=== PATIENT | female | born 1965 | race Caucasian/White ===

== ENCOUNTER → 2018-10-17 14:50 | Outpatient (CLI) | payer OTHER, SELFPAY ==
--- NOTE | 2018-10-17 14:54 | BI_ITS ---
MAMMOGRAPHY - BILATERAL SCREENING REASON FOR EXAM: Female, 53 years old. Routine annual screening examination. PERTINENT HISTORY: Mother with breast cancer. TECHNIQUE: Digital bilateral breast diane (3D mammographic acquisition) in the CC and MLO projections. 2-D mediolateral oblique (MLO) and craniocaudad (CC) views of both breasts were obtained. CAD: Full Field Digital Mammography with Computer Added Detection was performed. COMPARISON: Comparison is made with prior examination dated October 17, 2016 and March 14, 2015. FINDINGS: Breast Composition: There are scattered areas of fibroglandular density. There are no dominant masses or suspicious calcifications. A tissue clip marker is once again seen in the upper midportion of the left breast at approximately the 12:00 position. No other significant abnormalities are identified. There has been no significant change since the prior study. BI/SCREENING MAMM (CAD), BILAT IMPRESSION: Stable bilateral screening mammogram. Yearly follow-up mammogram recommended. (A) ASSESSMENT CATEGORY: BIRADS Category 2: Benign. A letter regarding these results will be sent to the patient by the facility within 30 days. Approximately 10% of breast cancers are not detected by mammography. A normal mammogram should not delay biopsy of a clinically suspicious abnormality. [id number] Electronically Signed: Brant Cherry MD at 13:07 EST Tel [phone], Service support ,
== END ==
PROVIDERS: Family Provider Nurse Practitioner; PCP Nurse Practitioner; Referring Provider Specialist; Visit Provider Specialist
DX: Z12.31 Encounter for screening mammogram for malignant neoplasm of breast (principal); Z80.3 Family history of malignant neoplasm of breast
CPT/HCPCS: 77063; 77067

== ENCOUNTER → 2019-10-20 07:27 | Outpatient (CLI) | payer OTHER, SELFPAY ==
--- NOTE | 2019-10-20 07:29 | BI_ITS ---
MAMMOGRAPHY - BILATERAL SCREENING REASON FOR EXAM: Female, 54 years old. Routine annual screening examination. PERTINENT HISTORY: Mother with breast cancer. Remote left stereotactic breast biopsy. TECHNIQUE: Digital bilateral breast fariha (3D mammographic acquisition) in the CC and MLO projections. 2-D mediolateral oblique (MLO) and craniocaudad (CC) views of both breasts were obtained. CAD: Full Field Digital Mammography with Computer Added Detection was performed. COMPARISON: Comparison is made with prior study dated October 17, 2018 and July 14, 2015. FINDINGS: Breast Composition: There are scattered areas of fibroglandular density. There are no dominant masses or suspicious calcifications. A tissue clip marker is once again seen in the upper midportion of the left breast. No other significant abnormalities are identified. There has been no significant change since the prior study. BI/SCREEN MAMM (CAD) W/FARIHA BILAT IMPRESSION: Stable bilateral screening mammogram. Yearly follow-up mammogram recommended. (A) ASSESSMENT CATEGORY: BIRADS Category 2: Benign. A letter regarding these results will be sent to the patient by the facility within 30 days. Approximately 10% of breast cancers are not detected by mammography. A normal mammogram should not delay biopsy of a clinically suspicious abnormality. [id number] Electronically Signed: Brant Cherry, at 8:45 EST , Service support ,
== END ==
PROVIDERS: Family Provider Nurse Practitioner; PCP Nurse Practitioner; Referring Provider Specialist; Visit Provider Specialist
DX: Z12.31 Encounter for screening mammogram for malignant neoplasm of breast (principal)
CPT/HCPCS: 77063; 77067

== ENCOUNTER → 2020-10-21 07:03 | Outpatient (CLI) | payer OTHER, SELFPAY ==
--- NOTE | 2020-10-21 07:10 | BI_ITS ---
MAMMOGRAPHY - BILATERAL SCREENING REASON FOR EXAM: Female, 55 years old. Routine annual screening examination. PERTINENT HISTORY: Mother with breast cancer. Remote left stereotactic breast biopsy. TECHNIQUE: Digital bilateral breast fariha (3D mammographic acquisition) in the CC and MLO projections. 2-D mediolateral oblique (MLO) and craniocaudad (CC) views of both breasts were obtained. CAD: Full Field Digital Mammography with Computer Added Detection was performed. COMPARISON: Comparison is made with prior study dated 10/20/2019 and 10/17/2018. FINDINGS: Breast Composition: There are scattered areas of fibroglandular density. There are no dominant masses or suspicious calcifications. Patient clip markers once again seen in the upper midportion of the left breast. No other significant abnormalities are identified. There has been no significant change since the prior study. BI/SCREEN MAMM (CAD) W/FARIHA BILAT IMPRESSION: Stable bilateral screening mammogram. Yearly follow-up mammogram recommended. (A) ASSESSMENT CATEGORY: BIRADS Category 2: Benign. A letter regarding these results will be sent to the patient by the facility within 30 days. Approximately 10% of breast cancers are not detected by mammography. A normal mammogram should not delay biopsy of a clinically suspicious abnormality. [id number] Electronically Signed: Brant Cherry, at 8:32 EST , Service support ,
== END ==
PROVIDERS: PCP Nurse Practitioner; Referring Provider Specialist; Visit Provider Specialist
DX: Z12.31 Encounter for screening mammogram for malignant neoplasm of breast (principal); Z80.3 Family history of malignant neoplasm of breast
CPT/HCPCS: 77063; 77067

== ENCOUNTER → 2021-10-11 09:05 | Outpatient (CLI) | payer OTHER, SELFPAY ==
--- NOTE | 2021-10-11 09:10 | BI_ITS ---
MAMMOGRAPHY - BILATERAL SCREENING REASON FOR EXAM: Female, 56 years old. Routine annual screening examination. PERTINENT HISTORY: Mother with breast cancer. Remote left stereotactic breast biopsy. TECHNIQUE: Digital bilateral breast fariha (3D mammographic acquisition) in the CC and MLO projections. 2-D mediolateral oblique (MLO) and craniocaudad (CC) views of both breasts were obtained. CAD: Full Field Digital Mammography with Computer Added Detection was performed. COMPARISON: Comparison is made with prior study 10/21/2020 and 10/20/2019. FINDINGS: Breast Composition: There are scattered areas of fibroglandular density. There are no dominant masses or suspicious calcifications. A tissue clip marker is once again seen in the upper central portion of the left breast. No other significant abnormalities are identified. There has been no significant change since the prior study. BI/SCRN MAMM (CAD)W/FARIHA BILAT IMPRESSION: Stable bilateral screening mammogram. Yearly follow-up mammogram recommended. (A) ASSESSMENT CATEGORY: BIRADS Category 2: Benign. A letter regarding these results will be sent to the patient by the facility within 30 days. Approximately 10% of breast cancers are not detected by mammography. A normal mammogram should not delay biopsy of a clinically suspicious abnormality. [id number] Electronically Signed: Brant Cherry MD at 10:24 EST , Service support ,
== END ==
PROVIDERS: PCP Nurse Practitioner; Referring Provider Specialist; Visit Provider Specialist
DX: Z12.31 Encounter for screening mammogram for malignant neoplasm of breast (principal); Z80.3 Family history of malignant neoplasm of breast
CPT/HCPCS: 77063; 77067

== ENCOUNTER → 2022-11-06 | Outpatient (CLI) | payer OTHER, SELFPAY ==
--- NOTE | 2022-11-06 07:18 | BI_ITS ---
MAMMOGRAPHY - BILATERAL SCREENING REASON FOR EXAM: Female, 57 years old. Routine annual screening examination. PERTINENT HISTORY: Mother with breast cancer. TECHNIQUE: Digital bilateral breast fariha (3D mammographic acquisition) in the CC and MLO projections. 2-D mediolateral oblique (MLO) and craniocaudad (CC) views of both breasts were obtained. CAD: Full Field Digital Mammography with Computer Added Detection was performed. COMPARISON: Comparison is made with prior study 10/11/2021 and 10/21/2020. FINDINGS: Breast Composition: There are scattered areas of fibroglandular density. There are no dominant masses or suspicious calcifications. A tissue clip marker is once again seen in the upper central portion of the left breast. No other significant abnormalities are identified. There has been no significant change since the prior study. BI/SCRN MAMM (CAD)W/FARIHA BILAT IMPRESSION: Stable bilateral screening mammogram. Yearly follow-up mammogram recommended. (A) ASSESSMENT CATEGORY: BIRADS Category 2: Benign. A letter regarding these results will be sent to the patient by the facility within 30 days. Approximately 10% of breast cancers are not detected by mammography. A normal mammogram should not delay biopsy of a clinically suspicious abnormality. [id number] Electronically Signed: Brant Cherry MD at 8:51 EST ,
== END | disposition home or self-care (01) ==
LOC: OPBI 07:16
PROVIDERS: PCP Nurse Practitioner Family; Referring Provider Specialist; Visit Provider Specialist
DX: Z12.31 Encounter for screening mammogram for malignant neoplasm of breast (principal); Z80.3 Family history of malignant neoplasm of breast
CPT/HCPCS: 77063; 77067

== ENCOUNTER → 2023-08-14 | Outpatient (CLI) | payer OTHER, SELFPAY ==
--- NOTE | 2023-08-14 08:09 | BD_ITS ---
STUDY: DUAL ENERGY X-RAY ABSORPTIOMETRY / DXA REASON FOR EXAM: Female, 57 years old. [id number] TECHNIQUE: Bone Mineral Density (BMD) measurements of lumbar spine and bilateral hips were obtained. COMPARISON: Comparison is made with prior study dated October 08, 2017. FINDINGS: Lumbar Spine (L1-L4): g/cm2 (1.056) / T-score (0.1) / Z-score (1.4) Findings are suggestive of normal bone density with a low fracture risk. Left Femur Total: g/cm2 (1.088) / T-score (1.2) / Z-score (2.1) Left Femoral Neck: g/cm2 (0.931) / T-score (0.7) / Z-score (2.0) Right Femur Total: g/cm2 (1.091) / T-score (1.2) / Z-score (2.1) Right Femoral Neck: g/cm2 (0.886) / T-score (0.3) / Z-score (1.6) The T-Scores on the most recent prior examination were: Lumbar Spine (L1-L4): There has been worsening of bone density since the previous examination. Left Femur Total: which represents a worsening of 9.9%. Right Femur Total: which represents a worsening of 7.9%. BD/Dexa Bone Density Study IMPRESSION: The patient is considered normal as outlined below according to World Tarun Organization (WHO) criteria with a low fracture risk. There has been worsening of bone density since the previous examination. Reference Information: The T-score is the number of standard deviations above or below the standard which is normal for young adults at their peak bone mineral density. The World Health Organization (WHO) interprets the T-scores as follows: Above -1 Normal bone density Between -1 and -2.5 Osteopenia Equal to / or below -2.5 Osteoporosis As a practical clinical guideline, osteopenia may be graded as follows: Mild -1 through -1.5 Moderate -1.6 through -2.0 Severe -2.1 through -2.4 The Z-score is the number of standard deviations above or below age-matched controls. A Z-score of less than -1.5 would be considered abnormal. References: 1. NIH Osteoporosis and Related Bone Diseases www osteo.org 2. International Society for Clinical Densitometry www iscd.org 3. National Osteoporosis Foundation www nof.org Electronically Signed: Brant Cherry MD at 13:29 EDT ,
== END | disposition home or self-care (01) ==
LOC: OPBD 07:59
PROVIDERS: PCP Nurse Practitioner Family; Referring Provider Nurse Practitioner Family; Visit Provider Nurse Practitioner Family
DX: Z78.0 Asymptomatic menopausal state (principal)
CPT/HCPCS: 77080

== ENCOUNTER → 2023-11-08 | Outpatient (CLI) | payer OTHER, SELFPAY ==
--- NOTE | 2023-11-08 07:37 | BI_ITS ---
MAMMOGRAPHY - BILATERAL SCREENING REASON FOR EXAM: Female, 58 years old. Routine annual screening examination. PERTINENT HISTORY: Mother with breast cancer. Remote left stereotactic breast biopsy. TECHNIQUE: Digital bilateral breast fariha (3D mammographic acquisition) in the CC and MLO projections. 2-D mediolateral oblique (MLO) and craniocaudad (CC) views of both breasts were obtained. CAD: Full Field Digital Mammography with Computer Added Detection was performed. COMPARISON: Comparison is made with prior study November 06, 2022 and October 11, 2021. FINDINGS: Breast Composition: There are scattered areas of fibroglandular density. There are no dominant masses or suspicious calcifications. A tissue clip marker is once again seen in the upper central portion of the left breast. No other significant abnormalities are identified. There has been no significant change since the prior study. BI/SCRN MAMM (CAD)W/FARIHA BILAT IMPRESSION: Stable bilateral screening mammogram. Yearly follow-up mammogram recommended. (A) ASSESSMENT CATEGORY: BIRADS Category 2: Benign. A letter regarding these results will be sent to the patient by the facility within 30 days. Approximately 10% of breast cancers are not detected by mammography. A normal mammogram should not delay biopsy of a clinically suspicious abnormality. [id number] Electronically Signed: Brant Cherry MD at 9:35 EST ,
== END | disposition home or self-care (01) ==
LOC: OPBI 07:36
PROVIDERS: PCP Nurse Practitioner Family; Referring Provider Specialist; Visit Provider Specialist
DX: Z12.31 Encounter for screening mammogram for malignant neoplasm of breast (principal); Z80.3 Family history of malignant neoplasm of breast
CPT/HCPCS: 77063; 77067

== ENCOUNTER → 2024-11-12 | Outpatient (CLI) | payer OTHER, SELFPAY ==
--- NOTE | 2024-11-12 07:12 | BI_ITS ---
MAMMOGRAPHY - BILATERAL SCREENING REASON FOR EXAM: Female, 59 years old. Routine annual screening examination. PERTINENT HISTORY: Mother with breast cancer. History of prior left stereotactic breast biopsy. TECHNIQUE: Digital bilateral breast fariha (3D mammographic acquisition) in the CC and MLO projections. 2-D mediolateral oblique (MLO) and craniocaudad (CC) views of both breasts were obtained. CAD: Full Field Digital Mammography with Computer Added Detection was performed. COMPARISON: Comparison is made with prior study dated November 08, 2023 and November 06, 2022. FINDINGS: Breast Composition: There are scattered areas of fibroglandular density. There are no dominant masses or suspicious calcifications. A tissue clip marker is seen in the upper central portion of the left breast. No other significant abnormalities are identified. There has been no significant change since the prior study. BI/SCRN MAMM (CAD)W/FARIHA BILAT IMPRESSION: Stable bilateral screening mammogram. Yearly follow-up mammogram recommended. (A) ASSESSMENT CATEGORY: BIRADS Category 2: Benign. A letter regarding these results will be sent to the patient by the facility within 30 days. Approximately 10% of breast cancers are not detected by mammography. A normal mammogram should not delay biopsy of a clinically suspicious abnormality. [id number] Electronically Signed: Brant Cherry MD at 8:28 EST ,
== END | disposition home or self-care (01) ==
LOC: OPBI 07:12
PROVIDERS: PCP Nurse Practitioner Family; Referring Provider Nurse Practitioner Family; Visit Provider Nurse Practitioner Family
DX: Z12.31 Encounter for screening mammogram for malignant neoplasm of breast (principal); Z80.3 Family history of malignant neoplasm of breast
CPT/HCPCS: 77063; 77067

== ENCOUNTER → 2025-06-10 | Outpatient (CLI) | payer OTHER, SELFPAY ==
--- NOTE | 2025-06-10 07:48 | US_ITS ---
PROCEDURE: ABD LIMITED W/ ELASTOGRAPHY, 06/10/2025 REASON FOR EXAM: FATTY LIVER COMPARISON: None TECHNIQUE: Grayscale and color Doppler imaging of the right upper quadrant was performed. Elastography was performed for non-invasive assessment of liver tissue stiffness utilizing a [email or web address] S-shear wave imaging unit. FINDINGS: Exam slightly limited by soft tissue attenuation. Liver: Borderline slightly coarsened echotexture. No overt serosal nodularity to confirm cirrhosis. 17.9 cm in length. Gallbladder: Unremarkable. Reportedly, sonographic Goss's was negative. Biliary tree: Unremarkable. CBD measures 4 mm. Pancreas: Partially obscured by shadowing bowel gas, grossly unremarkable as visualized. Right kidney: Unremarkable. 12.5 cm in length. Other: No visualized free fluid. Hepatic elastography: Number of measurements: 15 measurements across 3 regions, 5 measurements per region. US probe: CA1-7A. EQI median: 13.7 kPa EQI median velocity: 2.12 m/s IQR/Med: 19.5-27.6% (kPa) and 9.5-15.6% (m/s). If the IQR/Med is IQR/median >30% (for kPa) or >15% in m/s, the variance in the measurements is a large and the accuracy of the measurement may be in question. US/ABD Limited w/ Elastography IMPRESSION: 1. Borderline slightly coarsened echotexture which can be seen in chronic liver disease such as fibrosis. No overt serosal nodularity to confirm cirrhosis. Correlate for clinical and laboratory evidenc e of chronic liver disease. 2. Liver stiffness is 13.7 kPa. Per the below 2020 SRU criteria, this rules in compensated advanced chronic liver disease. Note that some above indices suggest a mildly suboptimal elastography data set. 3. Additional description as above. Assessment is per the Update to the SRU Liver Elastography Consensus Statement (2020) Note that the above assessment of liver fibrosis is vendor-neutral and intended for use in fibrosis related to viral etiologies and non-alcoholic fatty-liver disease (NAFLD); in causes other than viral hepat itis and NAFLD, the cutoff values are currently not well established. In some patients with NAFLD, the cutoff values for cACLD may be lower (7-9 kPa). Note also that in the setting of elevated LFTs, nonfasting or vascular congestion, the stage of lifer fibrosis may be overestimated. Previous SRU reference values: <1.37 m/s (5.7kPa): No to mild fibrosis 1.37 m/s - 2.2 m/s: Moderate to severe fibrosis >2.2 m/s (15kPa): Significant fibrosis / cirrhosis Reading Location: [id number]
== END | disposition home or self-care (01) ==
LOC: US 07:43
PROVIDERS: PCP Nurse Practitioner Family; Referring Provider Nurse Practitioner Family; Visit Provider Nurse Practitioner Family
DX: K76.0 Fatty (change of) liver, not elsewhere classified (principal)
CPT/HCPCS: 76705; 76981

== ENCOUNTER → 2025-10-12 | Outpatient (CLI) | payer OTHER, SELFPAY ==
--- OUTSIDE RECORDS SUMMARY | 2025-10-12 07:42 | XMS RPT_ITS | CCD ---
Author Organization [facility] Care Team Providers Care Order Entry Specialist Name Role Phone Jazlyn Delong Unavailable Sherice Dawn Unavailable Salomón Fisher Unavailable Unavailable Farrah Hidalgo Unavailable Unavailable Unavailable Unavailable Jolanta Watkins Unavailable Unavailable Pradeep Hensley Unavailable Salomón Hanson Unavailable Unavailable Jazlyn Delong CNP Unavailable Dr. Pradeep Hensley Unavailable [phone] Sherice Dawn MD Unavailable Maggie Hoyos LPN Unavailable Unavailable Salomón Hanson LPN Unavailable Unavailable Unavailable Unavailable Jazlyn Delong Unavailable Sherice Dawn MD Unavailable Manchak DOORPERSON OR LUGGAGE PORTER, Thuy Unavailable Unavailable Luna Doll DO Unavailable Jazlyn Delong Unavailable Sharmila LUCIANO Luna Unavailable Jonathan PULIDO Michael Unavailable Jonathan PULIDO Michael Unavailable Unavailable Unavailable Jolanta Watkins LPN Unavailable Unavailable Unavailable Primary Care Provider UnavailMichael Resendiz Primary Care Provider MICHAEL CASTILLO Referring Unavailable MICHAEL CASTILLO Primary Care Unavailable Unavailable Primary Care Provider UnavailCOLLEEN Shipley Attending Unavailable LEONA FLOWERS Attending Unavail able Jonathan HYDROGEN PLANT OPERATOR-C, Michael Primary Care Provider Jonathan HYDROGEN PLANT OPERATOR-C, Michael Attending Provider Jonathan HYDROGEN PLANT OPERATOR-C, Michael Referring Provider Michael Castillo Attending Unavailable Jonathan, Michael Referring Unavailable Michael Castillo Primary Care Unavailable Jonathan, Michael Attending Unavailable Jonathan, Michael Referring Unavailable Michael Castillo Primary Care Unavailable Michael Castillo Attending Unavailable Jonathan, Michael Referring Unavailable Jonathan, Michael Primary Care Unavailable Allergies Allergy Classification Reported Allergen(s) Allergy Type Date of Onset Reaction(s) Facility (20 sources) Any medications that start with Terra has sever allergic rhinitis allergy to substance [facility] Internal [facility] Work Phone: (5 sources) Oxytetracycline ; Translations: [OXYTETRACYCLIN E] Drug Allergy 10-20-20 09 Mental Status Change [facility] Work Phone: (1 source) ALLERGIES NOT ON FILE; Translations: [ALLERGIES NOT ON FILE] Propensity to adverse reactions (disorder) [facility] 2 Repository Medications Current Medications Medication Drug Class(es) Dates Sig (Normalized) Sig (Original) acetaminophen 500 mg / HYDROcodone bitartrate 5 mg oral tablet (4 sources) Opioid Agonist Start: 01-20-2013 take 1 tablet by mouth every six hours as needed acetaminophen-HYD ROcodone (VICODIN) 5-500 mg tablet Take 1 tablet by mouth every 6 hours as needed. 15 tablet 0 01/20/2013 Active Comment on above: Take 1 tablet by gabriel every 6 hours as needed. cholecalciferol, vitamin D3, (VITAMIN D3 ORAL) (4 sources) cholecalciferol, vitamin D3, (VITAMIN D3 ORAL) Take by mouth once daily. Active cholecalciferol, vitamin D3, (VITAMIN D3 ORAL) Take by mouth once daily. 0 Active Comment on above: Take by mouth once d aily. Cranberry preparation (4 sources) Non-Standardized Food Allergenic Extract, Non-Standardized Plant Allergenic Extract CRANBERRY ORAL Take by mouth once daily. Active CRANBERRY ORAL T rk by mouth once daily. 0 Active Comment on above: Take by mouth once d aily. erythromycin 0.005 mg/mg ophthalmic ointment (2 sources) Macrolide, Macrolide Antimicrobial Start: 025 apply 3.5 g into the eye(s) four times daily erythromycin (ROMYCIN) 5 mg/gram (0.5 %) ophthalmic ointment Four times a day to affected lid x 5 days 3.5 g 02/18/2025 Active hydroCHLOROthiazide 12.5 mg / losartan potassium 100 mg oral tablet (18 sources) Thiazide Diuretic, Angiotensin 2 Receptor Drake Start: 024 losartan-hydroCHLOR Othiazide (HYZAAR) 100-12.5 mg per tablet once daily. 01/17/2024 Active Start: 03-14-2022 take 1 tablet by gabriel th once daily losartan-hydrochlorothiazide 100-12.5 mg oral tablet 1 (one) Tablet daily for 90 days Quantity: 90 {Tablet} Refills: 3 Ordered: 26-Jul-2023 Michael Castillo CNP Start : 26-Jul-2023 Active Start: 02-02-2022 take 1 tablet by gabriel th once daily Losartan Potassium-HCTZ 100-12.5 MG Oral Tablet 1 (one) Tablet daily for 30 days Quantity: 30 {Tablet} Refills: 3 Ordered: 02-Feb-2022 Jazlyn Delong CNP, CNP, Mary E Start : 02-Feb-2022 Active Start: 01-31-2022 take 1 tablet by gabriel th once daily Losartan Potassium-HCTZ 100-12.5 MG Oral Tablet 1 (one) Tablet daily for 30 days Quantity: 30 {Tablet} Refills: 0 Ordered: 31-Jan-2022 Jazlyn Delong CNP, CNP, Mary E Start : 31-Jan-2022 Active Start: 10-06-2021 take 1 tablet by gabriel th once daily Losartan Potassium-HCTZ 100-12.5 MG Oral Tablet 1 (one) Tablet daily for 30 days Quantity: 30 {Tablet} Refills: 0 Ordered: 06-Oct-2021 Jazlyn Delong CNP, CNP, Mary E Start : 06-Oct-2021 Active Start: 10-04-2020 take 1 tablet by gabriel th once daily Losartan Potassium-HCTZ 100-12.5 MG Oral Tablet 1 (one) Tablet daily for 0 days Quantity: 90 {Tablet} Refills: 3 Ordered: 04-Oct-2020 Jazlyn Delong CNP, CNP, Mary E Start : 04-Oct-2020 Active Start: 01-20-2020 take 1 tablet by gabriel th once daily Losartan Potassium-HCTZ 100-12.5 MG Oral Tablet 1 (one) Tablet daily for 0 days Quantity: 90 {Tablet} Refills: 3 Ordered: 20-Jan-2020 Jazlyn Delong CNP, CNP, Mary E Start : 20-Jan-2020 Active Comment on above: once daily. Lactobacillus acidophilus (4 sources) Lactobacillus ac idophilus (PROBIOTIC ORAL) Take by mouth once daily. Active Lactobacillus ac idophilus (PROBIOTIC ORAL) Take by mouth once daily. 0 Active Comment on above: Take by mouth once d aily. mv-min/iron/folic/calcium/vi t K (WOMEN'S MULTIVITAMIN ORAL) (4 sources) mv-min/iron/foli c/calcium/vit K (WOMEN'S MULTIVITAMIN ORAL) Take by mouth once daily. Active mv-min/iron/foli c/calcium/vitK (WOMEN'S MULTIVITAMIN ORAL) Take by mouth once daily. 0 Active Comment on above: Take by mouth once d aily. phentermine hydrochloride 37.5 mg oral tablet (1 source) Sympathomimetic Amine Anorectic Start: End: take 40-44.9 tablets by mouth once daily before breakfast Phentermine HCl 37.5 mg tablet Indications: Class 3 severe obesity with serious comorbidity and body mass index (BMI) of 40.0 to 44.9 in adult, unspecified obesity type (HCC) Take 1 tablet by mouth daily before breakfast for 90 days. 90 tablet 0 03/11/2024 06/09/2024 Active Comment on above: Take 1 tablet by gabriel th daily before breakfast for 90 days. topiramate 50 mg oral tablet (5 sources) Start: End: take 1 tablet by mouth once daily topiramate (TOPAMAX) 50 mg tablet Take 1 tablet by mouth once daily. 90 tablet 03/11/2024 Active Comment on above: Take 1 tablet by gabriel th daily at bedtime. Take 1 tablet by gabriel th once daily. VITAMIN E ORAL (4 sources) VITAMIN E ORAL Take by mouth once daily. Active VITAMIN E ORAL T rk by mouth once daily. 0 Active Comment on above: Take by mouth once d aily. Completed/Discontinued Medications Medication Drug Class(es) Dates Sig (Normalized) Sig (Original) acetic acid 20 mg/ml / hydrocortisone 10 mg/ml otic solution (20 sources) Corticosteroid Start: 05-08-2017 End: 05-18-2017 Acetasol HC 2-1 % Otic Solution 2 (two) Metric Drop tid for 10 days Quantity: 1 {Bottle} Refills: 0 Ordered: 08-May-2017 Jazlyn Delong Start : 08-May-2017 End : 18-May-2017 Inactive amoxicillin 875 mg / clavulanate 125 mg oral tablet (9 sources) Penicillin-class Antibacterial Start: 04-11-2022 End: 04-21-2022 take 1 tablet by mouth twice daily Amoxicillin-Pot Clavulanate 875-125 MG Oral Tablet 1 (one) Tablet bid for 10 days Quantity: 20 {Tablet} Refills: 0 Ordered: 11-Apr-2022 Sharmila LUCIANO Luna Start : 11-Apr-2022 End : 21-Apr-2022 Inactive Start: 03-16-2022 take 1 tablet by gabriel twice daily Amoxicillin-Pot Clavulanate 875-125 MG Oral Tablet 1 (one) Tablet bid for 10 days Quantity: 20 {Tablet} Refills: 0 Ordered: 16-Mar-2022 Jazlyn Delong Mary Start : 16-Mar-2022 Active ascorbic acid 60 mg / beta carotene 5000 unt / copper sulfate 40 mg / dl-alpha tocopheryl acetate 30 unt / sodium selenite 0.04 mg / zinc oxide 40 mg oral tablet (1 source) Vitamin C Womens Multivita min Oral Tablet daily Active bifidobacterium animalis [id number] unt / lactobacillus acidophilus [id number] unt oral capsule (16 sources) take 1 capsule by mouth once daily Probiotic Advanced Oral Capsule daily Inactive take 1 capsule by mouth once nael ly Probiotic Advanced Oral Capsule daily Inactive budesonide 0.032 mg/actuat metered dose nasal spray (20 sources) Corticosteroid Start: 09-07-2009 End: 01-09-2013 RHINOCORT AQUA, 32MCG/ACT (Nasal Suspension) 1 Suspension 2puffs once daily for 0 days Quantity: 1 {Suspension} Refills: 0 Ordered: 09-Jan-2013 Monique Kim RN Start : 07-Sep-2009 End : 09-Jan-2013 Inactive buPROPion / Naltrexone (16 sources) Opioid Antagonist, Aminoketone Start: 08-15-2018 End: 10-02-2019 take 1 tablet by mouth once in the morning, then take 1 tablet by mouth twice daily, then take 2 tablets by mouth once daily in the morning, then take 1 tablet by mouth once daily in the evening, then take 2 tablets by mouth twice daily CONTRAVE, 8/ 90MG (Oral Tablet) (Free Text) 1 (one) Tablet 1 q am x 1 week, then 1 bid x 1 wk, then 2 tabs q qam, and 1 tab po qpm, x 1 week , the 2 bid for 0 days Quantity: 120 {Tablet} Refills: 2 Ordered: 02-Oct-2019 Jolanta Watkins LPN Start : 15-Aug-2018 End : 02-Oct-2019 Inactive Comments: avoid high fat meal Start: 08-15-2018 take 1 tablet by gabriel th once in the morning, then take 1 tablet by mouth twice daily, then take 2 tablets by mouth once daily in the morning, then take 1 tablet by mouth once daily in the evening, then take 2 tablets by mouth twice daily CONTRAVE, 8/ 90MG (Oral Tablet) (Free Text) 1 (one) Tablet 1 q am x 1 week, then 1 bid x 1 wk, then 2 tabs q qam, and 1 tab po qpm, x 1 week , the 2 bid for 0 days Quantity: 120 {Tablet} Refills: 2 Ordered: 15-Aug-2018 Jazlyn Delong CNP, CNP, Mary E Start : 15-Aug-2018 Active Comments: avoid high fat meal Comment on above: avoid high fat meal cholecalciferol 0.05 mg oral tablet (20 sources) Vitamin D Start: 10-04-2017 End: 10-17-2021 take 1 tablet by mouth once daily Vitamin D3 Super Strength 50 MCG (1999 UT) Oral Tablet 1 (one) Tablet Tablet daily for 0 days Quantity: 30 {Tablet} Refills: 0 Ordered: 17-Oct-2021 Maggie Hoyos LPN Start : 04-Oct-2017 End : 17-Oct-2021 Inactive Vitamin D qd [place] ctive Collagen (15 sources) Collagen Active desoximetasone 2.5 mg/ml topical cream (20 sources) Corticosteroid Start: 08-15-2018 End: 08-29-2018 Topicort 0.25 % External Cream 1 Cream bid for 14 days Quantity: 1 {Tube} Refills: 0 Ordered: 15-Aug-2018 Jazlyn Delong Start : 15-Aug-2018 End : 29-Aug-2018 Inactive Start: 02-23-2010 End: 01-09-2013 TOPICORT LP, 0.05% (External Cream) apply to affected area sparing Cream bid for 0 days Quantity: 30 {Cream} Refills: 1 Ordered: 09-Jan-2013 Monique Kim RN Start : 23-Feb-2010 End : 09-Jan-2013 Discontinued Comments: This order discontinued per [facility]. Comment on above: This order discontin ued per -[facility]. diphenhydrAMINE hydrochloride 25 mg oral capsule (14 sources) Histamine-1 Receptor Antagonist take 2 capsules by mouth once daily at bedtime Benadryl 25 MG Oral Capsule 2 qhs (25 MG) Inactive ergocalciferol 1.25 mg oral capsule (20 sources) Provitamin D2 Compound Start : 08-28 End: 05-08 Ergocalciferol 06574 UNIT Oral Capsule 1 (one) Capsule twice weekly x 3 months for 0 days Quantity: 24 {QS} Refills: 0 Ordered: 08-May-2017 Thuy Belle CMA Start : 28-Aug-2016 End : 08-May-2017 Inactive 12 hr fexofenadine hydrochloride 60 mg / pseudoephedrine hydrochloride 120 mg extended release oral tablet (20 sources) alpha-Adrenergic Agonist, Histamine-1 Receptor Antagonist Start : 09-07 End: 01-09 take 60-120 mg by mouth every twelve hours LANNY-D 12 HOUR, 60-120MG (Oral Tablet Extended Release 12 Hour) 1 Tablet ER 12HR q12hr for 0 days Quantity: 15 {Tablet_ER_12HR} Refills: 0 Ordered: 07-Sep-2009 Monique Kim RN Start : 07-Sep-2009 End : 09-Jan-2013 Discontinued Comments: This order discontinued per [facility]. Comment on above: This order discontin ued per [facility]. hydroCHLOROthiazide 12.5 mg oral tablet (20 sources) Thiazide Diuretic Start : 10-07 End: 10-21 take 1 tablet by mouth once daily hydroCHLOROthiazide 12.5 MG Oral Tablet 1 (one) Tablet daily for 0 days Quantity: 30 {Tablet} Refills: 1 Ordered: 21-Oct-2019 Jazlyn Delong Start : 07-Oct-2019 End : 21-Oct-2019 Inactive Start: 10-02-2019 take 1 tablet by gabriel once daily hydroCHLOROthiazide 12.5 MG Oral Tablet 1 (one) Tablet daily for 0 days Quantity: 30 {Tablet} Refills: 1 Ordered: 02-Oct-2019 Jazlyn Delong CNP, CNP, Mary E Start : 02-Oct-2019 Active K3D2 (15 sources) K3D2 Active LORazepam 0.5 mg oral tablet (4 sources) Benzodiazepine Start: 07-26-20 23 take 1 tablet by mouth every eight hours as needed LORazepam 0.5 mg oral tablet 1 (one) tablet every 8 hours as needed for anxiety for 0 days Quantity: 30 {Tablet} Refills: 0 Ordered: 30-Jul-2023 Jonathan Michael PULIDO Start : 30-Jul-2023 Active Comments: Medication taken as needed. stress reaction F43.0OARRS ranthirty Comment on above: Medication taken as needed. stress reaction F43.0OARRS ranthirty losartan potassium 25 mg oral tablet (19 sources) Angiotensin 2 Receptor Drake Start: 10-07-20 19 End: 10-21-20 19 take 1 tablet by mouth once daily Losartan Potassium 25 MG Oral Tablet 1 (one) Tablet daily as directed for 0 days Quantity: 30 {Tablet} Refills: 0 Ordered: 21-Oct-2019 Jazlyn Delong Start : 07-Oct-2019 End : 21-Oct-2019 Inactive methIMAzole 10 mg oral tablet (20 sources) Thyroid Hormone Synthesis Inhibitor Start: 07-22-20 15 End: 05-08-20 17 take 1 tablet by mouth once daily MethIMAzole 10 MG Oral Tablet 1 (one) Tablet Tablet qd for 0 days Quantity: 30 {Tablet} Refills: 0 Ordered: 08-May-2017 Thuy Belle CMA Start : 22-Jul-2015 End : 08-May-2017 Inactive metroNIDAZOLE 0.0075 mg/mg topical gel (4 sources) Nitroimidazole Antimicrobial Start: 07-26-20 23 metroNIDAZOLE 0.75 % topical gel 1 (one) Application Apply a thin layer to full face twice daily for 0 days Quantity: 45 {Gram} Refills: 6 Ordered: 26-Jul-2023 Jonathan TESSMichael Start : 26-Jul-2023 Active Multivitamin preparation (20 sources) End: 08-20-20 16 MULTIVITAMIN (Oral Liquid) 1 (one) qd End : 20-Aug-2016 Discontinued nitrofurantoin, macrocrystals 25 mg / nitrofurantoin, monohydrate 75 mg oral capsule (12 sources) Nitrofuran Antibacterial Start: 03-14-20 End: 03-21-20 take 1 capsule by mouth twice daily Macrobid 100 MG Oral Capsule 1 (one) Capsule two times daily for 7 days Quantity: 14 {Capsule} Refills: 0 Ordered: 14-Mar-2022 Jazlyn Delong Start : 14-Mar-2022 End : 21-Mar-2022 Inactive Start: 10-16-2021 End: 10-26-2021 take 1 capsule by mouth twice daily Macrobid 100 MG Oral Capsule 1 (one) Capsule two times daily for 10 days Quantity: 20 {Capsule} Refills: 0 Ordered: 16-Oct-2021 Charles Hoyos LPNcy Start : 16-Oct-2021 End : 26-Oct-2021 Inactive predniSONE 10 mg oral tablet (20 sources) Start: 08-06-2018 End: 08-13-2018 take 3 tablets by mouth once daily at mealtime PredniSONE 10 MG Oral Tablet 3 (three) Tablet daily for 7 days Quantity: 21 {Tablet} Refills: 0 Ordered: 06-Aug-2018 Jazlyn Delong Start : 06-Aug-2018 End : 13-Aug-2018 Inactive Comments: with food Start: 02-23-2010 End: 03-07-2010 take 1 tablet by mouth twice daily, then take 1 tablet by mouth once daily, then take 0.5 tablet by mouth once daily PREDNISONE, 20MG (Oral Tablet) tad Tablet uad for 12 days Quantity: 14 {Tablet} Refills: 0 Ordered: 05-Jan-2013 Luna Doll DO Start : 23-Feb-2010 End : 07-Mar-2010 Inactive Comments: 1 tab bid for 4 days then 1 tab daily for 4 days then 1/2 tab daily for 4 Comment on above: with food 1 tab bid for 4 days then 1 tab daily for 4 days then 1/2 tab daily for 4 Probiotic Advanced Oral Capsule (1 source) take 1 capsule by mouth once daily Probiotic Advanced Oral Capsule daily Inactive Probiotic Advanced Oral Capsule (6 sources) take 1 capsule by mouth once daily Probiotic Advanced Oral Capsule daily Inactive Probiotic Oral Tablet Delayed Release (14 sources) Probiotic Oral T ablet Delayed Release Inactive Probiotic Oral T ablet Delayed Release Active Reshape/Relaimed proprietary non molecular blend 832 mcg (15 sources) Reshape/Relaimed proprietary non molecular blend 832 mcg Inactive Reshape/Relaimed proprietary non molecular blend 832 mcg Active sibutramine hydrochloride 10 mg oral capsule (20 sources) Start: 02-03-2009 End: 09-07-2009 take 1 capsule by mouth once daily MERIDIA, 10MG (Oral Capsule) Capsule QD for 0 days Quantity: 30 {Capsule} Refills: 0 Ordered: 03-Feb-2009 Rehana Castaneda Start : 03-Feb-2009 End : 07-Sep-2009 Inactive Vitamin D (10 sources) Vitamin D qd [place] ctive Womens Multivitamin Oral Tablet (20 sources) Womens Multivita min Oral Tablet daily Active NEGATED: Highlighted row has not occurred!drug or medication (11 sources) No Known Histori rodo Medications NEGATED: Highlighted row has not occurred!No Known Historical Medications (5 sources) No Known Histori rodo Medications Problems Active Problems Problem Classification Problem Date Documented Date Episodic/Chronic Administrative/social admission (20 sources) Patient encounter status; Translations: [Nutritional counseling] 10-17-2021 Episodic Allergic reactions (20 sources) Contact dermatitis due to plants, except food; Translations: [Disorders of skin induced by physical agents] 08-15-2018 Episodic Anxiety disorders (8 sources) Acute stress disorder; Translations: [Stress reaction] 07-26-2023 Chronic Benign neoplasm of uterus (20 sources) Intramural leiomyoma of uterus; Translations: [Intramural leiomyoma of uterus] 08-15-2018 Episodic Comment on above: will do surgery senait use symtpomatic. willhave surgery in next month ANASTACIO burks Disorders of lipid metabolism (8 sources) Hyperlipidemia; Translations: [Hyperlipidemia] Onset: 01-22-2024 07-29-2023 Chronic Essential hypertension (20 sources) Hypertensive disorder; Translations: [Hypertension] Onset: 01-22-2024 05-17-2020 Chronic Comment on above: Dash diet instructio ns, continue low sodium on losartan hctz stable. continue cur rent medications. Genitourinary symptoms and ill-defined conditions (20 sources) Abnormal urine; Translations: [Abnormal urine] Resolved: 07-25-2023 10-17-2021 Episodic Headache; including migraine (20 sources) Headache; Translations: [Headache] 08-15-2018 Episodic Malaise and fatigue (20 sources) Fatigue; Translations: [Fatigue] 08-15-2018 Episodic Menstrual disorders (20 sources) Irregular periods; Translations: [Irregular menstrual cycle] 08-15-2018 Chronic Comment on above: see Dr. Dasilva Neoplasms of unspecified nature or uncertain behavior (20 sources) Neoplasm of uncertain behavior of skin; Translations: [Neoplasm of uncertain behavior of skin] Resolved: 03-28-2015 10-17-2015 Episodic Nutritional deficiencies (20 sources) Vitamin D deficiency; Translations: [Vitamin D deficiency] 08-15-2018 Chronic Comment on above: on vitamin D and mul tivit Other circulatory disease (20 sources) Elevated blood pressure; Translations: [Elevated blood pressure reading] Resolved: 05-17-2020 08-15-2018 Episodic Other ear and sense organ disorders (19 sources) Otitis externa; Translations: [Unspecified otitis externa (Renamed from Otitis externa)] Resolved: 04-18-2018 10-02-2019 Chronic Other ear and sense organ disorders (16 sources) Bilateral earache; Translations: [Otalgia, bilateral] Resolved: 07-25-2023 04-11-2022 Episodic Other inflammatory condition of skin (20 sources) Itching ; Translations: [Itching] Resolved: 10-02-2019 08-15-2018 Episodic Other liver diseases (1 source) Fatty (change of) liver, not elsewhere classified; Translations: [Fatty (change of) liver, not elsewhere classified] Onset: 09-20-2025 Chronic Other lower respiratory disease (20 sources) Cough; Translations: [Cough] Resolved: 03-28-2015 10-25-2015 Episodic Other nervous system disorders (20 sources) Abnormal involuntary movement; Translations: [Unspecified abnormal involuntary movements] Resolved: 10-02-2019 08-15-2018 Episodic Comment on above: related to thyriod.. .better with treatment Other nervous system disorders (20 sources) Tremor Episodic Other non-traumatic joint disorders (20 sources) Knee pain; Translations: [Pain in unspecified knee] Resolved: 03-28-2015 03-28-2015 Episodic Comment on above: ? relate to weight. gave exercises Other nutritional; endocrine; and metabolic disorders (20 sources) Obesity; Translations: [Obesity] 08-15-2018 Chronic Comment on above: sleeps well, replaci ng Vit d, low rodo diet, has done cleanse Other nutritional; endocrine; and metabolic disorders (20 sources) Body mass index 40+ - severely obese; Translations: [BMI 40.0-44.9, adult] Resolved: 10-04-2017 10-02-2019 Chronic Other nutritional; endocrine; and metabolic disorders (20 sources) Body mass index 30+ - obesity; Translations: [BMI 35.0-35.9,adult] 10-05-2019 Chronic Other nutritional; endocrine; and metabolic disorders (5 sources) Severe obesity; Translations: [Morbid (severe) obesity due to excess calories] Onset: 01-22-2024 01-17-2024 Chronic Other nutritional; endocrine; and metabolic disorders (1 source) Morbid (severe) obesity due to excess calories; Translations: [Class 3 severe obesity with serious comorbidity and body mass index (BMI) of 40.0 to 44.9 in adult, unspecified obesity type (HCC)] Onset: 01-22-2024 Chronic Other nutritional; endocrine; and metabolic disorders (1 source) Body mass index (BMI) 40.0-44.9, adult; Translations: [Class 3 severe obesity with serious comorbidity and body mass index (BMI) of 40.0 to 44.9 in adult, unspecified obesity type (HCC)] Onset: 01-22-2024 Chronic Other nutritional; endocrine; and metabolic disorders (20 sources) Personal history of other endocrine, nutritional and metabolic disease; Translations: [History of Graves' disease] 08-15-2018 Episodic Other upper respiratory infections (15 sources) Acute sinusitis; Translations: [Sinusitis, acute] 04-11-2022 Episodic Otitis media and related conditions (20 sources) Dysfunction of right eustachian tube; Translations: [Dysfunction of right eustachian tube] Resolved: 04-18-2018 10-02-2019 Episodic Residual codes; unclassified (20 sources) Postmenopausal state; Translations: [Postmenopausal (Renamed from Postmenopausal status)] 08-15-2018 Episodic Residual codes; unclassified (20 sources) H/O: hysterectomy; Translations: [H/O: hysterectomy] 08-15-2018 Episodic Comment on above: still has ovary Residual codes; unclassified (20 sources) Non-smoker; Translations: [Nonsmoker] 10-17-2021 Episodic Residual codes; unclassified (1 source) Asymptomatic menopausal state; Translations: [Asymptomatic menopausal state] Onset: 10-04-2025 Episodic Spondylosis; intervertebral disc disorders; other back problems (20 sources) Low back pain; Translations: [Low back pain] Resolved: 03-28-2015 03-28-2015 Episodic Comment on above: L4/L5 had physical t herapy , has back stiffness and soreness from time to time Thyroid disorders (20 sources) Hyperthyroidism; Translations: [Hyperthyroidism] Resolved: 04-18-2018 10-02-2019 Chronic Unclassified (20 sources) Unclassified (20 sources) Contact dermatitis and other eczema due to plants (except food) (692.6) Unclassified (20 sources) Non-smoker; Translations: [Nonsmoker] 10-02-2019 Unclassified (20 sources) Patient encounter status; Translations: [Nutritional counseling] Resolved: 07-22-2015 08-15-2018 Comment on above: outside off BP good. little nervous in office. pap and pelvic yearly through Dr. dasilva. mammo good yearly. due now for colonscopy Unclassified (20 sources) History of Graves' disease Unclassified (20 sources) BMI 40.0-44.9, adult Unclassified (16 sources) Varicose veins of lower extremities Unclassified (20 sources) Elevated blood pressure reading Unclassified (16 sources) Common wart Unclassified (16 sources) Postmenopausal (Renamed from Postmenopausal status) Unclassified (20 sources) BMI 38.0-38.9,adult Unclassified (7 sources) BMI 35.0-35.9,adult Unclassified (7 sources) Screen for colon cancer Unclassified (5 sources) Encounter for annual general medical examination with abnormal findings in adult Urinary tract infections (20 sources) Urinary tract infectious disease; Translations: [UTI (urinary tract infection)] 10-17-2021 Episodic Comment on above: on macrobid >100,000 strep will add a cillin Varicose veins of lower extremity (20 sources) Varicose veins of lower extremity; Translations: [Varicose veins of lower extremities] 08-15-2018 Episodic Comment on above: Dr. Denny had vein s tripping x2 bilateral legs Viral infection (20 sources) Viral infection, unspecified; Translations: [Verruca vulgaris] Resolved: 10-02-2019 08-15-2018 Episodic Comment on above: removed trilium ashleigh k Past or Other Problems Problem Classification Problem Date Documented Date Episodic/Chronic Diabetes mellitus without complication (2 sources) Prediabetes; Translations: [Prediabetes] Onset: 03-11-2024 01-17-2024 Episodic Other ear and sense organ disorders (11 sources) Otitis externa; Translations: [Unspecified otitis externa (Renamed from Otitis externa)] Resolved: 04-18-2018 10-02-2019 Episodic Other non-traumatic joint disorders (12 sources) Pain in unspecified knee; Translations: [Knee pain] Resolved: 03-28-2015 03-28-2015 Episodic Comment on above: ? relate to weight. gave exercises Other screening for suspected conditions (not mental disorders or infectious disease) (20 sources) Breast neoplasm screening status; Translations: [Patient encounter status] Onset: 12-15-2024 Resolved: 07-22-2015 07-22-2015 Episodic Otitis media and related conditions (11 sources) Dysfunction of right eustachian tube; Translations: [Dysfunction of right eustachian tube] Resolved: 04-18-2018 10-02-2019 Unclassified (20 sources) Abortions/Miscarriag es; Translations: [Abortions/Miscarria ges] 10-02-2019 Comment on above: 1 miscarriage Unclassified (20 sources) WW Resolved: 05-10-2009 03-28-2015 Comment on above: Dr. dasilva Unclassified (20 sources) Irregular Menstraul Cycle (626.4) Unclassified (20 sources) Varicose Veins of Lower Extremities (454.1) Unclassified (20 sources) Deliveries (Parity); Translations: [Deliveries (Parity)] 10-02-2019 Comment on above: Term, 2 Unclassified (20 sources) Lesion-Unknown behavior (238.2) Unclassified (16 sources) Symptom, Cough (786.2) Unclassified (20 sources) Pregnancies (); Translations: [Pregnancies ()] 10-02-2019 Comment on above: 3 Unclassified (11 sources) Preprocedural examination done; Translations: [Pre-operative examination] 08-15-2018 Comment on above: will have ANASTACIO no BSO . low risk will be getting labs including thyriod to assure good prior. she willbe going to preop testing and get ekg. if ekg and labs normal then is cleared. tetanus 2009 Unclassified (20 sources) Unspecified Diagnosis 10-02-2019 Unclassified (20 sources) PRE-OPERATIVE EXAMINATION, UNSPECIFIED (V72.84) Unclassified (20 sources) WWV V73.21 08-15-2018 Comment on above: colonscopy -15 poly p repeat 5 years. pap done recent and palnning anastacio Unclassified (16 sources) PHYSICAL EXAM, ROUTINE (V70.0) Unclassified (16 sources) Unspecified otitis externa (Renamed from Otitis externa) Unclassified (16 sources) Dysfunction of right eustachian tube Unclassified (7 sources) Wart of face Unclassified (2 sources) Urinary urgency Unclassified (1 source) Non-smoker Unclassified (1 source) ETD (Eustachian tube dysfunction), bilateral Unclassified (1 source) Sinusitis, acute Urinary tract infections (5 sources) Urinary tract infections Results Test Name Value Interpretation Reference Range Facility ABD Limited w/ Elastography n 06-10-2025 ABD Limited w/ Elastography [facility] Imaging Services [address] [place] [address] ABD Limited w/ Elastography MR#: [id number] Acct: [id number] Name: JODY MERINO Rep #: [id number] : 1965 F 59 From: Jr Appiah MD PCP: Michael Castillo, HYDROGEN PLANT OPERATOR-C Status: REG CLI Study: ABD Limited w/ Elastography Date of Exam: 06/01 Exam# [id number] Ordering Dr: Michael Castillo HYDROGEN PLANT OPERATORChesterC PROCEDURE: ABD LIMITED W/ ELASTOGRAPHY, 06/10/2025 REASON FOR EXAM: FATTY LIVER COMPARISON: None TECHNIQUE: Grayscale and color Doppler imaging of the right upper quadrant was performed. Elastography was performed for non-invasive assessment of liver tissue stiffness utilizing a [employer] S-shear wave imaging unit. FINDINGS: Exam slightly limited by soft tissue attenuation. Liver: Borderline slightly coarsened echotexture. No overt serosal nodularity to confirm cirrhosis. 17.9 cm in length. Gallbladder: Unremarkable. Reportedly, sonographic Goss's was negative. Biliary tree: Unremarkable. CBD measures 4 mm. Pancreas: Partially obscured by shadowing bowel gas, grossly unremarkable as visualized. Right kidney: Unremarkable. 12.5 cm in length. Other: No visualized free fluid. Hepatic elastography: Number of measurements: 15 measurements across 3 regions, 5 measurements per region. US probe: CA1-7A. EQI median: 13.7 kPa EQI median velocity: 2.12 m/s IQR/Med: 19.5-27.6% (kPa) and 9.5-15.6% (m/s). If the IQR/Med is IQR/median >30% (for kPa) or >15% in m/s, the variance in the measurements is a large and the accuracy of the measurement may be in question. US/ABD Limited w/ Elastography IMPRESSION: 1. Borderline slightly coarsened echotexture which can be seen in chronic liver disease such as fibrosis. No overt serosal nodularity to confirm cirrhosis. Correlate for clinical and laboratory evidence of chronic liver disease. 2. Liver stiffness is 13.7 kPa. Per the below 2020 SRU criteria, this rules in compensated advanced chronic liver disease. Note that some above indices suggest a mildly suboptimal elastography data set. 3. Additional description as above. Assessment is per the Update to the SRU Liver Elastography Consensus Statement (2020) Note that the above assessment of liver fibrosis is vendor-neutral and intended for use in fibrosis related to viral etiologies and non-alcoholic fatty-liver disease (NAFLD); in causes other than viral hepatitis and NAFLD, the cutoff values are currently not well established. In some patients with NAFLD, the cutoff values for cACLD may be lower (7-9 kPa). Note also that in the setting of elevated LFTs, nonfasting or vascular congestion, the stage of lifer fibrosis may be overestimated. Previous SRU reference values: <1.37 m/s (5.7kPa): No to mild fibrosis 1.37 m/s - 2.2 m/s: Moderate to severe fibrosis >2.2 m/s (15kPa): Significant fibrosis / cirrhosis Reading Location: [id number] CC: IVAN Castillo Cherry Sorter: Signed Normal [facility] LESION EXCISION, FULL THICKN ESS 0.5CM OR LESS, EYELID/FACEon 02-22-2025 [facility] Pathology biopsy report Ta (Tiss)Ordered By: Elda Bingham on 02-22-2025 Case Report Surgical Pathology Report Case: [id number] Authorizing Provider: Colleen Parrish APRN.SAMPLE CLERK Collected: 02/18/2025 10:30 AM Ordering Location: Ophthalmology Received: 02/18/2025 10:40 PM Pathologist: Elda Bingham MD Specimen: Eyelid, Left, lower medial [facility] Work Phone: Clinical History t3ffoWWuYDBwv4waJWEc bGFu IrBuSeYxVqZyXrx1UQNqmmJ0 Oxq7FALgAFozvV6rSUGzKBgb W9arkmQskQNcQPTwLWg5wJ4v rSsseX2lBmVqYiVjXYVoEVTv s78reTQkHY2= [facility] Work Phone: Disclaimer o0heqDSoCIZgu8kiXEFe bGFu ZzEwMzNcZnRuYmpcdWMxIHtc emEkDIzefYqsXVEbCYVvl7uh c4evqTEsFLAws2pda0UyxNWx jKMbUImbfVBdwiBiqv18lUS9 mS16TW4sNMYxLiU7GGRjyjR5 Afn5UBBvZBZzxHAiZ168o0bs k7dnvnGzcRY5JROqZHWgZ2Rc UH1jQANzzXZjD30evOOiNAZ4 FVVsTWFxvTXnOYQtBRL8QDIf pMZiD3sbMBGqGR8zajmrENef BLwsZOCinCC9RKMehTEgM1Ow KXTuIElvRFMspia8RjXgWq0o qAGdmBcmQPsiD5vknA1gZeV1 QZcbY4srfP3jCZi4UVwxOXNf eER4lwX1GNKnlITpI0AndV7l JAKpEQ2ipat1p1wlQSN9QPcl GDPpQjS1gcT6DFWgpOThZHfw hKFnyldvMVEeTASsA4QcCRbi Tz5sSSDsquvrVHB3ILyzgDUy ZQMmc6FfXOdFPBbbILpkL0sk tF6eurmguQKpRJVvAYQbOCQF EIXtd9NoCD1bNYVycFFzBTJ3 EPLon0FtD8Bvx0MpxY5bvS2l pBjciJ6ktYAwtJWirIodgN4y rS6cMdx4v1Zoj3VrbmZzFGWc MORcjBUpgO7fOG7nPpTuqw2b lWH9HSs7DsTlZZt7XMBoa25e eABscAGtsJW9RHUxRVOqCDZd dGVybWluZWQgYnkgdGhlIHBl nsGivi9uatxroGXhm5OzeC2m oBH4aIHldN0iA9mgieQxYC6y ZCDhbE5wVjsyOMFxTqLbrNZJ RbADc84bbRHbXDJalDjdqL8l fFEgazDfPDXun7HdmP1stMOE HGIoS9qkLSVMPJZvfmFpGN60 EZvWIVxgZEAkhOQ1epCYp1Gs rVOjvHtkTVyin61jU3GoUKRb pYASe3FwlLHysWfpXlorjtsd CEOKGYZ6s15uDM6rxTw1WQda QQ3tqnG7XFnli7QxqGNlYPCQ mvBzZH7xUvy5JHQqAXHzxLMl mKWMWT20JURpTP1ppzAgnfBQ GULliSjxAg8jqEzkWI2eyHz7 UXqbNS3kCJFpqQ5zAJdxu7Dn oFPdWXYncaOfGK5blj8fanZm l84zxRM5JJ77MSngoWyyA5zO ZWShNWO2hKUkjUVyqGBqVK3g FAIurvQro0BkGR3iBPLzPQRv JTJoi2YyEB1ycUQgz5HspQC8 WOLwAZZcULBrEKWyRLFqb4Ec NXCwsn36XUXwAzdzyZcrFVOD MG1dJrYmFZvJCRzaTPPsE4Cg FRHsKTF3ccFsnvGFFIoDEEEz WSS5BKezLptoGMQ9kkCdLJYb o3TnJMdjJ0fgW00kkZtglRb7 sJF8MLV0vV1tMxQBtHUeRPL0 SMR1spBtcaWjnPIoPNMkc6Fi N0dzqunxFHivePVrmU9cDVMp TGQmOSXgSGXux1KkIAXav9Qx VzNtphHuIISvEFTpERQkaT33 RGS4sKavtLwhokXnLZ5bZSQr geQeSOBcXKWqrA2eNK3vcSCc gtKqVH5cKL2qX9N9bARiQLGf moLrf7jnVSU1WOstZDGyxNOk tUKvIUZskGbsXIUkof23 [facility] Work Phone: FINAL DIAGNOSIS f8nljLGjYFPcrFHfNTIm NVxh ajWtBCBurEEsU2WpindqIOvp OS1fIM4jxUrnhWNgyJZoHUJs ExGnu7zwd408kDXmj3euVWFZ igmxnNb1yIgpN54hy7B8Fkpc X05luZWgYOZ0PFQaBWKdwJPf GNFcFAC7IXDzwRVgY0mpPPLx GU8luxchSWdsIVlvYWSaeRC4 IXQrfGGwI8OoBCBjMMhxFISp gyu7MfMnUx9vuKJfvXxvYBxq HFVqSJYaEBkxHBNxRsSlJP1y YIIbgC4hQGM3JPukLXkwjWPr cGWhd6faqwTiHCLxSEflLAXb FPUtWKZvx8WhySeiyJZfLJ1s HJCbL7ArcnEhvTnjcf5knJX5 g43tXpxyRFQjOROGsQgmHOAn WBjkfP0xxXAxoS5bSHW2o2Gy NWEexnkbNGXeB2YgHdDVNFWg MjQvMjAyNVxwYXJ9 [facility] Work Phone: Gross Description o5vklDInJPAhkKOBAUVu MDJc YL9chMztkFb9nMghASBatmS1 dWIvKZofh3yeLNT7e8cxcjRV NgkvILVfAM7wZGgwBTVdYR6u ZmUwXGRlZmYxXHBhcGVydzEy WcOlZDAiyCKgvTY2RUWvYK0b rpzzTYmlQQshBRKjkuU9GNZp qAOmD7LdUQHmOJ1wigkfBFI4 JCRJQhxxNg8smYDbeDcmPkYf ByWmZUGnKPPeZUOzh3hivdHI vfkswPr6oZ8FYEAqT7ClMU0E t1slOWQuaISoJCK5RQxeq6oh JFvnYMR1DUZwQLPuMSLiNO5C SzFlEIc6SLd8QrJgMmM2RYm6 VGWYYZMtBZQ8For7LZxoZEk1 OTkgXFxuaCBcXHQgMSBcXGZs RNgnxrL5w6lqHQFpoMRqWDO9 CQsfy4ngMXqjGJK5AEVkOsMq PUHmBO3UDdSbFBt4LPs1PjTi IwT5VLp2QIAGIhZaHlYfKnp2 JsFqNTylMKc0YSy6YBaCUoTk YFW1LHF1VXPdJBL3IYZ8BmDh XHQgMiBcXHNzIDMgXFxmbCBc IC1dfAsgQMCbQR9NMUPqCGem HQXwIjHpMV9lRBiseIweEXTW YKF6VNp2ntVrAESpUyBtbDFm AJ8VMSLtpsNpOZcpbSisvJ5v bREiB0snHhIvNilqyMlpYgWj aNKzHxOxEXvxzAOhfGHeVO2Y PBDoEkQvJtQhYVu8BGUhxH7c Mb5oySZorR5aiHGrWEOsRqUu mRBgKqOceBDaSdPoJ88wd6dd luAyx1Xep1sukf6rQWwqZQFz XRMytTSvVKlsPFSuh0LaeVBn EoQUm4KomGp6GIZ6Xn3qrFCv JWPhqeWmxsBtP7Jxy6K7cVIz XQnqZBIcQYlqdYDdCB5VU90D LV1rmjVpOAQfBYLsNDL0XWe2 LZIzZY2eyJTzCW2ZCAAvulSC PyeyHCJtMPDayLGKe9ScRJGD Odosg3YgTOO9RN4zroD1cW3n ZCEoshEhlc0uUKDqvKZTbUI6 ELqxpuRdS4amfnqkRNM5TLCm MRX6D1kpGXSWuxZjDNMQdRU5 FCqttjPcQO2JCWY6NAu4CTnt RZTeS81jb2MEu3Fjg2neiVma j5ZnuBXnJQ01CZJgsHIgIZR8 HW5sbFgiXPWlHGdosVBzQEAK ClxwbGFpbiANCn0= [facility] Work Phone: Performing Lab s4mxkIYuSXVhzQWvNHGa Mlxh eeQbIABrjUPsM9CyluncDTvr WH9yFM5meDsqeMJqxGYyIQVb RnHkb6pkn938cVJuc7eeZRVG xpuznNf0yDqgN70vl1D5Qfmf D53vvRYiXDO3KGGdXYBdgAPt BMLcTDA9KSGtsUEiG4jnBZZe HH6kyuwwXNzhSChaTYWrxMW5 EWMmpVFuV6RdWJDtUWlqNPTr tzt0WdSqKj8tuGFtyJzoOPdr F2bwlS4fMiV1ZVdlV4cvpX6o IPl9TVhmWSIaeCX5dvW2MVFn wEZrC3UbiR9gZHNqRY0eori1 g8ywMVW9BMnhQFFzUoQ9hyE5 NDBccGFyZFxwbGFpblxmczIw VGImIBiwo7H4iEFpsP74UCHq sqT2CHQrz16nqXUhUl7zbCFc ZPE4KfFEeKR5CAcmipGlP4zw wyqpZZ0gwL9jB7IdbPVfHMck o3EpkOQgJQgwFu0qACAfcsvz YUg7HINvOAVmjMhgDDF7QC59 ZSwgRGVzayBMMjEsIENsZXZl oEMrQFGCROB9KBB1LDAkNUVD JDZrBDC6LRR2NYTmRKRimISw BLwuLGOjYAGgg9QlpA6xdTUL lSAnE2RgakjcF2YgjUEwBEjr exNiN1hlWIKELCnjMVB3 [facility] Work Phone: [facility] Work Phone: Pathology biopsy report Ta (Tiss)on 02-18-2025 AP DISCLAIMER Normal [facility] Comment on above: Order Comment: Speci men Type: TISSUE SPECIMEN Ordering Facility: [facility] Address: [address] [place] [address] Result Comment: Peyton Cornejo (LDT) Disclaimer: Performance characteristics of immunohistochemical, immunofluorescent, and chromogenic in-situ hybridization tests have been determined by the performing laboratory within [facility]'s [facility] Pathology and Laboratory Medicine Department ([facility], [facility], [facility], [facility], [facility], [facility], or [facility]) in a manner consistent with CLIA requirements. One or more of these tests may not have been cleared or approved by the FDA. [facility] is regulated under CLIA as qualified to perform high-complexity testing. These tests are used for clinical purposes. These should not be regarded as investigational or for research. Positive and negative controls stain appropriately. Performed By: #### 6 6121-5 #### [facility] CLIA [id number] [address] [place] [address] [place] CASE REPORT Normal [facility] Comment on above: Order Comment: Speci men Type: TISSUE SPECIMEN Ordering Facility: [facility] Address: [address] [place] [address] Result Comment: Surg [facility] Pathology Report Case: [id number] Authorizing Provider: Colleen Parrish APRN.SAMPLE CLERK Collected: 02/18/2025 10:30 AM Ordering Location: Ophthalmology Received: 02/18/2025 10:40 PM Pathologist: Elda Bingham MD Specimen: Eyelid, Left, lower medial Performed By: #### 6 6121-5 #### [facility] CLIA [id number] [address] [place] [address] [place] CLINICAL HISTORY lesion Normal [facility] Comment on above: Order Comment: Speci men Type: TISSUE SPECIMEN Ordering Facility: [facility] Address: [address] [place] [address] Performed By: #### 6 6121-5 #### [facility] CLIA [id number] [address] [place] [address] FINAL DIAGNOSIS Normal [facility] Comment on above: Order Comment: Speci men Type: TISSUE SPECIMEN Ordering Facility: [facility] Address: [address] [place] [address] Result Comment: A. S kin, eyelid, left lower medial, shave biopsy: - Apocrine hydrocystoma. - Epidermal inclusion cyst. WB/RTM 02/22/2025 at 1515 EDT Performed By: #### 6 6121-5 #### [facility] CLIA [id number] [address] [place] [address] [place] FINAL PERFORMING LAB Normal [facility] Comment on above: Order Comment: Speci men Type: TISSUE SPECIMEN Ordering Facility: [facility] Address: [address] [place] [address] Result Comment: Diag nostic interpretation performed at: [facility], [address] [place] [address] CLIA# [id number] Buttermilk Drier Operator: Donnie Boyd MD Performed By: #### 6 6121-5 #### [facility] CLIA [id number] [address] [place] [address] GROSS DESCRIPTION A. Eyelid, Left Normal Cl [facility] Comment on above: Order Comment: Speci men Type: TISSUE SPECIMEN Ordering Facility: [facility] Address: [address] [place] [address] Result Comment: Rece ived in formalin is a 0.3 x 0.2 x 0.2 cm shave of skin. The specimen is bisected. Totally submitted in one cassette. GMR February 19, 2025 9:03 AM Gross examination performed at [facility], [address] [place] [address] Performed By: #### 6 6121-5 #### [facility] CLIA [id number] [address] [place] [address] CARDIAC SCORING WO IV CON TRASTon 02-13-2025 CT CARDIAC SCORING WO IV CONTRAST Interpreted By: Edgar Laureano, STUDY: CT CARDIAC SCORING WO IV CONTRAST; 02/13/2025 8:41 am INDICATION: Signs/Symptoms:HTN HLD OBESITY SMOKING EXPOSURE. COMPARISON: None. ACCESSION NUMBER(S): [id number] ORDERING CLINICIAN: MICHAEL CASTILLO TECHNIQUE: Using prospective ECG gating, limited CT scan of the chest for evaluation of coronary arteries was performed without intravenous contrast. Coronary calcium scoring was performed according to the method of Agatston. FINDINGS: The score and distribution of calcium in the coronary arteries is as follows: LM: 0. LAD: 51.6. LCx: 0. RCA: 0.3. Total: 51.9. Mildly elevated right hemidiaphragm. Partially imaged mild bibasilar atelectasis. The visualized mid/lower ascending thoracic aorta measures 3.8 cm in diameter. Mild calcification about the aortic root. The heart is borderline enlarged. No significant pericardial effusion is present. No gross evidence of mediastinal or hilar lymphadenopathy is identified. Small to moderate hiatal hernia partially imaged. Suspected fatty liver. IMPRESSION: 1. Coronary artery calcium score of 51.9*. 2. Mildly elevated right hemidiaphragm. 3. Mild prominence ascending thoracic aorta up to 3.8 cm. 4. Small to moderate hiatal hernia partially imaged. *Coronary artery calcium scoring may be helpful in predicting the risk for future coronary heart disease events. According to the [employer] Clinical Expert Consensus Task Force, such testing provides important prognostic information in patients with more than one coronary heart disease risk factor. The coronary artery calcium score correlates with the annual risk of a non-fatal myocardial infarction or coronary heart disease . Coronary artery score Annual Risk 0-99 0.4% 100-399 1.3% >400 2.4% These three breakpoints correspond to lower, intermediate and high risk states for future coronary events. Such information should be used, along with appropriate clinical judgment, to make decisions regarding the intensity of risk factor management strategies to treat blood lipids and to modify other non-lipid coronary risk factors. Reference: Wilbraham P et al. Circulation. 2007; 115:402-426 MACRO: None Signed by: Edgar Laureano 02/14/2025 9:01 AM Dictation workstation: [id number] [facility] SCRN MAMM (CAD)W/FARIHA BILATo n 11-12-2024 SCRN MAMM (CAD)W/FARIHA BILAT [facility] Imaging Services [address] [place] [id number] SCRN MAMM (CAD)W/FARIHA BILAT MR#: [id number] Acct: [id number] Name: JODY MERINO Rep #: [id number] : 1965 F 59 From: Brant skaggs MD PCP: IVAN Wilson Status: [facility] Study: SCRN MAMM (CAD)W/FARIHA BILAT Date of Exam: 11/01 01/25 Exam# [id number] Ordering Dr: Michael CastilloC [id number] MAMMOGRAPHY - BILATERAL SCREENING REASON FOR EXAM: Female, 59 years old. Routine annual screening examination. PERTINENT HISTORY: Mother with breast cancer. History of prior left stereotactic breast biopsy. TECHNIQUE: Digital bilateral breast fariha (3D mammographic acquisition) in the CC and MLO projections. 2-D mediolateral oblique (MLO) and craniocaudad (CC) views of both breasts were obtained. CAD: Full Field Digital Mammography with Computer Added Detection was performed. COMPARISON: Comparison is made with prior study dated November 08, 2023 and November 06, 2022. FINDINGS: Breast Composition: There are scattered areas of fibroglandular density. There are no dominant masses or suspicious calcifications. A tissue clip marker is seen in the upper central portion of the left breast. No other significant abnormalities are identified. There has been no significant change since the prior study. BI/SCRN MAMM (CAD)W/FARIHA BILAT IMPRESSION: Stable bilateral screening mammogram. Yearly follow-up mammogram recommended. (A) ASSESSMENT CATEGORY: BIRADS Category 2: Benign. A letter regarding these results will be sent to the patient by the facility within 30 days. Approximately 10% of breast cancers are not detected by mammography. A normal mammogram should not delay biopsy of a clinically suspicious abnormality. [id number] Electronically Signed: Brant Cherry MD at 8:28 EST , CC: IVAN Castillo Cherry Sorter: Signed [facility] ZENYon 03-11-2024 [facility] Office Visit (OBGYWM ) -------- JODY MERINO ([id number]) 1965 F Date Time Provider Department 03/11/24 11:40 AM LEONA FLOWERS OBGYWM During your visit today, we recorded the following information about you: Pulse Blood pressure Weight 79/minute 124/82 110.2 kg Leona Flowers MD 03/11/2024 1:13 PM Signed Some documentation from previous visit of 01/17/2024 was copied and pasted, documentation has been reviewed and edited as necessary for today's visit. Patient Summary: Jody is a 58 year old Female who presents for follow-up evaluation of obesity/weight management to treat and prevent related co-morbidities. In our previous visits we have discussed lifestyle intervention including a nutrition recommendations and physical activity optimization. Her last office visit was 6 weeks ago. Assessment/plan from last visit: Reviewed BP not optimal- do not recommend starting stimulant or Bupropion at this time. More of emotional eating and Hungry Brain- will start Topiramate. Pt understands this is off label use of medication. Will follow up with PCP and start check BPs at home to take with her to PCP office in the next two weeks Consult to BMI discussed and accepted Consult to Nutrition - order placed Consider sleep study- Not ordered today LABS ordered Interval History PT specifies the following items as new or significant updates since the last appointment: - doing majority of cooking - grilling and baking instead of frying - stopped ETOH - doing it with her - prepping more -really happy with progress, being honest has cruise in May and will not be taking medication as she wants to have drinks and not have restrictions. - hitting goals- >90g protein per day, staying under 100 g carbs GOAL- exercise increase and increase protein with breakfast Proud, made commitment , no chocolate Weight loss since last vist: 13lb Last 2 Encounter Wt Readings: Date: Wt: 03/11/2024 243 lb (110.2 kg) 01/17/2024 256 lb 12.8 oz (116.5 kg) Starting weight 01/17/24 : 256 lb 10% 231lbs, 5% 244lbs Anti-obesity medications: Topiramate. Benefit:Not sure she feels any impact Adverse effects: has intermittent tingling in feet/heels Weight promoting medications: none Previous Diet (initial appointment): Breakfast- deviled eggs cheese, protein bar (pure protein), weekend would be omelettes emmanuel, sausage. Oikos triple zero Lunch- during the week- instant oatmeal or soup, or salad with chicken, chipolte Dinner- fish, salads, veggies, meat, chicken Snacks- chocolate- kit magdalena, recess cup, buckeyes (3-4 per day) , PB pretzels (1-1.5cup per sitting) , Popcorn Nutrition NOW: Breakfast- Eggs x 2-3, cheese stick sometimes with green tea Lunch- yogurt triple zero, cottage cheese, Dinner- Grilled veggies, meat Snacks- oatmeal w/ flaxseed (low rodo and lower carb), cheese stick, Dietary changes: Eating 3 meals a day, including breakfast Increasing water intake Increasing servings of vegetables Controlling portions Limiting processed foods Increasing protein Reducing carbohydrates Eating less take out/fast food Current Barriers: none- doing well Exercise: not getting Stress: increased - 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 Sleep: stable Estimated Creatinine Clearance: 103.7 mL/min (based on SCr of 0.73 mg/dL). 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 cholecalciferol, vitamin D3, (VITAMIN D3 ORAL) Take by mouth once daily. VITAMIN E ORAL Take by mouth once daily. Lactobacillus acidophilus (PROBIOTIC ORAL) Take by mouth once daily. mv-min/iron/folic/calciu m/vitK (WOMEN'S MULTIVITAMIN ORAL) Take by mouth once daily. CRANBERRY ORAL Take by mouth once daily. topiramate (TOPAMAX) 50 mg tablet Take 1 tablet by mouth daily at bedtime. 30 tablet 1 acetaminophen-HYDROcodon e (VICODIN) 5-500 mg tablet Take 1 tablet by mouth every 6 hours as needed. (Patient not taking: Reported on 01/17/2024) 15 tablet 0 No current facility-administered medications for this visit. ROS Some tingling in feet- but improving otherwise doing well. ROS/Fam Hx pertaining to AOMs: GEN: Fatigue:no CV: h/o palpitations/cardiac arrhythmia, Chest pain: no HTN: yes PULM: Asthma:no GI: GERD:no ; Gallstones:no ; Fatty liver disease:no Pancreatitis: no MSK: Joint Pain:yes : Nephrolithiasis: no Symptoms of PCOS: no NEURO: Migraines/PADILLA: no; H/o seizures: no Glaucoma:no; Cataracts no Symptoms of or History of pseudotumor cerebri:no (more content not included)... Normal [facility] CALCIFEDIOL (25535)Ordered B y: Non Linear Editor on 07-26-2023 25-hydroxyvitamin D [Mass/Vol] 58.9 ng/mL Normal 30.0-100.0 [facility]; [facility] Work Phone: Comment on above: Vitamin D deficiency has been defined by the [place] of[place] and an Endocrine Society practice guideline as alevel of serum 25-OH vitamin D less than 20 ng/mL (1,2).The Endocrine Society went on to further define vitamin Dinsufficiency as a level between 21 and 29 ng/mL (2).1. IOM ([place] of Medicine). 2010. Dietary reference intakes for calcium and D. [place]: The National Academies Press.2. Karen HARRIS, Garry BOWMAN, Kristy PADILLA, et al. Evaluation, treatment, and prevention of vitamin D deficiency: an Endocrine Society clinical practice guideline. JCEM. 2010; 96(7):1911-30. PATIENT WAS FASTINGP ERFORMED BY: [facility] Qijiur8197 [address] [facility] [place] [id number] CBC, PLATELETS & AUT DIFF (0 [id number])Ordered By: Non Linear Editor on 07-26-2023 Basophils (Bld) [#/Vol] 0.1 10*3/uL Normal 0.0-0.2 [facility]; [facility] Work Phone: Comment on above: PATIENT WAS FASTINGP ERFORMED BY: [facility] Mznhhn7922 [address] RoadYad[facility] Hospitalin [place] [id number] Basophils/100 WBC (Bld) 1 % Normal [facility]; [facility] Work Phone: Comment on above: PATIENT WAS FASTINGP ERFORMED BY: [facility] Reabqq[address] [facility] [id number] Eosinophils (Bld) [#/Vol] 0.1 10*3/uL Normal 0.0-0.4 [facility]; [facility] Work Phone: Comment on above: PATIENT WAS FASTINGP ERFORMED BY: [facility] Hrpyzt9993 [address] [facility] [place] [id number] Eosinophils/100 WBC (Bld) 2 % Normal [facility]; [facility] Work Phone: Comment on above: PATIENT WAS FASTINGP ERFORMED BY: [facility] Tscubn9280 [facility] [id number] Erythrocyte distribution width (RBC) [Ratio] 12.6 % Normal 11.7-15.4 [facility]; [facility] Work Phone: Comment on above: PATIENT WAS FASTINGP ERFORMED BY: [facility] Cfazpy[address] [facility] [id number] Hematocrit (Bld) [Volume fraction] 41.5 % Normal 34.0-46.6 [facility]; [facility] Work Phone: Comment on above: PATIENT WAS FASTINGP ERFORMED BY: [facility] Neehup[address] [facility] [id number] Hemoglobin (Bld) [Mass/Vol] 13.9 g/dL Normal 11.1-15.9 [facility]; [facility] Work Phone: Comment on above: PATIENT WAS FASTINGP ERFORMED BY: SANTOS Labannemarie TalaveraDvgbzo1654 [address] [facility] [place] [id number] Immature granulocytes (Bld) [#/Vol] 0.0 10*3/uL Normal 0.0-0.1 [facility]; [facility] Work Phone: Comment on above: PATIENT WAS FASTINGP ERFORMED BY: [facility] Tosvyb7249 [address] [facility]in [place] [id number] Immature granulocytes/100 WBC (Bld) 0 % Normal [facility]; [facility] Work Phone: Comment on above: PATIENT WAS FASTINGP ERFORMED BY: [facility] Vtlzqz[address] [facility] [id number] Lymphocytes (Bld) [#/Vol] 1.7 10*3/uL Normal 0.7-3.1 [facility]; [facility] Work Phone: Comment on above: PATIENT WAS FASTINGP ERFORMED BY: [facility] [facility] [id number] Lymphocytes/100 WBC (Bld) 33 % Normal [facility]; [facility] Work Phone: Comment on above: PATIENT WAS FASTINGP ERFORMED BY: [facility]6370 [facility] [id number] MCH (RBC) [Entitic mass] 29.5 pg Normal 26.6-33.0 [facility]; [facility] Work Phone: Comment on above: PATIENT WAS FASTINGP ERFORMED BY: [facility] Jgrmct2247 [address] [facility]in [place] [id number] MCHC (RBC) [Mass/Vol] 33.5 g/dL Normal 31.5-35.7 [facility]; [facility] Work Phone: Comment on above: PATIENT WAS FASTINGP ERFORMED BY: [facility] Mtplvm[address] [facility] [id number] MCV (RBC) [Entitic vol] 88 fL Normal 79-97 [facility]; [facility] Work Phone: Comment on above: PATIENT WAS FASTINGP ERFORMED BY: SANTOS [facility] Oudsew2006 [address] RoadDublin [place] [id number] Monocytes (Bld) [#/Vol] 0.4 10*3/uL Normal 0.1-0.9 [facility]; [facility] Work Phone: Comment on above: PATIENT WAS FASTINGP ERFORMED BY: CB [facility] Cbndze6424 [address] RoadDublin [place] [id number] Monocytes/100 WBC (Bld) 7 % Normal [facility]; [facility] Work Phone: Comment on above: PATIENT WAS FASTINGP ERFORMED BY: SANTOS [facility] Kdqtao7139 [address] RoadDublin [place] [id number] Neutrophils (Bld) [#/Vol] 2.8 10*3/uL Normal 1.4-7.0 [facility]; [facility] Work Phone: Comment on above: PATIENT WAS FASTINGP ERFORMED BY: SANTOS [facility] Glxrlv8711 [address] RoadDublin [place] [id number] Neutrophils/100 WBC (Bld) 57 % Normal [facility]; [facility] Work Phone: Comment on above: PATIENT WAS FASTINGP ERFORMED BY: SANTOS [facility] Reqpan7568 [address] RoadDublin [place] [id number] Platelets (Bld) [#/Vol] 360 10*3/uL Normal 150-450 [facility]; [facility] Work Phone: Comment on above: PATIENT WAS FASTINGP ERFORMED BY: CB [facility] Mnytif7905 [address] RoadDublin [place] [id number] RBC (Bld) [#/Vol] 4.71 10*6/uL Normal 3.77-5.28 [facility]; [facility] Work Phone: Comment on above: PATIENT WAS FASTINGP ERFORMED BY: CB [facility] Tqcpgp5428 [address] RoadDublin [place] [id number] WBC (Bld) [#/Vol] 5.1 10*3/uL Normal 3.4-10.8 [facility]; [facility] Work Phone: Comment on above: PATIENT WAS FASTINGP ERFORMED BY: SANTOS Desireeolman Jilczy9916 [facility] [id number] LIPID PANEL ([id number])Ordered B y: Non Linear Editor on 07-26-2023 Cholesterol [Mass/Vol] 204 mg/dL Abnormal 100-199 [facility]; [facility] Work Phone: Comment on above: PATIENT WAS FASTINGP ERFORMED BY: SANTOS Labannemarie Wcenex1142 [address] [facility]in [place] [id number] Cholesterol in HDL [Mass/Vol] 73 mg/dL Normal [facility]; [facility] Work Phone: Comment on above: PATIENT WAS FASTINGP ERFORMED BY: SANTOS Labannemarie Rfmkez9330 [facility] [id number] Triglyceride [Mass/Vol] 91 mg/dL Normal 0-149 [facility]; [facility] Work Phone: Comment on above: PATIENT WAS FASTINGP ERFORMED BY: SANTOS Labannemarie Crzjum8070 [facility] [id number] LIPID PANEL (03789) 16 mg/dL Normal 5-40 [facility]; [facility] Work Phone: Comment on above: PATIENT WAS FASTINGP ERFORMED BY: SANTOS [facility] Zknvqv4827 [facility] [id number] LIPID PANEL (38317) 115 mg/dL Abnormal 0-99 [facility]; [facility] Work Phone: Comment on above: PATIENT WAS FASTINGP ERFORMED BY: SANTOS [facility] Ncanli1932 [address] [facility]bl[facility] [place] [id number] LIPID PANEL (70074) 1.6 {ratio} Normal 0.0-3.2 [facility]; [facility] Work Phone: Comment on above: LDL/HDL Ratio Men Wo men 1/2 Avg.Risk 1.0 1.5 Avg.Risk 3.6 3.2 2X Avg.Risk 6.2 5.0 3X Avg.Risk 8.0 6.1 PATIENT WAS FASTINGP ERFORMED BY: SANTOS Desireeolman Afluqo8531 [facility] [id number] METABOLIC PANEL, COMPREHENSI VE (25096)Ordered By: Non Linear Editor on 07-26-2023 Albumin [Mass/Vol] 4.6 g/dL Normal 3.8-4.9 [facility] Internal [facility]; [facility] Work Phone: Comment on above: PATIENT WAS FASTINGP ERFORMED BY: SANTOS Labannemarie Jftbif4936 [facility] [id number] Albumin/Globulin [Mass ratio] 1.8 {ratio} Normal 1.2-2.2 [facility]; [facility] Work Phone: Comment on above: PATIENT WAS FASTINGP ERFORMED BY: SANTOS Desireeolman Vuinqa6498 [facility] [id number] ALP [Catalytic activity/Vol] 88 U/L Normal 44-121 [facility]; [facility] Work Phone: Comment on above: PATIENT WAS FASTINGP ERFORMED BY: SANTOS Desireeolman Usjafj3905 [facility] [id number] ALT [Catalytic activity/Vol] 24 U/L Normal 0-32 [facility]; [facility] Work Phone: Comment on above: PATIENT WAS FASTINGP ERFORMED BY: SANTOS Desireeolman Biegmq9468 [facility] [id number] AST [Catalytic activity/Vol] 25 U/L Normal 0-40 [facility]; [facility] Work Phone: Comment on above: PATIENT WAS FASTINGP ERFORMED BY: SANTOS Desireeolman Rnvawk1758 [facility] [id number] Bilirubin [Mass/Vol] 0.4 mg/dL Normal 0.0-1.2 [facility]; [facility] Work Phone: Comment on above: PATIENT WAS FASTINGP ERFORMED BY: SANTOS Desiree Jzjjhn0520 [address] RoadDublin [place] [id number] Calcium [Mass/Vol] 9.8 mg/dL Normal 8.7-10.2 [facility] Internal [facility]; [facility] Work Phone: Comment on above: PATIENT WAS FASTINGP ERFORMED BY: SANTOS [facility] Hiibbt9926 [address] RoadDublin [place] [id number] Chloride [Moles/Vol] 100 mmol/L Normal 96-106 [facility]; [facility] Work Phone: Comment on above: PATIENT WAS FASTINGP ERFORMED BY: [facility] Yvcgih0249 [address] RoadDublin [place] [id number] CO2 [Moles/Vol] 26 mmol/L Normal 20-29 [facility] Internal [facility]; [facility] Work Phone: Comment on above: PATIENT WAS FASTINGP ERFORMED BY: SANTOS [facility] Mnupfv0918 [address] RoadDublin [place] [id number] Creatinine [Mass/Vol] 0.76 mg/dL Normal 0.57-1.00 [facility]; [facility] Work Phone: Comment on above: PATIENT WAS FASTINGP ERFORMED BY: SANTOS [facility] Lbtlgl0840 [address] RoadDublin [place] [id number] GFR/1.73 sq M.predicted among non-blacks MDRD (S/P/Bld) [Vol rate/Area] 91 mL/min/{1.73_m2} Normal Comprehensiv e [facility]; [facility] Work Phone: Comment on above: PATIENT WAS FASTINGP ERFORMED BY: [facility] Lrugns6259 [address] RoadDublin [place] [id number] Globulin (S) [Mass/Vol] 2.5 g/dL Normal 1.5-4.5 [facility]; [facility] Work Phone: Comment on above: PATIENT WAS FASTINGP ERFORMED BY: SANTOS [facility] Bkjhot4550 [address] RoadDublin [place] [id number] Glucose [Mass/Vol] 87 mg/dL Normal 70-99 [facility]; [facility] Work Phone: Comment on above: PATIENT WAS FASTINGP ERFORMED BY: CB [facility] Zawypl1406 [address] RoadDublin [place] [id number] Potassium [Moles/Vol] 4.2 mmol/L Normal 3.5-5.2 [facility]; [facility] Work Phone: Comment on above: PATIENT WAS FASTINGP ERFORMED BY: CB [facility] Tyeocf4615 [address] RoadDublin [place] [id number] Protein [Mass/Vol] 7.1 g/dL Normal 6.0-8.5 [facility]; [facility] Work Phone: Comment on above: PATIENT WAS FASTINGP ERFORMED BY: CB [facility] Ogakae9981 [address] RoadDublin [place] [id number] Sodium [Moles/Vol] 141 mmol/L Normal 134-144 [facility] Internal [facility]; [facility] Work Phone: Comment on above: PATIENT WAS FASTINGP ERFORMED BY: CB [facility] Mfipul9955 [address] RoadDublin [place] [id number] Urea nitrogen [Mass/Vol] 20 mg/dL Normal 6-24 [facility]; [facility] Work Phone: Comment on above: PATIENT WAS FASTINGP ERFORMED BY: CB [facility] Zppflm2710 [address] RoadDublin [place] [id number] Urea nitrogen/Creatinin e [Mass ratio] 26 mg/mg Abnormal 9-23 [facility]; [facility] Work Phone: Comment on above: PATIENT WAS FASTINGP ERFORMED BY: CB [facility] Srfxlv2385 [address] RoadDublin [place] [id number] TSH (THYROID STIMULATING HOR VALE) ([id number])Ordered By: Non Linear Editor on 07-26-2023 TSH Qn 2.870 {uIU/mL} Normal 0.450-4.500 [facility] Internal [facility]; [facility] Work Phone: Comment on above: PATIENT WAS FASTINGP ERFORMED BY: CB [facility] Qjnaec0428 [address] RoadDublin [place] [id number] URINALYSIS ([id number])Ordered By : Non Linear Editor on 07-26-2023 Appearance (U) Clear Normal Comprehens tatum Internal Medicine; [facility] Work Phone: Comment on above: PATIENT WAS FASTINGP ERFORMED BY: SANTOS Labcoolman TalaveraOmhxaa9007 [address] RoadDublin [place] [id number] Bilirubin Ql (U) Negative Normal Comprehe nsive Internal Medicine; [facility] Work Phone: Comment on above: PATIENT WAS FASTINGP ERFORMED BY: SANTOS Labcoolman TalaveraVcfcne1369 [address] RoadDublin [place] [id number] Color (U) Yellow Normal [facility]; [facility] Work Phone: Comment on above: PATIENT WAS FASTINGP ERFORMED BY: SANTOS Labannemarie TalaveraCulxdj6640 [address] RoadDublin [place] [id number] Glucose Ql (U) Negative Normal Comprehens tatum [facility]; [facility] Work Phone: Comment on above: PATIENT WAS FASTINGP ERFORMED BY: SANTOS Labcoolman TalaveraBjwpdl1990 [address] RoadDublin [place] [id number] Hemoglobin Ql (U) Negative Normal Compreh ensive Internal Medicine; [facility] Work Phone: Comment on above: PATIENT WAS FASTINGP ERFORMED BY: SANTOS Labannemarie TalaveraKdcieu7624 [address] RoadDublin [place] [id number] Ketones Ql (U) Negative Normal Comprehens tatum [facility]; [facility] Work Phone: Comment on above: PATIENT WAS FASTINGP ERFORMED BY: SANTOS Labcoolman TalaveraTxibxy8541 [address] RoadDublin [place] [id number] Leukocyte esterase Test strip Ql (U) 2+ Abnormal [facility]; [facility] Work Phone: Comment on above: PATIENT WAS FASTINGP ERFORMED BY: SANTOS [facility] Gxdskt8960 [address] RoadDublin [place] [id number] Microscopic observation LM Nom (Urine sed) See below: Normal [facility]; [facility] Work Phone: Comment on above: Microscopic was marek cated and was performed. PATIENT WAS FASTINGP ERFORMED BY: [facility] Afwazy6650 [address] RoadDublin [place] [id number] Nitrite Ql (U) Negative Normal Comprehens tatum [facility]; [facility] Work Phone: Comment on above: PATIENT WAS FASTINGP ERFORMED BY: [facility] Erbing1966 [address] [facility]bl[facility] [place] [id number] pH (U) 6.5 [pH] Normal 5.0-7.5 [facility]; [facility] Work Phone: Comment on above: PATIENT WAS FASTINGP ERFORMED BY: [facility] Cmgttz3791 [address] [facility]bl[facility] [place] [id number] Protein Ql (U) Negative Normal Comprehens tatum [facility]; [facility] Work Phone: Comment on above: PATIENT WAS FASTINGP ERFORMED BY: [facility]6370 [facility] [id number] Specific gravity (U) [Rel density] 1.018 1 Normal 1.005-1.030 [facility]; [facility] Work Phone: Comment on above: PATIENT WAS FASTINGP ERFORMED BY: [facility] Ldupyi7391 [address] [facility]in [place] [id number] Urobilinogen (U) [Mass/Vol] 0.2 mg/dL Normal 0.2-1.0 [facility]; [facility] Work Phone: Comment on above: PATIENT WAS FASTINGP ERFORMED BY: [facility] Aqltrz4071 [address] [facility]in [place] [id number] URINE KAYLI CULTURE-IDENTIF[place] ([id number])Ordered By: Non Linear Editor on 03-14-2022 Bacteria identified Cx Nom (U) Final report Abnormal [facility]; [facility] Work Phone: Comment on above: PATIENT NOT FASTINGP ERFORMED BY: [facility] Ejatcw6485 [address] [facility]bl[facility] [place] [id number] Information: SRC:UC Bacteria identified Cx Nom (U) BETAGB Abnormal [facility]; [facility] Work Phone: Comment on above: Beta hemolytic Strep tococcus, group BGreater than 100,000 colony forming units per mLPenicillin and ampicillin are drugs of choice for treatment ofbeta-hemolytic streptococcal infections. Susceptibility testing ofpenicillins and other beta-lactam agents approved by the FDA fortreatment of beta-hemolytic streptococcal infections need not beperformed routinely because nonsusceptible isolates are extremelyrare in any beta-hemolytic streptococcus and have not been reportedfor Streptococcus pyogenes (group A). (CLSI) PATIENT NOT FASTINGP ERFORMED BY: [facility] Urcemv0482 [facility] [id number] Information: SRC:BRAVO Urinalysis, Office ([id number])Or dered By: Thuy Belle on 03-14-2022 Bilirubin Ql (U) Negative Normal Comprehe nsive Internal Medicine; [facility] Work Phone: Glucose Test strip (U) [Mass/Vol] Negative Normal [facility]; [facility] Work Phone: Hemoglobin Ql (U) Negative Normal Compreh ensive [facility]; [facility] Work Phone: Ketones Ql (U) Negative Normal Comprehens tatum [facility]; [facility] Work Phone: Leukocyte esterase Test strip Ql (U) Moderate Normal [facility]; [facility] Work Phone: Nitrite Ql (U) Negative Normal Comprehens tatum [facility]; [facility] Work Phone: pH (U) 6 [pH] Abnormal [facility]; [facility] Work Phone: Protein Ql (U) Negative Normal Comprehens tatum [facility]; [facility] Work Phone: Specific gravity (U) [Rel density] 1.025 1 Normal [facility]; [facility] Work Phone: Urobilinogen (24H U) [Mass/Time] Normal Normal [facility]; [facility] Work Phone: CBC & PLATELETS (AUTO) ([phone])Ordered By: Non Linear Editor on 10-12-2021 Erythrocyte distribution width (RBC) [Ratio] 12.9 % Normal 11.7-15.4 [facility]; [facility] Work Phone: Comment on above: PATIENT WAS FASTINGP ERFORMED BY: SANTOS HectorAnnemarie TalaveraGbkztq5043 [facility] [id number] Hematocrit (Bld) [Volume fraction] 43.0 % Normal 34.0-46.6 [facility]; [facility] Work Phone: Comment on above: PATIENT WAS FASTINGP ERFORMED BY: SANTOS [facility] HospitalSunny Ifltyw4847 [facility] [id number] Hemoglobin (Bld) [Mass/Vol] 14.4 g/dL Normal 11.1-15.9 [facility]; [facility] Work Phone: Comment on above: PATIENT WAS FASTINGP ERFORMED BY: SANTOS Talaveralin6370 [facility] [id number] MCH (RBC) [Entitic mass] 29.9 pg Normal 26.6-33.0 [facility]; [facility] Work Phone: Comment on above: PATIENT WAS FASTINGP ERFORMED BY: SANTOS Talaveralin6370 [facility] [id number] MCHC (RBC) [Mass/Vol] 33.5 g/dL Normal 31.5-35.7 [facility]; [facility] Work Phone: Comment on above: PATIENT WAS FASTINGP ERFORMED BY: SANTOS Salas Hgvwow3722 [facility] [id number] MCV (RBC) [Entitic vol] 89 fL Normal 79-97 [facility]; [facility] Work Phone: Comment on above: PATIENT WAS FASTINGP ERFORMED BY: SANTOS LabAnnemarie TalaveraYvkzsf7648 [facility] [id number] Platelets (Bld) [#/Vol] 296 10*3/uL Normal 150-450 [facility]; [facility] Work Phone: Comment on above: PATIENT WAS FASTINGP ERFORMED BY: CB [facility] Gbhdqz6532 [address] RoadDublin [place] [id number] RBC (Bld) [#/Vol] 4.82 10*6/uL Normal 3.77-5.28 [facility]; [facility] Work Phone: Comment on above: PATIENT WAS FASTINGP ERFORMED BY: SANTOS [facility] Gqsnun6077 [address] RoadDublin [place] [id number] WBC (Bld) [#/Vol] 3.9 10*3/uL Normal 3.4-10.8 [facility]; [facility] Work Phone: Comment on above: PATIENT WAS FASTINGP ERFORMED BY: SANTOS [facility] Jyxqeb5934 [address] RoadDublin [place] [id number] LIPID PANEL ([id number])Ordered B y: Non Linear Editor on 10-12-2021 Cholesterol [Mass/Vol] 191 mg/dL Normal 100-199 [facility]; [facility] Work Phone: Comment on above: PATIENT WAS FASTINGP ERFORMED BY: SANTOS [facility] Hyvabi8021 [address] RoadDublin [place] [id number] Cholesterol in HDL [Mass/Vol] 80 mg/dL Normal [facility]; [facility] Work Phone: Comment on above: PATIENT WAS FASTINGP ERFORMED BY: SANTOS [facility] Iooosq5596 [address] RoadDublin [place] [id number] Triglyceride [Mass/Vol] 62 mg/dL Normal 0-149 [facility]; [facility] Work Phone: Comment on above: PATIENT WAS FASTINGP ERFORMED BY: SANTOS [facility] Mldymr7358 [address] RoadDublin [place] [id number] LIPID PANEL ([id number]) 12 mg/dL Normal 5-40 [facility]; [facility] Work Phone: Comment on above: PATIENT WAS FASTINGP ERFORMED BY: SANTOS [facility] Wxvxis8250 [address] RoadDublin [place] [id number] LIPID PANEL (70848) 99 mg/dL Normal 0-99 [facility]; [facility] Work Phone: Comment on above: PATIENT WAS FASTINGP ERFORMED BY: CB [facility] Yfbmth6893 [address] RoadDublin [place] [id number] LIPID PANEL (75890) 1.2 {ratio} Normal 0.0-3.2 [facility]; [facility] Work Phone: Comment on above: LDL/HDL Ratio Men Wo men 1/2 Avg.Risk 1.0 1.5 Avg.Risk 3.6 3.2 2X Avg.Risk 6.2 5.0 3X Avg.Risk 8.0 6.1 PATIENT WAS FASTINGP ERFORMED BY: CB [facility] Qkynzg9177 [address]Dublin [place] [id number] METABOLIC PANEL, COMPREHENSI VE (11365)Ordered By: Non Linear Editor on 10-12-2021 Albumin [Mass/Vol] 4.4 g/dL Normal 3.8-4.9 [facility] Internal Medicine; [facility] Work Phone: Comment on above: PATIENT WAS FASTINGP ERFORMED BY: CB [facility] Ctczbd1988 [address] RoadDublin [place] [id number] Albumin/Globulin [Mass ratio] 1.5 {ratio} Normal 1.2-2.2 Comprehensive Internal Medicine; [facility] Work Phone: Comment on above: PATIENT WAS FASTINGP ERFORMED BY: CB [facility] Fditbs0997 [address] RoadDublin [place] [id number] ALP [Catalytic activity/Vol] 91 U/L Normal 44-121 [facility]; [facility] Work Phone: Comment on above: Please note refere nce interval change PATIENT WAS FASTINGP ERFORMED BY: CB [facility] Wstgxu7515 [address]aya RoadDublin [place] [id number] ALT [Catalytic activity/Vol] 29 U/L Normal 0-32 [facility]; [facility] Work Phone: Comment on above: PATIENT WAS FASTINGP ERFORMED BY: CB [facility] Pmgjhj6952 [address] RoadDublin [place] [id number] AST [Catalytic activity/Vol] 28 U/L Normal 0-40 [facility]; [facility] Work Phone: Comment on above: PATIENT WAS FASTINGP ERFORMED BY: SANTOS Magana6[address] RoadDublin [place] [id number] Bilirubin [Mass/Vol] 0.3 mg/dL Normal 0.0-1.2 [facility]; [facility] Work Phone: Comment on above: PATIENT WAS FASTINGP ERFORMED BY: SANTOS Magana6[address] Roadblin [place] [id number] Calcium [Mass/Vol] 9.5 mg/dL Normal 8.7-10.2 [facility] Internal Medicine; [facility] Work Phone: Comment on above: PATIENT WAS FASTINGP ERFORMED BY: SANTOS Magana6[address]bl[address] [place] [id number] Chloride [Moles/Vol] 98 mmol/L Normal 96-106 [facility]; [facility] Work Phone: Comment on above: PATIENT WAS FASTINGP ERFORMED BY: SANTOS Magana6[address]Dublin [place] [id number] CO2 [Moles/Vol] 25 mmol/L Normal 20-29 [facility] Internal [facility]; [facility] Work Phone: Comment on above: PATIENT WAS FASTINGP ERFORMED BY: SANTOS Magana[address] [facility] [place] [id number] Creatinine [Mass/Vol] 0.85 mg/dL Normal 0.57-1.00 [facility]; [facility] Work Phone: Comment on above: PATIENT WAS FASTINGP ERFORMED BY: SANTOS Talaveralin[address] [facility] [place] [id number] GFR/1.73 sq M.predicted among blacks CKD-EPI (S/P/Bld) [Vol rate/Area] 88 mL/min/1.73 Normal [facility]; [facility] Work Phone: Comment on above: In accordance with recommendations from the NKF-ASN Task force, [facility] is in the process of updating its eGFR calculation to the 2020 CKD-EPI creatinine equation that estimates kidney function without a race variable. PATIENT WAS FASTINGP ERFORMED BY: [facility] Uvdwoq4215 [address] [facility] [place] [id number] GFR/1.73 sq M.predicted among non-blacks CKD-EPI (S/P/Bld) [Vol rate/Area] 76 mL/min/1.73 Normal [facility]; [facility] Work Phone: Comment on above: PATIENT WAS FASTINGP ERFORMED BY: [facility] Gujabc44[address] [facility] [place] [id number] Globulin (S) [Mass/Vol] 2.9 g/dL Normal 1.5-4.5 [facility]; [facility] Work Phone: Comment on above: PATIENT WAS FASTINGP ERFORMED BY: [facility] Cnptvx2838 [facility] [id number] Glucose [Mass/Vol] 88 mg/dL Normal 65-99 [facility] Internal Medicine; [facility] Work Phone: Comment on above: PATIENT WAS FASTINGP ERFORMED BY: [facility] [facility] [id number] Potassium [Moles/Vol] 4.3 mmol/L Normal 3.5-5.2 [facility]; [facility] Work Phone: Comment on above: PATIENT WAS FASTINGP ERFORMED BY: [facility] Toogyw[address] [facility] [id number] Protein [Mass/Vol] 7.3 g/dL Normal 6.0-8.5 [facility] Internal Medicine; [facility] Work Phone: Comment on above: PATIENT WAS FASTINGP ERFORMED BY: LabCo Rdvkgg7181 [address] [facility] [place] [id number] Sodium [Moles/Vol] 139 mmol/L Normal 134-144 [facility] Internal Medicine; [facility] Work Phone: Comment on above: PATIENT WAS FASTINGP ERFORMED BY: [facility] Nhaajj[address] [facility] [id number] Urea nitrogen [Mass/Vol] 17 mg/dL Normal 6-24 [facility]; [facility] Work Phone: Comment on above: PATIENT WAS FASTINGP ERFORMED BY: SANTOS Vinnie Magana[address]bl[address] [place] [id number] Urea nitrogen/Creatinin e [Mass ratio] 20 mg/mg Normal 9-23 [facility]; [facility] Work Phone: Comment on above: PATIENT WAS FASTINGP ERFORMED BY: SANTOS [facility] Cfjhwe2406 [address] [facility] [place] [id number] TSH (THYROID STIMULATING HOR VALE) ([id number])Ordered By: Non Linear Editor on 10-12-2021 TSH Qn 3.640 {uIU/mL} Normal 0.450-4.500 Comprehen sive Internal Medicine; [facility] Work Phone: Comment on above: PATIENT WAS FASTINGP ERFORMED BY: SANTOS [facility] Mpnzmd7176 [address] [facility] [place] [place] [id number] URINALYSIS ([id number])Ordered By : Non Linear Editor on 10-12-2021 Appearance (U) Clear Normal Comprehens tatum Internal Medicine; [facility] Work Phone: Comment on above: PATIENT WAS FASTINGP ERFORMED BY: SANTOS Desireeolman TalaveraIafqoq6873 [address]aya RoadYadkin Valley Community Hospitalin [place] [id number] Bilirubin Ql (U) Negative Normal Comprehe nsive Internal Medicine; [facility] Work Phone: Comment on above: PATIENT WAS FASTINGP ERFORMED BY: SANTOS LabSt. [facility] Va Medical CenterKbgxvi4932 [address] [facility]in [place] [id number] Color (U) Yellow Normal [facility]; [facility] Work Phone: Comment on above: PATIENT WAS FASTINGP ERFORMED BY: SANTOS [facility] Bhgevj5933 [address] RoadDublin [place] [id number] Glucose Ql (U) Negative Normal Comprehens tatum Internal Medicine; [facility] Work Phone: Comment on above: PATIENT WAS FASTINGP ERFORMED BY: SANTOS [facility] Kxanuq2826 [facility] [id number] Hemoglobin Ql (U) Trace Abnormal Compreh ensive Internal Medicine; [facility] Work Phone: Comment on above: PATIENT WAS FASTINGP ERFORMED BY: SANTOS HectorAnnemarie TalaveraQnjbqy[address] [facility] [id number] Ketones Ql (U) Negative Normal Comprehens tatum Internal Medicine; [facility] Work Phone: Comment on above: PATIENT WAS FASTINGP ERFORMED BY: SANTOS HectorSunny Bfdjdj8963 [facility] [id number] Leukocyte esterase Test strip Ql (U) 3+ Abnormal [facility]; [facility] Work Phone: Comment on above: PATIENT WAS FASTINGP ERFORMED BY: SANTOS Talaveralin6370 [facility] [id number] Microscopic observation LM Nom (Urine sed) See below: Normal [facility]; [facility] Work Phone: Comment on above: Microscopic was marek cated and was performed. PATIENT WAS FASTINGP ERFORMED BY: SANTOS Talaveralin6370 [facility] [id number] Nitrite Ql (U) Positive Abnormal Comprehens tatum Internal Medicine; [facility] Work Phone: Comment on above: PATIENT WAS FASTINGP ERFORMED BY: SANTOS Talaveralin6370 [facility] [id number] pH (U) 6.5 [pH] Normal 5.0-7.5 [facility]; [facility] Work Phone: Comment on above: PATIENT WAS FASTINGP ERFORMED BY: SANTOS LabAnnemarie TalaveraClyqwj7688 [facility] [id number] Protein Ql (U) Trace Normal Comprehens tatum Internal Medicine; [facility] Work Phone: Comment on above: PATIENT WAS FASTINGP ERFORMED BY: SANTOS Talaveralin6370 [facility] [id number] Specific gravity (U) [Rel density] 1.018 1 Normal 1.005-1.030 [facility]; [facility] Work Phone: Comment on above: PATIENT WAS FASTINGP ERFORMED BY: SANTOS LabSunny Ljjvij1360 [facility]in [place] [id number] Urobilinogen (U) [Mass/Vol] 0.2 mg/dL Normal 0.2-1.0 [facility]; [facility] Work Phone: Comment on above: PATIENT WAS FASTINGP ERFORMED BY: SANTOS LabSunny Lclwns5509 [facility] [id number] CBC with auto diff ([id number])Or dered By: Non Linear Editor on 10-02-2019 Basophils (Bld) [#/Vol] 0.0 {x10E3/uL} Normal 0.0-0.2 [facility] Work Phone: Comment on above: PATIENT NOT FASTINGP ERFORMED BY: SANTOS Desiree Pcwrow8291 [facility] [id number] Basophils (Bld) [#/Vol] 0.0 10*3/uL Normal 0.0-0.2 [facility]; [facility] Work Phone: Comment on above: PATIENT NOT FASTINGP ERFORMED BY: SANTOS Vinnie Talaveralin6370 [facility] [id number] Basophils/100 WBC (Bld) 1 % Normal [facility] Work Phone: Comment on above: PATIENT NOT FASTINGP ERFORMED BY: SANTOS Desiree Txxsqm0552 [facility] [id number] Eosinophils (Bld) [#/Vol] 0.1 {x10E3/uL} Normal 0.0-0.4 [facility] Work Phone: Comment on above: PATIENT NOT FASTINGP ERFORMED BY: SANTOS [facility] Afpbyx[address] [facility] [place] [id number] Eosinophils (Bld) [#/Vol] 0.1 10*3/uL Normal 0.0-0.4 [facility]; [facility] Work Phone: Comment on above: PATIENT NOT FASTINGP ERFORMED BY: Lab[facility] [facility] [id number] Eosinophils/100 WBC (Bld) 2 % Normal [facility] Work Phone: Comment on above: PATIENT NOT FASTINGP ERFORMED BY: SANTOS Talaveralin6370 [facility] [id number] Erythrocyte distribution width (RBC) [Ratio] 13.7 % Normal 12.3-15.4 [facility] Work Phone: Comment on above: PATIENT NOT FASTINGP ERFORMED BY: LabCoElizabeth [place]ille 8[address] [facility] [id number] Hematocrit (Bld) [Volume fraction] 41.3 % Normal 34.0-46.6 [facility] Work Phone: Comment on above: PATIENT NOT FASTINGP ERFORMED BY: HectorC[facility] Vwhmak9390 [facility] [id number] Hemoglobin (Bld) [Mass/Vol] 13.8 g/dL Normal 11.1-15.9 [facility] Work Phone: Comment on above: PATIENT NOT FASTINGP ERFORMED BY: Lab[facility] [facility] [id number] Immature granulocytes (Bld) [#/Vol] 0.0 {x10E3/uL} Normal 0.0-0.1 [facility] Work Phone: Comment on above: PATIENT NOT FASTINGP ERFORMED BY: LabM[facility] [facility] [id number] Immature granulocytes (Bld) [#/Vol] 0.0 10*3/uL Normal 0.0-0.1 [facility]; [facility] Work Phone: Comment on above: PATIENT NOT FASTINGP ERFORMED BY: LabM[facility] [facility] [id number] Immature granulocytes/100 WBC (Bld) 0 % Normal [facility] Work Phone: Comment on above: PATIENT NOT FASTINGP ERFORMED BY: LabCoElizabeth Ville 8[address] [facility] [id number] Lymphocytes (Bld) [#/Vol] 1.7 {x10E3/uL} Normal 0.7-3.1 [facility] Work Phone: Comment on above: PATIENT NOT FASTINGP ERFORMED BY: SANTOS [facility] Ctsrug[address] [facility] [id number] Lymphocytes (Bld) [#/Vol] 1.7 10*3/uL Normal 0.7-3.1 [facility]; [facility] Work Phone: Comment on above: PATIENT NOT FASTINGP ERFORMED BY: SANTOS [facility] Alyxqk[address] [facility] [id number] Lymphocytes/100 WBC (Bld) 28 % Normal [facility] Work Phone: Comment on above: PATIENT NOT FASTINGP ERFORMED BY: SANTOS LabAnnemarie TalaveraNygyct5816 [facility] [id number] MCH (RBC) [Entitic mass] 29.6 pg Normal 26.6-33.0 [facility] Work Phone: Comment on above: PATIENT NOT FASTINGP ERFORMED BY: SANTOS [facility] Ognycy[address] [facility] [id number] MCHC (RBC) [Mass/Vol] 33.4 g/dL Normal 31.5-35.7 [facility] Work Phone: Comment on above: PATIENT NOT FASTINGP ERFORMED BY: SANTOS [facility] Vmrazo[address] [facility] [id number] MCV (RBC) [Entitic vol] 88 fL Normal 79-97 [facility] Work Phone: Comment on above: PATIENT NOT FASTINGP ERFORMED BY: SANTOS [facility] Tdrjzh1802 [address] [facility] [place] [id number] Monocytes (Bld) [#/Vol] 0.3 {x10E3/uL} Normal 0.1-0.9 [facility] Work Phone: Comment on above: PATIENT NOT FASTINGP ERFORMED BY: SANTOS [facility] Ugttjw8307 [address] RoadDublin [place] [id number] Monocytes (Bld) [#/Vol] 0.3 10*3/uL Normal 0.1-0.9 [facility]; [facility] Work Phone: Comment on above: PATIENT NOT FASTINGP ERFORMED BY: SANTOS Vinnie Perftk7658 [address] RoadDublin [place] [id number] Monocytes/100 WBC (Bld) 6 % Normal [facility] Work Phone: Comment on above: PATIENT NOT FASTINGP ERFORMED BY: SANTOS [facility] Quotay8216 [address] RoadDublin [place] [id number] Neutrophils (Bld) [#/Vol] 3.8 {x10E3/uL} Normal 1.4-7.0 [facility] Work Phone: Comment on above: PATIENT NOT FASTINGP ERFORMED BY: SANTOS Magana6[address]Dublin [place] [id number] Neutrophils (Bld) [#/Vol] 3.8 10*3/uL Normal 1.4-7.0 [facility]; [facility] Work Phone: Comment on above: PATIENT NOT FASTINGP ERFORMED BY: SANTOS HectorAnnemarie TalaveraJzqzvb5938 [address] RoadDublin [place] [id number] Neutrophils/100 WBC (Bld) 63 % Normal [facility] Work Phone: Comment on above: PATIENT NOT FASTINGP ERFORMED BY: SANTOS Talaveralin6[address]Dublin [place] [id number] Platelets (Bld) [#/Vol] 381 {x10E3/uL} Normal 150-450 [facility] Work Phone: Comment on above: PATIENT NOT FASTINGP ERFORMED BY: SANTOS [facility] Tqufsu9793 [address] RoadDublin [place] [id number] Platelets (Bld) [#/Vol] 381 10*3/uL Normal 150-450 [facility]; [facility] Work Phone: Comment on above: PATIENT NOT FASTINGP ERFORMED BY: SANTOS [facility] Hngljy3812 [address] RoadDublin [place] [id number] RBC (Bld) [#/Vol] 4.67 {x10E6/uL} Normal 3.77-5.28 [facility] Internal [facility] Work Phone: Comment on above: PATIENT NOT FASTINGP ERFORMED BY: CB [facility] Zhtwgl0844 [address] RoadDublin [place] [id number] RBC (Bld) [#/Vol] 4.67 10*6/uL Normal 3.77-5.28 [facility]; [facility] Work Phone: Comment on above: PATIENT NOT FASTINGP ERFORMED BY: CB [facility] Gwrgha0891 [address] RoadDublin [place] [id number] WBC (Bld) [#/Vol] 5.9 {x10E3/uL} Normal 3.4-10.8 [facility] Internal Medicine Work Phone: Comment on above: PATIENT NOT FASTINGP ERFORMED BY: CB [facility] Nlzzkd9031 [address] RoadDublin [place] [id number] WBC (Bld) [#/Vol] 5.9 10*3/uL Normal 3.4-10.8 [facility] Internal Medicine; [facility] Work Phone: Comment on above: PATIENT NOT FASTINGP ERFORMED BY: CB [facility] Zjcztb8531 [address] RoadDublin [place] [id number] LIPID PANEL ([id number])Ordered B y: Non Linear Editor on 10-02-2019 Cholesterol [Mass/Vol] 176 mg/dL Normal 100-199 [facility] Work Phone: Comment on above: PATIENT NOT FASTINGP ERFORMED BY: CB [facility] Puviox5567 [address] RoadDublin [place] [id number] Cholesterol in HDL [Mass/Vol] 67 mg/dL Normal [facility] Work Phone: Comment on above: PATIENT NOT FASTINGP ERFORMED BY: CB [facility] Bqhnkx8842 [address] RoadDublin [place] [id number] Cholesterol in LDL [Mass/Vol] 95 mg/dL Normal 0-99 [facility] Work Phone: Comment on above: PATIENT NOT FASTINGP ERFORMED BY: SANTOS LabCoolman Osywow2076 [address] [facility] [place] [id number] Cholesterol in LDL/Cholesterol in HDL [Mass ratio] 1.4 {ratio} Normal 0.0-3.2 [facility] Work Phone: Comment on above: LDL/HDL Ratio Men Wo men 1/2 Avg.Risk 1.0 1.5 Avg.Risk 3.6 3.2 2X Avg.Risk 6.2 5.0 3X Avg.Risk 8.0 6.1 PATIENT NOT FASTINGP ERFORMED BY: SANTOS LabCoolman TalaveraEhuylu9476 [address] [facility]in [place] [id number] Cholesterol in VLDL [Mass/Vol] 14 mg/dL Normal 5-40 [facility] Work Phone: Comment on above: PATIENT NOT FASTINGP ERFORMED BY: SANTOS LabAnnemarie TalaveraPiwyjf4305 [address] [facility] [place] [id number] Triglyceride [Mass/Vol] 68 mg/dL Normal 0-149 [facility] Work Phone: Comment on above: PATIENT NOT FASTINGP ERFORMED BY: SANTOS LabAnnemarie TalaveraOoblyu0141 [address] [facility] [place] [id number] METABOLIC PANEL, COMPREHENSI VE ([id number])Ordered By: Non Linear Editor on 10-02-2019 Albumin [Mass/Vol] 4.8 g/dL Normal 3.5-5.5 [facility] Internal Medicine Work Phone: Comment on above: PATIENT NOT FASTINGP ERFORMED BY: SANTOS [facility] Ostwmh1566 [address] [facility]in [place] [id number] Albumin/Globulin [Mass ratio] 2.1 {ratio} Normal 1.2-2.2 [facility] Work Phone: Comment on above: PATIENT NOT FASTINGP ERFORMED BY: SANTOS [facility] Pgwqxl8870 [address] [facility] [place] [id number] ALP [Catalytic activity/Vol] 89 [iU]/L Normal 39-117 [facility] Work Phone: Comment on above: PATIENT NOT FASTINGP ERFORMED BY: SANTOS [facility] Zjxzsz3874 [address] RoadDublin [place] [id number] ALP [Catalytic activity/Vol] 89 U/L Normal 39-117 [facility]; [facility] Work Phone: Comment on above: PATIENT NOT FASTINGP ERFORMED BY: SANTOS [facility] Mvufgy6143 [address] RoadDublin [place] [id number] ALT [Catalytic activity/Vol] 27 [iU]/L Normal 0-32 [facility] Work Phone: Comment on above: PATIENT NOT FASTINGP ERFORMED BY: CB [facility] Wgpflo6256 [address] RoadDublin [place] [id number] ALT [Catalytic activity/Vol] 27 U/L Normal 0-32 [facility]; [facility] Work Phone: Comment on above: PATIENT NOT FASTINGP ERFORMED BY: SANTOS [facility] Vapjac1348 [address] RoadDublin [place] [id number] AST [Catalytic activity/Vol] 27 [iU]/L Normal 0-40 [facility] Work Phone: Comment on above: PATIENT NOT FASTINGP ERFORMED BY: SANTOS [facility] Lorilx9262 [address] RoadDublin [place] [id number] AST [Catalytic activity/Vol] 27 U/L Normal 0-40 [facility]; [facility] Work Phone: Comment on above: PATIENT NOT FASTINGP ERFORMED BY: SANTOS [facility] Dntyju9308 [address] RoadDublin [place] [id number] Bilirubin [Mass/Vol] 0.3 mg/dL Normal 0.0-1.2 [facility] Work Phone: Comment on above: PATIENT NOT FASTINGP ERFORMED BY: SANTOS [facility] Lqspqv5450 [address] RoadDublin [place] [id number] Calcium [Mass/Vol] 9.7 mg/dL Normal 8.7-10.2 [facility] Internal Medicine Work Phone: Comment on above: PATIENT NOT FASTINGP ERFORMED BY: CB [facility] Xzxnkp5734 [address] RoadDublin [place] [id number] Chloride [Moles/Vol] 101 mmol/L Normal 96-106 [facility] Work Phone: Comment on above: PATIENT NOT FASTINGP ERFORMED BY: CB [facility] Rjdqhl9747 [address]blin [place] [id number] CO2 [Moles/Vol] 21 mmol/L Normal 20-29 [facility] Internal Medicine Work Phone: Comment on above: PATIENT NOT FASTINGP ERFORMED BY: CB [facility] Tdautu[address] [facility] [id number] Creatinine [Mass/Vol] 0.64 mg/dL Normal 0.57-1.00 [facility] Work Phone: Comment on above: PATIENT NOT FASTINGP ERFORMED BY: CB [facility] Adcgct[address] [facility] [id number] GFR/1.73 sq M predicted among blacks CKD-EPI (S/P/Bld) [Vol rate/Area] 116 mL/min/1.73 Normal [facility] Work Phone: Comment on above: PATIENT NOT FASTINGP ERFORMED BY: CB [facility] Wdkibv4475 [address] RoadHigh[facility] [id number] GFR/1.73 sq M predicted among non-blacks CKD-EPI (S/P/Bld) [Vol rate/Area] 101 mL/min/1.73 Normal [facility] Work Phone: Comment on above: PATIENT NOT FASTINGP ERFORMED BY: CB [facility] Jsogbb[address] [facility] [id number] Globulin (S) [Mass/Vol] 2.3 g/dL Normal 1.5-4.5 [facility] Work Phone: Comment on above: PATIENT NOT FASTINGP ERFORMED BY: CB [facility] Ghkcgd[address] [facility] [id number] Glucose [Mass/Vol] 82 mg/dL Normal 65-99 [facility] Internal Medicine Work Phone: Comment on above: PATIENT NOT FASTINGP ERFORMED BY: CB [facility] Mhzjms9679 [address] [facility] [place] [id number] Potassium [Moles/Vol] 4.2 mmol/L Normal 3.5-5.2 [facility] Work Phone: Comment on above: PATIENT NOT FASTINGP ERFORMED BY: SANTOS Talaveralin6370 [address] [facility] [place] [id number] Protein [Mass/Vol] 7.1 g/dL Normal 6.0-8.5 [facility] Internal Medicine Work Phone: Comment on above: PATIENT NOT FASTINGP ERFORMED BY: [facility] Gcczip3931 [address] [facility]in [place] [id number] Sodium [Moles/Vol] 142 mmol/L Normal 134-144 [facility] Internal Medicine Work Phone: Comment on above: PATIENT NOT FASTINGP ERFORMED BY: [facility] Zqwkyj0333 [facility] [id number] Urea nitrogen [Mass/Vol] 19 mg/dL Normal 6-24 [facility] Work Phone: Comment on above: PATIENT NOT FASTINGP ERFORMED BY: [facility] Lfvzlf14[address] [facility] [id number] Urea nitrogen/Creatinin e [Mass ratio] 30 mg/mg Abnormal 9-23 [facility] Internal Medicine Work Phone: Comment on above: PATIENT NOT FASTINGP ERFORMED BY: [facility] Ehyrtv[address] [facility] [id number] T3, FREE (TRIDOTHYRONINE) ([id number])Ordered By: Non Linear Editor on 10-02-2019 Free T3 [Mass/Vol] 3.1 pg/mL Normal 2.0-4.4 [facility] Internal Medicine Work Phone: Comment on above: PATIENT NOT FASTINGP ERFORMED BY: SANTOS LabCo Wovtcg9788 [address] [facility] [place] [id number] T4, FREE (THYROXINE) ([id number]) Ordered By: Non Linear Editor on 10-02-2019 Free T4 [Mass/Vol] 1.36 ng/dL Normal 0.82-1.77 Compre hensive Internal Medicine Work Phone: Comment on above: PATIENT NOT FASTINGP ERFORMED BY: CB [facility] Qgbnlf[address] [facility] [id number] TSH ([id number])Ordered By: Triston Lindquist on 10-02-2019 TSH Qn 3.000 {uIU/mL} Normal 0.450-4.500 Comprehen sive Internal Medicine Work Phone: Comment on above: PATIENT NOT FASTINGP ERFORMED BY: CB [facility] Hndici[address] [facility] [id number] Urinalysis, Office ([id number])Or dered By: Jolanta Watkins on 10-02-2019 Bilirubin Ql (U) Negative Normal Comprehe nsive Internal Medicine Work Phone: Bilirubin Ql (U) Negative Normal Comprehe nsive Internal Medicine; [facility] Work Phone: Glucose Test strip (U) [Mass/Vol] Negative Normal [facility] Work Phone: Glucose Test strip (U) [Mass/Vol] Negative Normal [facility]; [facility] Work Phone: Hemoglobin Ql (U) Negative Normal Compre[facility] Work Phone: Hemoglobin Ql (U) Negative Normal [facility]; [facility] Work Phone: Ketones Ql (U) Negative Normal Comprehens tatum [facility] Work Phone: Ketones Ql (U) Negative Normal [facility]prehens [facility]; [facility] Work Phone: Leukocyte esterase Test strip Ql (U) Negative Normal [facility] Work Phone: Leukocyte esterase Test strip Ql (U) Negative Normal [facility]; [facility] Work Phone: Nitrite Ql (U) Negative Normal [facility]prehens [facility] Work Phone: Nitrite Ql (U) Negative Normal [facility]prehens [facility]; [facility] Work Phone: pH (U) 7 [pH] Normal [facility] Work Phone: Protein Ql (U) Negative Normal [facility]prehens [facility] Work Phone: Protein Ql (U) Negative Normal [facility]prehens [facility]; [facility] Work Phone: Specific gravity (U) [Rel density] 1.010 1 Normal [facility] Work Phone: Urobilinogen (24H U) [Mass/Time] Normal Normal [facility] Work Phone: CALCIFEDIOL (48441)Ordered B y: Non Linear Editor on 03-27-2018 25-Hydroxyvitamin D2+25-Hydroxyvitam in D3 [Mass/Vol] 28.1 ng/mL Abnormal 30.0-100.0 [facility] Work Phone: Comment on above: Vitamin D deficiency has been defined by the [place] of[place]icine and an Endocrine Society practice guideline as alevel of serum 25-OH vitamin D less than 20 ng/mL (1,2).The Endocrine Society went on to further define vitamin Dinsufficiency as a level between 21 and 29 ng/mL (2).1. IOM ([place] of Medicine). 2010. Dietary reference intakes for calcium and D. [place]: The National Academies Press.2. Karen MF, Garry BOWMAN, Kristy PADILLA, et al. Evaluation, treatment, and prevention of vitamin D deficiency: an Endocrine Society clinical practice guideline. JCEM. 2010; 96(7):1911-30. April 2018; PATIENT WA S FASTINGPERFORMED BY: [employer] [employer] [place] [id number] Lipid Panel (29770)Ordered B y: Non Linear Editor on 03-27-2018 Cholesterol [Mass/Vol] 200 mg/dL Abnormal 100-199 [facility] Work Phone: Comment on above: April 2018; PATIENT WA S FASTINGPERFORMED BY: [employer] [employer] [place] [id number] Cholesterol in HDL [Mass/Vol] 75 mg/dL Normal [facility] Work Phone: Comment on above: April 2018; PATIENT WA S FASTINGPERFORMED BY: [facility]Tangible [facility] [id number] Cholesterol in LDL [Mass/Vol] 109 mg/dL Abnormal 0-99 [facility] Work Phone: Comment on above: April 2018; PATIENT MATEO S FASTINGPERFORMED BY: [facility] Yxorca9735 [address] [facility] [place] [id number] Cholesterol in LDL/Cholesterol in HDL [Mass ratio] 1.5 {ratio} Normal 0.0-3.2 [facility] Work Phone: Comment on above: LDL/HDL Ratio Men Wo men 1/2 Avg.Risk 1.0 1.5 Avg.Risk 3.6 3.2 2X Avg.Risk 6.2 5.0 3X Avg.Risk 8.0 6.01 Apr 2018; PATIENT MATEO S FASTINGPERFORMED BY: [facility] Rptxpd[address] [facility] [id number] Cholesterol in VLDL [Mass/Vol] 16 mg/dL Normal 5-40 [facility] Work Phone: Comment on above: April 2018; PATIENT MATEO S FASTINGPERFORMED BY: [facility] Kbyhaq8777 [address] [facility] [place] [id number] Triglyceride [Mass/Vol] 78 mg/dL Normal 0-149 [facility] Work Phone: Comment on above: April 2018; PATIENT MATEO S FASTINGPERFORMED BY: [facility] Kmgbiy6757 [facility] [id number] T3, FREE (TRIDOTHYRONINE) (9 8427)Ordered By: Non Linear Editor on 03-27-2018 Free T3 [Mass/Vol] 3.5 pg/mL Normal 2.0-4.4 [facility] Internal Medicine Work Phone: Comment on above: April 2018; PATIENT MATEO S FASTINGPERFORMED BY: [facility] Cpzlgg0000 [address] [facility] [place] [id number] T4, FREE (THYROXINE) (02370) Ordered By: Non Linear Editor on 03-27-2018 Free T4 [Mass/Vol] 1.41 ng/dL Normal 0.82-1.77 [facility] Internal Medicine Work Phone: Comment on above: April 2018; PATIENT WA S FASTINGPERFORMED BY: CB [facility] Tljdom2840 [address] RoadDublin [place] [id number] TSH (92332)Ordered By: Triston parekh Parking Attendant on 03-27-2018 TSH Qn 2.240 {uIU/mL} Normal 0.450-4.500 [facility] Work Phone: Comment on above: April 2018; PATIENT WA S FASTINGPERFORMED BY: CB [facility] Ifuwvm9611 [address] RoadDublin [place] [id number] CALCIFEDIOL (10281)Ordered B y: Non Linear Editor on 09-26-2017 25-Hydroxyvitamin D2+25-Hydroxyvitam in D3 [Mass/Vol] 28.5 ng/mL Abnormal 30.0-100.0 [facility] Work Phone: Comment on above: Vitamin D deficiency has been defined by the [place] of9+cine and an Endocrine Society practice guideline as alevel of serum 25-OH vitamin D less than 20 ng/mL (1,2).The Endocrine Society went on to further define vitamin Dinsufficiency as a level between 21 and 29 ng/mL (2).1. IOM ([place] of [place]). 2010. Dietary reference intakes for calcium and D. Li [place]: The National Academies Press.2. Karen MF, Garry BOWMAN, Kristy PADILLA, et al. Evaluation, treatment, and prevention of vitamin D deficiency: an Endocrine Society clinical practice guideline. JCEM. 2010; 96(7):1911-30. PATIENT NOT FASTINGP ERFORMED BY: CB [facility] Uoutty3755 [address] [facility] [place] [id number]; OV next week CALCIFEDIOL (89303)Ordered B y: Non Linear Editor on 08-23-2016 25-Hydroxyvitamin D2+25-Hydroxyvitam in D3 [Mass/Vol] 20.7 ng/mL Abnormal 30.0-100.0 [facility] Work Phone: Comment on above: Vitamin D deficiency has been defined by the [place] of[place]icine and an Endocrine Society practice guideline as alevel of serum 25-OH vitamin D less than 20 ng/mL (1,2).The Endocrine Society went on to further define vitamin Dinsufficiency as a level between 21 and 29 ng/mL (2).1. IOM ([place] of [place]). 2010. Dietary reference intakes for calcium and D. Li [place]: The National AcademSano Press.2. Karen MF, Garry BOWMAN, Kristy PADILLA, et al. Evaluation, treatment, and prevention of vitamin D deficiency: an Endocrine Society clinical practice guideline. JCEM. 2010; 96(7):1911-30. PATIENT WAS FASTINGP ERFORMED BY: OberScharrer Vnpokk[address] [employer] [place] [id number] Lipid Panel (30875)Ordered B y: Non Linear Editor on 08-23-2016 Cholesterol [Mass/Vol] 191 mg/dL Normal 100-199 [facility] Work Phone: Comment on above: PATIENT WAS FASTINGP ERFORMED BY: OberScharrer Xmfdrf5637 [address] [employer] [id number] Cholesterol in HDL [Mass/Vol] 77 mg/dL Normal [facility] Work Phone: Comment on above: According to ATP-III Guidelines, HDL-C >59 mg/dL is considered anegative risk factor for CHD. PATIENT WAS FASTINGP ERFORMED BY: Secure [employer] LabMeuugame Ovaofl7382 [facility]in [place] [id number] Cholesterol in LDL [Mass/Vol] 103 mg/dL Abnormal 0-99 [facility] Work Phone: Comment on above: PATIENT WAS FASTINGP ERFORMED BY: [employer] LabMeuugame Ddtcxl6394 [address] [facility] [id number] Cholesterol in LDL/Cholesterol in HDL [Mass ratio] 1.3 {ratio_units} Normal 0.0-3.2 [facility] Work Phone: Comment on above: LDL/HDL Ratio Men Wo men 1/2 Avg.Risk 1.0 1.5 Avg.Risk 3.6 3.2 2X Avg.Risk 6.2 5.0 3X Avg.Risk 8.0 6.1 PATIENT WAS FASTINGP ERFORMED BY: [employer] LabMeuugame Jbeejv5304 [facility] [id number] Cholesterol in VLDL [Mass/Vol] 11 mg/dL Normal 5-40 [facility] Work Phone: Comment on above: PATIENT WAS FASTINGP ERFORMED BY: [facility] Fisibv9497 [facility] [id number] Triglyceride [Mass/Vol] 54 mg/dL Normal 0-149 [facility] Work Phone: Comment on above: PATIENT WAS FASTINGP ERFORMED BY: [facility] Pmxkxj1307 [facility] [id number] METABOLIC PANEL, COMPREHENSI VE (95000)Ordered By: Non Linear Editor on 08-23-2016 Albumin [Mass/Vol] 4.4 g/dL Normal 3.5-5.5 [facility] Internal Medicine Work Phone: Comment on above: Please also send res ults to Dr. Bryanna Baker; PATIENT WAS FASTINGPERFORMED BY: [facility] Wlgdlg0978 [facility] [id number] Information: [id number], [id number] Albumin/Globulin [Mass ratio] 1.7 {ratio} Normal 1.1-2.5 [facility] Work Phone: Comment on above: Please also send res ults to Dr. Bryanna Baker; PATIENT WAS FASTINGPERFORMED BY: [facility] Lugdgg3283 [facility] [id number] Information: [id number], 409181 ALP [Catalytic activity/Vol] 77 [iU]/L Normal 39-117 [facility] Work Phone: Comment on above: Please also send res ults to Dr. Bryanna Baker; PATIENT WAS FASTINGPERFORMED BY: [facility] Tvruol7556 [facility] [id number] Information: [id number], 802771 ALP [Catalytic activity/Vol] 77 U/L Normal 39-117 [facility]; [facility] Work Phone: Comment on above: Please also send res ults to Dr. Bryanna Baker; PATIENT WAS FASTINGPERFORMED BY: CB [facility] Kjilyj0831 [address] RoadDublin [place] [id number] Information: S01528, 250551 ALT [Catalytic activity/Vol] 21 [iU]/L Normal 0-32 [facility] Work Phone: Comment on above: Please also send res ults to Dr. Bryanna Baker; PATIENT WAS FASTINGPERFORMED BY: CB [facility] Likbcg2865 [address] RoadDublin [place] [id number] Information: F25429, 487648 ALT [Catalytic activity/Vol] 21 U/L Normal 0-32 [facility]; [facility] Work Phone: Comment on above: Please also send res ults to Dr. Bryanna Baker; PATIENT WAS FASTINGPERFORMED BY: CB [facility] Kitfxt1147 [address] RoadDublin [place] [id number] Information: S41219, 348529 AST [Catalytic activity/Vol] 22 [iU]/L Normal 0-40 [facility] Work Phone: Comment on above: Please also send res ults to Dr. Bryanna Baker; PATIENT WAS FASTINGPERFORMED BY: CB [facility] Claefw8291 [address] RoadDublin [place] [id number] Information: B04032, 687245 AST [Catalytic activity/Vol] 22 U/L Normal 0-40 [facility]; [facility] Work Phone: Comment on above: Please also send res ults to Dr. Bryanna Baker; PATIENT WAS FASTINGPERFORMED BY: CB [facility] Bebrrg6366 [address] RoadDublin [place] [id number] Information: T61699, 580658 Bilirubin [Mass/Vol] 0.4 mg/dL Normal 0.0-1.2 [facility] Work Phone: Comment on above: Please also send res ults to Dr. Bryanna Baker; PATIENT WAS FASTINGPERFORMED BY: CB [facility] Mrhcfr8235 [address] RoadDublin [place] [id number] Information: R06544, 928051 Calcium [Mass/Vol] 9.3 mg/dL Normal 8.7-10.2 [facility] Internal Medicine Work Phone: Comment on above: Please also send res ults to Dr. Bryanna Baker; PATIENT WAS FASTINGPERFORMED BY: CB [facility] Xytfkt0351 [address] RoadDublin [place] [id number] Information: E29793, 654651 Chloride [Moles/Vol] 101 mmol/L Normal 97-108 [facility] Internal Medicine Work Phone: Comment on above: Please also send res ults to Dr. Bryanna Baker; PATIENT WAS FASTINGPERFORMED BY: CB [facility] Dujywo9872 [address] RoadDublin [place] [id number] Information: T89126, 388433 CO2 [Moles/Vol] 24 mmol/L Normal 18-29 [facility] Internal Medicine Work Phone: Comment on above: Please also send res ults to Dr. Bryanna Baker; PATIENT WAS FASTINGPERFORMED BY: CB [facility] Ubuwxp4779 [address] Roadblin [place] [id number] Information: V69157, 197008 Creatinine [Mass/Vol] 0.63 mg/dL Normal 0.57-1.00 [facility] Internal Medicine Work Phone: Comment on above: Please also send res ults to Dr. Bryanna Baker; PATIENT WAS FASTINGPERFORMED BY: CB [facility] Dlgaiv4219 [address] RoadDublin [place] [id number] Information: K42406, 108827 GFR/1.73 sq M predicted among blacks CKD-EPI (S/P/Bld) [Vol rate/Area] 120 mL/min/1.73 Normal [facility] Work Phone: Comment on above: Please also send res ults to Dr. Bryanna Baker; PATIENT WAS FASTINGPERFORMED BY: CB [facility] Vphdtm1782 [address] RoadDublin [place] [id number] Information: A83601, 699952 GFR/1.73 sq M predicted among non-blacks CKD-EPI (S/P/Bld) [Vol rate/Area] 104 mL/min/1.73 Normal [facility] Work Phone: Comment on above: Please also send res ults to Dr. Bryanna Baker; PATIENT WAS FASTINGPERFORMED BY: CB [facility] Hblebu2992 [address] Roadblin [place] [id number] Information: E51977, 565641 Globulin (S) [Mass/Vol] 2.6 g/dL Normal 1.5-4.5 [facility] Work Phone: Comment on above: Please also send res ults to Dr. Bryanna Baker; PATIENT WAS FASTINGPERFORMED BY: CB [facility] Bowaxs5349 [address] RoadDublin [place] [id number] Information: K02011, 366043 Glucose [Mass/Vol] 86 mg/dL Normal 65-99 [facility] Internal Medicine Work Phone: Comment on above: Please also send res ults to Dr. Bryanna Baker; PATIENT WAS FASTINGPERFORMED BY: CB [facility] Wckegt8257 [address] RoadDuin [place] [id number] Information: Z84174, 663393 Potassium [Moles/Vol] 4.5 mmol/L Normal 3.5-5.2 [facility] Internal Medicine Work Phone: Comment on above: Please also send res ults to Dr. Bryanna Baker; PATIENT WAS FASTINGPERFORMED BY: CB [facility] Ddenzl9393 [address] [facility] [place] [id number] Information: D92703, 004147 Protein [Mass/Vol] 7.0 g/dL Normal 6.0-8.5 [facility] Internal Medicine Work Phone: Comment on above: Please also send res ults to Dr. Bryanna Baker; PATIENT WAS FASTINGPERFORMED BY: CB [facility] Nybfok2797 [address] RoadDuin [place] [id number] Information: G06334, 728949 Sodium [Moles/Vol] 142 mmol/L Normal 134-144 [facility] Internal Medicine Work Phone: Comment on above: Please also send res ults to Dr. Bryanna Baker; PATIENT WAS FASTINGPERFORMED BY: CB [facility] Ofezkw8834 [address] RoadDublin [place] [id number] Information: Z37852, 321454 Urea nitrogen [Mass/Vol] 15 mg/dL Normal 6-24 [facility] Internal Medicine Work Phone: Comment on above: Please also send res ults to Dr. Bryanna Baker; PATIENT WAS FASTINGPERFORMED BY: CB [facility] Eoidvz8610 [address] RoadDublin [place] [id number] Information: D02395, 902957 Urea nitrogen/Creatinin e [Mass ratio] 24 mg/mg Abnormal 9- [facility] Internal Medicine Work Phone: Comment on above: Please also send res ults to Dr. Bryanna Baker; PATIENT WAS FASTINGPERFORMED BY: CB [facility] Rfweit5046 [address] RoadDublin [place] [id number] Information: K46635, 938079 TSH (THYROID STIMULATING HOR VALE) (90349)Ordered By: Non Linear Editor on 08-23-2016 TSH Qn 0.975 {uIU/mL} Normal 0.450-4.500 [facility] Internal Medicine Work Phone: Comment on above: please send to Dr. Kalyani Land; PATIENT WAS FASTINGPERFORMED BY: CB [facility] Gfrkiv7821 [address] RoadYadkin Valley Community Hospitalin [place] [id number] TSH (28618)Ordered By: Syste m Parking Attendant on 05-09-2016 TSH Qn 0.758 {uIU/mL} Normal 0.450-4.500 [facility] Internal Medicine Work Phone: Comment on above: PATIENT NOT FASTINGP ERFORMED BY: CB [facility] Xsoawz7715 [address] RoadDublin [place] [id number] Information: 724447,B09492 Metabolic Panel, Comprehensi ve (86520)Ordered By: Non Linear Editor on 03-19-2016 Albumin [Mass/Vol] 4.6 g/dL Normal 3.5-5.5 [facility] Internal Medicine Work Phone: Comment on above: fax copy to Dr. Diana oneill [phone]; PATIENT NOT FASTINGPERFORMED BY: CB [facility] Seaosh9038 [address] RoadDublin [place] [id number] Information: 166040,D59824 Albumin/Globulin [Mass ratio] 1.8 {ratio} Normal 1.1-2.5 [facility] Work Phone: Comment on above: fax copy to Dr. Diana oneill [phone]; PATIENT NOT FASTINGPERFORMED BY: CB [facility] Rbfwvu0987 [address] RoadDublin [place] [id number] Information: 432153,H29240 ALP [Catalytic activity/Vol] 82 [iU]/L Normal 39-117 [facility] Work Phone: Comment on above: fax copy to Dr. Diana oneill [phone]; PATIENT NOT FASTINGPERFORMED BY: CB [facility] Jyxgsb1253 [address] RoadDublin [place] [id number] Information: 339741,V32300 ALP [Catalytic activity/Vol] 82 U/L Normal 39-117 [facility]; [facility] Work Phone: Comment on above: fax copy to Dr. Diana oneill [phone]; PATIENT NOT FASTINGPERFORMED BY: CB [facility] Owqako5801 [address] RoadDublin [place] [id number] Information: 741533,I78334 ALT [Catalytic activity/Vol] 16 [iU]/L Normal 0-32 [facility] Work Phone: Comment on above: fax copy to Dr. Diana oneill [phone]; PATIENT NOT FASTINGPERFORMED BY: CB [facility] Pxwvbf9024 [address] RoadDublin [place] [id number] Information: 175933,W95671 ALT [Catalytic activity/Vol] 16 U/L Normal 0-32 [facility]; [facility] Work Phone: Comment on above: fax copy to Dr. Diana oneill [phone]; PATIENT NOT FASTINGPERFORMED BY: CB [facility] Emqclk8708 [address] RoadDublin [place] [id number] Information: 902469,W72594 AST [Catalytic activity/Vol] 16 [iU]/L Normal 0-40 [facility] Work Phone: Comment on above: fax copy to Dr. Diana oneill [phone]; PATIENT NOT FASTINGPERFORMED BY: CB [facility] Hsztit8903 [address] RoadDublin [place] [id number] Information: 907180,[id number] AST [Catalytic activity/Vol] 16 U/L Normal 0-40 [facility]; [facility] Work Phone: Comment on above: fax copy to Dr. Diana oneill [phone]; PATIENT NOT FASTINGPERFORMED BY: CB [facility] Ddlpkc4997 [address] RoadDuin [place] [id number] Information: 940424,O44564 Bilirubin [Mass/Vol] 0.3 mg/dL Normal 0.0-1.2 [facility] Internal Medicine Work Phone: Comment on above: fax copy to Dr. Diana oneill [phone]; PATIENT NOT FASTINGPERFORMED BY: CB [facility] Ysxrxw1565 [address] RoadYadkin Valley Community Hospitalin [place] [id number] Information: 678663,B31077 Calcium [Mass/Vol] 9.1 mg/dL Normal 8.7-10.2 [facility] Internal Medicine Work Phone: Comment on above: fax copy to Dr. Diana oneill [phone]; PATIENT NOT FASTINGPERFORMED BY: CB [facility] Agthke7229 [address] RoadDublin [place] [id number] Information: 034838,K89929 Chloride [Moles/Vol] 100 mmol/L Normal 97-108 [facility] Work Phone: Comment on above: fax copy to Dr. Diana oneill [phone]; PATIENT NOT FASTINGPERFORMED BY: CB [facility] Xgfhux8644 [address] [facility]in [place] [id number] Information: 466081,M69215 CO2 [Moles/Vol] 22 mmol/L Normal 18-29 [facility] Internal Medicine Work Phone: Comment on above: fax copy to Dr. Diana oneill [phone]; PATIENT NOT FASTINGPERFORMED BY: CB [facility] Ycgzkw0755 [address] [facility]in [place] [id number] Information: 807376,D78254 Creatinine [Mass/Vol] 0.66 mg/dL Normal 0.57-1.00 [facility] Internal Medicine Work Phone: Comment on above: fax copy to Dr. Diana oneill [phone]; PATIENT NOT FASTINGPERFORMED BY: CB [facility] Okdmuf8157 [facility]ayaS[facility] [id number] Information: 888651,E54902 GFR/1.73 sq M predicted among blacks CKD-EPI (S/P/Bld) [Vol rate/Area] 118 mL/min/1.73 Normal [facility] Work Phone: Comment on above: fax copy to Dr. Diana oneill [phone]; PATIENT NOT FASTINGPERFORMED BY: CB [facility] Knichw2223 [facility]ayaS[facility] Hospital [id number] Information: 378158,G97908 GFR/1.73 sq M predicted among non-blacks CKD-EPI (S/P/Bld) [Vol rate/Area] 103 mL/min/1.73 Normal [facility] Work Phone: Comment on above: fax copy to Dr. Diana oneill [phone]; PATIENT NOT FASTINGPERFORMED BY: CB [facility] Ikmpcw[address] [facility] [id number] Information: 270594,C33587 Globulin (S) [Mass/Vol] 2.5 g/dL Normal 1.5-4.5 [facility] Work Phone: Comment on above: fax copy to Dr. Diana oneill [phone]; PATIENT NOT FASTINGPERFORMED BY: CB [facility] Cjaeko4826 [address] PlumbeeYadkin Valley Community Hospitalin [place] [id number] Information: 901789,[id number] Glucose [Mass/Vol] 81 mg/dL Normal 65-99 [facility] Internal Medicine Work Phone: Comment on above: fax copy to Dr. Diana oneill [phone]; PATIENT NOT FASTINGPERFORMED BY: CB [facility] Vfmtme6710 [facility] [id number] Information: 410389,G62810 Potassium [Moles/Vol] 4.1 mmol/L Normal 3.5-5.2 [facility] Work Phone: Comment on above: fax copy to Dr. Diana oneill [phone]; PATIENT NOT FASTINGPERFORMED BY: CB [facility] Jbuwvc4259 [facility] [id number] Information: 627218,A10161 Protein [Mass/Vol] 7.1 g/dL Normal 6.0-8.5 [facility] Internal Medicine Work Phone: Comment on above: fax copy to Dr. Diana oneill [phone]; PATIENT NOT FASTINGPERFORMED BY: CB [facility] Vjsrem9939 [facility] [id number] Information: 235454,[id number] Sodium [Moles/Vol] 142 mmol/L Normal 134-144 [facility] Internal Medicine Work Phone: Comment on above: fax copy to Dr. Diana oneill [phone]; PATIENT NOT FASTINGPERFORMED BY: CB [facility] Uikybp7223 [facility] [id number] Information: [id number] Urea nitrogen [Mass/Vol] 14 mg/dL Normal 6-24 [facility] Work Phone: Comment on above: fax copy to Dr. Diana oneill [phone]; PATIENT NOT FASTINGPERFORMED BY: CB [facility] Jbagbj5249 [address] RoadDublin [place] [id number] Information: 937518,F86665 Urea nitrogen/Creatinin e [Mass ratio] 21 mg/mg Normal 9-23 [facility] Work Phone: Comment on above: fax copy to Dr. Diana oneill [phone]; PATIENT NOT FASTINGPERFORMED BY: CB [facility] Tqnbfw6275 [address] RoadDuin [place] [id number] Information: [id number] TSH (00633)Ordered By: Travone m Parking Attendant on 03-19-2016 TSH Qn 2.230 {uIU/mL} Normal 0.450-4.500 [facility] Internal Medicine Work Phone: Comment on above: fax copy to Dr. Diana oneill [phone]; PATIENT NOT FASTINGPERFORMED BY: CB [facility] Zttkqy7816 [address]aya RoadYadkin Valley Community Hospitalin [place] [id number] TSH (61631)Ordered By: Syste m Parking Attendant on 01-30-2016 TSH Qn 2.020 {uIU/mL} Normal 0.450-4.500 [facility] Internal Medicine Work Phone: Comment on above: copy to Dr. Anita burton [phone]; PATIENT NOT FASTINGPERFORMED BY: CB [facility] Stqoyw4126 [address] [facility]in [place] [id number] Information: [id number] CBC WITH MANUAL DIFF (23863) Ordered By: Non Linear Editor on 10-04-2015 Basophils (Bld) [#/Vol] 0.0 {x10E3/uL} Normal 0.0-0.2 [facility] Work Phone: Comment on above: PATIENT NOT FASTINGP ERFORMED BY: CB [facility] Xhucpp1659 [address] RoadYadkin Valley Community Hospitalin [place] [id number] Information: [id number], [id number] Basophils (Bld) [#/Vol] 0.0 10*3/uL Normal 0.0-0.2 [facility]; [facility] Work Phone: Comment on above: PATIENT NOT FASTINGP ERFORMED BY: SANTOS [facility] Kmyljr[address] [facility] [id number] Information: [id number], [id number] Basophils/100 WBC (Bld) 1 % Normal [facility] Work Phone: Comment on above: PATIENT NOT FASTINGP ERFORMED BY: LabCoSt. Luke's Warren HospitalTthrhj6816 [facility] [id number] Information: L47411, 234432 Eosinophils (Bld) [#/Vol] 0.2 {x10E3/uL} Normal 0.0-0.4 [facility] Work Phone: Comment on above: PATIENT NOT FASTINGP ERFORMED BY: [facility] Aaefhf6092 [facility] [id number] Information: K58596, 242334 Eosinophils (Bld) [#/Vol] 0.2 10*3/uL Normal 0.0-0.4 [facility]; [facility] Work Phone: Comment on above: PATIENT NOT FASTINGP ERFORMED BY: [facility] Gvaqup5086 [facility] [id number] Information: E80947, 263928 Eosinophils/100 WBC (Bld) 2 % Normal [facility] Work Phone: Comment on above: PATIENT NOT FASTINGP ERFORMED BY: [facility] Qzyefu0361 [facility] [id number] Information: O65214, 599965 Erythrocyte distribution width (RBC) [Ratio] 13.7 % Normal 12.3-15.4 [facility] Work Phone: Comment on above: PATIENT NOT FASTINGP ERFORMED BY: [facility] Nqwkkh0997 [facility] [id number] Information: [id number], 418367 Hematocrit (Bld) [Volume fraction] 38.3 % Normal 34.0-46.6 [facility] Work Phone: Comment on above: PATIENT NOT FASTINGP ERFORMED BY: SANTOS Magana6370 [facility] [id number] Information: N02784, 857015 Hemoglobin (Bld) [Mass/Vol] 12.6 g/dL Normal 11.1-15.9 [facility] Work Phone: Comment on above: PATIENT NOT FASTINGP ERFORMED BY: [place] 0594670 [facility] [id number] Information: K39383, 525784 Immature granulocytes (Bld) [#/Vol] 0.0 {x10E3/uL} Normal 0.0-0.1 [facility] Work Phone: Comment on above: PATIENT NOT FASTINGP ERFORMED BY: SANTOS [facility] Nxixii1795 [facility] [id number] Information: E28905, 349202 Immature granulocytes (Bld) [#/Vol] 0.0 10*3/uL Normal 0.0-0.1 [facility]; [facility] Work Phone: Comment on above: PATIENT NOT FASTINGP ERFORMED BY: SANTOS [facility] Qbnqeo8924 [facility] [id number] Information: [id number] 155516 Immature granulocytes/100 WBC (Bld) 0 % Normal [facility] Work Phone: Comment on above: PATIENT NOT FASTINGP ERFORMED BY: [facility]6370 [facility] [id number] Information: K08884, 366768 Lymphocytes (Bld) [#/Vol] 2.2 {x10E3/uL} Normal 0.7-3.1 [facility] Work Phone: Comment on above: PATIENT NOT FASTINGP ERFORMED BY: [place] 0594670 [facility] [id number] Information: O44248, 616980 Lymphocytes (Bld) [#/Vol] 2.2 10*3/uL Normal 0.7-3.1 [facility]; [facility] Work Phone: Comment on above: PATIENT NOT FASTINGP ERFORMED BY: SANTOS [facility] Furpiz0716 [facility] [id number] Information: [id number] [id number] Lymphocytes/100 WBC (Bld) 33 % Normal [facility] Work Phone: Comment on above: PATIENT NOT FASTINGP ERFORMED BY: LabCoSt. Luke's Warren HospitalAwnxvh8732 [facility] [id number] Information: [id number], 402145 MCH (RBC) [Entitic mass] 28.3 pg Normal 26.6-33.0 [facility] Work Phone: Comment on above: PATIENT NOT FASTINGP ERFORMED BY: LabCoSt. Luke's Warren HospitalMendye3862 [facility] [id number] Information: [id number], 560964 MCHC (RBC) [Mass/Vol] 32.9 g/dL Normal 31.5-35.7 [facility] Work Phone: Comment on above: PATIENT NOT FASTINGP ERFORMED BY: [facility] Ytkknx7321 [facility] [id number] Information: [id number], 712324 MCV (RBC) [Entitic vol] 86 fL Normal 79-97 [facility] Work Phone: Comment on above: PATIENT NOT FASTINGP ERFORMED BY: [facility] Wjkzqr1719 [facility] [id number] Information: F37206, 037867 Monocytes (Bld) [#/Vol] 0.4 {x10E3/uL} Normal 0.1-0.9 [facility] Work Phone: Comment on above: PATIENT NOT FASTINGP ERFORMED BY: [facility] Hklsdz6523 [facility] [id number] Information: O52266, 524156 Monocytes (Bld) [#/Vol] 0.4 10*3/uL Normal 0.1-0.9 [facility]; [facility] Work Phone: Comment on above: PATIENT NOT FASTINGP ERFORMED BY: SANTOS LabCoolman MaganaUxkktj0649 Anaya RoadYadkin Valley Community Hospitalin [place] [id number] Information: Z73920, 861086 Monocytes/100 WBC (Bld) 6 % Normal [facility] Work Phone: Comment on above: PATIENT NOT FASTINGP ERFORMED BY: CB [facility] Jtjorn8991 [address] RoadHighlands[facility]Cashiers [facility] [id number] Information: F08955, 949851 Neutrophils (Bld) [#/Vol] 3.9 {x10E3/uL} Normal 1.4-7.0 [facility] Work Phone: Comment on above: PATIENT NOT FASTINGP ERFORMED BY: CB [facility] Muvtpf[address] [facility] [id number] Information: J70422, 785826 Neutrophils (Bld) [#/Vol] 3.9 10*3/uL Normal 1.4-7.0 [facility]; [facility] Work Phone: Comment on above: PATIENT NOT FASTINGP ERFORMED BY: SANTOS [facility] Vgdwqq[address] [facility] [id number] Information: I22341, 184032 Neutrophils/100 WBC (Bld) 58 % Normal [facility] Work Phone: Comment on above: PATIENT NOT FASTINGP ERFORMED BY: CB [facility] Ykabcw0133 [address] [facility]in [place] [id number] Information: [id number], 187160 Platelets (Bld) [#/Vol] 402 {x10E3/uL} Abnormal 150-379 [facility] Work Phone: Comment on above: PATIENT NOT FASTINGP ERFORMED BY: CB [facility] Qxrvsz[address] [facility] [id number] Information: K15981, 747157 Platelets (Bld) [#/Vol] 402 10*3/uL Abnormal 150-379 [facility] Internal Medicine; [facility] Work Phone: Comment on above: PATIENT NOT FASTINGP ERFORMED BY: SANTOS Magana6370 [facility] [id number] Information: K73721, 859204 RBC (Bld) [#/Vol] 4.45 {x10E6/uL} Normal 3.77-5.28 [facility] Work Phone: Comment on above: PATIENT NOT FASTINGP ERFORMED BY: SANTOS [facility] Ioicwp3494 [facility] [id number] Information: A85578, 864231 RBC (Bld) [#/Vol] 4.45 10*6/uL Normal 3.77-5.28 [facility]; [facility] Work Phone: Comment on above: PATIENT NOT FASTINGP ERFORMED BY: SANTOS [facility] Wfaalh6663 [facility] [id number] Information: L00120, 399725 WBC (Bld) [#/Vol] 6.8 {x10E3/uL} Normal 3.4-10.8 [facility] Internal Medicine Work Phone: Comment on above: PATIENT NOT FASTINGP ERFORMED BY: SANTOS [facility] Uerhjm1623 [facility] [id number] Information: Y72621, 701825 WBC (Bld) [#/Vol] 6.8 10*3/uL Normal 3.4-10.8 [facility] Internal Medicine; [facility] Work Phone: Comment on above: PATIENT NOT FASTINGP ERFORMED BY: SANTOS [facility] Ilojru0273 [facility] [id number] Information: C23947, 115713 T3, FREE (TRIDOTHYRONINE) (2 4100)Ordered By: Non Linear Editor on 10-04-2015 Free T3 [Mass/Vol] 3.0 pg/mL Normal 2.0-4.4 [facility] Internal Medicine Work Phone: Comment on above: PATIENT NOT FASTINGP ERFORMED BY: SANTOS [facility] Pdmhap1866 [address]aya RoadDublin [place] [id number] T4, FREE (THYROXINE) (90865) Ordered By: Non Linear Editor on 10-04-2015 Free T4 [Mass/Vol] 1.18 ng/dL Normal 0.82-1.77 [facility] Internal Medicine Work Phone: Comment on above: PATIENT NOT FASTINGP ERFORMED BY: SANTOS [facility] Ucknde8339 [address]aya RoadDublin [place] [id number] TSH (87400)Ordered By: Triston m Parking Attendant on 10-04-2015 TSH Qn 2.360 {uIU/mL} Normal 0.450-4.500 [facility] Internal Medicine Work Phone: Comment on above: PATIENT NOT FASTINGP ERFORMED BY: SANTOS [facility] Uvulsk7482 [address] RoadDublin [place] [id number] T3, FREE (TRIDOTHYRONINE) (0 9043)Ordered By: Non Linear Editor on 08-11-2015 Free T3 [Mass/Vol] 3.0 pg/mL Normal 2.0-4.4 [facility] Medicine Work Phone: Comment on above: copy to Dr. Anita burton [phone]; PATIENT NOT FASTINGPERFORMED BY: [facility] Cvzpvv1996 Anaya RoadDuin [place] [id number] TSH (74128)Ordered By: Triston m Parking Attendant on 08-11-2015 TSH Qn 4.570 {uIU/mL} Abnormal 0.450-4.500 [facility] Internal Medicine Work Phone: Comment on above: copy to Dr. Anita burton fax [phone]; PATIENT NOT FASTINGPERFORMED BY: SANTOS [facility] Wkuack3278 [address]aya RoadDublin [place] [id number] Information: [id number] CALCIFIDIOL (49106) VIT D 25 Ordered By: Non Linear Editor on 04-01-2015 25-Hydroxyvitamin D2+25-Hydroxyvitam in D3 [Mass/Vol] 22.7 ng/mL Abnormal 30.0-100.0 [facility] Work Phone: Comment on above: Vitamin D deficiency has been defined by the [place] of[place]icine and an Endocrine Society practice guideline as alevel of serum 25-OH vitamin D less than 20 ng/mL (1,2).The Endocrine Society went on to further define vitamin Dinsufficiency as a level between 21 and 29 ng/mL (2).1. IOM ([place] of Medicine). 2010. Dietary reference intakes for calcium and D. [place]: The National Academies Press.2. Karen MF, Garry BOWMAN, Kristy PADILLA, et al. Evaluation, treatment, and prevention of vitamin D deficiency: an Endocrine Society clinical practice guideline. JCEM. 2010; 96(7):1911-30. PATIENT WAS FASTINGP ERFORMED BY: [employer] [place] [id number] CBC with auto diff (08939)Or dered By: Non Linear Editor on 04-01-2015 Basophils (Bld) [#/Vol] 0.0 {x10E3/uL} Normal 0.0-0.2 [facility] Work Phone: Comment on above: PATIENT WAS FASTINGP ERFORMED BY: [employer] [place] [id number] Information: [id number] Basophils (Bld) [#/Vol] 0.0 10*3/uL Normal 0.0-0.2 [facility]; [facility] Work Phone: Comment on above: PATIENT WAS FASTINGP ERFORMED BY: [employer] [place] [id number] Information: 206011,[id number] Basophils/100 WBC (Bld) 0 % Normal [facility] Work Phone: Comment on above: PATIENT WAS FASTINGP ERFORMED BY: [employer] [place] [id number] Information: 808200,Z73004 Eosinophils (Bld) [#/Vol] 0.2 {x10E3/uL} Normal 0.0-0.4 [facility] Work Phone: Comment on above: PATIENT WAS FASTINGP ERFORMED BY: [place] 0594670 [facility] [id number] Information: 819794,C13840 Eosinophils (Bld) [#/Vol] 0.2 10*3/uL Normal 0.0-0.4 [facility]; [facility] Work Phone: Comment on above: PATIENT WAS FASTINGP ERFORMED BY: [address] [id number] Information: 834734,X47903 Eosinophils/100 WBC (Bld) 4 % Normal [facility] Work Phone: Comment on above: PATIENT WAS FASTINGP ERFORMED BY: [address] [id number] Information: 704164,F43823 Erythrocyte distribution width (RBC) [Ratio] 14.1 % Normal 12.3-15.4 [facility] Work Phone: Comment on above: PATIENT WAS FASTINGP ERFORMED BY: [address] [id number] Information: [id number],L50330 Hematocrit (Bld) [Volume fraction] 41.2 % Normal 34.0-46.6 [facility] Work Phone: Comment on above: PATIENT WAS FASTINGP ERFORMED BY: [address] [id number] Information: 522854,E23205 Hemoglobin (Bld) [Mass/Vol] 13.8 g/dL Normal 11.1-15.9 [facility] Work Phone: Comment on above: PATIENT WAS FASTINGP ERFORMED BY: [address] [id number] Information: 726660,U22455 Immature granulocytes (Bld) [#/Vol] 0.0 {x10E3/uL} Normal 0.0-0.1 [facility] Work Phone: Comment on above: PATIENT WAS FASTINGP ERFORMED BY: [facility] Nmmfpm[address] [id number] Information: 452814,[id number] Immature granulocytes (Bld) [#/Vol] 0.0 10*3/uL Normal 0.0-0.1 [facility]; [facility] Work Phone: Comment on above: PATIENT WAS FASTINGP ERFORMED BY: [address] [id number] Information: 766555,J81297 Immature granulocytes/100 WBC (Bld) 0 % Normal [facility] Work Phone: Comment on above: PATIENT WAS FASTINGP ERFORMED BY: [address] [id number] Information: 920610,C01042 Lymphocytes (Bld) [#/Vol] 1.7 {x10E3/uL} Normal 0.7-3.1 [facility] Work Phone: Comment on above: PATIENT WAS FASTINGP ERFORMED BY: [address] [id number] Information: 878928,Z31918 Lymphocytes (Bld) [#/Vol] 1.7 10*3/uL Normal 0.7-3.1 [facility]; [facility] Work Phone: Comment on above: PATIENT WAS FASTINGP ERFORMED BY: [address] [id number] Information: 905759,C47969 Lymphocytes/100 WBC (Bld) 39 % Normal [facility] Work Phone: Comment on above: PATIENT WAS FASTINGP ERFORMED BY: [address] [id number] Information: 940644,Y89360 MCH (RBC) [Entitic mass] 28.2 pg Normal 26.6-33.0 [facility] Work Phone: Comment on above: PATIENT WAS FASTINGP ERFORMED BY: SANTOS Talaveralin6370 [facility] [id number] Information: 828863,U24983 MCHC (RBC) [Mass/Vol] 33.5 g/dL Normal 31.5-35.7 [facility] Work Phone: Comment on above: PATIENT WAS FASTINGP ERFORMED BY: SANTOS [facility] Fzhhmb4123 [facility] [id number] Information: 016077,I39400 MCV (RBC) [Entitic vol] 84 fL Normal 79-97 [facility] Work Phone: Comment on above: PATIENT WAS FASTINGP ERFORMED BY: SANTOS Salas Hqznug7219 [facility] [id number] Information: [id number] Monocytes (Bld) [#/Vol] 0.4 {x10E3/uL} Normal 0.1-0.9 [facility] Work Phone: Comment on above: PATIENT WAS FASTINGP ERFORMED BY: SANTOS Talaveralin6370 [facility] [id number] Information: [id number] Monocytes (Bld) [#/Vol] 0.4 10*3/uL Normal 0.1-0.9 [facility]; [facility] Work Phone: Comment on above: PATIENT WAS FASTINGP ERFORMED BY: SANTOS [facility] Dqdmyf7991 [facility] [id number] Information: [id number] Monocytes/100 WBC (Bld) 9 % Normal [facility] Work Phone: Comment on above: PATIENT WAS FASTINGP ERFORMED BY: SANTOS [facility] Fnbwzr1514 [facility] [id number] Information: 979583,[id number] Neutrophils (Bld) [#/Vol] 2.1 {x10E3/uL} Normal 1.4-7.0 [facility] Work Phone: Comment on above: PATIENT WAS FASTINGP ERFORMED BY: SANTOS Magana6370 [facility] [id number] Information: 101567,J70795 Neutrophils (Bld) [#/Vol] 2.1 10*3/uL Normal 1.4-7.0 [facility]; [facility] Internal Medicine Work Phone: Comment on above: PATIENT WAS FASTINGP ERFORMED BY: SANTOS Talaveralin6370 [facility] [id number] Information: 952816,W97092 Neutrophils/100 WBC (Bld) 48 % Normal [facility] Work Phone: Comment on above: PATIENT WAS FASTINGP ERFORMED BY: SANTOS Talaveralin6370 [facility] [id number] Information: 422684,Q11440 Platelets (Bld) [#/Vol] 346 {x10E3/uL} Normal 150-379 [facility] Work Phone: Comment on above: PATIENT WAS FASTINGP ERFORMED BY: SANTOS Talaveralin6370 [facility] [id number] Information: 299120,Y87018 Platelets (Bld) [#/Vol] 346 10*3/uL Normal 150-379 [facility]; [facility] Work Phone: Comment on above: PATIENT WAS FASTINGP ERFORMED BY: SANTOS LabAnnemarie TalaveraHugfza1508 [facility] [id number] Information: 355755,X57866 RBC (Bld) [#/Vol] 4.89 {x10E6/uL} Normal 3.77-5.28 [facility] Work Phone: Comment on above: PATIENT WAS FASTINGP ERFORMED BY: SANTOS Magana6370 [facility] [id number] Information: 767850,V40051 RBC (Bld) [#/Vol] 4.89 10*6/uL Normal 3.77-5.28 [facility]; [facility] Work Phone: Comment on above: PATIENT WAS FASTINGP ERFORMED BY: SANTOS Magana6370 [facility] [id number] Information: 708540,K78605 WBC (Bld) [#/Vol] 4.4 {x10E3/uL} Normal 3.4-10.8 [facility] Internal Medicine Work Phone: Comment on above: PATIENT WAS FASTINGP ERFORMED BY: SANTOS Magana6370 [facility] [id number] Information: 564032,Q27659 WBC (Bld) [#/Vol] 4.4 10*3/uL Normal 3.4-10.8 [facility] Internal Medicine; [facility] Work Phone: Comment on above: PATIENT WAS FASTINGP ERFORMED BY: SANTOS Magana6370 [facility] [id number] Information: [id number],W41301 LIPID PANEL (44956)Ordered B y: Non Linear Editor on 04-01-2015 Cholesterol [Mass/Vol] 160 mg/dL Normal 100-199 [facility] Work Phone: Comment on above: PATIENT WAS FASTINGP ERFORMED BY: SANTOS Salas Pvgwtb6104 [facility] [id number] Cholesterol in HDL [Mass/Vol] 72 mg/dL Normal [facility] Work Phone: Comment on above: According to ATP-III Guidelines, HDL-C >59 mg/dL is considered anegative risk factor for CHD. PATIENT WAS FASTINGP ERFORMED BY: SANTOS Salas Vgsbqc0188 [facility] [id number] Cholesterol in LDL [Mass/Vol] 74 mg/dL Normal 0-99 [facility] Work Phone: Comment on above: PATIENT WAS FASTINGP ERFORMED BY: SANTOS [facility] Wmszaw2142 [address] [facility] [place] [id number] Cholesterol in LDL/Cholesterol in HDL [Mass ratio] 1.0 {ratio_units} Normal 0.0-3.2 [facility] Work Phone: Comment on above: LDL/HDL Ratio Men Wo men 1/2 Avg.Risk 1.0 1.5 Avg.Risk 3.6 3.2 2X Avg.Risk 6.2 5.0 3X Avg.Risk 8.0 6.1 PATIENT WAS FASTINGP ERFORMED BY: SANTOS [facility] Zxppws5237 [address] [facility] [place] [id number] Cholesterol in VLDL [Mass/Vol] 14 mg/dL Normal 5-40 [facility] Work Phone: Comment on above: PATIENT WAS FASTINGP ERFORMED BY: SANTOS [facility] Nexzup5100 [facility] [id number] Triglyceride [Mass/Vol] 69 mg/dL Normal 0-149 [facility] Work Phone: Comment on above: PATIENT WAS FASTINGP ERFORMED BY: SANTOS LabCoolman Kmxtsc3442 [facility] [place] [id number] METABOLIC PANEL, COMPREHENSI VE (06531)Ordered By: Non Linear Editor on 04-01-2015 Albumin [Mass/Vol] 4.3 g/dL Normal 3.5-5.5 [facility] Internal Medicine Work Phone: Comment on above: PATIENT WAS FASTINGP ERFORMED BY: [facility] Pmxubb4178 [facility] [place] [id number] Albumin/Globulin [Mass ratio] 1.8 {ratio} Normal 1.1-2.5 [facility] Work Phone: Comment on above: PATIENT WAS FASTINGP ERFORMED BY: SANTOS [facility] Yainuc6706 [facility] [place] [id number] ALP [Catalytic activity/Vol] 110 [iU]/L Normal 39-117 [facility] Work Phone: Comment on above: PATIENT WAS FASTINGP ERFORMED BY: SANTOS [facility] Rtzrqa4087 [address] RoadDublin [place] [id number] ALP [Catalytic activity/Vol] 110 U/L Normal 39-117 [facility]; [facility] Work Phone: Comment on above: PATIENT WAS FASTINGP ERFORMED BY: ASNTOS [facility] Andcaz1024 [address] RoadDublin [place] [id number] ALT [Catalytic activity/Vol] 39 [iU]/L Abnormal 0-32 [facility] Work Phone: Comment on above: PATIENT WAS FASTINGP ERFORMED BY: SANTOS [facility] Gjawzm5746 [address] RoadDublin [place] [id number] ALT [Catalytic activity/Vol] 39 U/L Abnormal 0-32 [facility]; [facility] Work Phone: Comment on above: PATIENT WAS FASTINGP ERFORMED BY: SANTOS [facility] Birzin3689 [address] RoadDublin [place] [id number] AST [Catalytic activity/Vol] 27 [iU]/L Normal 0-40 [facility] Work Phone: Comment on above: PATIENT WAS FASTINGP ERFORMED BY: SANTOS [facility] Vxuknu3279 [address] RoadDublin [place] [id number] AST [Catalytic activity/Vol] 27 U/L Normal 0-40 [facility]; [facility] Work Phone: Comment on above: PATIENT WAS FASTINGP ERFORMED BY: [facility] Kafptm0708 [address] RoadDublin [place] [id number] Bilirubin [Mass/Vol] 0.3 mg/dL Normal 0.0-1.2 [facility] Work Phone: Comment on above: PATIENT WAS FASTINGP ERFORMED BY: SANTOS [facility] Nojbbh4765 [address] RoadDublin [place] [id number] Calcium [Mass/Vol] 9.5 mg/dL Normal 8.7-10.2 [facility] Internal Medicine Work Phone: Comment on above: PATIENT WAS FASTINGP ERFORMED BY: [facility] Bmztxl1784 [address] RoadDublin [place] [id number] Chloride [Moles/Vol] 101 mmol/L Normal 97-108 [facility] Work Phone: Comment on above: PATIENT WAS FASTINGP ERFORMED BY: SANTOS [facility] Eztimm2544 [address] [facility]in [place] [id number] CO2 [Moles/Vol] 23 mmol/L Normal 18-29 [facility] Internal Medicine Work Phone: Comment on above: PATIENT WAS FASTINGP ERFORMED BY: CB [facility] Qttoco[address] [facility] [id number] Creatinine [Mass/Vol] 0.57 mg/dL Normal 0.57-1.00 [facility] Internal Medicine Work Phone: Comment on above: PATIENT WAS FASTINGP ERFORMED BY: [facility] Sudbgc[address] [facility] [id number] GFR/1.73 sq M predicted among blacks CKD-EPI (S/P/Bld) [Vol rate/Area] 125 mL/min/1.73 Normal [facility] Work Phone: Comment on above: PATIENT WAS FASTINGP ERFORMED BY: [facility] Guagfy[address] [facility] [id number] GFR/1.73 sq M predicted among non-blacks CKD-EPI (S/P/Bld) [Vol rate/Area] 108 mL/min/1.73 Normal [facility] Work Phone: Comment on above: PATIENT WAS FASTINGP ERFORMED BY: [facility] Fbegbo[address] [facility] [id number] Globulin (S) [Mass/Vol] 2.4 g/dL Normal 1.5-4.5 [facility] Work Phone: Comment on above: PATIENT WAS FASTINGP ERFORMED BY: [facility] Fpdkze[address] [facility] [id number] Glucose [Mass/Vol] 85 mg/dL Normal 65-99 [facility] Internal Medicine Work Phone: Comment on above: PATIENT WAS FASTINGP ERFORMED BY: [facility] Odjenp5270 [address] RoadDublin [place] [id number] Potassium [Moles/Vol] 4.5 mmol/L Normal 3.5-5.2 [facility] Work Phone: Comment on above: PATIENT WAS FASTINGP ERFORMED BY: SANTOS [facility] Uylawn8054 [address] RoadDublin [place] [id number] Protein [Mass/Vol] 6.7 g/dL Normal 6.0-8.5 [facility] Internal Medicine Work Phone: Comment on above: PATIENT WAS FASTINGP ERFORMED BY: SANTOS [facility] Oeequr9[address]aya RoadDublin [place] [id number] Sodium [Moles/Vol] 142 mmol/L Normal 134-144 [facility] Internal Medicine Work Phone: Comment on above: PATIENT WAS FASTINGP ERFORMED BY: SANTOS [facility] Ybqaza35[address] RoadDublin [place] [id number] Urea nitrogen [Mass/Vol] 16 mg/dL Normal 6-24 [facility] Work Phone: Comment on above: PATIENT WAS FASTINGP ERFORMED BY: SANTOS LabCo Bowjxc1752 [address] RoadDublin [place] [id number] Urea nitrogen/Creatinin e [Mass ratio] 28 mg/mg Abnormal 9-23 [facility] Work Phone: Comment on above: PATIENT WAS FASTINGP ERFORMED BY: SANTOS [facility] Tduvgv8[address]aya RoadDublin [place] [id number] TSH ([id number])Ordered By: Triston parekh Parking Attendant on 04-01-2015 TSH Qn m[IU]/L Abnormal 0.450-4.500 [facility] Work Phone: Comment on above: PATIENT WAS FASTINGP ERFORMED BY: SANTOS LabCo Fcakxf2902 [address]Dublin [place] [id number] TSH Qn m[IU]/L Abnormal 0.450-4.500 [facility]; [facility] Work Phone: Comment on above: PATIENT WAS FASTINGP ERFORMED BY: SANTOS LabCo Kmtlio2398 [address] RoadDublin [place] [id number] URINALYSIS, W/ MICRO ([id number]) Ordered By: Non Linear Editor on 04-01-2015 Appearance (U) Clear Normal Comprehens tatum Internal Medicine Work Phone: Comment on above: PATIENT WAS FASTINGP ERFORMED BY: SANTOS Magana[address]Dublin [place] [id number] Bilirubin Ql (U) Negative Normal Comprehe nsive Internal Medicine Work Phone: Comment on above: PATIENT WAS FASTINGP ERFORMED BY: SANTOS Magana[address]Dublin [place] [id number] Bilirubin Ql (U) Negative Normal Comprehe nsive Internal Medicine; [facility] Work Phone: Comment on above: PATIENT WAS FASTINGP ERFORMED BY: SANTOS Magana[address]Dublin [place] [id number] Color (U) Yellow Normal [facility] Work Phone: Comment on above: PATIENT WAS FASTINGP ERFORMED BY: SANTOS Magana[address]Dublin [place] [id number] Glucose Ql (U) Negative Normal Comprehens tatum Internal Medicine Work Phone: Comment on above: PATIENT WAS FASTINGP ERFORMED BY: SANTOS Magana[address]Dublin [place] [id number] Glucose Ql (U) Negative Normal Comprehens tatum Internal Medicine; [facility] Work Phone: Comment on above: PATIENT WAS FASTINGP ERFORMED BY: SANTOS Talaveralin6[address]Dublin [place] [id number] Hemoglobin Ql (U) Negative Normal Compreh ensive Internal Medicine Work Phone: Comment on above: PATIENT WAS FASTINGP ERFORMED BY: SANTOS LabAnnemarie TalaveraGljkad0609 [address] RoadDublin [place] [id number] Hemoglobin Ql (U) Negative Normal Compreh ensive Internal Medicine; [facility] Work Phone: Comment on above: PATIENT WAS FASTINGP ERFORMED BY: SANTOS LabAnnemarie TalaveraErciwg8621 [address] RoadDublin [place] [id number] Ketones Ql (U) Negative Normal Comprehens tatum Internal Medicine Work Phone: Comment on above: PATIENT WAS FASTINGP ERFORMED BY: SANTOS T[address]alin[address] [facility] [id number] Ketones Ql (U) Negative Normal Comprehens tatum Internal Medicine; [facility] Work Phone: Comment on above: PATIENT WAS FASTINGP ERFORMED BY: SANTOS Magana[address] [facility] [id number] Leukocyte esterase Test strip Ql (U) 2+ Abnormal [facility] Work Phone: Comment on above: PATIENT WAS FASTINGP ERFORMED BY: SANTOS Magana6370 [facility] [id number] Microscopic observation LM Nom (Urine sed) See below: Normal [facility] Work Phone: Comment on above: Microscopic was marek cated and was performed. PATIENT WAS FASTINGP ERFORMED BY: SANTOS Talaveralin[address] [facility] [id number] Nitrite Ql (U) Positive Abnormal Comprehens tatum Internal Medicine Work Phone: Comment on above: PATIENT WAS FASTINGP ERFORMED BY: SANTOS Talaveralin6370 [facility] [id number] Nitrite Ql (U) Positive Abnormal Comprehens tatum Internal Medicine; [facility] Work Phone: Comment on above: PATIENT WAS FASTINGP ERFORMED BY: SANTOS Talaveralin6370 [facility] [id number] pH (U) 6.0 [pH] Normal 5.0-7.5 [facility] Work Phone: Comment on above: PATIENT WAS FASTINGP ERFORMED BY: SANTOS Talaveralin[address] [facility] [id number] Protein Ql (U) Negative Normal Comprehens tatum Internal Medicine Work Phone: Comment on above: PATIENT WAS FASTINGP ERFORMED BY: SANTOS Talaveralin6370 [facility] [id number] Protein Ql (U) Negative Normal Comprehens tatum Internal Medicine; [facility] Work Phone: Comment on above: PATIENT WAS FASTINGP ERFORMED BY: [facility]6370 [facility] [id number] Specific gravity (U) [Rel density] 1.016 1 Normal 1.005-1.030 [facility] Work Phone: Comment on above: PATIENT WAS FASTINGP ERFORMED BY: [facility]6370 [facility] [id number] Urobilinogen (U) [Mass/Vol] 0.2 mg/dL Normal 0.0-1.9 [facility]; [facility] Work Phone: Comment on above: PATIENT WAS FASTINGP ERFORMED BY: [facility]6370 [facility] [id number] Urobilinogen Test strip (U) [Mass/Vol] 0.2 mg/dL Normal 0.0-1.9 [facility] Work Phone: Comment on above: PATIENT WAS FASTINGP ERFORMED BY: [facility]6370 [facility] [id number] CBC WITH MANUAL DIFF ([id number]) Ordered By: Non Linear Editor on 01-09-2013 Basophils (Bld) [#/Vol] 0.0 {x10E3/uL} Normal 0.0-0.2 [facility] Work Phone: Comment on above: PATIENT NOT FASTINGP ERFORMED BY: [facility]6370 [facility] [id number] Information: [id number] Basophils (Bld) [#/Vol] 0.0 10*3/uL Normal 0.0-0.2 [facility]; [facility] Work Phone: Comment on above: PATIENT NOT FASTINGP ERFORMED BY: [facility]6370 [facility] [id number] Information: [id number] Basophils/100 WBC (Bld) 1 % Normal 0-3 [facility] Work Phone: Comment on above: PATIENT NOT FASTINGP ERFORMED BY: SANTOS Salas Gadpci3083 [facility] [id number] Information: [id number] Eosinophils (Bld) [#/Vol] 0.1 {x10E3/uL} Normal 0.0-0.4 [facility] Work Phone: Comment on above: PATIENT NOT FASTINGP ERFORMED BY: LabCoElizabeth Ville 8277870 [facility] [id number] Information: [id number] Eosinophils (Bld) [#/Vol] 0.1 10*3/uL Normal 0.0-0.4 [facility]; [facility] Work Phone: Comment on above: PATIENT NOT FASTINGP ERFORMED BY: LabStephanie Ville 4755370 [facility] [id number] Information: 157705,H63450 Eosinophils/100 WBC (Bld) 1 % Normal 0-7 [facility] Work Phone: Comment on above: PATIENT NOT FASTINGP ERFORMED BY: SANTOS LabCoElizabeth V[place] 8277870 [facility] [id number] Information: [id number],H75004 Erythrocyte distribution width (RBC) [Ratio] 14.1 % Normal 12.3-15.4 [facility] Work Phone: Comment on above: PATIENT NOT FASTINGP ERFORMED BY: LabCoElizabeth [place] 8277870 [facility] [id number] Information: [id number],[id number] Hematocrit (Bld) [Volume fraction] 38.6 % Normal 34.0-46.6 [facility] Work Phone: Comment on above: PATIENT NOT FASTINGP ERFORMED BY: LabStephanie [place] 4755370 [facility] [id number] Information: [id number],[id number] Hemoglobin (Bld) [Mass/Vol] 12.9 g/dL Normal 11.1-15.9 [facility] Work Phone: Comment on above: PATIENT NOT FASTINGP ERFORMED BY: SANTOS Magana6370 [facility] [id number] Information: [id number] Immature granulocytes (Bld) [#/Vol] 0.0 {x10E3/uL} Normal 0.0-0.1 [facility] Work Phone: Comment on above: PATIENT NOT FASTINGP ERFORMED BY: SANTOS [place] 4604370 [facility] [id number] Information: [id number],[id number] Immature granulocytes (Bld) [#/Vol] 0.0 10*3/uL Normal 0.0-0.1 [facility]; [facility] Work Phone: Comment on above: PATIENT NOT FASTINGP ERFORMED BY: SANTOS Salas Segljr8178 [facility] [id number] Information: [id number],[id number] Immature granulocytes/100 WBC (Bld) 0 % Normal 0-2 [facility] Work Phone: Comment on above: PATIENT NOT FASTINGP ERFORMED BY: SANTOS Talaveralin6370 [facility] [id number] Information: 258650,[id number] Lymphocytes (Bld) [#/Vol] 2.1 {x10E3/uL} Normal 0.7-4.5 [facility] Work Phone: Comment on above: PATIENT NOT FASTINGP ERFORMED BY: [place] 0594670 [facility] [id number] Information: [id number],[id number] Lymphocytes (Bld) [#/Vol] 2.1 10*3/uL Normal 0.7-4.5 [facility]; [facility] Work Phone: Comment on above: PATIENT NOT FASTINGP ERFORMED BY: SANTOS [place] 4604370 [facility] [id number] Information: [id number],[id number] Lymphocytes/100 WBC (Bld) 30 % Normal 14-46 [facility] Work Phone: Comment on above: PATIENT NOT FASTINGP ERFORMED BY: SANTOS Talaveralin6370 [facility] [id number] Information: [id number],[id number] MCH (RBC) [Entitic mass] 28.4 pg Normal 26.6-33.0 [facility] Work Phone: Comment on above: PATIENT NOT FASTINGP ERFORMED BY: [address] [id number] Information: 608689,[id number] MCHC (RBC) [Mass/Vol] 33.4 g/dL Normal 31.5-35.7 [facility] Work Phone: Comment on above: PATIENT NOT FASTINGP ERFORMED BY: [address] [id number] Information: [id number],[id number] MCV (RBC) [Entitic vol] 85 fL Normal 79-97 [facility] Work Phone: Comment on above: PATIENT NOT FASTINGP ERFORMED BY: SANTOS SalasElizabeth [place] 8277870 [facility] [id number] Information: [id number],[id number] Monocytes (Bld) [#/Vol] 0.5 {x10E3/uL} Normal 0.1-1.0 [facility] Work Phone: Comment on above: PATIENT NOT FASTINGP ERFORMED BY: [address] [id number] Information: [id number] Monocytes (Bld) [#/Vol] 0.5 10*3/uL Normal 0.1-1.0 [facility]; [facility] Work Phone: Comment on above: PATIENT NOT FASTINGP ERFORMED BY: [address] [id number] Information: [id number],[id number] Monocytes/100 WBC (Bld) 7 % Normal 4-13 [facility] Work Phone: Comment on above: PATIENT NOT FASTINGP ERFORMED BY: SANTOS LabCoolman MaganaDnzmjy22[address]aya RoadDublin [place] [id number] Information: [id number],[id number] Neutrophils (Bld) [#/Vol] 4.4 {x10E3/uL} Normal 1.8-7.8 [facility] Work Phone: Comment on above: PATIENT NOT FASTINGP ERFORMED BY: CB [facility] Qjktwe9351 [address] RoadHighlands[facility] [id number] Information: 122281,[id number] Neutrophils (Bld) [#/Vol] 4.4 10*3/uL Normal 1.8-7.8 [facility]; [facility] Work Phone: Comment on above: PATIENT NOT FASTINGP ERFORMED BY: CB [facility] Xdprdd[address] [facility] [id number] Information: 116546,[id number] Neutrophils/100 WBC (Bld) 61 % Normal 40-74 [facility] Work Phone: Comment on above: PATIENT NOT FASTINGP ERFORMED BY: CB [facility] Ukzoql[address] [facility] [id number] Information: [id number],[id number] Platelets (Bld) [#/Vol] 406 {x10E3/uL} Normal 140-415 [facility] Work Phone: Comment on above: PATIENT NOT FASTINGP ERFORMED BY: CB [facility] Iocjha[address] [facility] [id number] Information: [id number] Platelets (Bld) [#/Vol] 406 10*3/uL Normal 140-415 [facility]; [facility] Work Phone: Comment on above: PATIENT NOT FASTINGP ERFORMED BY: CB [facility] Itphzj[address] [facility] [id number] Information: [id number] RBC (Bld) [#/Vol] 4.55 {x10E6/uL} Normal 3.77-5.28 [facility] Work Phone: Comment on above: PATIENT NOT FASTINGP ERFORMED BY: SANTOS Vinnie Magana6370 [facility] [id number] Information: [id number],[id number] RBC (Bld) [#/Vol] 4.55 10*6/uL Normal 3.77-5.28 [facility]; [facility] Work Phone: Comment on above: PATIENT NOT FASTINGP ERFORMED BY: SANTOS Desiree Jxagpj4135 [facility] [id number] Information: [id number] WBC (Bld) [#/Vol] 7.1 {x10E3/uL} Normal 4.0-10.5 [facility] Internal Medicine Work Phone: Comment on above: PATIENT NOT FASTINGP ERFORMED BY: SANTOS HectorCo Dukeov4034 [facility] [id number] Information: [id number],[id number] WBC (Bld) [#/Vol] 7.1 10*3/uL Normal 4.0-10.5 [facility] Internal Medicine; [facility] Internal Medicine Work Phone: Comment on above: PATIENT NOT FASTINGP ERFORMED BY: SANTOS LabCo Ceybin3018 [facility] [id number] Information: [id number],[id number] METABOLIC PANEL, COMPREHENSI VE (66568)Ordered By: Non Linear Editor on 01-09-2013 Albumin [Mass/Vol] 4.4 g/dL Normal 3.5-5.5 [facility] Internal Medicine Work Phone: Comment on above: PATIENT NOT FASTINGP ERFORMED BY: SANTOS LabCo Wuhxey3755 [facility] [id number] Albumin/Globulin [Mass ratio] 1.8 {ratio} Normal 1.1-2.5 [facility] Internal Medicine Work Phone: Comment on above: PATIENT NOT FASTINGP ERFORMED BY: SANTOS [facility] Lqaptw9824 [address] RoadDublin [place] [id number] ALP [Catalytic activity/Vol] 70 [iU]/L Normal 25-150 [facility] Work Phone: Comment on above: PATIENT NOT FASTINGP ERFORMED BY: CB [facility] Alzihc7835 [address] RoadDublin [place] [id number] ALP [Catalytic activity/Vol] 70 U/L Normal 25-150 [facility]; [facility] Work Phone: Comment on above: PATIENT NOT FASTINGP ERFORMED BY: SANTOS [facility] Gnsrop2726 [address] RoadDublin [place] [id number] ALT [Catalytic activity/Vol] 19 [iU]/L Normal 0-32 [facility] Work Phone: Comment on above: PATIENT NOT FASTINGP ERFORMED BY: SANTOS [facility] Tnosfh5839 [address] RoadDublin [place] [id number] ALT [Catalytic activity/Vol] 19 U/L Normal 0-32 [facility]; [facility] Work Phone: Comment on above: PATIENT NOT FASTINGP ERFORMED BY: SANTOS Desireerp Xutfuh4942 [address] RoadDublin [place] [id number] AST [Catalytic activity/Vol] 23 [iU]/L Normal 0-40 [facility] Work Phone: Comment on above: PATIENT NOT FASTINGP ERFORMED BY: SANTOS [facility] Nmkuzl2258 [address]aya RoadDublin [place] [id number] AST [Catalytic activity/Vol] 23 U/L Normal 0-40 [facility]; [facility] Work Phone: Comment on above: PATIENT NOT FASTINGP ERFORMED BY: SANTOS [facility] Acyhph0377 [address] RoadDublin [place] [id number] Bilirubin [Mass/Vol] 0.4 mg/dL Normal 0.0-1.2 [facility] Work Phone: Comment on above: PATIENT NOT FASTINGP ERFORMED BY: SANTOS [facility] Mmrcwb4223 [address] RoadDublin [place] [id number] Calcium [Mass/Vol] 9.4 mg/dL Normal 8.7-10.2 [facility] Internal Medicine Work Phone: Comment on above: PATIENT NOT FASTINGP ERFORMED BY: CB [facility] Ttlmji4211 [address] RoadDublin [place] [id number] Chloride [Moles/Vol] 100 mmol/L Normal 97-108 [facility] Work Phone: Comment on above: PATIENT NOT FASTINGP ERFORMED BY: CB [facility] Yfdzkp3888 [address] RoadDublin [place] [id number] CO2 [Moles/Vol] 24 mmol/L Normal 20-32 [facility] Internal Medicine Work Phone: Comment on above: PATIENT NOT FASTINGP ERFORMED BY: CB [facility] Mpxmxs0621 [address] RoadDublin [place] [id number] Creatinine [Mass/Vol] 0.64 mg/dL Normal 0.57-1.00 [facility] Work Phone: Comment on above: PATIENT NOT FASTINGP ERFORMED BY: CB [facility] Bekupx9321 [address] RoadDublin [place] [id number] GFR/1.73 sq M predicted among blacks CKD-EPI (S/P/Bld) [Vol rate/Area] 122 mL/min/1.73 Normal [facility] Work Phone: Comment on above: PATIENT NOT FASTINGP ERFORMED BY: CB [facility] Anxpaj6378 [address] RoadDublin [place] [id number] GFR/1.73 sq M predicted among non-blacks CKD-EPI (S/P/Bld) [Vol rate/Area] 106 mL/min/1.73 Normal [facility] Work Phone: Comment on above: PATIENT NOT FASTINGP ERFORMED BY: CB [facility] Nyjupn6952 [address] RoadDublin [place] [id number] Globulin (S) [Mass/Vol] 2.5 g/dL Normal 1.5-4.5 [facility] Work Phone: Comment on above: PATIENT NOT FASTINGP ERFORMED BY: SANTOS LabCoolman Wgstih4835 [address] RoadDublin [place] [id number] Glucose [Mass/Vol] 82 mg/dL Normal 65-99 [facility] Internal Medicine Work Phone: Comment on above: PATIENT NOT FASTINGP ERFORMED BY: SANTOS LabAnnemarie TalaveraValdlh4884 [address] RoadDublin [place] [id number] Potassium [Moles/Vol] 3.8 mmol/L Normal 3.5-5.2 [facility] Internal Medicine Work Phone: Comment on above: PATIENT NOT FASTINGP ERFORMED BY: SANTOS LabCoolman TalaveraSstmtr5693 [address] RoadDublin [place] [id number] Protein [Mass/Vol] 6.9 g/dL Normal 6.0-8.5 [facility] Internal Medicine Work Phone: Comment on above: PATIENT NOT FASTINGP ERFORMED BY: SANOTS LabAnnemarie TalaveraWyirmk8091 [address] RoadDublin [place] [id number] Sodium [Moles/Vol] 138 mmol/L Normal 134-144 [facility] Internal Medicine Work Phone: Comment on above: PATIENT NOT FASTINGP ERFORMED BY: SANTOS LabAnnemarie TalaveraBinram8[address]Dublin [place] [id number] Urea nitrogen [Mass/Vol] 11 mg/dL Normal 6-24 [facility] Internal Medicine Work Phone: Comment on above: PATIENT NOT FASTINGP ERFORMED BY: SANTOS [facility] Vimaux3347 [address] RoadDublin [place] [id number] Urea nitrogen/Creatinin e [Mass ratio] 17 mg/mg Normal 9-23 [facility] Work Phone: Comment on above: PATIENT NOT FASTINGP ERFORMED BY: SANTOS [facility] Muqafs4555 [address] RoadDublin [place] [id number] PT (Prothrobim Time) ([id number]) Ordered By: Non Linear Editor on 01-09-2013 INR Coag (PPP) [Relative time] 1.0 {INR} Normal 0.8-1.2 [facility] Work Phone: Comment on above: Reference interval i s for non-anticoagulated patients. . Suggested INR therapeutic range for Vitamin K antagonist therapy: Standard Dose (moderate intensity therapeutic range): 2.0 - 3.0 Higher intensity therapeutic range 2.5 - 3.5 PATIENT NOT FASTINGP ERFORMED BY: LabCo Jizwpf5122 [address]Dublin [place] [id number] PT Coag (PPP) [Time] 10.6 {sec} Normal 9.1-12.0 [facility] Work Phone: Comment on above: PATIENT NOT FASTINGP ERFORMED BY: LabCo Uwtzij9226 [address] RoadDublin [place] [id number] PT Coag (PPP) [Time] 10.6 s Normal 9.1-12.0 [facility]; [facility] Work Phone: Comment on above: PATIENT NOT FASTINGP ERFORMED BY: [facility] Eixvzm1074 [address] RoadDublin [place] [id number] PTT (Activated Partial Throm boplastin Time) ([id number])Ordered By: Non Linear Editor on 01-09-2013 aPTT Coag (PPP) [Time] 29 {sec} Normal 24-33 [facility] Work Phone: Comment on above: This test has not be en validated for monitoring unfractionated heparintherapy. aPTT-based therapeutic ranges for unfractionated heparintherapy have not been established. For general guidelines onHeparin monitoring, refer to the [employer]High Directory of Services. PATIENT NOT FASTINGP ERFORMED BY: [facility]icC[facility] Igoxlf9619 [address]aya RoadDublin [place] [id number] aPTT Coag (PPP) [Time] 29 s Normal 24-33 [facility]; [facility] Work Phone: Comment on above: This test has not be en validated for monitoring unfractionated heparintherapy. aPTT-based therapeutic ranges for unfractionated heparintherapy have not been established. For general guidelines onHeparin monitoring, refer to the [facility] Directory of Services. PATIENT NOT FASTINGP ERFORMED BY: LabCo Tzuaag4871 [address] RoadDublin [place] [id number] CBC (Auto) ([id number])Ordered By : Sherice Dawn on 01-04-2009 Erythrocyte distribution width (RBC) [Ratio] 13.4 % Normal 11.7-15.0 [facility] Work Phone: Comment on above: PATIENT NOT FASTINGP ERFORMED BY: CB [facility] Iezbld[address] [facility] [id number] Hematocrit (Bld) [Volume fraction] 39.5 % Normal 34.0-44.0 [facility] Work Phone: Comment on above: PATIENT NOT FASTINGP ERFORMED BY: CB [facility] Rlymwj[address] [facility] [id number] Hemoglobin (Bld) [Mass/Vol] 13.7 g/dL Normal 11.5-15.0 [facility] Work Phone: Comment on above: PATIENT NOT FASTINGP ERFORMED BY: CB [facility] Rfdvgm[address] [facility] [id number] MCH (RBC) [Entitic mass] 31.0 pg Normal 27.0-34.0 [facility] Work Phone: Comment on above: PATIENT NOT FASTINGP ERFORMED BY: CB [facility] Maqagi[address] [facility] [id number] MCHC (RBC) [Mass/Vol] 34.7 g/dL Normal 32.0-36.0 [facility] Work Phone: Comment on above: PATIENT NOT FASTINGP ERFORMED BY: CB [facility] Linwkv[address] [facility] [id number] MCV (RBC) [Entitic vol] 89 fL Normal 80-98 [facility] Work Phone: Comment on above: PATIENT NOT FASTINGP ERFORMED BY: CB [facility] Uemlag[address] [facility] [id number] Platelets (Bld) [#/Vol] 374 {x10E3/uL} Normal 140-415 [facility] Work Phone: Comment on above: PATIENT NOT FASTINGP ERFORMED BY: CB [facility] Ozjftl[address] [facility] [id number] Platelets (Bld) [#/Vol] 374 10*3/uL Normal 140-415 [facility]; [facility] Work Phone: Comment on above: PATIENT NOT FASTINGP ERFORMED BY: CB [facility] Osnmxj2720 [address] RoadDublin [place] [id number] RBC (Bld) [#/Vol] 4.43 {x10E6/uL} Normal 3.80-5.10 [facility] Work Phone: Comment on above: PATIENT NOT FASTINGP ERFORMED BY: CB [facility] Dnvkrv6355 Anaya RoadYad[facility] Hospitalin [place] [id number] RBC (Bld) [#/Vol] 4.43 10*6/uL Normal 3.80-5.10 [facility]; [facility] Work Phone: Comment on above: PATIENT NOT FASTINGP ERFORMED BY: CB [facility] Tnpyuy6450 Anaya RoadYadkin Valley Community Hospitalin [place] [id number] WBC (Bld) [#/Vol] 5.1 {x10E3/uL} Normal 4.0-10.5 [facility] Internal Medicine Work Phone: Comment on above: PATIENT NOT FASTINGP ERFORMED BY: CB [facility] Mdynou5684 Anaya RoadYadkin Valley Community Hospitalin [place] [id number] WBC (Bld) [#/Vol] 5.1 10*3/uL Normal 4.0-10.5 [facility] Internal Medicine; [facility] Work Phone: Comment on above: PATIENT NOT FASTINGP ERFORMED BY: CB [facility] Gssntv0428 [address] [facility]in [place] [id number] Lipid Panel (12202)Ordered B y: Sherice Dawn on 01-04-2009 Cholesterol [Mass/Vol] 191 mg/dL Normal 100-199 [facility] Work Phone: Comment on above: PATIENT NOT FASTINGP ERFORMED BY: CB [facility] [id number] Anaya RoadYadkin Valley Community Hospitalin [place] [id number] Cholesterol in HDL [Mass/Vol] 70 mg/dL Normal [facility] Work Phone: Comment on above: According to ATP-III Guidelines, HDL-C >59 mg/dL is considered anegative risk factor for CHD. PATIENT NOT FASTINGP ERFORMED BY: CB [facility] [id number] Anaya RoadDublin [place] [id number] Cholesterol in LDL [Mass/Vol] 100 mg/dL Abnormal 0-99 [facility] Work Phone: Comment on above: PATIENT NOT FASTINGP ERFORMED BY: CB [facility] [id number] Anaya RoadDublin [place] [id number] Cholesterol in LDL/Cholesterol in HDL [Mass ratio] SPRCS Normal [facility] Work Phone: Comment on above: If initial LDL-cathy sterol result is >100 mg/dL, assess forrisk factors. PATIENT NOT FASTINGP ERFORMED BY: CB [facility] [id number] Anaya RoadYadkin Valley Community Hospitalin [place] [id number] Cholesterol in LDL/Cholesterol in HDL [Mass ratio] 1.4 {ratio_units} Normal 0.0-3.2 [facility] Work Phone: Comment on above: PATIENT NOT FASTINGP ERFORMED BY: CB [facility] [id number] [address] [facility] [place] [id number] Cholesterol in VLDL [Mass/Vol] 21 mg/dL Normal 5-40 [facility] Work Phone: Comment on above: PATIENT NOT FASTINGP ERFORMED BY: CB [facility] [id number] [facility] [id number] Triglyceride [Mass/Vol] 103 mg/dL Normal 0-149 [facility] Work Phone: Comment on above: PATIENT NOT FASTINGP ERFORMED BY: CB [facility] [id number] [address] [facility] [place] [id number] Metabolic Panel, Comprehensi ve ([id number])Ordered By: Sherice Dawn on 01-04-2009 Albumin [Mass/Vol] 4.3 g/dL Normal 3.5-5.5 Compre hensive [facility] Medicine Work Phone: Comment on above: PATIENT NOT FASTINGC linical Information: ADD DRAW FEE [id number] ADD J [id number] PERFORMED BY: SANTOS [facility] Noghyq8701 [facility] [id number] Albumin/Globulin [Mass ratio] 1.5 {ratio} Normal 1.1-2.5 [facility] Work Phone: Comment on above: PATIENT NOT FASTINGC linical Information: ADD DRAW FEE [id number] ADD J [id number] PERFORMED BY: [facility] Sfphoq[address] [id number] ALP [Catalytic activity/Vol] 64 [iU]/L Normal 25-150 [facility] Work Phone: Comment on above: PATIENT NOT FASTINGC linical Information: ADD DRAW FEE [id number] ADD J [id number] PERFORMED BY: SANTOS [address] [id number] ALP [Catalytic activity/Vol] 64 U/L Normal 25-150 [facility]; [facility] Work Phone: Comment on above: PATIENT NOT FASTINGC linical Information: ADD DRAW FEE [id number] ADD J [id number] PERFORMED BY: SANTOS [facility] [id number] [id number] ALT [Catalytic activity/Vol] 18 [iU]/L Normal 0-40 [facility] Work Phone: Comment on above: PATIENT NOT FASTINGC linical Information: ADD DRAW FEE [id number] ADD J 19694 PERFORMED BY: SANTOS [facility] Hedoyx[address] [id number] ALT [Catalytic activity/Vol] 18 U/L Normal 0-40 [facility]; [facility] Work Phone: Comment on above: PATIENT NOT FASTINGC linical Information: ADD DRAW FEE [id number] ADD J [id number] PERFORMED BY: [address] [id number] AST [Catalytic activity/Vol] 18 [iU]/L Normal 0-40 [facility] Work Phone: Comment on above: PATIENT NOT FASTINGC linical Information: ADD DRAW FEE [id number] ADD J 40454 PERFORMED BY: SANTOS [facility]St[facility] HospitalPckwjh6150 Anaya RoadYadkin Valley Community Hospitalin [place] [id number] AST [Catalytic activity/Vol] 18 U/L Normal 0-40 [facility]; [facility] Internal Medicine Work Phone: Comment on above: PATIENT NOT FASTINGC linical Information: ADD DRAW FEE [id number] ADD J [id number] PERFORMED BY: [facility] [id number] [facility] [id number] Bilirubin [Mass/Vol] 0.4 mg/dL Normal 0.1-1.2 [facility] Work Phone: Comment on above: PATIENT NOT FASTINGC linical Information: ADD DRAW FEE [id number] ADD J [id number] PERFORMED BY: LabStephanie [place] [id number] [facility] [id number] Calcium [Mass/Vol] 9.7 mg/dL Normal 8.5-10.6 [facility] Internal Medicine Work Phone: Comment on above: PATIENT NOT FASTINGC linical Information: ADD DRAW FEE [id number] ADD J 07245 PERFORMED BY: [facility] [facility] [id number] Chloride [Moles/Vol] 100 mmol/L Normal 97-108 [facility] Internal Medicine Work Phone: Comment on above: PATIENT NOT FASTINGC linical Information: ADD DRAW FEE [id number] ADD J 81648 PERFORMED BY: LabSte[place] [id number] [facility] [id number] CO2 [Moles/Vol] 25 mmol/L Normal 20-32 [facility] Internal Medicine Work Phone: Comment on above: PATIENT NOT FASTINGC linical Information: ADD DRAW FEE [id number] ADD J 88214 PERFORMED BY: [facility] Fixfsx[address] [facility] [id number] Creatinine [Mass/Vol] 0.70 mg/dL Normal 0.57-1.00 [facility] Internal Medicine Work Phone: Comment on above: PATIENT NOT FASTINGC linical Information: ADD DRAW FEE [id number] ADD J 21533 PERFORMED BY: Lab[place] [id number] [facility] [id number] GFR/1.73 sq M predicted among blacks MDRD (S/P/Bld) [Vol rate/Area] mL/min/{1.73_m2} Normal [facility] Work Phone: Comment on above: Note: Persistent red uction for 3 months or more in an eGFR<60 mL/min/1.73 m2 defines CKD. Patients with eGFR values>/=60 mL/min/1.73 m2 may also have CKD if evidence of persistentproteinuria is present. Additional information may be found [email or web address]. PATIENT NOT FASTINGC linical Information: ADD DRAW FEE [id number] ADD J 17676 PERFORMED BY: [employer] Hlyfbz5302 [facility] [id number] GFR/1.73 sq M.predicted MDRD (S/P/Bld) [Vol rate/Area] mL/min/{1.73_m2} Normal [facility] Work Phone: Comment on above: PATIENT NOT FASTINGC linical Information: ADD DRAW FEE [id number] ADD J 20828 PERFORMED BY: [employer] Cilajz3013 [facility] [id number] Globulin (S) [Mass/Vol] 2.8 g/dL Normal 1.5-4.5 [facility] Work Phone: Comment on above: PATIENT NOT FASTINGC linical Information: ADD DRAW FEE [id number] ADD J 67317 PERFORMED BY: [employer] Fktgrz8818 [facility] [id number] Glucose [Mass/Vol] 86 mg/dL Normal 65-99 [facility] Internal Medicine Work Phone: Comment on above: PATIENT NOT FASTINGC linical Information: ADD DRAW FEE [id number] ADD J 28090 PERFORMED BY: [employer] Zsldtv3138 [facility] [id number] Potassium [Moles/Vol] 4.2 mmol/L Normal 3.5-5.2 [facility] Work Phone: Comment on above: PATIENT NOT FASTINGC linical Information: ADD DRAW FEE [id number] ADD J 19218 PERFORMED BY: [facility]6370 [facility] [id number] Protein [Mass/Vol] 7.1 g/dL Normal 6.0-8.5 [facility] Internal Medicine Work Phone: Comment on above: PATIENT NOT FASTINGC linical Information: ADD DRAW FEE [id number] ADD J 96674 PERFORMED BY: [place] [id number] [facility] [id number] Sodium [Moles/Vol] 139 mmol/L Normal 135-145 [facility] Internal Medicine Work Phone: Comment on above: PATIENT NOT FASTINGC linical Information: ADD DRAW FEE [id number] ADD J [id number] PERFORMED BY: [place] [id number] [facility] [id number] Urea nitrogen [Mass/Vol] 12 mg/dL Normal 5- [facility] Internal Medicine Work Phone: Comment on above: PATIENT NOT FASTINGC linical Information: ADD DRAW FEE [id number] ADD J 62517 PERFORMED BY: [facility]6370 [facility] [id number] Urea nitrogen/Creatinin e [Mass ratio] 17 mg/mg Normal 8-27 [facility] Internal Medicine Work Phone: Comment on above: PATIENT NOT FASTINGC linical Information: ADD DRAW FEE [id number] ADD J 70196 PERFORMED BY: [place] [id number] [facility] [id number] PROLACTIN ([id number])Ordered By: Sherice Dawn on 01-04-2009 PROLACTIN ([id number]) 12.5 ng/mL Normal 2.8-29.2 [facility] Internal Medicine Work Phone: Comment on above: Age Male Female 0- 1 mon. 3.7 - 81.2 0.3 - 95.0 1-12 mons. 0.3 - 28.9 0.2 - 29.9 1- 3 yrs. 2.3 - 13.2 1.0 - 17.0 4- 6 yrs. 0.8 - 16.9 1.6 - 13.1 7- 9 yrs. 1.9 - 11.6 0.3 - 12.9 10-12 yrs. 0.9 - 12.9 1.9 - 9.6 13-15 yrs. 1.6 - 16.6 3.0 - 14.4 Adult 2.1 - 17.7 2.8 - 29.2 Female: Non- 2.8 - 29.2 9.7 - 208.5 Postmenopausal 1.8 - 20.3 PATIENT NOT FASTINGP ERFORMED BY: SANTOS [facility] Ahniwx6378 [facility] [id number] T3, FREE (TRIDOTHYRONINE) ([id number] [id number])Ordered By: Sherice Dawn on 01-04-2009 Free T3 [Mass/Vol] 3.3 pg/mL Normal 2.3-4.2 [facility] Internal Medicine Work Phone: Comment on above: PATIENT NOT FASTINGP ERFORMED BY: SANTOS [facility]CoSt[facility] HospitalJlxmma4874 [facility] [id number] T4, FREE (THYROXINE) ([id number]) Ordered By: Sherice Dawn on 01-04-2009 Free T4 [Mass/Vol] 1.20 ng/dL Normal 0.61-1.76 [facility] Internal Medicine Work Phone: Comment on above: PATIENT NOT FASTINGP ERFORMED BY: SANTOS [facility] Abcdjt7450 [facility] [id number] TSH ([id number])Ordered By: Sherice Dawn on 01-04-2009 TSH Qn 2.354 {uIU/mL} Normal 0.450-4.500 [facility] Internal Medicine Work Phone: Comment on above: PATIENT NOT FASTINGP ERFORMED BY: [facility] Pmbyhm3018 [facility] [id number] Vital Signs Date Time Vital Sign Value Performing Clinician Facility 03-11-2024 11:35-0400 Body weight 110.22 kg Leona Nesbitt MD Work Phone: [facility] 03-11-2024 11:35-0400 Diastolic blood pressure 82 mm[Hg] Leona Nesbitt MD Work Phone: [facility] 03-11-2024 11:35-0400 Heart rate 79 /min Leona Nesbitt MD Work Phone: [facility] 03-11-2024 11:35-0400 SaO2% (BldA) [Mass fraction] 93 % Leona Nesbitt MD Work Phone: [facility] 03-11-2024 11:35-0400 Systolic blood pressure 124 mm[Hg] Leona Nesbitt MD Work Phone: [facility] 01-17-2024 16:33-0500 Diastolic blood pressure 102 mm[Hg] Leona Nesbitt MD Work Phone: [facility] 01-17-2024 16:33-0500 Systolic blood pressure 142 mm[Hg] Leona Nesbitt MD Work Phone: [facility] 01-17-2024 15:10-0500 Body height 162.2 cm Leona Nesbitt MD Work Phone: [facility] 01-17-2024 15:10-0500 Body weight 116.48 kg Leona Nesbitt MD Work Phone: [facility] 08-14-2023 08:06-0400 Body height 163.83 cm [facility] 07-26-2023 07:52-0400 Body height 165.1 cm Jolanta Watkins LPN [facility]; [facility] Work Phone: 07-26-2023 07:52-0400 Body mass index (BMI) [Ratio] 42.35 kg/m2 Jolanta Watkins LPN [facility]; [facility] Work Phone: 07-26-2023 07:52-0400 Body surface area Derived from formula 2.19 m2 Jolanta Watkins LPN [facility]; [facility] Work Phone: 07-26-2023 07:52-0400 Body temperature 98.1 [degF] Jolanta Watkins LPN [facility]; [facility] Work Phone: Comment on above: Method: Temporal 07-26-2023 07:52-0400 Body weight 115.44 kg Jolanta Watkins FREE LANCE ARTIST [facility]; [facility] Work Phone: 07-26-2023 07:52-0400 Diastolic blood pressure 76 mm[Hg] Jolanta Watkins FREE LANCE ARTIST [facility]; [facility] Work Phone: Comment on above: Patient Position: Sitting; Cuff Location : Left Arm; Cuff Size: Standard 07-26-2023 07:52-0400 Heart rate 80 /min Jolanta aFirchildrb [employer] LANCE ARTIST [facility]; [facility] Work Phone: Comment on above: Pattern: Regular 07-26-2023 07:52-0400 Respiratory rate 17 /min Jolanta Watkins [employer] LANCE ARTIST [facility]; [facility] Work Phone: Comment on above: Pattern: Unlabored 07-26-2023 07:52-0400 SaO2% (BldA) [Mass fraction] 96 % Jolanta Watkins LPN [facility]; [facility] Work Phone: Comment on above: Room air 07-26-2023 07:52-0400 Systolic blood pressure 118 mm[Hg] Jolanta Watkins LPN [facility]; [facility] Work Phone: Comment on above: Patient Position: Sitting; Cuff Location : Left Arm; Cuff Size: Standard 04-11-2022 08:04-0400 Body height 165.1 cm Maggie Hoyos AMY [facility]; [facility] Work Phone: 04-11-2022 08:04-0400 Body mass index (BMI) [Ratio] 37.78 kg/m2 Maggie Hoyos [employer] ARTIST [facility]; [facility] Work Phone: 04-11-2022 08:04-0400 Body surface area Derived from formula 2.09 m2 Maggie Hoyos LPN [facility]; [facility] Work Phone: 04-11-2022 08:04-0400 Body temperature 97.1 [degF] Maggie Hoyos FREE LANCE ARTIST [facility]; [facility] Work Phone: 04-11-2022 08:04-0400 Body weight 102.97 kg Maggie Hoyos LPN [facility]; [facility] Work Phone: 04-11-2022 08:04-0400 Diastolic blood pressure 90 mm[Hg] Maggie Hoyos FREE LANCE ARTIST [facility]; [facility] Work Phone: Comment on above: Patient Position: Sitting; Cuff Location : Left Arm; Cuff Size: Standard 04-11-2022 08:04-0400 Heart rate 84 /min Maggie Hoyos AMY [facility]; [facility] Work Phone: Comment on above: Pattern: Regular 04-11-2022 08:04-0400 Respiratory rate 16 /min Maggie Hoyos AMY [facility]; [facility] Work Phone: Comment on above: Pattern: Unlabored 04-11-2022 08:04-0400 SaO2% (BldA) [Mass fraction] 97 % Maggie Hoyos [employer] LANCE ARTIST [facility]; [facility] Work Phone: Comment on above: Room air 04-11-2022 08:04-0400 Systolic blood pressure 122 mm[Hg] Maggie Hoyos [employer] LANCE ARTIST [facility]; [facility] Work Phone: Comment on above: Patient Position: Sitting; Cuff Location : Left Arm; Cuff Size: Standard 03-14-2022 13:32-0400 Body height 165.1 cm Thuy Belle [facility]; [facility] Work Phone: 03-14-2022 13:32-0400 Body mass index (BMI) [Ratio] 37.78 kg/m2 Thuy Belle [facility]; [facility] Work Phone: 03-14-2022 13:32-0400 Body surface area Derived from formula 2.09 m2 Thuy Belle [facility]; [facility] Work Phone: 03-14-2022 13:32-0400 Body temperature 96.8 [degF] Thuyrajat Belle [facility]; [facility] Work Phone: Comment on above: Method: Thermal Scan 03-14-2022 13:32-0400 Body weight 102.97 kg Thuy Belle [facility]; [facility] Work Phone: 03-14-2022 13:32-0400 Diastolic blood pressure 72 mm[Hg] Thuy Belle [facility]; [facility] Work Phone: Comment on above: Patient Position: Sitting; Cuff Location : Left Arm; Cuff Size: Standard 03-14-2022 13:32-0400 Respiratory rate 16 /min Thuy Belle [facility]; [facility] Work Phone: Comment on above: Pattern: Unlabored 03-14-2022 13:32-0400 Systolic blood pressure 120 mm[Hg] [facility]uy [facility]; [facility] Work Phone: Comment on above: Patient Position: Sitting; Cuff Location : Left Arm; Cuff Size: Standard 10-17-2021 12:54-0500 Body height 165.1 cm Maggie Hoyos LPN [facility]; [facility] Work Phone: 10-17-2021 12:54-0500 Body mass index (BMI) [Ratio] 37.78 kg/m2 Maggie Hoyos [employer] LANCE ARTIST [facility]; [facility] Work Phone: 10-17-2021 12:54-0500 Body surface area Derived from formula 2.09 m2 Maggie Hoyos [employer] LANCE ARTIST [facility]; [facility] Work Phone: 10-17-2021 12:54-0500 Body temperature 97.5 [degF] Maggie Hoyos FREE LANCE ARTIST [facility]; [facility] Work Phone: Comment on above: Method: Temporal 10-17-2021 12:54-0500 Body weight 102.97 kg Maggie Hoyos LPN [facility]; [facility] Work Phone: 10-17-2021 12:54-0500 Diastolic blood pressure 80 mm[Hg] Maggie Hoyos LPN [facility]; [facility] Work Phone: Comment on above: Patient Position: Sitting; Cuff Location : Left Arm; Cuff Size: Standard 10-17-2021 12:54-0500 Heart rate 95 /min Maggie Hoyos LPN [facility]; [facility] Work Phone: Comment on above: Pattern: Regular 10-17-2021 12:54-0500 Respiratory rate 16 /min Maggie Hoyos LPN [facility]; [facility] Work Phone: Comment on above: Pattern: Unlabored 10-17-2021 12:54-0500 SaO2% (BldA) [Mass fraction] 95 % Maggie Hoyos LPN [facility]; [facility] Work Phone: Comment on above: Room air 10-17-2021 12:54-0500 Systolic blood pressure 112 mm[Hg] Maggie Hoyos LPN [facility]; [facility] Work Phone: Comment on above: Patient Position: Sitting; Cuff Location : Left Arm; Cuff Size: Standard 05-17-2020 08:27-0400 BMI (Body Mass Index) 38.11 kg/m2 Salomón Hanson LPN [facility] Internal Medicine Work Phone: 05-17-2020 08:27-0400 Body Temperature 97.7 [degF] Salomón Hanson LPN [facility] Work Phone: Comment on above: Method: Temporal 05-17-2020 08:27-0400 Body weight 103.88 kg Salomón Hanson LPN [facility] Work Phone: 05-17-2020 08:27-0400 BP Diastolic 80 mm[Hg] Salomón Hanson LPN [facility] Work Phone: Comment on above: Patient Position: Sitting; Cuff Location : Left Arm; Cuff Size: Standard 05-17-2020 08:27-0400 BP Systolic 140 mm[Hg] Salomón Hanson LPN [facility] Work Phone: Comment on above: Patient Position: Sitting; Cuff Location : Left Arm; Cuff Size: Standard 05-17-2020 08:27-0400 BSA (Body Surface Area) 2.1 m2 Salomón Hanson LPN [facility] Internal Medicine Work Phone: 05-17-2020 08:27-0400 Height 165.1 cm Salomón Hanson LPN [facility] Work Phone: 05-17-2020 08:27-0400 Pulse (Heart Rate) 100 /min Salomón Hanson LPN [facility] Work Phone: Comment on above: Pattern: Regular 05-17-2020 08:27-0400 Pulse Oximetry 93 % Jazlyn Delong [facility] Internal Medicine Work Phone: Comment on above: Room air 05-17-2020 08:27-0400 Respiratory Rate 17 /min Salomón Hanson LPN [facility] Internal Medicine Work Phone: Comment on above: Pattern: Unlabored 05-17-2020 08:27-0400 SaO2% (BldA) [Mass fraction] 93 % Salomón Hanson LPN [facility]; [facility] Work Phone: Comment on above: Room air 01-20-2020 09:52-0500 BMI (Body Mass Index) 35.94 kg/m2 Salomón Hanson LPN Comprehen s[facility] Medicine Work Phone: 01-20-2020 09:52-0500 Body Temperature 98.2 [degF] Salomón Hanson LPN [facility] Internal [facility] Work Phone: Comment on above: Method: Temporal 01-20-2020 09:52-0500 Body weight 97.98 kg Salomón Hanson LPN [facility] Internal [facility] Work Phone: 01-20-2020 09:52-0500 BP Diastolic 76 mm[Hg] Salomón Hanson LPN [facility] Internal Medicine Work Phone: Comment on above: Patient Position: Sitting; Cuff Location : Left Arm; Cuff Size: Standard 01-20-2020 09:52-0500 BP Systolic 124 mm[Hg] Salomón Hanson LPN [facility] Internal Medicine Work Phone: Comment on above: Patient Position: Sitting; Cuff Location : Left Arm; Cuff Size: Standard 01-20-2020 09:52-0500 BSA (Body Surface Area) 2.04 m2 Salomón Hanson LPN [facility] Work Phone: 01-20-2020 09:52-0500 Height 165.1 cm Salomón Hanson LPN [facility] Medicine Work Phone: 01-20-2020 09:52-0500 Pulse (Heart Rate) 79 /min Salomón Hanson LPN [facility] Work Phone: Comment on above: Pattern: Regular 01-20-2020 09:52-0500 Pulse Oximetry 99 % Jazlyn Delong [facility] Work Phone: Comment on above: Room air 01-20-2020 09:52-0500 Respiratory Rate 16 /min Salomón Hanson LPN [facility] Internal Medicine Work Phone: Comment on above: Pattern: Unlabored 01-20-2020 09:52-0500 SaO2% (BldA) [Mass fraction] 99 % Salomón Hanson LPN [facility]; [facility] Work Phone: Comment on above: Room air 10-21-2019 08:29-0500 BMI (Body Mass Index) 38.11 kg/m2 Salomón Hanson LPN [facility] Work Phone: 10-21-2019 08:29-0500 Body Temperature 98.4 [degF] Salomón Hanson LPN [facility] Internal Medicine Work Phone: Comment on above: Method: Temporal 10-21-2019 08:29-0500 Body weight 103.88 kg Salomón Hanson LPN [facility] Internal Medicine Work Phone: 10-21-2019 08:29-0500 BP Diastolic 82 mm[Hg] Salomón Hanson LPN [facility] Internal Medicine Work Phone: Comment on above: Patient Position: Sitting; Cuff Location : Left Arm; Cuff Size: Standard 10-21-2019 08:29-0500 BP Systolic 134 mm[Hg] Salomón Hanson LPN [facility] Work Phone: Comment on above: Patient Position: Sitting; Cuff Location : Left Arm; Cuff Size: Standard 10-21-2019 08:29-0500 BSA (Body Surface Area) 2.1 m2 Salomón Hanson LPN [facility] Work Phone: 10-21-2019 08:29-0500 Height 165.1 cm Salomón Hanson LPN [facility] Work Phone: 10-21-2019 08:29-0500 Pulse (Heart Rate) 85 /min Salomón Hanson LPN [facility] Work Phone: Comment on above: Pattern: Regular 10-21-2019 08:29-0500 Pulse Oximetry 95 % Jazlyn Delong [facility] Internal Medicine Work Phone: Comment on above: Room air 10-21-2019 08:29-0500 Respiratory Rate 16 /min Salomón Hanson LPN [facility] Internal Medicine Work Phone: Comment on above: Pattern: Unlabored 10-21-2019 08:29-0500 SaO2% (BldA) [Mass fraction] 95 % Salomón Hanson LPN [facility]; [facility] Work Phone: Comment on above: Room air 10-07-2019 07:47-0500 BMI (Body Mass Index) 38.94 kg/m2 Salomón Hanson LPN [facility] Work Phone: 10-07-2019 07:47-0500 Body Temperature 97.6 [degF] Salomón Hanson LPN [facility] Internal Medicine Work Phone: Comment on above: Method: Temporal 10-07-2019 07:47-0500 Body weight 106.14 kg Salomón Hanson LPN [facility] Internal Medicine Work Phone: 10-07-2019 07:47-0500 BP Diastolic 84 mm[Hg] Salomón Hanson LPN [facility] Internal Medicine Work Phone: Comment on above: Patient Position: Sitting; Cuff Location : Left Arm; Cuff Size: Standard 10-07-2019 07:47-0500 BP Systolic 132 mm[Hg] Salomón Hanson LPN [facility] Work Phone: Comment on above: Patient Position: Sitting; Cuff Location : Left Arm; Cuff Size: Standard 10-07-2019 07:47-0500 BSA (Body Surface Area) 2.11 m2 Salomón Hanson LPN [facility] Work Phone: 10-07-2019 07:47-0500 Height 165.1 cm Salomón Hanson LPN [facility] Work Phone: 10-07-2019 07:47-0500 Pulse (Heart Rate) 84 /min Salomón Hanson LPN Comprehens[facility] Work Phone: Comment on above: Pattern: Regular 10-07-2019 07:47-0500 Pulse Oximetry 95 % Jazlyn Markizzy [facility] Internal Medicine Work Phone: Comment on above: Room air 10-07-2019 07:47-0500 Respiratory Rate 16 /min Salomón Hanson LPN [facility] Internal Medicine Work Phone: Comment on above: Pattern: Unlabored 10-07-2019 07:47-0500 SaO2% (BldA) [Mass fraction] 95 % Salomón Hanson LPN [facility]; [facility] Work Phone: Comment on above: Room air 10-02-2019 07:25-0400 BMI (Body Mass Index) 42.64 kg/m2 Jazlyn Delong [facility] Work Phone: 10-02-2019 07:25-0400 BMI (Body Mass Index) 38.94 kg/m2 oJlanta Watkins LPN Comprehen sive Internal Medicine Work Phone: 10-02-2019 07:25-0400 Body Temperature 98.2 [degF] Jolanta Watkins LPN [facility] Work Phone: 10-02-2019 07:25-0400 Body weight 116.23 kg Jazlyn Delong [facility] Internal Medicine Work Phone: 10-02-2019 07:25-0400 Body weight 106.14 kg Jolanta Watkins [employer] ARTIST [facility] Work Phone: 10-02-2019 07:25-0400 BP Diastolic 86 mm[Hg] Jolanta Watkins [employer] LANCE ARTIST [facility] Work Phone: Comment on above: Patient Position: Sitting; Cuff Location : Left Arm; Cuff Size: Standard 10-02-2019 07:25-0400 BP Systolic 150 mm[Hg] Jolanta Watkins [employer] LANCE ARTIST [facility] Work Phone: Comment on above: Patient Position: Sitting; Cuff Location : Left Arm; Cuff Size: Standard 10-02-2019 07:25-0400 BSA (Body Surface Area) 2.2 m2 Jazlyn Delong [facility] Internal Medicine Work Phone: 10-02-2019 07:25-0400 BSA (Body Surface Area) 2.11 m2 Jolanta Watkins [employer]ANCE ARTIST [facility] Work Phone: 10-02-2019 07:25-0400 Height 165.1 cm Jolanta Watkins [employer] LANCE ARTIST [facility] Work Phone: 10-02-2019 07:25-0400 Pulse (Heart Rate) 82 /min Jolanta Watkins LPN [facility]prehens[facility] e [facility] Medicine Work Phone: Comment on above: Pattern: Regular 10-02-2019 07:25-0400 Pulse Oximetry 95 % Jazlyn Delong [facility] Internal Medicine Work Phone: Comment on above: Room air 10-02-2019 07:25-0400 Respiratory Rate 16 /min Jolanta Watkins [employer] [facility] Work Phone: Comment on above: Pattern: Unlabored 10-02-2019 07:25-0400 SaO2% (BldA) [Mass fraction] 95 % Jolanta Fairchildsuzy [employer] LANCE ARTIST [facility]; [facility] Work Phone: Comment on above: Room air 08-15-2018 07:35-0400 BMI (Body Mass Index) 42.64 kg/m2 Farrah Hidalgo [facility] Work Phone: 08-15-2018 07:35-0400 Body Temperature 96.4 [degF] Farrah Hidalgo [facility] Internal Medicine Work Phone: Comment on above: Method: Temporal 08-15-2018 07:35-0400 Body weight 116.23 kg Farrah Hidalgo [facility] Work Phone: 08-15-2018 07:35-0400 BP Diastolic 80 mm[Hg] Farrah Hidalgo [facility] Internal Medicine Work Phone: Comment on above: Patient Position: Sitting; Cuff Location : Left Arm; Cuff Size: Standard 08-15-2018 07:35-0400 BP Systolic 138 mm[Hg] Farrah Hidalgo [facility] Internal Medicine Work Phone: Comment on above: Patient Position: Sitting; Cuff Location : Left Arm; Cuff Size: Standard 08-15-2018 07:35-0400 BSA (Body Surface Area) 2.2 m2 Farrah Hidalgo [facility] Internal Medicine Work Phone: 08-15-2018 07:35-0400 Height 165.1 cm Farrah Hidalgo [facility] Internal Medicine Work Phone: 08-15-2018 07:35-0400 Pulse (Heart Rate) 84 /min Farrah Hidalgo [facility] Internal Medicine Work Phone: Comment on above: Pattern: Regular 08-15-2018 07:35-0400 Pulse Oximetry 95 % Jazlyn Delong [facility] Internal Medicine Work Phone: Comment on above: Room air 08-15-2018 07:35-0400 Respiratory Rate 16 /min Farrah Hidalgo [facility] Internal Medicine Work Phone: Comment on above: Pattern: Unlabored 08-15-2018 07:35-0400 SaO2% (BldA) [Mass fraction] 95 % Farrah Hidalgo [facility] Internal Medicine; [facility] Medicine Work Phone: Comment on above: Room air 08-06-2018 13:02-0400 BMI (Body Mass Index) 42.62 kg/m2 Farrah Hidalgo [facility] Internal Medicine Work Phone: 08-06-2018 13:02-0400 Body Temperature 96.6 [degF] Farrah Hidalgo [facility] Internal Medicine Work Phone: Comment on above: Method: Temporal 08-06-2018 13:02-0400 Body weight 116.18 kg Farrah Hidalgo [facility] Internal Medicine Work Phone: 08-06-2018 13:02-0400 BP Diastolic 78 mm[Hg] Farrah Hidalgo [facility] Internal Medicine Work Phone: Comment on above: Patient Position: Sitting; Cuff Location : Left Arm; Cuff Size: Standard 08-06-2018 13:02-0400 BP Systolic 118 mm[Hg] Farrah Hidalgo [facility] Internal Medicine Work Phone: Comment on above: Patient Position: Sitting; Cuff Location : Left Arm; Cuff Size: Standard 08-06-2018 13:02-0400 BSA (Body Surface Area) 2.2 m2 Farrah Hidalgo [facility] Internal Medicine Work Phone: 08-06-2018 13:02-0400 Height 165.1 cm Farrah Hidalgo [facility] Internal Medicine Work Phone: 08-06-2018 13:02-0400 Pulse (Heart Rate) 83 /min Farrah Hidalgo [facility] Internal Medicine Work Phone: Comment on above: Pattern: Regular 08-06-2018 13:02-0400 Pulse Oximetry 96 % Jazlyn Chanmicheal [facility] Internal Medicine Work Phone: Comment on above: Room air 08-06-2018 13:02-0400 Respiratory Rate 14 /min Farrah Hidalgo [facility] Internal Medicine Work Phone: Comment on above: Pattern: Unlabored 08-06-2018 13:02-0400 SaO2% (BldA) [Mass fraction] 96 % Farrah Hidalgo [facility]; [facility] Work Phone: Comment on above: Room air 04-18-2018 07:32-0400 BMI (Body Mass Index) 41.48 kg/m2 Monique Kim RN [facility] Work Phone: 04-18-2018 07:32-0400 Body weight 113.06 kg Monique Kim RN [facility] Work Phone: 04-18-2018 07:32-0400 BP Diastolic 82 mm[Hg] Monique Kim RN [facility] Work Phone: Comment on above: Patient Position: Sitting; Cuff Location : Left Arm; Cuff Size: Large 04-18-2018 07:32-0400 BP Systolic 136 mm[Hg] Monique Kim RN [facility] Work Phone: Comment on above: Patient Position: Sitting; Cuff Location : Left Arm; Cuff Size: Large 04-18-2018 07:32-0400 BSA (Body Surface Area) 2.17 m2 Monique Kim RN [facility] Work Phone: 04-18-2018 07:32-0400 Height 165.1 cm Monique Kim RN [facility] Work Phone: 04-18-2018 07:32-0400 Pulse (Heart Rate) 79 /min Monique Kim RN [facility] Work Phone: Comment on above: Pattern: Regular 04-18-2018 07:32-0400 Pulse Oximetry 93 % Jazlyn Delong [facility] Work Phone: Comment on above: Room air 04-18-2018 07:32-0400 Respiratory Rate 16 /min Monique Kim RN [facility] Work Phone: Comment on above: Pattern: Unlabored 04-18-2018 07:32-0400 SaO2% (BldA) [Mass fraction] 93 % Monique Kim RN [facility]; [facility] Work Phone: Comment on above: Room air 10-04-2017 07:50-0400 BMI (Body Mass Index) 40.67 kg/m2 Jolanta Slarb FREE LANCE ARTIST [facility] Internal Medicine Work Phone: 10-04-2017 07:50-0400 Body Temperature 97.5 [degF] Jolanta Slarb FREE LANCE ARTIST [facility] Internal Medicine Work Phone: 10-04-2017 07:50-0400 Body weight 110.85 kg Jolanta Slarb [employer] ARTIST [facility] Internal Medicine Work Phone: 10-04-2017 07:50-0400 BP Diastolic 82 mm[Hg] Jolanta Slarb [employer]ANCE ARTIST [facility] Internal Medicine Work Phone: Comment on above: Patient Position: Sitting; Cuff Location : Left Arm; Cuff Size: Standard 10-04-2017 07:50-0400 BP Systolic 138 mm[Hg] Jolanta Slarb [employer] LANCE ARTIST [facility] Internal Medicine Work Phone: Comment on above: Patient Position: Sitting; Cuff Location : Left Arm; Cuff Size: Standard 10-04-2017 07:50-0400 BSA (Body Surface Area) 2.15 m2 Jolanta Slarb [employer]ANCE ARTIST [facility] Work Phone: 10-04-2017 07:50-0400 Height 165.1 cm Jolanta Watkins LPN [facility] Work Phone: 10-04-2017 07:50-0400 Pulse (Heart Rate) 78 /min Jolanta Watkins LPN [facility] Work Phone: Comment on above: Pattern: Regular 10-04-2017 07:50-0400 Pulse Oximetry 97 % Jazlyn Delong [facility] Internal Medicine Work Phone: Comment on above: Room air 10-04-2017 07:50-0400 Respiratory Rate 18 /min Jolanta Watkins LPN [facility] Internal Medicine Work Phone: Comment on above: Pattern: Unlabored 10-04-2017 07:50-0400 SaO2% (BldA) [Mass fraction] 97 % Jolanta Watkins [employer] ARTIST [facility]; [facility] Work Phone: Comment on above: Room air 05-08-2017 13:04-0400 Body Temperature 97.6 [degF] Thuy Belle [facility] Internal Medicine Work Phone: Comment on above: Method: Temporal 05-08-2017 13:04-0400 BP Diastolic 68 mm[Hg] [facility] Comment on above: Patient Position: Sitting; Cuff Location : Left Arm; Cuff Size: Standard 05-08-2017 13:04-0400 BP Systolic 118 mm[Hg] Thuy Belle [facility] Internal Medicine Work Phone: Comment on above: Patient Position: Sitting; Cuff Location : Left Arm; Cuff Size: Standard 05-08-2017 13:04-0400 Height 165.1 cm [facility] Work Phone: 05-08-2017 13:04-0400 Pulse (Heart Rate) 86 /min Thuy Belle [facility] Internal Medicine Work Phone: Comment on above: Pattern: Regular 05-08-2017 13:04-0400 Pulse Oximetry 98 % Jazlyn Delong [facility] Work Phone: Comment on above: Room air 05-08-2017 13:04-0400 Respiratory Rate 16 /min Thuy Belle [facility] Work Phone: Comment on above: Pattern: Unlabored 05-08-2017 13:04-0400 SaO2% (BldA) [Mass fraction] 98 % Thuy Belle [facility]; [facility] Work Phone: Comment on above: Room air 08-20-2016 15:54-0400 BMI (Body Mass Index) 41.27 kg/m2 Jolanta Slarb [employer] ARTIST Compre[facility] Internal Medicine Work Phone: 08-20-2016 15:54-0400 Body Temperature 97.8 [degF] Jolanta Slarb [employer] LANCE ARTIST [facility] Work Phone: 08-20-2016 15:54-0400 Body weight 112.49 kg Jolanta Slarb [employer] LANCE ARTIST [facility] Work Phone: 08-20-2016 15:54-0400 BP Diastolic 84 mm[Hg] Jolanta Slarb [employer] LANCE ARTIST [facility] Work Phone: Comment on above: Patient Position: Sitting; Cuff Location : Left Arm; Cuff Size: Standard 08-20-2016 15:54-0400 BP Systolic 126 mm[Hg] Jolanta Slarb [employer] LANCE ARTIST [facility] Work Phone: Comment on above: Patient Position: Sitting; Cuff Location : Left Arm; Cuff Size: Standard 08-20-2016 15:54-0400 BSA (Body Surface Area) 2.17 m2 Jolanta Slarb [employer] LANCE ARTIST [facility] Work Phone: 08-20-2016 15:54-0400 Height 165.1 cm Jolanta Slarb FREE LANCE ARTIST [facility] Work Phone: 08-20-2016 15:54-0400 Pulse (Heart Rate) 79 /min Jolanta Slarb [employer] L[employer] ARTIST Comprehens[facility] e [facility] Medicine Work Phone: Comment on above: Pattern: Regular 08-20-2016 15:54-0400 Pulse Oximetry 95 % Jazlyn Delong [facility] Internal Medicine Work Phone: Comment on above: Room air 08-20-2016 15:54-0400 Respiratory Rate 17 /min Jolanta Watkins LPN [facility] Work Phone: Comment on above: Pattern: Unlabored 08-20-2016 15:54-0400 SaO2% (BldA) [Mass fraction] 95 % Jolanta Watkins [employer]ANCE ARTIST [facility]; [facility] Work Phone: Comment on above: Room air 07-22-2015 07:58-0400 BMI (Body Mass Index) 39.6 kg/m2 TONI Wheat [facility] Internal Medicine Work Phone: 07-22-2015 07:58-0400 Body Temperature 97.8 [degF] TONI Wheat [facility] Internal Medicine Work Phone: Comment on above: Method: Temporal 07-22-2015 07:58-0400 Body weight 107.96 kg TONI Wheat [facility] Internal Medicine Work Phone: 07-22-2015 07:58-0400 BP Diastolic 84 mm[Hg] TONI Wheat [facility] Internal Medicine Work Phone: Comment on above: Patient Position: Sitting; Cuff Location : Left Arm; Cuff Size: Large 07-22-2015 07:58-0400 BP Systolic 134 mm[Hg] TONI Wheat [facility] Internal Medicine Work Phone: Comment on above: Patient Position: Sitting; Cuff Location : Left Arm; Cuff Size: Large 07-22-2015 07:58-0400 BSA (Body Surface Area) 2.13 m2 TONI Wheat [facility] Internal Medicine Work Phone: 07-22-2015 07:58-0400 Height 165.1 cm TONI Wheat [facility] Internal Medicine Work Phone: 07-22-2015 07:58-0400 Pulse (Heart Rate) 80 /min TONI Wheat [facility] Internal Medicine Work Phone: Comment on above: Pattern: Regular 07-22-2015 07:58-0400 Pulse Oximetry 97 % Jazlyn Delong [facility] Internal Medicine Work Phone: Comment on above: Room air 07-22-2015 07:58-0400 Respiratory Rate 18 /min TONI Wheat AMY [facility] Internal Medicine Work Phone: Comment on above: Pattern: Unlabored 07-22-2015 07:58-0400 SaO2% (BldA) [Mass fraction] 97 % TONI Wheat AMY [facility]; [facility] Work Phone: Comment on above: Room air 04-22-2015 09:01-0400 BMI (Body Mass Index) 38.27 kg/m2 Thuy Belle [facility] Internal Medicine Work Phone: 04-22-2015 09:01-0400 Body Temperature 98.2 [degF] Thuy Belle [facility] Internal Medicine Work Phone: Comment on above: Method: Oral 04-22-2015 09:01-0400 Body weight 104.33 kg Thuy Belle [facility] Internal Medicine Work Phone: 04-22-2015 09:01-0400 BP Diastolic 82 mm[Hg] Thuy Belle [facility] Internal Medicine Work Phone: Comment on above: Patient Position: Sitting; Cuff Location : Left Arm; Cuff Size: Standard 04-22-2015 09:01-0400 BP Systolic 142 mm[Hg] Thuy Belle [facility] Internal Medicine Work Phone: Comment on above: Patient Position: Sitting; Cuff Location : Left Arm; Cuff Size: Standard 04-22-2015 09:01-0400 BSA (Body Surface Area) 2.1 m2 Thuy Belle [facility] Internal Medicine Work Phone: 04-22-2015 09:01-0400 Height 165.1 cm Thuy Belle [facility] Internal Medicine Work Phone: 04-22-2015 09:01-0400 Pulse (Heart Rate) 89 /min Thuy Belle [facility] Internal Medicine Work Phone: Comment on above: Pattern: Regular 04-22-2015 09:01-0400 Pulse Oximetry 98 % Jazlyn Delong [facility] Internal Medicine Work Phone: Comment on above: Room air 04-22-2015 09:01-0400 Respiratory Rate 16 /min Thuy Belle [facility] Work Phone: Comment on above: Pattern: Unlabored 04-22-2015 09:01-0400 SaO2% (BldA) [Mass fraction] 98 % Thuy Belle [facility]; [facility] Work Phone: Comment on above: Room air 03-28-2015 15:14-0400 BMI (Body Mass Index) 38.27 kg/m2 TONI Wheat [facility] Internal Medicine Work Phone: 03-28-2015 15:14-0400 Body Temperature 97.6 [degF] TONI Wheat [facility] Internal Medicine Work Phone: Comment on above: Method: Temporal 03-28-2015 15:14-0400 Body weight 104.33 kg TONI Wheat [facility] Internal Medicine Work Phone: 03-28-2015 15:14-0400 BP Diastolic 84 mm[Hg] TONI Wheat [facility] Internal Medicine Work Phone: Comment on above: Patient Position: Sitting; Cuff Location : Left Arm; Cuff Size: Large 03-28-2015 15:14-0400 BP Systolic 144 mm[Hg] TONI Wheat [facility] Internal Medicine Work Phone: Comment on above: Patient Position: Sitting; Cuff Location : Left Arm; Cuff Size: Large 03-28-2015 15:14-0400 BSA (Body Surface Area) 2.1 m2 TONI Wheat [facility] Internal Medicine Work Phone: 03-28-2015 15:14-0400 Height 165.1 cm TONI Wheat [facility] Internal Medicine Work Phone: 03-28-2015 15:14-0400 Pulse (Heart Rate) 94 /min TONI Wheat [facility] Internal Medicine Work Phone: Comment on above: Pattern: Regular 03-28-2015 15:14-0400 Pulse Oximetry 96 % Jazlyn Delong [facility] Work Phone: Comment on above: Room air 03-28-2015 15:14-0400 Respiratory Rate 18 /min TONI Wheat LPN [facility] Work Phone: Comment on above: Pattern: Unlabored 03-28-2015 15:14-0400 SaO2% (BldA) [Mass fraction] 96 % TONI Wheat LPN [facility]; [facility] Work Phone: Comment on above: Room air 01-09-2013 14:12-0500 BMI (Body Mass Index) 41.85 kg/m2 Monique Kim RN [facility] Work Phone: 01-09-2013 14:12-0500 Body Temperature 98.2 [degF] Monique Kim RN [facility] Work Phone: Comment on above: Method: Oral 01-09-2013 14:12-0500 Body weight 114.08 kg Monique Kim RN [facility] Work Phone: 01-09-2013 14:12-0500 BP Diastolic 98 mm[Hg] Monique Kim RN [facility] Work Phone: Comment on above: Patient Position: Sitting; Cuff Location : Left Arm; Cuff Size: Large 01-09-2013 14:12-0500 BP Systolic 152 mm[Hg] Monique Kim RN [facility] Work Phone: Comment on above: Patient Position: Sitting; Cuff Location : Left Arm; Cuff Size: Large 01-09-2013 14:12-0500 BSA (Body Surface Area) 2.18 m2 Monique Kim RN [facility] Work Phone: 01-09-2013 14:12-0500 Height 165.1 cm Moniuqe Kim RN [facility] Work Phone: 01-09-2013 14:12-0500 Pulse (Heart Rate) 80 /min Monique Kim RN [facility] Work Phone: Comment on above: Pattern: Regular 01-09-2013 14:12-0500 Respiratory Rate 20 /min Monique Kim RN [facility] Work Phone: Comment on above: Pattern: Unlabored 02-23-2010 13:22-0400 Body weight 104.33 kg Monique Kim RN [facility] Work Phone: 02-23-2010 13:22-0400 BP Diastolic 90 mm[Hg] Monique Kim RN [facility] Work Phone: Comment on above: Patient Position: Sitting; Cuff Location : Right Arm; Cuff Size: Large 02-23-2010 13:22-0400 BP Systolic 142 mm[Hg] Monique Kim RN [facility] Work Phone: Comment on above: Patient Position: Sitting; Cuff Location : Right Arm; Cuff Size: Large 02-23-2010 13:22-0400 Pulse (Heart Rate) 80 /min Monique Kim RN [facility] Work Phone: Comment on above: Pattern: Regular 02-23-2010 13:22-0400 Respiratory Rate 20 /min Monique Kim RN [facility] Work Phone: Comment on above: Pattern: Unlabored 09-07-2009 08:15-0400 Body Temperature 98.8 [degF] Jazlyn Chanmicheal PULIDO Work Phone: [facility] Work Phone: Comment on above: Method: Oral 09-07-2009 08:15-0400 Body weight 0 kg Jazlyn Chanmicheal PULIDO Work Phone: [facility] Work Phone: 09-07-2009 08:15-0400 BP Diastolic 70 mm[Hg] Jazlyn Chana SAMPLE CLERK Work Phone: [facility] Work Phone: Comment on above: Patient Position: Sitting; Cuff Location : Right Arm; Cuff Size: Standard 09-07-2009 08:15-0400 BP Systolic 122 mm[Hg] Jazlyn Chana SAMPLE CLERK Work Phone: [facility] Work Phone: Comment on above: Patient Position: Sitting; Cuff Location : Right Arm; Cuff Size: Standard 09-07-2009 08:15-0400 Head Circumference 0 cm Jazlyn Delong [facility] Work Phone: 09-07-2009 08:15-0400 Head Occipital-frontal circumference 0 cm Jazlyn Delong CNP Work Phone: [facility]; [facility] Work Phone: 09-07-2009 08:15-0400 Height 0 cm Jazlyn Delong SAMPLE CLERK Work Phone: [facility] Work Phone: 09-07-2009 08:15-0400 Pulse (Heart Rate) 64 /min Jazlyn Delong SAMPLE CLERK Work Phone: [facility] Work Phone: Comment on above: Pattern: Regular 09-07-2009 08:15-0400 Respiratory Rate 18 /min Jazlyn Delong CNP Work Phone: [facility] Work Phone: Comment on above: Pattern: Unlabored 02-03-2009 06:56-0500 Body weight 104.33 kg TONI Wheat LPN [facility] Work Phone: 02-03-2009 06:56-0500 BP Diastolic 84 mm[Hg] TONI Wheat [employer]IST [facility] Work Phone: Comment on above: Patient Position: Sitting; Cuff Location : Left Arm; Cuff Size: Large 02-03-2009 06:56-0500 BP Systolic 124 mm[Hg] TONI Wheat [employer] ARTIST [facility] Work Phone: Comment on above: Patient Position: Sitting; Cuff Location : Left Arm; Cuff Size: Large 02-03-2009 06:56-0500 Head Circumference 0 cm Jazlyn Delong [facility] Work Phone: 02-03-2009 06:56-0500 Head Occipital-frontal circumference 0 cm TONI Wheat [employer] LANCE ARTIST [facility]; [facility] Work Phone: 02-03-2009 06:56-0500 Height 0 cm TONI Wheat LPN [facility] Work Phone: 02-03-2009 06:56-0500 Pulse (Heart Rate) 70 /min TONI Wheat AMY [facility] Work Phone: Comment on above: Pattern: Regular 02-03-2009 06:56-0500 Respiratory Rate 16 /min TONI Wheat AMY [facility] Work Phone: Comment on above: Pattern: Unlabored 01-04-2009 08:57-0500 BMI (Body Mass Index) 37.77 kg/m2 Sherice Dawn MD Work Phone: [facility] Work Phone: 01-04-2009 08:57-0500 Body weight 102.97 kg Sherice Dawn MD Work Phone: [facility] Work Phone: 01-04-2009 08:57-0500 BP Diastolic 84 mm[Hg] Sherice Dawn MD Work Phone: [facility] Work Phone: Comment on above: Patient Position: Sitting; Cuff Location : Left Arm; Cuff Size: Large 01-04-2009 08:57-0500 BP Systolic 126 mm[Hg] Sherice Dawn MD Work Phone: [facility] Work Phone: Comment on above: Patient Position: Sitting; Cuff Location : Left Arm; Cuff Size: Large 01-04-2009 08:57-0500 BSA (Body Surface Area) 2.09 m2 Sherice Dawn MD Work Phone: [facility] Work Phone: 01-04-2009 08:57-0500 Head Circumference 0 cm Jazlyn Delong [facility] Work Phone: 01-04-2009 08:57-0500 Head Occipital-frontal circumference 0 cm Sherice Dawn MD Work Phone: [facility]; [facility] Work Phone: 01-04-2009 08:57-0500 Height 165.1 cm Sherice Dawn MD Work Phone: [facility] Work Phone: 01-04-2009 08:57-0500 Pulse (Heart Rate) 72 /min Sherice Dawn MD Work Phone: [facility] Work Phone: Comment on above: Pattern: Regular 01-04-2009 08:57-0500 Respiratory Rate 16 /min Sherice Dawn MD Work Phone: [facility] Work Phone: Comment on above: Pattern: Unlabored Encounters Encounter Date Encounter Type Care Provider Facility Start: 10-12-2025 ambulatory Michael Nahunta Facility :[facility] Start: 06-10-2025 End: 06-10-2025 ambulatory Michael Castillo HYDROGEN PLANT OPERATOR-C Work Phone: -Ultrasound [facility] Start: 06-10-2025 End: 06-10-2025 Patient encounter procedure Michael Castillo HYDROGEN PLANT OPERATOR-C -Ultrasound [facility] Work Phone: Start: 06-10-2025 End: 06-10-[facility]25 [facility] Start: 02-22-2025 End: 02-22-2025 Follow-up encounter Colleen Parrish APRN.SAMPLE CLERK Work Phone: Ophthalmology Start: 02-18-2025 End: 02-18-2025 ambulatory COLLEEN PARRISH Facility:[facility] Start: 02-18-2025 End: 02-18-2025 Patient encounter procedure Colleen Parrish RESOURCE SPECIALIST.SAMPLE CLERK Work Phone: Ophthalmology Comment on above: Neoplasm of uncertai n behavior of skin of eyelid (Primary Dx) Start: 02-13-2025 End: 02-13-2025 Subsequent hospital visit by physician Kailash [address] Comment on above: Essential (primary) hypertension Start: 02-13-2025 End: 02-13-2025 ambulatory [facility] Start: 11-12-2024 End: 11-12-2024 ambulatory Michael Nahunta Facility:[facility] Start: 03-11-2024 End: 03-11-2024 ambulatory LEONA NESBITT Facility:[facility] Start: 03-11-2024 End: 03-11-2024 Patient encounter procedure Leona Nesbitt MD Work Phone: OB/Gynecology Comment on above: Essential hypertensi on (Primary Dx); Hypercholesteremia; Class 3 severe obesity with serious comorbidity and body mass index (BMI) of 40.0 to 44.9 in adult, unspecified obesity type (HCC) Start: 01-17-2024 End: 01-17-2024 Patient encounter procedure Leona Nesbitt MD Work Phone: OB/Gynecology Comment on above: Essential hypertensi on (Primary Dx); Prediabetes; Class 3 severe obesity with serious comorbidity and body mass index (BMI) of 40.0 to 44.9 in adult, unspecified obesity type (HCC); Screening cholesterol level; Screening for deficiency anemia; Screening for diabetes mellitus; Screening for metabolic disorder; Screening for thyroid disorder; Encounter for vitamin deficiency screening Start: 11-08-2023 End: 11-08-2023 ambulatory [facility] Work Phone: Start: 11-08-2023 End: 11-08-2023 Patient encounter procedure [facility]-Outpatient Breast Imaging Work Phone: Start: 08-14-2023 End: 08-14-2023 Patient encounter procedure [facility]-Outpatient Bone Densitometry Work Phone: Start: 07-29-2023 End: 07-29-2023 Lab Order Michael Castillo CNP Work Phone: [facility] Start: 07-26-2023 End: 07-26-2023 Office outpatient visit 15 minutes Michael Castillo CNP Work Phone: [facility] Start: 11-06-2022 End: 11-06-2022 ambulatory [facility] Work Phone: Start: 11-06-2022 End: 11-06-2022 Patient encounter procedure [facility] Breast Imaging Start: 04-11-2022 End: 04-11-2022 Office outpatient visit 15 minutes Jazlyn Delong Work Phone: [facility] Start: 03-16-2022 End: 03-16-2022 Annotation/Addendum Jazlyn Delong Work Phone: [facility] Start: 03-14-2022 End: 03-14-2022 Office outpatient visit 10 minutes Jazlyn Delong Work Phone: [facility] Start: 10-17-2021 End: 10-17-2021 Patient encounter procedure Jazlyn Delong Work Phone: [facility] Start: 10-17-2021 End: 10-17-2021 Periodic preventive med est patient 40-64yrs Jazlyn Delong SAMPLE CLERK Work Phone: [facility] Start: 10-16-2021 End: 10-16-2021 Annotation/Addendum Jazlyn Delong SAMPLE CLERK Work Phone: [facility] Start: 10-06-2021 End: 10-06-2021 Lab Order Jazlyn Delong SAMPLE CLERK Work Phone: [facility] Start: 05-17-2020 End: 05-17-2020 Office outpatient visit 25 minutes Jazlyn Guajardo [facility] Start: 01-20-2020 End: 01-20-2020 Office outpatient visit 15 minutes Jazlyn Guajardo [facility] Start: 10-21-2019 End: 10-21-2019 Office outpatient visit 15 minutes Jazlyn Guajardo [facility] Start: 10-07-2019 End: 10-07-2019 Office outpatient visit 15 minutes Jazlyn Guajardo [facility] Start: 10-02-2019 End: 10-02-2019 Office outpatient visit 25 minutes Jazlyn Guajardo [facility] Start: 10-02-2019 Review Jazlyn Morales tatum [facility] Start: 08-15-2018 End: 08-15-2018 Office outpatient visit 25 minutes Jazlyn Guajardo [facility] Start: 08-06-2018 End: 08-06-2018 Office outpatient visit 15 minutes Jazlyn Guajardo [facility] Start: 04-18-2018 End: 04-18-2018 Office outpatient visit 15 minutes Jazlyn Guajardo [facility] Start: 10-04-2017 End: 10-04-2017 Office outpatient visit 25 minutes Jazlyn Guajardo [facility] Start: 09-25-2017 End: 09-27-2017 Lab Order Jazlyn Guajardo [facility] Start: 05-08-2017 End: 05-08-2017 Office outpatient visit 15 minutes Jazlyn Delong [facility] Internal Medicine Start: 2016 End: 2016 Annotation/Addendum Jazlyn Delong [facility] Start: 08-20-2016 End: 08-20-2016 Office outpatient visit 15 minutes Jazlyn Delong [facility] Start: 05-09-2016 End: 05-09-2016 Lab Order Jazlyn Delong [facility] Start: 03-19-2016 End: 03-19-2016 Lab Order Jazlyn Delong [facility] Start: 01-30-2016 End: 01-30-2016 Lab Order Jazlyn Delong [facility] Start: 10-04-2015 End: 10-04-2015 Lab Order Jazlyn Delong [facility] Start: 08-11-2015 End: 08-11-2015 Lab Order Jazlyn Delong [facility] Start: 07-22-2015 End: 07-22-2015 Office outpatient visit 25 minutes Jazlyn Delong [facility] Medicine Start: 07-22-2015 End: 07-22-2015 Preprocedural examination done Jazlyn Delong Work Phone: [facility] Start: 07-14-2015 End: 07-14-2015 Phone Encounter Jazlyn Delong [facility] Start: 05-02-2015 End: 05-02-2015 Phone Encounter Jazlyn Delong [facility] Start: 04-28-2015 End: 04-28-2015 Phone Encounter Jazlyn Delong [facility] Start: 04-22-2015 End: 04-22-2015 Office outpatient visit 10 minutes Jazlyn Delong [facility] Start: 04-11-2015 End: 04-11-2015 Phone Encounter Jazlyn Delong [facility] Start: 04-04-2015 End: 04-04-2015 Phone Encounter Jazlyn Delong [facility] Start: 03-28-2015 End: 03-28-2015 Office outpatient visit 25 minutes Jazlyn Delong [facility] Start: 03-28-2015 End: 03-28-2015 Physical examination Jazlyn Delong Work Phone: [facility] Start: 01-09-2013 End: 01-09-2013 Patient encounter procedure Jazlyn Chanmicheal [facility] Start: 01-09-2013 End: 01-09-2013 Preprocedural examination done Jazlyn Delong Work Phone: [facility] Start: 02-23-2010 End: 02-23-2010 Patient encounter procedure Jazlyn Delong [facility] Start: 09-08-2009 End: 09-08-2009 Office outpatient visit 25 minutes Jazlyn Delong [facility] Start: 09-07-2009 End: 09-07-2009 Office outpatient visit 25 minutes Jazlyn Delong [facility] Start: 02-03-2009 End: 02-03-2009 Office outpatient visit 15 minutes Jazlyn Delong [facility] Start: 01-04-2009 End: 01-04-2009 Historical Summary Jazlyn Delong [facility] Start: 01-04-2009 End: 01-04-2009 Patient encounter procedure Jazlyn Delong [facility] Patient encounter procedure Jazlyn Delong SAMPLE CLERK Work Phone: [facility]; [facility] Work Phone: Patient encounter procedure Maggie Soha [facility]; [facility] Work Phone: Patient encounter procedure Jolanta Roland [facility]; [facility] Work Phone: End: 07-22-2015 Physical examination Jodi Ayala [facility]; [facility] Work Phone: Comment on above: outside off BP good. little nervous in office. pap and pelvic yearly through Dr. dasilva. mammo good yearly. due now for colonscopy Preprocedural examination done Maggie Hoyos [facility]; [facility] Work Phone: Comment on above: will have ANASTACIO no BSO . low risk will be getting labs including thyriod to assure good prior. she willbe going to preop testing and get ekg. if ekg and labs normal then is cleared. tetanus 2008 Preprocedural examination done Maggie Hoyos [facility]; [facility] Work Phone: Comment on above: will have ANASTACIO no BSO . low risk will be getting labs including thyriod to assure good prior. she willbe going to preop testing and get ekg. if ekg and labs normal then is cleared. tetanus 2008 Preprocedural examination done Jolanta Watkins FREE LANCE ARTIST [facility]; [facility] Work Phone: Comment on above: will have ANASTACIO no BSO . low risk will be getting labs including thyriod to assure good prior. she willbe going to preop testing and get ekg. if ekg and labs normal then is cleared. tetanus 2008 Procedures Date Procedure Procedure Detail Performing Clinician Start: 06-10-2025 Ultrasound elastography of liver Michael [facility] Work Phone: Start: 02-18-2025 Exc b9 lesion mrgn xcp sk tg f/e/e/n/l/m 0.5cm/< Colleen Parrish APRN.SAMPLE CLERK Work Phone: Start: 02-18-2025 SURGICAL PATHOLOGY Colleen Parrish APRN.[facility] Work Phone: Start: 01-20-2024 Lipid 1996 panel - Serum or Plasma Leona Nesbitt MD Work Phone: Start: 11-08-2023 Screening mammography Start: 08-14-2023 Dual energy X-ray absorptiometry Start: 11-06-2022 Screening mammography Start: 11-06-2022 End: 11-06-2022 SCRN MAMM (CAD)W/FARIHA BILAT Procedure Note: See Note; NOTES: [facility] Imaging Services [address] [place] [id number] SCRN MAMM (CAD)W/FARIHA BILAT MR#: [id number] Acct: [id number] Name: JODY MERINO Rep #: [id number] : 1965 F 57 From: Brant skaggs MD PCP: IVAN Wilson Status: REG CLI Study: SCRN MAMM (CAD)W/FARIHA BILAT Date of Exam: 05/23 Exam# [id number] Ordering Dr: Emmanuel Weeks DO MAMMOGRAPHY - BILATERAL SCREENING REASON FOR EXAM: Female, 57 years old. Routine annual screening examination. PERTINENT HISTORY: Mother with breast cancer. TECHNIQUE: Digital bilateral breast fariha (3D mammographic acquisition) in the CC and MLO projections. 2-D mediolateral oblique (MLO) and craniocaudad (CC) views of both breasts were obtained. CAD: Full Field Digital Mammography with Computer Added Detection was performed. COMPARISON: Comparison is made with prior study 10/11/2021 and 10/21/2020. FINDINGS: Breast Composition: There are scattered areas of fibroglandular density. There are no dominant masses or suspicious calcifications. A tissue clip marker is once again seen in the upper central portion of the left breast. No other significant abnormalities are identified. There has been no significant change since the prior study. BI/SCRN MAMM (CAD)W/FARIHA BILAT IMPRESSION: Stable bilateral screening mammogram. Yearly follow-up mammogram recommended. (A) ASSESSMENT CATEGORY: BIRADS Category 2: Benign. A letter regarding these results will be sent to the patient by the facility within 30 days. Approximately 10% of breast cancers are not detected by mammography. A normal mammogram should not delay biopsy of a clinically suspicious abnormality. [id number] Electronically Signed: Brant Cherry MD at 8:51 EST Reading Location ID and State: [facility] / [place] , Service support , CC: IVAN Castillo; Dr. Emmanuel Weeks DO Cherry Sorter: Signed Jazlyn Delong Work Phone: Start: 10-11-2021 End: 10-11-2021 SCRN MAMM (CAD)W/FARIHA BILAT Comments: See Note; NOTES: [facility] Imaging Services [address] [place] [address] SCRN MAMM (CAD)W/FARIHA BILAT MR#: [id number] Acct: [id number] Name: JODY MERINO Rep #: [id number] : 1965 F 56 From: Brant skaggs MD PCP: Jazlyn Delong HYDROGEN PLANT OPERATOR-C Status: [facility] Study: SCRN MAMM (CAD)W/FARIHA BILAT Date of Exam: 10/02 Exam# [id number] Ordering Dr: Emmanuel Weeks DO MAMMOGRAPHY - BILATERAL SCREENING REASON FOR EXAM: Female, 56 years old. Routine annual screening examination. PERTINENT HISTORY: Mother with breast cancer. Remote left stereotactic breast biopsy. TECHNIQUE: Digital bilateral breast fariha (3D mammographic acquisition) in the CC and MLO projections. 2-D mediolateral oblique (MLO) and craniocaudad (CC) views of both breasts were obtained. CAD: Full Field Digital Mammography with Computer Added Detection was performed. COMPARISON: Comparison is made with prior study 10/21/2020 and 10/20/2019. FINDINGS: Breast Composition: There are scattered areas of fibroglandular density. There are no dominant masses or suspicious calcifications. A tissue clip marker is once again seen in the upper central portion of the left breast. No other significant abnormalities are identified. There has been no significant change since the prior study. BI/SCRN MAMM (CAD)W/FARIHA BILAT IMPRESSION: Stable bilateral screening mammogram. Yearly follow-up mammogram recommended. (A) ASSESSMENT CATEGORY: BIRADS Category 2: Benign. A letter regarding these results will be sent to the patient by the facility within 30 days. Approximately 10% of breast cancers are not detected by mammography. A normal mammogram should not delay biopsy of a clinically suspicious abnormality. [id number] Electronically Signed: Brant Cherry MD at 10:24 EST , Service support , CC: IVAN Delong; Dr. Emmanuel Weeks DO Cherry Sorter: Signed Jazlyn Delong SAMPLE CLERK Work Phone: Start: 10-21-2020 End: 10-21-2020 SCREEN MAMM (CAD) W/FARIHA BILAT Comments: See Note; NOTES: [facility] Imaging Services [address] [place] [address] SCREEN MAMM (CAD) W/FARIHA BILAT MR#: [id number] Acct: [id number] Name: JODY MERINO Rep #: [id number] : 1965 F 55 From: Brant skaggs MD PCP: IVAN Walters Status: REG CLI Study: SCREEN MAMM (CAD) W/FARIHA BILAT Date of Exam: 12/21/19 Exam# [id number] Ordering Dr: Emmanuel Weeks DO MAMMOGRAPHY - BILATERAL SCREENING REASON FOR EXAM: Female, 55 years old. Routine annual screening examination. PERTINENT HISTORY: Mother with breast cancer. Remote left stereotactic breast biopsy. TECHNIQUE: Digital bilateral breast fariha (3D mammographic acquisition) in the CC and MLO projections. 2-D mediolateral oblique (MLO) and craniocaudad (CC) views of both breasts were obtained. CAD: Full Field Digital Mammography with Computer Added Detection was performed. COMPARISON: Comparison is made with prior study dated 10/20/2019 and 10/17/2018. FINDINGS: Breast Composition: There are scattered areas of fibroglandular density. There are no dominant masses or suspicious calcifications. Patient clip markers once again seen in the upper midportion of the left breast. No other significant abnormalities are identified. There has been no significant change since the prior study. BI/SCREEN MAMM (CAD) W/FARIHA BILAT IMPRESSION: Stable bilateral screening mammogram. Yearly follow-up mammogram recommended. (A) ASSESSMENT CATEGORY: BIRADS Category 2: Benign. A letter regarding these results will be sent to the patient by the facility within 30 days. Approximately 10% of breast cancers are not detected by mammography. A normal mammogram should not delay biopsy of a clinically suspicious abnormality. [id number] Electronically Signed: Brant Cherry, at 8:32 EST , Service support , CC: IVAN Delong; Dr. Emmanuel Weeks DO Cherry Sorter: Signed Jazlyn Delong CNP Work Phone: Start: 10-20-2019 End: 10-20-2019 SCREEN MAMM (CAD) W/FARIHA BILAT Comments: See Note; NOTES: [facility] Imaging Services [address] [place] [id number] SCREEN MAMM (CAD) W/FARIHA BILAT MR#: [id number] Acct: [id number] Name: JODY MERINO Rep #: [id number] : 1965 F 54 From: Brant Cherry MD PCP: IVAN Walters Status: [facility] Study: SCREEN MAMM (CAD) W/FARIHA BILAT Date of Exam: 10/20/19 Exam# [id number] Ordering Dr: Emmanuel Weeks DO MAMMOGRAPHY - BILATERAL SCREENING REASON FOR EXAM: Female, 54 years old. Routine annual screening examination. PERTINENT HISTORY: Mother with breast cancer. Remote left stereotactic breast biopsy. TECHNIQUE: Digital bilateral breast fariha (3D mammographic acquisition) in the CC and MLO projections. 2-D mediolateral oblique (MLO) and craniocaudad (CC) views of both breasts were obtained. CAD: Full Field Digital Mammography with Computer Added Detection was performed. COMPARISON: Comparison is made with prior study dated October 17, 2018 and July 14, 2015. FINDINGS: Breast Composition: There are scattered areas of fibroglandular density. There are no dominant masses or suspicious calcifications. A tissue clip marker is once again seen in the upper midportion of the left breast. No other significant abnormalities are identified. There has been no significant change since the prior study. BI/SCREEN MAMM (CAD) W/FARIHA BILAT IMPRESSION: Stable bilateral screening mammogram. Yearly follow-up mammogram recommended. (A) ASSESSMENT CATEGORY: BIRADS Category 2: Benign. A letter regarding these results will be sent to the patient by the facility within 30 days. Approximately 10% of breast cancers are not detected by mammography. A normal mammogram should not delay biopsy of a clinically suspicious abnormality. [id number] Electronically Signed: Brant Cherry, at 8:45 EST , Service support , CC: IVAN Delong; Emmanuel Weeks DO Cherry Sorter: Signed Jazlyn Sindi Start: 10-17-2018 End: 10-21-2018 SCREENING MAMM (CAD), BILAT Comments: See Note; NOTES: [facility] Imaging Services [address] [place] [address] SCREENING MAMM (CAD), BILAT MR#: [id number] Acct: [id number] Name: MERINOJODY Rep #: [id number] : 1965 F 53 From: Brant Cherry MD PCP: Jazlyn Delong NP Status: REG CLI Study: SCREENING MAMM (CAD), BILAT Date of Exam: 10/17/18 Exam# [id number] Ordering Dr: Sherock,Emmanuel DO MAMMOGRAPHY - BILATERAL SCREENING REASON FOR EXAM: Female, 53 years old. Routine annual screening examination. PERTINENT HISTORY: Mother with breast cancer. TECHNIQUE: Digital bilateral breast fariha (3D mammographic acquisition) in the CC and MLO projections. 2-D mediolateral oblique (MLO) and craniocaudad (CC) views of both breasts were obtained. CAD: Full Field Digital Mammography with Computer Added Detection was performed. COMPARISON: Comparison is made with prior examination dated October 17, 2016 and March 14, 2015. FINDINGS: Breast Composition: There are scattered areas of fibroglandular density. There are no dominant masses or suspicious calcifications. A tissue clip marker is once again seen in the upper midportion of the left breast at approximately the 12:00 position. No other significant abnormalities are identified. There has been no significant change since the prior study. BI/SCREENING MAMM (CAD), BILAT IMPRESSION: Stable bilateral screening mammogram. Yearly follow-up mammogram recommended. (A) ASSESSMENT CATEGORY: BIRADS Category 2: Benign. A letter regarding these results will be sent to the patient by the facility within 30 days. Approximately 10% of breast cancers are not detected by mammography. A normal mammogram should not delay biopsy of a clinically suspicious abnormality. [id number] Electronically Signed: Brant Cherry MD at 13:07 EST Tel [phone], Service support , CC: Jazlyn Delong NP; Emmanuel Weeks DO Cherry Sorter: Signed Jazlyn Delong Start: 10-08-2017 End: 10-08-2017 Dexa Bone Density Study (HP) Comments: See Note; NOTES: [facility] Imaging Services [address] [place] [id number] Dexa Bone Density Study (HP) MR#: [id number] Acct: [id number] Name: JODY MERINO Rep #: [id number] : 1965 F 52 From: Brant Cherry MD PCP: Jazlyn Delong Status: REG CLI Study: Dexa Bone Density Study () Date of Exam: 10/08/17 Exam# [id number] Ordering Dr: Jazlyn Delong STUDY: DUAL ENERGY X-RAY ABSORPTIOMETRY / DXA REASON FOR EXAM: Female, 52 years old. The patient is postmenopausal. Loss of height. TECHNIQUE: Bone Mineral Density (BMD) measurements of lumbar spine and bilateral hips were obtained. COMPARISON: Comparison is made with prior study dated July 14, 2015. FINDINGS: Lumbar Spine (L1-L4): g/cm2 (1.230) / T-score (0.5) / Z-score (1.2) Findings are suggestive of normal bone density with a low fracture risk. Left Femur Total: g/cm2 (1.281) / T-score (2.2) / Z-score (2.7) Left Femoral Neck: g/cm2 (1.190) / T-score (1.1) / Z-score (2.0) Right Femur Total: g/cm2 (1.258) / T-score (2.0) / Z-score (2.6) Right Femoral Neck: g/cm2 (1.161) / T-score (0.9) / Z-score (1.8) The T-Scores on the most recent prior examination were: Lumbar Spine (L1-L4): There has been no change of bone density since the previous examination. Left Femur Total: which represents an improvement of 9.6%. Right Femur Total: which represents an improvement of 4.1%. HPBD/Dexa Bone Density Study () IMPRESSION: The patient is considered normal as outlined below according to World Tarun Organization (WHO) criteria with a low fracture risk. There has been improvement of bone density since the previous examination. Reference Information: The T-score is the number of standard deviations above or below the standard which is normal for young adults at their peak bone mineral density. The World Health Organization (WHO) interprets the T-scores as follows: Above -1 Normal bone density Between -1 and -2.5 Osteopenia Equal to / or below -2.5 Osteoporosis As a practical clinical guideline, osteopenia may be graded as follows: Mild -1 through -1.5 Moderate -1.6 through -2.0 Severe -2.1 through -2.4 The Z-score is the number of standard deviations above or below age-matched controls. A Z-score of less than -1.5 would be considered abnormal. References: 1. NIH Osteoporosis and Related Bone Diseases http://www.osteo.org 2. International Society for Clinical Densitometry http://www.iscd.org 3. National Osteoporosis Foundation http://www.nof.org Electronically Signed: Brant Cherry MD at 15:51 EST Tel [phone], Service support , CC: Jazlyn Delong Cherry Sorter: Signed Jazlyn Delong Work Phone: Start: 07-14-2015 End: 07-15-2015 Bilat Scrn Digital AND CAD Comments: See Note; NOTES: [facility] Imaging Services [address] [place] [id number] Breast Imaging Report MR#: [id number] Acct: [id number] Name: JODY MERINO Rep #: [id number] : 1965 F 49 From: Brant Cherry MD PCP: Sherice Dawn MD Status: [facility] Study: Bilat Scrn Digital AND CAD Date of Exam: 07/14/15 Exam# [id number] Ordering Dr: Emmanuel Weeks DO MAMMOGRAPHY - BILATERAL SCREENING REASON FOR EXAM: Female, 49 years old. Routine annual screening examination. PERTINENT HISTORY: Mother with breast cancer. Prior left stereotactic breast biopsy. TECHNIQUE: Digital examination. Mediolateral oblique (MLO) and craniocaudad (CC) views of both breasts were obtained. CAD: CAD was performed on this study. COMPARISON: Comparison is made with prior study dated June 30, 2014 and January 27, 2013. FINDINGS: Breast Composition: There are scattered areas of fibroglandular density. There are no dominant masses or suspicious calcifications. A stereotactic tissue marker clip is seen in the upper midportion of the left breast. No other significant abnormalities are identified. There has been no significant change since the prior study. IMPRESSION: Stable bilateral screening mammogram. Yearly follow-up recommended. (A) ASSESSMENT CATEGORY: BIRADS Category 1: Negative. A letter regarding these results will be sent to the patient by the facility within 30 days. Approximately 10% of breast cancers are not detected by mammography. A normal mammogram should not delay biopsy of a clinically suspicious abnormality. Electronically Signed: Brant Cherry MD at 7:51 EDT Tel [phone], Service support [phone], CC: Sherice Dawn MD; Emmanuel Weeks DO Cherry Sorter: Signed Jazlyn Delong Start: 07-14-2015 End: 07-15-2015 Dexa Bone Density Study (HP) Comments: See Note; NOTES: [facility] Imaging Services [address] [place] [id number] Bone Density Report MR#: [id number] Acct: [id number] Name: JODY MERINO Rep #: [id number] : 1965 F 49 From: Brant Cherry MD PCP: Sherice Dawn MD Status: REG CLI Study: Dexa Bone Density Study (HP) Date of Exam: 07/14/15 Exam# [id number] Ordering Dr: Sherice Dawn MD STUDY: DUAL ENERGY X-RAY ABSORPTIOMETRY / DXA REASON FOR EXAM: Female, 49 years old. The patient is postmenopausal. Loss of height. TECHNIQUE: Bone Mineral Density (BMD) measurements of lumbar spine and bilateral hips were obtained. COMPARISON: None. FINDINGS: Lumbar Spine (L1-L4): g/cm2 (1.329) / T-score (1.2) / Z-score (1.7) Findings are suggestive of normal bone density with a low fracture risk. Left Femur Total: g/cm2 (1.169) / T-score (1.3) / Z-score (1.8) Left Femoral Neck: g/cm2 (1.135) / T-score (0.7) / Z-score (1.5) Right Femur Total: g/cm2 (1.209) / T-score (1.6) / Z-score (2.1) Right Femoral Neck: g/cm2 (1.109) / T-score (0.5) / Z-score (1.3) IMPRESSION: The patient is considered normal as outlined below according to World Tarun Organization (WHO) criteria with a low fracture risk. Reference Information: The T-score is the number of standard deviations above or below the standard which is normal for young adults at their peak bone mineral density. The World Health Organization (WHO) interprets the T-scores as follows: Above -1 Normal bone density Between -1 and -2.5 Osteopenia Equal to / or below -2.5 Osteoporosis As a practical clinical guideline, osteopenia may be graded as follows: Mild -1 through -1.5 Moderate -1.6 through -2.0 Severe -2.1 through -2.4 The Z-score is the number of standard deviations above or below age-matched controls. A Z-score of less than -1.5 would be considered abnormal. References: 1. NIH Osteoporosis and Related Bone Diseases http://www.osteo.org 2. International Society for Clinical Densitometry http://www.iscd.org 3. National Osteoporosis Foundation http://www.nof.org Electronically Signed: Brant Cherry MD at 14:54 EDT Tel [phone], Service support [phone], CC: Sherice Dawn MD Cherry Sorter: Signed Sherice Dawn Work Phone: Start: 07-13-2015 End: 07-13-2015 Pelvic (Non ) Comments: See Note; NOTES: [facility] Imaging Services [address] [place] [id number] Ultrasound Report MR#: [id number] Acct: [id number] Name: MERINOSENGFRANCINE Parekh Rep #: [id number] : 1965 F 49 From: Hai Rodríguez DO PCP: Sherice Dawn MD Status: REG CLI Study: Pelvic (Non ) Date of Exam: 07/13/15 Exam# [id number] Ordering Dr: Emmanuel Weeks DO STUDY: ULTRASOUND OF THE FEMALE PELVIS - COMPLETE REASON FOR EXAM: Female, 49 years old. LMP: June 22, 2015. Leiomyoma. TECHNIQUE: Transabdominal TECHNICAL QUALITY: Adequate. COMPARISON: 2011. FINDINGS: The uterus is anteverted and is in a midline position. The uterus measures 11.2 x 7.8 x 6.1 cm. Normal uterine cervix. The endometrium measures 4.0 mm in thickness, and is hyperechoic. There is no demonstrated endometrial mass. There is a 6.6 x 6.7 x 4.8 cm posterior uterine fibroid. I.U.D. - The patient does not have an I.U.D. The right ovary is visualized. The right ovary measures 2.3 x 2.4 x 2.2 cm. There is no right ovarian cyst or ovarian mass. There is no visualized right adnexal mass or complex lesion. There is normal arterial and normal venous vascularity. The left ovary is nonvisualized There is no visualized left adnexal mass or complex lesion. There is normal arterial and normal venous vascularity. There is no fluid in the cul-de-sac. The pre void volume of the bladder was 91 ml. . IMPRESSION: 1. Large posterior uterine fibroid. This appears to have increased in size since the prior study. 2. No other evidence of uterine abnormality. 3. Normal right ovary. The left ovary is not seen. Electronically Signed: Hai Rodríguez DO at 20:09 EDT Tel [phone], Service support [phone], CC: Sherice Dawn MD; Emmanuel Weeks DO Cherry Sorter: Signed Jazlyn Delong Start: 04-18-2015 End: 04-19-2015 Thyroid Uptake Single or Mult Comments: See Note; NOTES: [facility] Imaging Services [address] [place] [id number] Nuclear Medicine Report MR#: [id number] Acct: [id number] Name: JODY MERINO Rep #: [id number] : 1965 F 49 From: Joey Shearer DO PCP: Sherice Dawn MD Status: REG CLI Study: Thyroid Uptake Single or Mult Date of Exam: 04/18/15 Exam# [id number] Ordering Dr: Sherice Dawn MD CLINICAL: 49-year-old female with reported history of clinical hyperthyroidism. I-123 THYROID UPTAKE and SCAN COMPARISON: None available FINDINGS: The patient was administered a 288 uCi I-123 capsule by mouth. The 4-hour I-123 radioactive iodine thyroidal uptake was calculated to be 22.9 % (normal 5 to 25 %). The 24-hour I-123 radioactive iodine thyroidal uptake was calculated to be 67.2 % (normal 5 to 40 %). The I-123 thyroid scan demonstrates homogeneous radiopharmaceutical concentration throughout both lobes of a vaguely U -shaped thyroid gland. There are no definitive colloidal parenchymal hypofunctioning-cold nodules noted in either lobe of the thyroid gland. IMPRESSION: 1. UPPER LIMITS OF NORMAL 4- and ABNORMAL, ELEVATED 24-hour I-123 radioactive iodine thyroidal uptakes. 2. The I-123 thyroid scan in conjunction with the calculated iodine uptake values is consistent with the presence of diffuse toxic goiter. 3. If not previously obtained correlation with in-vitro thyroid function studies is recommended. Electronically Signed: Joey Shearer DO at 21:38 EDT Tel [phone], Service support [phone], CC: Sherice Dawn MD Cherry Sorter: Signed Sherice Dawn Work Phone: Start: 06-30-2014 End: 06-30-2014 Bilat Scrn Digital & CAD Comments: See Note; NOTES: [facility] Imaging Services [address] [place] [id number] Breast Imaging Report MR#: [id number] Acct: [id number] Name: JODY MERINO Rep #: [id number] : 1965 F 48 From: Brant Cherry MD PCP: Sherice Dawn MD Status: REG CLI Exam# [id number] Ordering Dr: Emmanuel Weeks DO MAMMOGRAPHY - BILATERAL SCREENING REASON FOR EXAM: Female, 48 years old. Routine annual screening examination. PERTINENT HISTORY: Mother with breast cancer. Prior left stereotactic biopsy. TECHNIQUE: Digital examination. Mediolateral oblique (MLO) and craniocaudad (CC) views of both breasts were obtained. CAD: CAD was performed on this study. COMPARISON: Comparison is made with prior study dated January 27, 2013 and October 16, 2011. FINDINGS: The breast composition is composed of scattered areas of fibroglandular densities ranging from 25% to 50% of the total breast volume. There are no dominant masses or suspicious calcifications. A stereotactic tissue clip marker is seen in the upper deep midportion of the left breast. No other significant abnormalities are identified. There has been no significant change since the prior study. IMPRESSION: Stable bilateral screening mammogram. Yearly follow-up recommended. (A) ASSESSMENT CATEGORY: BIRADS Category 2: Benign finding(s). A letter regarding these results will be sent to the patient by the facility within 30 days. Approximately 10% of breast cancers are not detected by mammography. A normal mammogram should not delay biopsy of a clinically suspicious abnormality. Electronically Signed: Brant Cherry MD at 7:59 EDT Tel [phone], Service support [phone], CC: Sherice Dawn MD; Emmanuel Weeks DO Cherry Sorter: Signed Jazlyn Isabelakizzy Dilation and curetta ge of uterus [place] [facility] Comment on above: 1984 had miscarriage Dilation and curetta ge of uterus [place] [facility] Comment on above: 1984 had miscarriage Dilation and curetta ge of uterus [place] [facility] Comment on above: 1984 had miscarriage Dilation and curetta ge of uterus Maggie Hoyos LPN Comment on above: 1984 had miscarriage Dilation and curetta ge of uterus Maggie Soha REYES Comment on above: 1984 had miscarriage Dilation and curetta ge of uterus Jolanta Watkins LPN Comment on above: 1984 had miscarriage H/O: hysterectomy H/O: hysterectomy Maggie Soha LPN Comment on above: still has ovary H/O: hysterectomy H/O: hysterectomy Jazlyn Sindi SAMPLE CLERK Work Phone: H/O: hysterectomy H/O: hysterectomy Maggie Soha LPN Comment on above: still has ovary H/O: hysterectomy H/O: hysterectomy Zane a Slarb AMY Comment on above: still has ovary H/O: surgery Maggie Soha L PN Comment on above: 1970 H/O: surgery Maggie Soha L PN Comment on above: 1970 H/O: surgery Jolanta Watkins LP N Comment on above: 1970 Hysterectomy [place] [facility] Comment on above: Ovaries are left. Kevin Hernandez[facility]. Hysterectomy [place] Comment on above: Ovaries are left. Kevin Kelly [facility] [place]. Hysterectomy [place] Comment on above: Ovaries are left. Kevin Kelly of [facility] [place]. Hysterectomy Maggie Soha L PN Comment on above: Ovaries are left. Kevin Kelly of [facility] [place]. Hysterectomy Maggie Soha L PN Comment on above: Ovaries are left. Kevin Kelly of [facility] [place]. Hysterectomy Jolanta Slasuzy LP N Comment on above: Ovaries are left. Kevin Kelly of [facility]. Laparoscopy fulgurat ion oviducts [place] [facility] Comment on above: 1988 Laparoscopy fulgurat ion oviducts [place] [facility] Comment on above: 1988 Laparoscopy fulgurat ion oviducts [place] [facility] Comment on above: 1988 Laparoscopy fulgurat ion oviducts Maggie Soha [employer] Comment on above: 1988 Laparoscopy fulgurat ion oviducts Maggie Soha [employer] Comment on above: 1988 Laparoscopy fulgurat ion oviducts Jolanta Roland [employer] Comment on above: 1988 Screening colonoscopy [place] [facility] Comment on above: 04-15-15 Dr. Hensley repeat in 5 years Screening colonoscopy [place] [facility] Comment on above: 04-15-15 Dr. Hensley repeat in 5 years Screening colonoscopy [place] [facility] Comment on above: 04-15-15 Dr. Hensley repeat in 5 years Screening colonoscopy Maggie Soha [employer] Comment on above: 04-15-15 Dr. Hensley repeat in 5 years Screening colonoscopy Maggie Soha [employer] Comment on above: 04-15-15 Dr. Hensley repeat in 5 years Screening colonoscopy Jolanta Slarb [employer]IST Comment on above: 04-15-15 Dr. Hensley repeat in 5 years Screening for malign ant neoplasm of breast Screening for malignant neoplasm of breast Jazlyn Ciyusufa Screening for malign ant neoplasm of breast Screening for malignant neoplasm of breast Jazlyn Dustina SAMPLE CLERK Work Phone: Tonsillectomy [place] [facility] Comment on above: 1970 Tonsillectomy [place] [facility] Comment on above: 1970 Tonsillectomy [place] [facility] Comment on above: 1970 Plan of Treatment Date Care Activity Detail Author Start: 2039 RSV High Risk: (Elderly (60+) or Population) (1 - 1-dose 75+ series) RSV High Risk: (Elderly (60+) or Population) (1 - 1-dose 75+ series) [facility] Start: 01-20-2029 Lipid panel Lipid Screening [facility] Start: 01-20-2027 Diabetes mellitus screening Diabetes Screening [facility] Start: 01-20-2027 Diabetes Screening Diabetes Screening [facility] Start: 2024 RSV Vaccine (1 - Risk 60-74 years 1-dose series) RSV Vaccine (1 - Risk 60-74 years 1-dose series) [facility] Start: 08-02-2024 COVID-19 Vaccine (2023- season) COVID-19 Vaccine (2023- season) [facility] Start: 08-02-2024 Influenza vaccination [facility] Start: 01-17-2024 End: 04-17-2024 25-hydroxyvitamin D3 [Mass/volume] in Serum or Plasma VITAMIN D 25 HYDROXY Lab Routine Encounter for vitamin deficiency screening Expected: 01/17/2024, Expires: 04/17/2024 [facility] Work Phone: Comment on above: Expected: 01/17/2024, Expires: 4 Start: 01-17-2024 End: 04-17-2024 CBC panel - Blood by Automated count CBC Lab Routine Screening for deficiency anemia Expected: 01/17/2024, Expires: 04/17/2024 [facility] Work Phone: Comment on above: Expected: 01/17/2024, Expires: 4 Start: 01-17-2024 End: 04-17-2024 Comprehensive metabolic 2000 panel - Serum or Plasma COMP METABOLIC PANEL Lab Routine Screening for diabetes mellitus Screening for metabolic disorder Expected: 01/17/2024, Expires: 04/17/2024 [facility] Work Phone: Comment on above: Expected: 01/17/2024, Expires: 4 Start: 01-17-2024 End: 04-17-2024 Hemoglobin A1c in Blood HGB A1C Lab Routine Screening for diabetes mellitus Expected: 01/17/2024, Expires: 04/17/2024 [facility] Work Phone: Comment on above: Expected: 01/17/2024, Expires: 4 Start: 01-17-2024 End: 04-17-2024 Insulin [Units/volume] in Serum or Plasma INSULIN ASSAY BLOOD Lab Routine Screening for diabetes mellitus Expected: 01/17/2024, Expires: 04/17/2024 [facility] Work Phone: Comment on above: Expected: 01/17/2024, Expires: 4 Start: 01-17-2024 End: 04-17-2024 Lipid 1996 panel - Serum or Plasma LIPID PANEL BASIC Lab Routine Screening cholesterol level Expected: 01/17/2024, Expires: 04/17/2024 [facility] Work Phone: Comment on above: Expected: 01/17/2024, Expires: Start: 01-17-2024 End: 04-17-2024 Thyrotropin [Units/volume] in Serum or Plasma TSH BLD Lab Routine Screening for thyroid disorder Expected: 01/17/2024, Expires: 04/17/2024 [facility] Work Phone: Comment on above: Expected: 01/17/2024, Expires: Start: 12-02-2023 Behavioral Health Screening Behavioral Health Screening [facility] Start: 12-02-2023 Depression Assessment Depression Assessment [facility] Start: 08-02-2023 Covid-19 Vaccine () Covid-19 Vaccine () [facility] Start: 08-02-2023 Influenza vaccination Influenza Vaccine (#1) [facility] Start: 07-29-2023 Lipid panel LIPID PANEL (67555) : Do in 6 months [facility] Work Phone: Start: 07-26-2023 25 hydroxy includes fractions if performed CALCIFEDIOL (28989) [facility]; [facility] Work Phone: Start: 07-26-2023 Patient Education Obesity *: cardiovascular health [facility]; [facility] Work Phone: Start: 07-26-2023 Procedure Education Eprescribed prescriptions (G8553) [facility]; [facility] Work Phone: Start: 07-26-2023 Provider Instructions for Treatment Follow up in 6 months [facility]; [facility] Work Phone: Start: 07-26-2023 Assay of triiodothyronine t3 free FREE TRIIDOTHYRONINE (T3) (57056) [facility]; [facility] Work Phone: Start: 07-26-2023 Assay of free thyroxine THYROXINE FREE (33433) [facility]; [facility] Work Phone: Start: 07-26-2023 Urinalysis qual/semiquant except immunoassays URINALYSIS (38982) [facility]; [facility] Work Phone: Start: 07-26-2023 Lipid panel LIPID PANEL (99100) [facility]; [facility] Work Phone: Start: 07-26-2023 Comprehensive metabolic panel METABOLIC PANEL, COMPREHENSIVE (14541) [facility]; [facility] Work Phone: Start: 07-26-2023 Blood count complete auto&auto difrntl wbc CBC, PLATELETS & AUT DIFF (76123) [facility]; [facility] Work Phone: Start: 07-26-2023 Assay of thyroid stimulating hormone tsh TSH (THYROID STIMULATING HORMONE) (68200) [facility]; [facility] Work Phone: Start: 04-11-2022 Procedure Education Eprescribed prescriptions (G8553) [facility]; [facility] Work Phone: Start: 04-11-2022 Provider Instructions for Treatment [facility]; [facility] Work Phone: Start: 03-14-2022 Procedure Education Eprescribed prescriptions (G8553) [facility]; [facility] Work Phone: Start: 03-14-2022 Provider Instructions for Treatment Follow up if no improvement or if symptoms worsen [facility]; [facility] Work Phone: Start: 10-17-2021 Procedure Education Eprescribed prescriptions (G8553) [facility]; [facility] Work Phone: Start: 10-17-2021 Provider Instructions for Treatment Follow up in 1 year or as needed [facility]; [facility] Work Phone: Start: 05-17-2020 Procedure Education Eprescribed prescriptions (G8553) [facility] Work Phone: Start: 05-17-2020 Provider Instructions for Treatment [facility] Work Phone: Start: 01-20-2020 Procedure Education Eprescribed prescriptions (G8553) [facility] Work Phone: Start: 01-20-2020 Provider Instructions for Treatment Diet, Exercise, and Wt loss [facility] Work Phone: Start: 10-21-2019 Procedure Education Eprescribed prescriptions (G8553) [facility] Work Phone: Start: 10-21-2019 Provider Instructions for Treatment [facility] Work Phone: Start: 10-07-2019 Procedure Education Eprescribed prescriptions (G8553) [facility] Work Phone: Start: 10-07-2019 Provider Instructions for Treatment Follow up if no improvement or if symptoms worsen [facility] Work Phone: Start: 10-02-2019 Procedure Education Eprescribed prescriptions (G8553) [facility] Work Phone: Start: 10-02-2019 Provider Instructions for Treatment [facility] Work Phone: Start: 10-02-2019 Lipid panel LIPID PANEL (42162) [facility] Work Phone: Start: 10-02-2019 Free T4 [Mass/Vol] T4, FREE (THYROXINE) (21797) [facility] Work Phone: Start: 10-02-2019 Free T3 [Mass/Vol] T3, FREE (TRIDOTHYRONINE) (39557) [facility] Work Phone: Start: 10-02-2019 TSH Qn TSH (62990) [facility] Work Phone: Start: 10-02-2019 Comprehensive metabolic panel METABOLIC PANEL, COMPREHENSIVE (92068) [facility] Work Phone: Start: 10-02-2019 Blood count manual cell count each CBC with auto diff (95039) [facility] Work Phone: Start: 08-15-2018 Procedure Education Eprescribed prescriptions (G8553) [facility] Work Phone: Start: 08-15-2018 Provider Instructions for Treatment [facility] Work Phone: Start: 08-06-2018 Procedure Education Eprescribed prescriptions (G8553) [facility] Work Phone: Start: 08-06-2018 Provider Instructions for Treatment Follow up if no improvement or if symptoms worsen [facility] Work Phone: Start: 04-18-2018 [facility] Work Phone: Start: 04-18-2018 Provider Instructions for Treatment [facility] Work Phone: Start: 10-04-2017 Procedure Education Eprescribed prescriptions (G8553) [facility] Work Phone: Start: 10-04-2017 Provider Instructions for Treatment [facility] Work Phone: Start: 09-27-2017 Blood count complete auto&auto difrntl wbc CBC, PLATELETS & AUT DIFF (08589) [facility] Work Phone: Start: 09-27-2017 Comprehensive metabolic panel METABOLIC PANEL, COMPREHENSIVE (85516) [facility] Work Phone: Start: 09-27-2017 Assay of thyroid stimulating hormone tsh TSH (THYROID STIMULATING HORMONE) (60566) [facility]; [facility] Work Phone: Start: 09-27-2017 TSH Qn TSH (THYROID STIMULATING HORMONE) (92690) [facility] Work Phone: Start: 05-08-2017 Procedure Education Eprescribed prescriptions (G8553) [facility] Work Phone: Start: 05-08-2017 Provider Instructions for Treatment Follow up if no improvement or if symptoms worsen [facility] Work Phone: Start: 08-20-2016 Provider Instructions for Treatment Follow up in 1 year or as needed [facility] Work Phone: Start: 05-02-2015 Assay of thyroid stimulating hormone tsh TSH (17383) [facility]; [facility] Work Phone: Start: 05-02-2015 TSH Qn TSH (11847) [facility] Work Phone: Start: 05-02-2015 Assay of free thyroxine T4, FREE (THYROXINE) (75472) [facility]; [facility] Work Phone: Start: 05-02-2015 Free T4 [Mass/Vol] T4, FREE (THYROXINE) (51211) [facility] Work Phone: Start: 05-02-2015 Assay of triiodothyronine t3 free T3, FREE (TRIDOTHYRONINE) (08347) [facility]; [facility] Work Phone: Start: 05-02-2015 Free T3 [Mass/Vol] T3, FREE (TRIDOTHYRONINE) (56681) [facility] Work Phone: Start: 04-22-2015 Patient Education Hyperthyroidism: Brief Version *: hormones [facility] Work Phone: Start: 04-22-2015 Procedure Education Eprescribed prescriptions (G8553) [facility] Work Phone: Start: 04-22-2015 Assay of triiodothyronine t3 free T3, FREE (TRIDOTHYRONINE) (07694) [facility]; [facility] Work Phone: Comment on above: do these in 1 week then in 3 weeks then in 6 weeks Start: 04-22-2015 Free T3 [Mass/Vol] T3, FREE (TRIDOTHYRONINE) (98253) [facility] Work Phone: Comment on above: do these in 1 week then in 3 weeks then in 6 weeks Start: 04-22-2015 Blood count complete automated CBC (Auto) (35438) [facility] Work Phone: Comment on above: do in 1 week only Start: 04-22-2015 Thyroid stimulating immune globulins tsi TSI (THYROID STIMULATING IMMUNGLOBI) (01798) [facility] Work Phone: Comment on above: do in 1 week only Start: 04-22-2015 Assay of thyroid stimulating hormone tsh TSH (41404) [facility]; [facility] Work Phone: Start: 04-22-2015 TSH Qn TSH (57159) [facility] Work Phone: Start: 04-22-2015 Assay of free thyroxine T4, FREE (THYROXINE) (27923) [facility]; [facility] Work Phone: Start: 04-22-2015 Free T4 [Mass/Vol] T4, FREE (THYROXINE) (41923) [facility] Work Phone: Start: 04-04-2015 Assay of free thyroxine T4, FREE (THYROXINE) (55651) [facility]; [facility] Work Phone: Start: 04-04-2015 Free T4 [Mass/Vol] T4, FREE (THYROXINE) (51619) [facility] Work Phone: Start: 04-04-2015 Assay of triiodothyronine t3 free T3, FREE (TRIDOTHYRONINE) (39821) [facility]; [facility] Work Phone: Start: 04-04-2015 Free T3 [Mass/Vol] T3, FREE (TRIDOTHYRONINE) (62611) [facility] Work Phone: Start: 2014 Pneumococcal vaccination Pneumococcal Vaccine (1 of 1 - PCV) [facility] Start: 2014 Pneumococcal Vaccine: 50+ (1 of 1 - PCV) Pneumococcal Vaccine: 50+ (1 of 1 - PCV) [facility] Start: 2014 Shingrix Vaccine (1 of 2) Shingrix Vaccine (1 of 2) [facility] Start: 2014 Zoster Vaccines (1 of 2) Zoster Vaccines (1 of 2) [facility] Start: 09-07-2009 Provider Instructions for Treatment [facility] Work Phone: Start: 2009 Diabetes Screening Diabetes Screening [facility] Start: 2009 Lipid panel Lipid Screening [facility] Start: 2009 Screening for malignant neoplasm of colon [facility] Start: 01-05-2009 DTaP/Tdap/Td Vaccines (1 - Tdap) DTaP/Tdap/Td Vaccines (1 - Tdap) [facility] Start: 01-05-2009 Urine microalbumin profile DTaP,Tdap,Td Vaccine (1 - Tdap) [facility] Start: 2004 Screening for malignant neoplasm of breast [facility] Start: 1994 Screening for malignant neoplasm of cervix HPV Testing [facility] Start: 1985 Screening for malignant neoplasm of cervix [facility] Start: 1983 Urine microalbumin profile DTaP,Tdap,Td Vaccine (1 - Tdap) [facility] Start: 1982 Annual PCP Team Chronic Disease Visit Annual PCP Team Chronic Disease Visit [facility] Start: 1982 Anxiety Screening Anxiety Screening [facility] Start: 1982 BP Controlled (<130/80) BP Controlled (<130/80) [facility] in Start: 1982 Depression Screening Depression Screening [facility] Start: 1982 Hepatitis C screening Hepatitis C Screening [facility] Start: 1982 HIV screening HIV Screening [facility] Start: 1965 MMR Vaccines (1 of 1 - Standard series) MMR Vaccines (1 of 1 - Standard series) [facility] Start: 02-25-1965 Covid-19 Vaccine (#1) Covid-19 Vaccine (#1) [facility] Start: 1964 HIV screening HIV Screening [facility] Start: 1964 Lipid panel Lipid Panel [facility] Start: 1964 Screening for malignant neoplasm of colon [facility] Start: 1964 Yearly Adult Physical Yearly Adult Physical [facility] End: 02-13-2025 CT for calcium scoring WO contrast and CTA W contrast IV Heart and coronary arteries [facility] Service Area Work Phone: Comment on above: Once for 1 Occurrences starting 02/14/20 25 until 02/13/2025 [facility] Work Phone: [facility] Work Phone: [facility] Work Phone: [facility] Work Phone: [facility] Work Phone: [facility] Work Phone: [facility] Work Phone: [facility] Work Phone: [facility] Work Phone: [facility] Work Phone: [facility] Work Phone: [facility]; [facility] Work Phone: [facility] Immun[facility] Immunization Date Immunization Notes Care Provider Reanna carias 01-04-2009 tetanus and diphther ia toxoids, adsorbed, preservative free, for adult use (2 Lf of tetanus toxoid and 2 Lf of diphtheria toxoid) Jazlyn Delong [facility] Work Phone: Payers Date Payer Category Payer Self-pay [id number] 2023 Private Health Insurance [id number] 2015 Managed Care (Private) [employer] [facility] [id number] 2015 Private Health Insurance [id number] 1965 Unknown [id number] Unknown [employer] Unknown [id number] Unknown [id number] Unknown [id number] Social History Date Type Detail Facility Start: 01-17-2024 End: 02-18-2025 Alcohol Use Alcohol Use [facility] Work Phone: Comment on above: Occasional alcohol u se. 2-5 a week 1 can diet coke qd Full-time, isadorain emily Inactive , Lives with spouse Tobacco use: Tobacco use: [facility] Work Phone: Tobacco use: Tobacco use: [facility]; [facility] Work Phone: Start: 1965 Sex Assigned At Female [facility] Start: 01-17-2024 [facility] Work Phone: History of tobacco use Current smoker [facility] Work Phone: Start: 01-17-2024 Tobacco use and exposure Smokeless tobacco non-user [facility] Work Phone: Start: 01-17-2024 End: 03-11-2024 Alcohol intake Current drinker of alcohol (finding) [facility] Start: 01-17-2024 End: 02-18-2025 Tobacco use panel [facility] Start: 12-17-2023 Gender identity Identifies as female gender (finding) [facility] Start: 12-17-2023 Sexual orientation Heterosexual (fin ding) [facility] smoking consumption unknown [facility] Work Phone: Start: 02-03-2025 End: 02-13-2025 Exposure to SARS-CoV-2 (event) Not sure [facility] National Score (1-100), lower number is lower risk 50 [facility] Clinical Notes 01-17-2024 to 06-10-2025 Patient InstructionsFrancois GRECIA Macias.SAMPLE CLERK - 02/18/2025 9:52 AM EDTPatient Leona Devi MD - 03/11/2024 11:40 AM EDTLeona Flowers MD - 01/17/2024 2:59 PM EST Note Date & Type Note Facility 06-10-2025 Radiology Diagnostic study note [facility] Imaging Services [address] [place] [address] ABD Limited w/ Elastography MR#: [id number] Acct: [id number] Name: JODY MERINO Rep #: [id number] : 1965 F 59 From: Lisbeth Appiah MD PCP: Michael Castillo NP-C Status: REG C LI Study:ABD Limited w/ Elastography Date of Exa m: 06/10/25 Exam# [id number] Ordering Dr: José Miguel Castillo PROCEDURE: ABD LIMITED W/ ELASTOGRAPHY, 06/10/2025 REASON FOR EXAM: FATTY LIVER COMPARISON: None TECHNIQUE: Grayscale and color Doppler imaging of the right upper quadrant was performed. Elastography was performed for non-invasive assessment of liver tissue stiffness utilizing a [employer] S-shear wave imaging unit. FINDINGS: Exam slightly limited by soft tissue attenuation. Liver: Borderline slightly coarsened echotexture. No overt serosal nodularity to confirm cirrhosis. 17.9 cm in length. Gallbladder: Unremarkable. Reportedly, sonographic Goss's was negative. Biliary tree: Unremarkable. CBD measures 4 mm. Pancreas: Partially obscured by shadowing bowel gas, grossly unremarkable as visualized. Right kidney: Unremarkable. 12.5 cm in length. Other: No visualized free fluid. Hepatic elastography: Number of measurements: 15 measurements across 3 regions, 5 measurements per region. US probe: CA1-7A. EQI median: 13.7 kPa EQI median velocity: 2.12 m/s IQR/Med: 19.5-27.6% (kPa) and 9.5-15.6% (m/s). If the IQR/Med is IQR/median >30%(for kPa) or >15% in m/s, the variance in the measurements is a large and the accuracy of the measurement may be in question. US/ABD Limited w/ Elastography IMPRESSION: 1. Borderline slightly coarsened echotexture which can be seen in chronic liver disease such as fibrosis. No overt serosal nodularity to confirm cirrhosis. Correlate for clinical and laboratory evidenceof chronic liver disease. 2. Liver stiffness is 13.7 kPa. Per the below 2020 SRU criteria, this rules in compensated advanced chronic liver disease. Note that some above indices suggest a mildly suboptimal elastography data set. 3. Additional description as above. Assessment is per the Update to the SRU Liver Elastography Consensus Statement (2020) Note that the above assessment of liver fibrosis is vendor-neutral and intended for use in fibrosis related to viral etiologies and non-alcoholic fatty-liver disease (NAFLD); in causes other than viral hepatitis and NAFLD, the cutoff values are currently not well established. In some patients with NAFLD, the cutoff values for cACLD may be lower (7-9 kPa). Note also that in the setting of elevated LFTs, nonfasting or vascular congestion, the stage of lifer fibrosis may be overestimated. Previous SRU reference values: <1.37 m/s (5.7kPa): No to mild fibrosis 1.37 m/s - 2.2 m/s: Moderate to severe fibrosis >2.2 m/s (15kPa): Significant fibrosis / cirrhosis Reading Location: [id number] CC: IVAN Castillo ~ Cherry Sorter: Signed [facility] 02-22-2025 Instructions Colleen Parrish APRN.SAMPLE CLERK - 02/22/2025 1:06 PM EDT [facility] biopsy left lower lid medial lesion Risks, benefits, alternatives discussed and patient wishes to proceed. Consent obtained Antibiotic ophthalmic ointment to affected area four times a day x 5 days. If skin cancer will need mohs surgery and reconstruction If benign will release results to mychart Ice and tylenol as needed documented in this encounter [facility] 02-22-2025 Note Date of Procedure 02/22/2025 Rescue Protocol Safety Checklist Sign In: A moment to CARE completed, Special equipment verified, Appropriate PPE verified, Patient name, date of , allergies and intended procedure verified. Provider Confirms: Intended patient and procedure match the source document, Consent documented and matches the intended procedure, Correct side/site marked visible. Relevant labs, photos, and/or imaging studies have been reviewed. Medications required for procedure verified. Fire risk assessed and interventions discussed. No implants. Lesion(s) Size and Location Left lower lid medial white cystic lesion, adjacent to the puncta, no ulcerations, some telangectasia, 2mm. Anesthesia 1 mL of 1% Lidocaine with 1:100,000 Epinephrine. Prep 10% Povidone-iodine swabs. Specimens Sent to Pathology. Sign Out Sign out discussion completed, All instruments, equipment, and/or possible retained foreign bodies accounted for, Post-procedure follow up management communicated. Specimen containers correctly labeled. Notes A full thickness incision was created through dermis using a Valeri scissor in an elliptical shape around the lesion(s) with a margin of normal tissue. The wound was repaired and hemostasis was achieved using light cautery. [facility] 02-18-2025 Note HNO ID: [id number] Author: COLLEEN PARRISH APRN.TESS Service: ? Author Type: Nurse Practitioner Type: Progress Notes Filed: 02/22/2025 13:06 Note Text: NEW patient A/P Lesion left lower lid x 4-5 weeks ago S/p Right upper eyelid full-thickness excision repair greater than 1/, right conjunctivoplasty with extensive rearrangemen 01/20/2013 for basal cell carcinoma - JDP Accidentally scratched left lower lid lesion off while [facility] Cronin tried to pinch off lesion from left lower lid Referred by Dr. Cronin @[place] Exam Left upper lid medial papillomatous lesion, no telangectasia, no ulcerations, within the lash line, no lash loss 1mm Left upper lid central papillomatous lesion, no telangectasia, no ulcerations, within the lash line, no lash loss 0.5mm Left lower lid central white cystic lesion, just below the lash line <1mm, no lash loss, no ulcerations, no telangectasia Left lower lid medial white cystic lesion, adjacent to the puncta, no ulcerations, some telangectasia, 2mm recc biopsy left lower lid medial lesion Risks, benefits, alternatives discussed and patient wishes to proceed. Consent obtained Antibiotic ophthalmic ointment to affected area four times a day x 5 days. If skin cancer will need mohs surgery and reconstruction If benign will release results to mychart Ice and tylenol as needed I have confirmed and edited as necessary the relevant HPI, ophthalmic history, ROS, and the neuro exam findings as obtained by others. I have seen and examined Jody Merino. I have discussed the case and the management of this patient's care with the Resident/Fellow, if applicable. I also have reviewed and agree with the assessment and plan as stated above and agree with all of its relevant components. [facility] 02-18-2025 History of Present illness Narrative NEW patient A/P Lesion left lower lid x 4-5 weeks ago S/p Right upper eyelid full-thickness excision repair greater than 12/05, right conjunctivoplasty with extensive rearrangemen 01/20/2013 for basal cell carcinoma - JDP Accidentally scratched left lower lid lesion off while [facility] Cronin tried to pinch off lesion from left lower lid Referred by Dr. Cronin @[place] Exam Left upper lid medial papillomatous lesion, no telangectasia, no ulcerations, within the lash line, no lash loss 1mm Left upper lid central papillomatous lesion, no telangectasia, no ulcerations, within the lash line, no lash loss 0.5mm Left lower lid central white cystic lesion, just below the lash line <1mm, no lash loss, no ulcerations, no telangectasia Left lower lid medial white cystic lesion, adjacent to the puncta, no ulcerations, some telangectasia, 2mm recc biopsy left lower lid medial lesion Risks, benefits, alternatives discussed and patient wishes to proceed. Consent obtained Antibiotic ophthalmic ointment to affected area four times a day x 5 days. If skin cancer will need mohs surgery and reconstruction If benign will release results to mychart Ice and tylenol as needed I have confirmed and edited as necessary the relevant HPI, ophthalmic history, ROS, and the neuro exam findings as obtained by others. I have seen and examined Jody Merino. I have discussed the case and the management of this patient's care with the Resident/Fellow, if applicable. I also have reviewed and agree with the assessment and plan as stated above and agree with all of its relevant components. documented in this encounter [facility] 03-11-2024 Instructions Leona Flowers MD - 03/11/2024 1:13 PM EDT Images from the original note were not included. PHENTERMINE -- Please take tablet or capsule as directed. May need to decrease dose or stop if uncontrolled BP or sustained elevated pulse. -- Please monitor your blood pressure (either purchase BP cuff, or go to pharmacy to check your BP at a local pharmacy). Please avoid any stimulants (in the form of caffeinated beverages like coffee, tea, sports drinks) and caution with decongestants. We will require an updated blood pressure and heart rate at follow up visits (this includes virtual visits). -- Please monitor for , if at any point you become please stop the medication. THIS IS A SUMMARY OF OUR DISCUSSION ABOUT THIS MEDICATION. PLEASE READ IT IS IMPORTANT FOR YOUR WEIGHT LOSS PLAN Per updated [place] state rules, initially, a one month supply of phentermine is prescribed. You will need to be seen every month for the first 3 months for follow-up and to assess effectiveness with a total 5% weight loss in that 3 month period. If the phentermine is effective for you, treatment with phentermine can continue with a one month supply of phentermine prescribed at a time with 2 refills. You, the patient, are responsible for making an appointment to see a provider within 12 weeks in order to get a refill of this medication. It is imperative that you get this (and future) phentermine prescriptions within 7 days as pharmacists will NOT refill prescriptions outside this 7 day window per State law. Phentermine can only be prescribed for a 3 month interval at a time. You are aware of the following statements per the [facility] pharmacy board rules. 1. Timely refills are required 2. Every 12 weeks office visits are required. 3. ALL prescriptions need to be filled within 7 days of the written prescription 4. Refills need to be done EVEN IF there is medication still available ? Phentermine (fen ter meen) What are the common names? Adipex-P, Ionamin Why is this medication prescribed? Phentermine was approved by the FDA in 1958 for short term weight loss. It works by decreasing appetite. Phentermine is absorbed by the body and travels to the appetite center of the brain. It works by helping you feel less hungry, less driven to eat, more satisfied with less food. I ve heard about fen-phen. Will phentermine affect my heart? The two drug combination fenfluramine/phentermine, usually called fen-phen, became popular in the early as a diet pill. However, it was withdrawn by the FDA in late 1996 after studies which showed that fenfluramine can cause fatal pulmonary hypertension and heart valve problems. Phentermine is not a combination medication and does not contain the compound fenfluramine. What special precautions should I follow? Before having phentermine prescribed, tell your doctor and pharmacist: If you have allergies to any component of phentermine If you are , plan to become , are breast-feeding, or if you become while taking phentermine What are the absolute contraindications? Stroke or Transient Ischemic Attacks Cardiac arrhythmias or Atrial fibrillation Coronary artery disease Seizure Disorder Uncontrolled blood pressure Angina Congestive Heart Failure Valvular Heart Disease or primary pulmonary hypertension Drug interactions. Use of monamine oxidase inhibitors (MAOI s) What are the side effects of phentermine? Immediately discontinue the medicine and seek medical help if you have severe symptoms such as chest pain, shortness of breath, feeling faint, ability to think clearly, eye pain or other visual symptoms: Palpitations (strong or rapid heartbeat) Difficulty sleeping or falling asleep Elevated blood pressure Dry mouth Anxiety or agitation Getting a stimulant/or hyper effect or jitteriness-(Usually goes away after a few days or weeks) Glaucoma In case of emergency/overdose In case of overdose, call your local poison control center at or call local emergency services at [phone]. What other information should I know? Keep all appointments with your doctor and the laboratory. Do not let anyone else take your medication. Phentermine is a controlled substance. It is FDA approved for up to 3 months. Prescriptions may be refilled only a limited number of times. Keep a written list of all of your prescription and nonprescription (vxzz-cib-rwsmpeh) medicines, in addition to vitamins, minerals, or other dietary supplements. If you are taking the extended-release (long-acting) tablets, do not split, chew, or crush them tablet. There are some tablets that can be crushed and mixed with food Alcohol can make the side effects of phentermine worse How should I monitor while on this medication? Please check your blood pressure (BP) and resting pulse weekly (twice a week in the first 2 weeks). If the BP is over 140/90 (either one), or if the resting pulse is over 96 per minute (count for 10 seconds and multiply by 6), then stop the medication and call your doctor. Continue to improve your dietary and physical activity habits as the combination works best while on this medication. Start out by taking the medication in the morning at least 30 minutes prior to meals. If the effect seems to wear off by dinner time, try taking it later in the morning, but taking too late may result in trouble falling asleep. Be sure to eat regular meals. Less hunger does not make it appropriate to skip meals. Monitor your caffeine intake and use of decongestants as they may worsen the effects of phentermine Make sure to have an eye exam, including the pressure in your eyes (intra-ocular pressure), once a year. What should I do if I forget a dose? Skip the missed dose and continue your regular dosing schedule the next day. Do not take a double dose to make up for a missed one. Sources [facility] Consumer Medication Info: http://www.ncbi.nlm.nih.gov/pubmed health/QFR3086379/ AMA patient handouts: http://www.amaassn.org/ama1/pub/up load/mm/433/phrxsurgery.pdf Drugs.com: http://www.drugs.com/pro/phentermi ne.html Educational Podcasts: The Dr. Yang Show- Real Conversations about Health and Weight * August 19, 2023 what you need to know about Carbohydrates and Weight *July 29, 2023 Protein why we need it and how to eat more Protein *July 08, 2023 Menopause and Weight Gain- All the Details with Dr. Jayla Campbell *June 17, 2023 The Science Behind Ultra Processed Food and Weight Gain *April 01, 2023 Effects of sleep and Stress of Weight and Health with Dr. Radha Pichardo-Withers, DO * March 25, 2023 Recognizing and Resolving Emotional Eating with Dr. Hi Obesity: A Disease *March 25, 2023 Episode 80 Clinical conversations: The Role of Physical Activity in Weight Management * July 05, 2023 Episode 84 Clinical Conversations: NAFLD, The [place] Disease of Metabolic Syndrome *July 042019 Episode 20 Article Reviews: The Role Ultra Processed Diets Play in Weight Gain *June 15, 2020 Episode 21 Clinical Conversations: Breaking Weight Plateaus HOW DOES CHRONIC STRESS AFFECT EATING PATTERNS? Chronic stress can affect the body s use of calories and nutrients in various ways. It raises the body s metabolic needs and increases the use and excretion of many nutrients. If one does not eat a nutritious diet, a deficiency may occur.Stress also creates a chain reaction of behaviors that can negatively affect eating habits, leading to other health problems down the road. Stress places a greater demand on the body for oxygen, energy, and nutrients. Yet people who experience chronic stress may crave comforting foods such as highly processed snacks or sweets, which can be high in unhealthy fats, sugar, and calories but low in micronutrients. People feeling stress may lack the time or motivation to prepare nutritious, balanced meals, or may skip or forget to eat meals. Stress can disrupt sleep by causing senior analyst sleep or more frequent awakenings, which leads to fatigue during the day. In order to cope with daytime fatigue, people may use stimulants to increase energy such as with caffeine or high-calorie snack foods. The reverse may also be true that poor-quality sleep is itself a stressor. Studies have found that sleep restriction causes a significant increase in cortisol levels. During acute stress, adrenaline suppresses the appetite.But with chronic stress, elevated levels of cortisol may cause cravings, particularly for foods high in sugar, fat, and calories, which may then lead to weight gain. Cortisol favors the accumulation of fat in the belly area, also called central adiposity, which is associated with insulin resistance and an increased risk of type 2 diabetes, cardiovascular disease, and certain breast cancers.4,6-8 It also lowers levels of the hormone leptin (that promotes satiety) while increasing the hormone ghrelin (that increases appetite). https://cdn1.[facility] [employer].edu/wp-co ntent/uploads/sites//Reba typbYviwjmUqxut67-13.1.pdf Get started cutting down on sugar with these tips: Toss the table sugar (white and brown), syrup, honey and molasses. Cut back on the amount of sugar added to things you eat or drink regularly like cereal, pancakes, coffee or tea. Try cutting the usual amount of sugar you add by half and wean down from there. Swap out the soda. Water is best, but if you want something sweet to drink or are trying to lose weight, diet drinks can be a better choice than sugary drinks. Eat fresh, frozen, dried or canned fruits. Choose fruit canned in water or natural juice. Avoid fruit canned in syrup, especially heavy syrup. Drain and rinse in a colander to remove excess syrup or juice. Compare food labels and choose products with the lowest amounts of added sugars. Dairy and fruit products will contain some natural sugars. Added sugars can be identified in the ingredients list. Add fruit. Instead of adding sugar to cereal or oatmeal, try fresh fruit (bananas, cherries or strawberries) or dried fruit (raisins, cranberries or apricots). Cut the serving back. When baking cookies, brownies or cakes, cut the sugar called for in your recipe by one-third to one-half. Often you won t notice the difference. Try extracts. Instead of adding sugar in recipes, use extracts like almond, vanilla, orange or lemon. Replace it completely. Enhance foods with spices instead of sugar. Try latonya, allspice, cinnamon or nutmeg. Substitute. Switch out sugar with unsweetened applesauce in recipes (use equal amounts). Limit Non-nutritive Sweeteners. If you are trying to lose weight, a temporary fix to satisfying your sweet tooth may be with non-nutritive sweeteners. But watch out! Make sure that swapping sugary options for non-nutritive sweeteners now doesn t lead to eating more later. https://www.heart.org/en/healthy-l iving/healthy-eating/eat-smart/sug ar/swxq-sbm-xvooipl-gvkj-zq-dyybz How alcohol affects your weight loss 1. Alcohol is often empty calories Alcoholic drinks are often referred to as empty calories. This means that they provide your body with calories but contain very little nutrients. There are almost 155 calories in one 12-ounce can of beer, and 125 calories in a 5-ounce glass of red wine. By comparison, a recommended afternoon snack should have between 150 and 200 calories. A night out with several drinks can lead to consuming a few hundred extra calories. Drinks that have mixers, such as fruit juice or soda, contain even more calories. 2. Alcohol is used as a primary source of fuel There are also other elements that can cause weight gain outside of calorie content. When alcohol is consumed, it s burned first as a fuel source before your body uses anything else. This includes glucose from carbohydrates or lipids from fats. When your body is using alcohol as a primary source of energy, the excess glucose and lipids end up, unfortunately for us, as adipose tissue, or fat. 3. Alcohol can affect your organs The primary role of your liver is to act as the filter for any foreign substances that enter your body, such as drugs and alcohol. The liver also plays a role in the metabolism of fats, carbohydrates, and proteins. Excess alcohol consumption can lead to what is known as alcoholic fatty liver. This condition can damage your liver, affecting the way your body metabolizes and stores carbohydrates and fats. Changes in the way your body stores energy from food can make it very difficult to lose weight. 4. Alcohol can contribute to excess belly fat The beer gut isn t just a myth. Foods high in simple sugars, such as those found in candy, soda, and even beer, are also high in calories. Extra calories end up stored as fat in the body. Consuming foods and drinks high in sugar can quickly lead to weight gain. We can t choose where all that extra weight ends up. But the body tends to accumulate fat in the abdominal area. 5. Alcohol affects judgment calls especially with food Even the most -hard diet fan will have a hard time fighting the urge to dig in when intoxicated. Alcohol lowers inhibitions and can lead to poor decision-making in the heat of the moment -- especially when it comes to food choices. However, the effects of alcohol surpass even social drinking etiquette. A recent animal studyTrusted Source found that mice given ethanol over a period of three days demonstrated a significant increase in food intake. This study suggests that alcohol can actually trigger hunger signals in the brain, leading to an increased urge to eat more food. 6. Alcohol and sex hormones It s long been known that alcohol intake can affect levels of hormones in the body, especially testosteroneTrusted Source. Testosterone is a sex hormone that plays a role in many metabolic processes, including muscle formation and fat burning capabilities. One study found that low testosterone levels may predict the prevalence of metabolic syndrome in men. Metabolic syndrome is characterized by: high cholesterol high blood pressure high blood sugar levels high body mass index Plus, lower testosterone levels may affect quality of sleep, especially in older men. 7. Alcohol can negatively affect your sleep A nightcap before bed may sound like a ticket to a good night s rest but you may want to reconsider. ResearchTrusted Source suggests that alcohol can lead to increased periods of wakefulness during sleep cycles. Sleep deprivation, whether from lack of sleep or impaired sleep, can lead to an imbalance in the hormones related to hunger, satiety, and energy storage. 8. Alcohol affects digestion and nutrient uptake Your social anxiety isn t the only thing that alcohol inhibits. Intake of alcoholic beverages can also inhibit proper digestive function. Alcohol can cause stress on the stomach and the intestines. This leads to decreasedTrusted Source digestive secretions and movement of food through the tract. Digestive secretions are an essential element of healthy digestion. They break down food into the basic macro- and micronutrients that are absorbed and used by the body. Alcohol intake of all levels can lead to impaired digestion and absorption of these nutrients. This can greatly affect the metabolism of organs that play a role in weight management. Best alcoholic drinks for weight loss This may all sound as if alcohol is ruining your chances of that beach body. But fear not -- watching your weight doesn t necessarily mean having to cut alcohol entirely out of your diet. Rather than reaching for drinks high in sugar or calories, enjoy some of these 100-calorie options instead: 1. Vodka Calories: 100 calories in 1.5 ounces of distilled 80-proof vodka Alternative cocktail: Choose low-calories mixers such as club soda and avoid overly sugary juices. 2. Whiskey Calories: 100 calories in 1.5 ounces of 86-proof whiskey Alternative cocktail: Ditch the cola and take your whiskey on the rocks for a low-calorie alternative. 3. Gin Calories: 115 calories in 1.5 ounces of 90-proof gin Alternative cocktail: Aim for something simple, such as a martini -- and don t skip the olives, they contain beneficial antioxidants such as vitamin E. 4. Tequila Calories: 100 calories in 1.5 ounces of tequila Alternative cocktail: The best part about tequila is that the customary tequila shot is just salt, tequila, and port heiden. 5. Raudel Calories: 100 calories in 1.5 ounces of raudel Alternative cocktail: This drink is best served as an after-dinner digestif and a good raudel should be enjoyed slowly to savor the subtle fruity sweetness. The bottom line While cutting alcohol completely out of your diet isn t necessarily the only way to lose weight, there are many improvements that can be made in your health journey by simply cutting back on the booze. You can enjoy a healthier body, improved sleep, better digestion, and fewer of those excess empty calories. And if you do plan to drink, enjoy a vodka or whiskey on the rocks -- and skip the soda! [email or web address] documented in this encounter [facility] 03-11-2024 History of Present illness Narrative Some documentation from previous visit of 01/17/2024 was copied and pasted, documentation has been reviewed and edited as necessary for today's visit. Patient Summary: Jody is a 58 year old Female who presents for follow-up evaluation of obesity/weight management to treat and prevent related co-morbidities. In our previous visits we have discussed lifestyle intervention including a nutrition recommendations and physical activity optimization. Her last office visit was 6 weeks ago. Assessment/plan from last visit: Reviewed BP not optimal- do not recommend starting stimulant or Bupropion at this time. More of emotional eating and Hungry Brain- will start Topiramate. Pt understands this is off label use of medication. Will follow up with PCP and start check BPs at home to take with her to PCP office in the next two weeks Consult to BMI discussed and accepted Consult to Nutrition - order placed Consider sleep study- Not ordered today LABS ordered Interval History PT specifies the following items as new or significant updates since the last appointment: - doing majority of cooking - grilling and baking instead of frying - stopped ETOH - doing it with her - prepping more -really happy with progress, being honest has cruise in May and will not be taking medication as she wants to have drinks and not have restrictions. - hitting goals- >90g protein per day, staying under 100 g carbs GOAL- exercise increase and increase protein with breakfast Proud, made commitment , no chocolate Weight loss since last vist: 13lb Last 2 Encounter Wt Readings: Date: Wt: 03/11/2024 243 lb (110.2 kg) 01/17/2024 256 lb 12.8 oz (116.5 kg) Starting weight 01/17/24 : 256 lb 10% 231lbs, 5% 244lbs Anti-obesity medications: Topiramate. Benefit:Not sure she feels any impact Adverse effects: has intermittent tingling in feet/heels Weight promoting medications: none Previous Diet (initial appointment): Breakfast- deviled eggs cheese, protein bar (pure protein), weekend would be omelettes emmanuel, sausage. Oikos triple zero Lunch- during the week- instant oatmeal or soup, or salad with chicken, chipolte Dinner- fish, salads, veggies, meat, chicken Snacks- chocolate- kit magdalena, recess cup, buckeyes (3-4 per day) , PB pretzels (1-1.5cup per sitting) , Popcorn Nutrition NOW: Breakfast- Eggs x 2-3, cheese stick sometimes with green tea Lunch- yogurt triple zero, cottage cheese, Dinner- Grilled veggies, meat Snacks- oatmeal w/ flaxseed (low rodo and lower carb), cheese stick, Dietary changes: Eating 3 meals a day, including breakfast Increasing water intake Increasing servings of vegetables Controlling portions Limiting processed foods Increasing protein Reducing carbohydrates Eating less take out/fast food Current Barriers: none- doing well Exercise: not getting Stress: increased - 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 Sleep: stable Estimated Creatinine Clearance: 103.7 mL/min (based on SCr of 0.73 mg/dL). 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 cholecalciferol, vitamin D3, (VITAMIN D3 ORAL) Take by mouth once daily. VITAMIN E ORAL Take by mouth once daily. Lactobacillus acidophilus (PROBIOTIC ORAL) Take by mouth once daily. mv-min/iron/folic/calcium/vitK (WOMEN'S MULTIVITAMIN ORAL) Take by mouth once daily. CRANBERRY ORAL Take by mouth once daily. topiramate (TOPAMAX) 50 mg tablet Take 1 tablet by mouth daily at bedtime. 30 tablet 1 acetaminophen-HYDROcodone (VICODIN) 5-500 mg tablet Take 1 tablet by mouth every 6 hours as needed. (Patient not taking: Reported on 01/17/2024) 15 tablet 0 No current facility-administered medications for this visit. ROS Some tingling in feet- but improving otherwise doing well. 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 Glucose (mg/dL) Date Value 01/20/2024 92 Potassium (mmol/L) Date Value 01/20/2024 3.7 Sodium (mmol/L) Date Value 01/20/2024 139 Chloride (mmol/L) Date Value 01/20/2024 99 CO2 (mmol/L) Date Value 01/20/2024 28 Creatinine (mg/dL) Date Value 01/20/2024 0.73 BUN (mg/dL) Date Value 01/20/2024 26 Anion Gap (mmol/L) Date Value 01/20/2024 12 Calcium, Total (mg/dL) Date Value 01/20/2024 9.7 Protein, Total (g/dL) Date Value 01/20/2024 7.4 Albumin (g/dL) Date Value 01/20/2024 4.5 Bilirubin, Total (mg/dL) Date Value 01/20/2024 0.5 Alkaline Phosphatase (U/L) Date Value 01/20/2024 83 AST (U/L) Date Value 01/20/2024 22 ALT (U/L) Date Value 01/20/2024 24 WBC (k/uL) Date Value 01/20/2024 5.00 RBC (m/uL) Date Value 01/20/2024 4.82 Hemoglobin (g/dL) Date Value 01/20/2024 14.4 Hematocrit (%) Date Value 01/20/2024 41.6 MCV (fL) Date Value 01/20/2024 86.3 MCH (pg) Date Value 01/20/2024 29.9 MCHC (g/dL) Date Value 01/20/2024 34.6 RDW-CV (%) Date Value 01/20/2024 12.0 Platelet Count (k/uL) Date Value 01/20/2024 346 MPV (fL) Date Value 01/20/2024 9.8 Cholesterol, Total (mg/dL) Date Value 01/20/2024 215 HDL Cholesterol (mg/dL) Date Value 01/20/2024 75 LDL Cholesterol (mg/dL) Date Value 01/20/2024 127 Triglyceride (mg/dL) Date Value 01/20/2024 67 Estimated Creatinine Clearance: 103.7 mL/min (based on SCr of 0.73 mg/dL). Hemoglobin A1C (%) Date Value 01/20/2024 5.5 FIB-4 Calculation: 0.77 at 01/20/2024 7:34 AM Calculated from: SGOT/AST: 22 U/L at 01/20/2024 7:34 AM SGPT/ALT: 24 U/L at 01/20/2024 7:34 AM Platelets: 346 k/uL at 01/20/2024 7:34 AM Age: 58 years Assessment/Plan: Jody Merino is a 58 year old yo with Class III obesity who presented today for follow up for supervised weight loss to treat and prevent related co-morbidities. (I10) Essential hypertension (primary encounter diagnosis) (E78.00) Hypercholesteremia (E66.01, Z68.41) Class 3 severe obesity with serious comorbidity and body mass index (BMI) of 40.0 to 44.9 in adult, unspecified obesity type (HCC) -continue whole foods, low CHO, high protein - did not meet with nutrition due to cost - Reviewed her nutrition journal- excellent job- adjusted breakfast- added more protein. - continue HYZAAR for BP- well controlled. Met with PCP who reports good BP control, is also monitoring at home has been stable. - reviewed how to prepare for Cruise - Add Phentermine, continue Topiramate -Labs reviewed with patient Prescription instructions reviewed with patient as applicable. Potential red flag symptoms discussed with the patient. Reviewed appropriate action plan to take if red flag symptoms occur. Patient agreeable to treatment plan. Follow up in 6-8 weeks I spent a total of 45 minutes on the date of the service which included preparing to see the patient, [id number] patient care, completing clinical documentation, obtaining and/or reviewing separately obtained history, performing a medically appropriate examination, counseling and educating the patient/family/caregiver, and ordering medications, tests, or procedures. Leona Horn MD, FACOG, DABOM documented in this encounter [facility] 03-11-2024 Note HNO ID: [id number] Author: LEONA FLOWERS MD Service: ? Author Type: Physician Type: Progress Notes Filed: 03/11/2024 13:13 Note Text: Some documentation from previous visit of 01/17/2024 was copied and pasted, documentation has been reviewed and edited as necessary for today's visit. Patient Summary: Jody is a 58 year old Female who presents for follow-up evaluation of obesity/weight management to treat and prevent related co-morbidities. In our previous visits we have discussed lifestyle intervention including a nutrition recommendations and physical activity optimization. Her last office visit was 6 weeks ago. Assessment/plan from last visit: Reviewed BP not optimal- do not recommend starting stimulant or Bupropion at this time. More of emotional eating and Hungry Brain- will start Topiramate. Pt understands this is off label use of medication. Will follow up with PCP and start check BPs at home to take with her to PCP office in the next two weeks Consult to BMI discussed and accepted Consult to Nutrition - order placed Consider sleep study- Not ordered today LABS ordered Interval History PT specifies the following items as new or significant updates since the last appointment: - doing majority of cooking - grilling and baking instead of frying - stopped ETOH - doing it with her - prepping more -really happy with progress, being honest has cruise in May and will not be taking medication as she wants to have drinks and not have restrictions. - hitting goals- >90g protein per day, staying under 100 g carbs GOAL- exercise increase and increase protein with breakfast Proud, made commitment , no chocolate Weight loss since last vist: 13lb Last 2 Encounter Wt Readings: Date: Wt: 03/11/2024 243 lb (110.2 kg) 01/17/2024 256 lb 12.8 oz (116.5 kg) Starting weight 01/17/24 : 256 lb 10% 231lbs, 5% 244lbs Anti-obesity medications: Topiramate. Benefit:Not sure she feels any impact Adverse effects: has intermittent tingling in feet/heels Weight promoting medications: none Previous Diet (initial appointment): Breakfast- deviled eggs cheese, protein bar (pure protein), weekend would be omelettes emmanuel, sausage. Oikos triple zero Lunch- during the week- instant oatmeal or soup, or salad with chicken, chipolte Dinner- fish, salads, veggies, meat, chicken Snacks- chocolate- kit magdalena, recess cup, buckeyes (3-4 per day) , PB pretzels (1-1.5cup per sitting) , Popcorn Nutrition NOW: Breakfast- Eggs x 2-3, cheese stick sometimes with green tea Lunch- yogurt triple zero, cottage cheese, Dinner- Grilled veggies, meat Snacks- oatmeal w/ flaxseed (low rodo and lower carb), cheese stick, Dietary changes: Eating 3 meals a day, including breakfast Increasing water intake Increasing servings of vegetables Controlling portions Limiting processed foods Increasing protein Reducing carbohydrates Eating less take out/fast food Current Barriers: none- doing well Exercise: not getting Stress: increased - 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 Sleep: stable Estimated Creatinine Clearance: 103.7 mL/min (based on SCr of 0.73 mg/dL). 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 cholecalciferol, vitamin D3, (VITAMIN D3 ORAL) Take by mouth once daily. VITAMIN E ORAL Take by mouth once daily. Lactobacillus acidophilus (PROBIOTIC ORAL) Take by mouth once daily. mv-min/iron/folic/calcium/vitK (WOMEN'S MULTIVITAMIN ORAL) Take by mouth once daily. CRANBERRY ORAL Take by mouth once daily. topiramate (TOPAMAX) 50 mg tablet Take 1 tablet by mouth daily at bedtime. 30 tablet 1 acetaminophen-HYDROcodone (VICODIN) 5-500 mg tablet Take 1 tablet by mouth every 6 hours as needed. (Patient not taking: Reported on 01/17/2024) 15 tablet 0 No current facility-administered medications for this visit. ROS Some tingling in feet- but improving otherwise doing well. 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 Physical Exam Waist Circumference: 47- (more content not included)... [facility] 01-17-2024 History of Present illness Narrative Patient Summary: Jody Merino is a 58 year old female with obesity who presents for an initial evaluation of overweight/obesity to treat and prevent co-morbidities and is interested in open to all options. Motivation for seeking treatment for the disease of overweight/obesity : Fought weight whole life since having children- emotional eater- loves food. Wants to be healthier. Goal weight: 190s first goal Lowest recall weight: 129lbs Highest recall weight: 256lbs Patient identified barriers to weight loss: enjoys summer time on boat and beer. Weight History: She reports no family history of obesity- MOTHER ONLY and her siblings- and early adulthood weight gain. She states her weight gain is related to the following factors, including weight retention , reduced physical activity, consumption of unhealthy foods, and Large portions, Beer. - Last Wt 01/20/13 : 224 lb 15.7 oz (102 kg) 5% weight loss = 214 lbs, 10% weight loss = 202 lbs WEIGHT GRAPH: NA Wakes ups 6am Breakfast- deviled eggs cheese, protein bar (pure protein), weekend would be omelettes emmanuel, sausage. Oikos triple zero Lunch- during the week- instant oatmeal or soap, or salad with chicken, chipolte Dinner- fish, salads, veggies, meat, chicken Snacks- chocolate- kit magdalena, recess cup, buckeyes (3-4 per day) , PB pretzels (1-1.5cup per sitting) , Popcorn Diet/Nutrition overview: Fluids: water- with true lemon- 100oz per day +, Milk on occasion, no soda or juice. 5 drinks per week during winter- summer beer 6-12 per day Quality of diet: 24hr recall suggests healthy diet. Characterization of diet:excessive cravings. Scale Balancer of impaired eating habits:mindlessness , boredom, emotion, and stress Eating Disorder no Preferred foods: like everything Cravings: sweets ?Sleep: Duration: 8 -9 hours. KOBI NO ; CPAP NO ??Stress: Stress:no, Cause:Work occasional Obesity Related Comorbidities: Prior Weight Loss Surgery:No PAST MEDICAL HISTORY Diagnosis Date Allergic rhinitis, seasonal Hypoglycemia Migraines Personal history of prior ablation treatment Tubal ligation PAST SURGICAL HISTORY Procedure Laterality Date LIGATE FALLOPIAN TUBE Tubal ligation PAST SURGICAL HISTORY OF right leg, vein PAST SURGICAL HISTORY OF left leg vein PAST SURGICAL HISTORY OF ablation FAMILY HISTORY Problem Relation Age of Onset Alcohol/Drug Brother Allergies Son Allergies Son Asthma Son Breast Cancer Mother Cancer Mother kidney Cancer Maternal Grandmother brain Cancer Paternal Grandfather lung Cancer Maternal Aunt pancreatic Cancer Paternal Aunt throat Cerebral Embolism Maternal Grandfather Diabetes Father Emphysema Maternal Aunt Heart Father Prostate Cancer Paternal Grandfather Thyroid Mother Social History Tobacco Use Smoking status: Former Substance Use Topics Alcohol use: Yes Drug use: No Medications: none Weight Promoting Medications: Other None. control in the past Diet/weight loss History: Past weight loss attempts? commercial diets, self-directed, and exercise program. Atkins diet, Exercise/increased activity, Grapefruit diet, Keto, Low Carbohydrate diet, [employer], Physician's weight loss, SlVCE, [employer] Diet, Weight watchers, and [employer] Exercise: Regular exercise: no Strength/resistance exercise:no Barriers to regular exercise? no Work-related activity:Sedentary. 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 Current Contraception: partial hysterectomy/post menopausal Obesity ROS/ FHx GEN: Fatigue:no CV: h/o palpitations/cardiac arrhythmia, Chest pain: no HTN: yes PULM: Asthma:no GI: GERD:no ; Gallstones:no ; Fatty liver disease:no Pancreatitis: no MSK: Joint Pain:yes : Nephrolithiasis: no Symptoms of PCOS: no NEURO: Migraines/PADILLA: no; H/o seizures: no Glaucoma:no; Cataracts no Symptoms of or History of pseudotumor cerebri:no Family or personal History of MEN2 or Medullary thyroid cancer: no PE BP 138/102 Ht 5' 3.86 (1.622 m) Wt 256 lb 12.8 oz (116.5 kg) BMI 44.28 kg/m Waist Circumference: 47 Neck Circumference: 15 GENERAL: Female in NAD. Mixed central and gluteofemoral adiposity. SKIN: acanthosis nigricans no, Skin tags: yes Hirsutism: no HEENT: PERRL, No supraclavicular adiposity. No dorsal adiposity. RESPIRATORY: CBTA CARDIAC: RRR ABDOMEN: Large pannus; EXTREMITIES: peripheral edema: yes Results: reviewed with the patient Results Only on 12/18/2023 Component Date Value Ref Range Status Contract Coordinator 12/18/2023 Final Value:Provider DILSHAD NESBITT your patient JODY MERINO started their Arielle on 12-18-2023 and completed it on 12-18-2023 Arielle program: [employer] [employer] [facility] WHAT TO EXPECT AT YOUR APPOINTMENT Impression: Jody Merino is a 58 year old Female with Class III obesity (There is no height or weight on file to calculate BMI.) who has adult onset obesity with gradual weight gain despite several weight loss attempts. The causes of her obesity are multifactorial, biological, psychological and social and environmental. Specific factors include increased consumption of high calorie/process foods, suboptimal physical activity, and post weight retention. She has few weight-related medical comorbidities which increase her cardiovascular mortality risk. There are additional metabolic obesity complications including pre-diabetes and hypertension. Other medical conditions as above. Regarding her lifestyle, as above, she has several behavioral contributors; her physical activity is non-existent. Overall, it is clear that her quality of life is mildly compromised by her weight. It is likely a combination of weight loss therapies will be needed. She appears motivated today. Plan: -- Based on the severity and resistance of the obesity/overweight with co-morbidities, I believe a open to all options intervention is the best and most appropriate senior living therapeutic option. -- We discussed several strategies to track food intake and increase mindfulness around eating while will decrease calorie intake. She was counseled on the following: Eating primarily whole foods. Limit carbs, especially processed carbs. Do not drink your calories 30 grams of protein for breakfast decreases your hunger during the day by up to 40 % Premier Protein or generic 30 gm protein 1 gm sugar Walk for 15 minutes immediately a meal. -- Encouraged the patient to improve her physical activity. Although cardiovascular exercise is most beneficial for weight loss initially, we discussed healthy muscle from a combination of resistance training and cardiovascular exercise is the best equipment operator intermodal yard plan. An overall goal of 150-200 minutes per week of exercise has been effective in weight loss and maintenance. -- Reviewed that monitoring weight daily and food intake can have a positive impact on overall weight loss and maintenance of weight loss. Activity tracking can be used to stay on target for exercise however should not be used to reward oneself She understands that there can be limitations of pharmacotherapy due to contraindications, side effects and cost. Patient was told to contact her insurance company to see what AOMs and supervised behavioral medical appointments are currently covered. Patient understands she will have more success when following a healthy lifestyle. We reviewed continued use of online tracking of daily weights, food journal and if desired physical activity. We reviewed that during management she is to report any concerning side effects of any pharmacotherapy she is placed on. She understands that she will need routine follow up in the office. Prior to any virtual visits in the future she will need to check her Blood pressure, weight, and pulse. Reviewed BP not optimal- do not recommend starting stimulant or Bupropion at this time. More of emotional eating and Hungry Brain- will start Topiramate. Pt understands this is off label use of medication. Will follow up with PCP and start check BPs at home to take with her to PCP office in the next two weeks Consult to BMI discussed and accepted Consult to Nutrition - order placed Consider sleep study- Not ordered today LABS ordered (I10) Essential hypertension (primary encounter diagnosis) (R73.03) Prediabetes (E66.01, Z68.41) Class 3 severe obesity with serious comorbidity and body mass index (BMI) of 40.0 to 44.9 in adult, unspecified obesity type (HCC) (Z13.220) Screening cholesterol level (Z13.0) Screening for deficiency anemia (Z13.1) Screening for diabetes mellitus (Z13.228) Screening for metabolic disorder (Z13.29) Screening for thyroid disorder (Z13.21) Encounter for vitamin deficiency screening -- follow-up visit in 6 weeks for management of above interventions I spent a total of 75 minutes on the date of the service which included preparing to see the patient, [id number] patient care, completing clinical documentation, obtaining and/or reviewing separately obtained history, performing a medically appropriate examination, counseling and educating the patient/family/caregiver, and ordering medications, tests, or procedures. Leona Horn MD documented in this encounter [facility] 01-17-2024 Instructions Leona Flowers MD - 01/17/2024 2:59 PM EST Images from the original note were not included. Weight Management: You have taken the initiative to become a healthier version of yourself and to decrease the risks that come with the diagnosis of obesity or being overweight. We are happy to help you along this journey but know this is a lifetime commitment to yourself. Losing just 3-10 % of your body weight can decrease your risks of many other serious diseases like diabetes, heart disease, osteoarthritis, hypertension, cancer and so many others. During this time you will have triumphs, setbacks and plateaus- your body will fight against you but we are here to give you the tools and the resources to continue to reach your goals. We recommend during this time that you track your weight daily or at least five times per week as well as tracking your nutrition. You may track your activity but do not use hitting your fitness goals as a reward system as this can derail your success. We recommend weekly physical activity of 150-200 min/week-although physical exercise can help with maintaining weight loss it adds only a little benefit for senior living weight loss success. However, exercise can have many other benefits including improving mental health and cardiovascular health. Do not feel overwhelmed- we will discuss this more at your visits. Our time will be limited with each visit but we will try to touch on factors that are important to you and to your overall goals. We will try to set a goal at the end of each visit and then decide on what we want to accomplish with your upcoming visits. On your After Visit Summary (AVS), we will provide you with information that may be useful during this journey so please remember to read the information given. Check your AVS a few days after your appointment because we may have added more information specifically for you. Remember that if you are placed on medications, they are tools that can help you succeed but you must put in the work. Your nutrition will be the main factor. There are medications that work well for some and not for others- so it may take time to find the right combination for your body's needs. Please remember that factors such as other health co-morbidities one might have, as well as insurance coverage, will play a factor in determining which medications you can take. Most of the newer medications that are all the craze ,injectables, may not be covered or will only be covered if you fail months of oral medications- so please be patient with the process. It would be beneficial for you to determine what your insurance covers as far as Anti-Obesity Medications (AOMs), Nutritional Counseling, behavioral intervention and weight loss surgery. Please call your health insurance prior to your first appointment and write down coverage for each of those therapies. Most importantly, remember that ultimately our goal is to help you get to a healthier weight which will decrease your overall health risks. We will work together as a team and try to reach your personalized goals as well. We appreciate that you have entrusted us with your health and know that we are committed to this process with you. Sincerely, Leona Nesbitt MD, SULLY CARVER & Rehana Chandra, SAMPLE CLERK Obesity Obesity is a disease that affects nearly one-third of the adult [place] population (approximately 60 million). The number of overweight and obese Americans has continued to increase since 1959, a trend that is not slowing down. Today, 64.5 percent of adult Americans (about 127 million) are categorized as being overweight or obese. Each year, obesity causes at least 300,000 excess deaths in the [place] and healthcare costs of [place] adults with obesity amount to approximately $100 billion. (AOA) Obesity is a complex, multi-factorial chronic disease involving: Environmental (social and cultural) The tendency toward obesity is a result of our environment: lack of physical activity along with high-calorie, low-cost foods. Home, work, school, and even the community can inhibit a healthy lifestyle. Genetic (Hereditary plays a large role in determining how susceptible people are to overweight and obesity). Genes also influence how the body ornelas calories for energy and stores fat. Physiologic, metabolic, behavioral (eating too many calories while not getting enough exercise) and psychological components. It is the second leading cause of preventable in the [place] Behavioral changes brought on by economic development, modernization and urbanization have been linked to the rise in global obesity. Calculating BMI Body Mass Index (BMI) is a measurement tool used to determine excess body weight. Overweight is defined as a BMI of 25 or more, obesity is 30 or more, and severe obesity is 40 or more. You can visit www.nhlbi.nih.gov to estimate your BMI. Obesity Related Health Conditions The morbidity and mortality risk from being overweight is proportional to its degree. Individuals with morbid obesity, therefore, have the highest risk for developing numerous illnesses that often reduce mobility and quality of life due to their excess weight. In particular, type 2 diabetes, gallbladder disease and osteoarthritis have been found to increase concurrently with higher BMI. Premature , a 20-year shorter life span, has also been found in individuals with morbid obesity. All of the systems that make the body function are affected by morbid obesity. Type 2 diabetes Gallbladder disease and gallstones Liver disease Osteoarthritis, a disease in which the joints deteriorate. This is possibly the result of excess weight on the joints. Gout, another disease affecting the joints Pulmonary (breathing) problems, including sleep apnea in which a person can stop breathing for a short time during sleep Reproductive problems in women, including menstrual irregularities and infertility Gastroesophageal reflux/heartburn Hypertension Heart Disease Depression Psychological disorders/social impairments Urinary Stress Incontinence Obesity is also linked to higher rates of certain types of cancer. Obese men are more likely than non-obese men to from cancer of the colon, rectum, or prostate. Obese women are more likely than non-obese women to from cancer of the gallbladder, breast, uterus, cervix, or ovaries [email or web address] Nutrition - Eat primarily whole foods. Limit carbs, especially processed carbs. - Do not drink your calories - 30 grams of protein for breakfast decreases your hunger during the day by up to 40 % Premier Protein or generic 30 gm protein 1 gm sugar - Walk for 15 minutes immediately a meal. TOPIRAMATE -- Take 25mg (1/2 tablet) daily x 2 weeks -- Then increase to 50mg daily after the initial two weeks so long as you are not having any side effects. -- You can take the tablet it at night at first (because of potential sleepiness side effects), but then you can take earlier around dinner after you have started the medication for a few days. You also may be able to take it in the morning if easier. -- We may increase the dose to 75mg a few weeks later if there is no change with 50mg, Typically the maximum medication dose would be 150mg daily but rarely would we need to titrate medication dose that high. -- The exact mechanism of topiramate on energy balance regulation is not clearly understood. Topiramate affects body mass index, fasting uvpywbd-oc-wfuwpbx ratio, and serum leptin and cortisol levels. It has shown to improve hypothalamic insulin and leptin signaling and action and reduce obesity in mice. These changes may be matos factors in weight loss due to topiramate. If at any point you are feeling the effects of the medication you can stay at that dose or if you experience side effects you can decrease it to the previous dose. -- Please see the handout to review the potential side effects and to explain this further -- Please let me know if you experience any changes in your vision, worsening depression or mood problems, or an increase in suicidal thoughts or behaviors. --This medication should NOT be combined with alcohol. Risks of drinking alcohol while taking this medication include mental and psychological side effects, including confusion, dizziness, drowsiness, and depression. -- There is an increased risk for oral clefts when topiramate is used in the first trimester of . -- There is a possible decrease in contraceptive efficacy when using estrogen-containing control with topiramate, please use a back up form of control such as condoms and monitor for throughout treatment. -- If you decide that you would like to get or if you have any of these side effects please let me know and we can safely discontinue the medication. - If you are on loop diuretic or thiazide diuretic we will want to monitor your potassium level, especially if you have a history of low potassium. - It is important to taper off of this medication when we finished with treatment, typically decreasing the dose 25 mg a week. Stopping Topiramate abruptly can cause irritability, anxiety and difficulty concentrating. Topiramate (toe pyre a mate) What are the common names? Topamax Why is this medication prescribed? Topiramate is an anti-epileptic medications which has been approved by the FDA for patients 10 years of age or older for treatment of seizures. However, topiramate also has other uses such as the treatment of migraines. It also causes decrease in appetite and weight loss. The mechanism of weight loss is thought to be through inhibition of mitochondrial enzymes involved in energy expenditure and metabolism. Topiramate may work by helping you feel less hungry, less driven to eat, more satisfied with less food. What special precautions should I follow? Before having topiramate prescribed, tell your doctor and pharmacist: If you have allergies to any component of topiramate If you are , plan to become , are breast-feeding, or if you become while taking topiramate What are the warnings and precautions for this medication? Immediately discontinue the medicine and seek medical help if you have severe cognitive/neuropsychiatric adverse symptoms or eye symptoms. Cognitive/neuropsychiatric adverse events: symptoms may include confusion, psychomotor slowing, difficulty with concentration/attention, difficulty with memory, speech or language problems, particularily word-finding difficulties, somnolence or fatigue Acute myopia and secondary angle closure glaucoma, usually within 1 month of starting treatment: symptoms may include blurred vision, redness and/or pain in the eye Oligohydrosis (decrease sweating) and hyperthermia (elevation in body temperature) Increase in suicidal behavior or ideation Metabolic acidosis, non-gap hyperchloremic (decreased serum bicarbonate below normal levels) resulting in hyperventilation or fatigue Kidney stones Paresthesias (numbness or tingling in hands or feet) Ataxia Dizziness Increase in urination frequency Drug interactions. Use of monamine oxidase inhibitors (MAOI s), valproic acid, Caution use with dehydration or diarrheal illness, hepatic or renal impairment In case of emergency/overdose In case of overdose, call your local poison control center at or call local emergency services at [phone]. What other information should I know? Keep all appointments with your doctor and the laboratory. Do not let anyone else take your medication. Topiramate use needs to be monitored closely. Prescriptions may be refilled only a limited number of times. Keep a written list of all of your prescription and nonprescription (lncm-zfd-edmghfq) medicines, in addition to vitamins, minerals, or other dietary supplements. How should I monitor while on this medication? Your doctor will check your baseline kidney function and electrolytes prior to starting this medication, then periodically. Continue to improve your dietary and physical activity habits as the combination works best while on this medication. Start out by taking the medication at bedtime as it can cause fatigue and sleepiness. Be sure to eat regular meals. Less hunger does not make it appropriate to skip meals. Make sure to have an eye exam, including the pressure in your eyes (intra-ocular pressure), once a year. What should I do if I forget a dose? Skip the missed dose and continue your regular dosing schedule the next day. Do not take a double dose to make up for a missed one. Sources Pubmed Health: http://www.ncbi.nlm.nih.gov/pubmed health/RZW3240395/ Drugs.com http://www.drugs.com/pro/topiramat e.html ONLINE TOOLS: Online tracking of nutrition and weight (smart phone apps): My fitness pal Lose It Macros first Online calculators: [email or web address] [email or web address] These websites contains multiple beneficial calculators as well as general nutritional information Basal metabolic rate (BMR): Is the amount of calories your body expends to perform standard bodily functions when completely at rest. This is responsible for approximately 60-70% of your total daily expenditure. Calorie Counter: Can assist you in estimating how many calories you burn in a day when taking into consideration your activity level and your resting energy expenditure (REE). Once this is calculated you can subtract 250-500 calories to find your calorie deficient in order to achieve weight loss. Doing too low of calorie deficits for prolonged periods may not be sustainable and may cause adverse outcomes. Pedometer/activity tracker: ThinkHR There are many other tracking devices that can keep track of your steps/activities- check out www.[employer] for more options. Remember this is a good way to keep yourself accountable for movement during the day but do not use this as a reward for hitting your exercise goals. Meal replacements: Meal Replacements Plant-based protein bars Meal replacements. One option that works for some people is to use meal replacements, as in the DiRECT and Look AHEAD trials.The available options in Look AHEAD included shakes, bars, and meals from a variety of companies (GlucerFavoe, HMR, OptiAframe, and SlimAframe). The calorie content was 150 to 220 calories, depending on the product. People who used meal replacements 12 times a week instead of preparing their own meals lost about 11% of their weight in the first year, whereas those who used just two per week lost about 6% of their weight. Keep in mind, though, that people in the trial who used meal replacements also tended to consume a healthier diet over all; they were more likely to have met their goals for dietary fat, fruits and vegetables, and dairy foods, and to have cut back on sweets, than those who didn t use meal replacements. Similarly, in the DiRECT trial, participants consumed special nutritionally complete shakes and soups (the Counterweight-Plus program) for the first 12 weeks.If you opt for meal-replacement drinks, bars, or frozen entrees, here are some criteria to look for: calories, 150 to 300 fat, 3 to 10 grams protein, > 20 grams sugar < 5 g Meal replacements are typically fortified with vitamins and minerals and contain some fiber. Because they are calorie controlled, the amount of added sugars is usually minimal. If you want to try this approach to boost weight loss, ask your dietitian or another member of your health care team how to incorporate the replacements into your meal planning and discuss whether you might need to reduce your doses of diabetes medications to prevent hypoglycemia (low blood sugar) as you cut calories and lose weight. It is important to find a meal-replacement product that suits your taste. If you prefer not to consume processed foods, you can make your own portion-controlled versions. Note that meal replacements don t work for everyone. While some people like meal-replacement shakes, bars, and soups and find them to be a convenient way to sustain a reduced calorie intake over time, others don t feel satisfied drinking them and often end up simply adding them to what they d normally eat--which could lead to weight gain. What s more, some people have a hard time readjusting to eating real food after they stop using meal replacements. 30 High Protein Snack Ideas 1. Jerky 2. Mantoloking mix without or minimal dried fruit 3. [place] roll-ups 4. Portuguese yogurt 5. Veggies and yogurt dip 6. Tuna 7. Hard-boiled eggs 8. Peanut butter celery sticks 9. No-bake energy bites 10. Cheese slices/ Cheese Stick 11. Handful of almonds 12. Roasted chickpeas 13. Hummus and veggies 14. Cottage Cheese 15. Celery/fruit with peanut butter 16. Beef sticks (Grass-fed, natural ingredients) 17. Protein bars 18. Canned [place] 19. Jai pudding 20. Homemade granola - rolled oats, nuts, and a little sweetener - 1/4 cup serving 21. Pumpkin seeds 22. Nut butter 23. Protein shakes 24. Edamame 25. Avocado and chicken salad 26. Fruit and nut bars - natural ingredients without added sugar. 27. Lentil salad 28. Overnight oatmeal 29. Egg muffins 30. Leftover protein or lunch meat Frozen Meals aim for 200-400 calories, 15-30 grams protein, 5+ grams fiber, < 50 grams Carbohydrate, <600 mg sodium Frozen Meals Calories Protein (grams) Carbs Frontera Bowls 240-320 9-23 33-47 Healthy Choice/Power Bowls 180-350 10-25 20-50 Rehana's (V, GF) 280-400 9-20 20-50 Smart Made/Smart Ones 150-320 14-26 16-50 Lean Cuisine 250-410 10-20 15-50 Eating Well 240-360 15-25 25-40 LUVO planted 260-430 10-20 16-55 Other Frozen meals: Kashi, Sweet Earth, Restaurant General Manager Neeraj's Reduced Guilt, Ángel GEORGE's Delights, Dr. Lowry's Protein Drinks Calories Protein (grams) Sugars (grams) EAS Advant Edge Carb Control 110 17 1 Isopure Clear Zero Carb 160 40 0 Muscle Milk light 100-160 15-20 0-1 TidbitDotCo Power 170 26 5 Orgain Protein Shake* 150 26 2 Premier Protein 160 30 1 Evolve (Vegan)* 160 20 5 Other Protein Shakes: Pure Protein, Ensure High Protein; *Offers plant based, dairy free option Protein Powders Calories (per scoop) Protein (g) Sugars (g) Isopure Zero Carb & Unflavored 105 25 0 Hand Tapper Whey Protein 100 18 3 Optimum Nutrition 100% whey 120-130 24 1-2 EAS 100% Whey or Soy 120 23 1 Genisoy Protein powder* 110 25 0 Quest 100 23 1 Lim One Protein powder* 130 25 1 Orgain Protein Powder* 150-160 21 0-1 *Offers plant based, dairy free option Protein Bars Calories Protein (g) Sugars (g) Quest (GF) 190 20 0-1 Power Crunch 140-240 13-20 0-5 NuGo Slim (v) 180 17 1 Simply protein 150 15 1 Orgain Bar 140 10 4 Pure Protein 200 20 2 Think Thin (GF) 230 20 0-1 Christiano Bakery Paleo (GF) 180-190 20 2 Oh Yeah (one) (GF) 180-200 20 1 Oatmega 190 14 5 Other Protein bars: RX bar, Orgain, Fit Ruth, Protein One, Vaughn protein bar; *GF= Gluten-Free; V= vegan <15 gram carb fruit options Berries have the lowest sugar content 1/2 cup diced honeydew melon - 8 carbs 1/2 cup diced watermelon - 6 carbs One half medium grapefruit - 10.5 carbs 1 medium orange -15.5 carbs 1 medium peach -14.5 carbs 1/2 cup fresh cranberries - 6.5 carbs 1 medium plum -7.5 carbs 1/2 cup raspberries -7.5 carbs 1 medium Yesica -9 carbs 1/2 cup fresh pineapple -11 carbs 1 medium nectarine - 15 carbs 1/2 cup blueberries - 11 carbs - may actually help you lose weight 1 medium kiwi without skin - 11 carbs 1/2 cup fresh cherries -11 carbs 1 medium tangerine -12 carbs 1/2 cup sliced konrad -14 carbs 1/2 medium banana 1/2 c grapes 1/2 medium apple - 12.5 carbs 1/2 c strawberries - 12.7 carbs 5 (FIVE) gram carb vegetable options 1 cup raw OR cup cooked: Asparagus Cabbage Spinach Peppers Green beans Carrots Tomato [place] sprouts Cauliflower Lettuce Snap peas Broccoli Eggplant Zucchini Turnips Spaghetti squash Brussel sprouts 15 gram carb vegetable options cup cooked green peas cup cooked corn or hominy corn on the cob, large (5 oz) cup cooked sweet potato, plain cup cooked potato, plain 1 small potato or sweet potato 1 cup winter squash (pumpkin, acorn, butternut) 1 cup marinara or pasta sauce - check label cup tomato juice cup tomato puree Beans, Seeds, Nuts cup cooked beans (kidney, berry, red, green, etc.) cup cooked lentils cup baked beans 4 tablespoons nut butter Grains White long-grain rice 1/2 c 2g protein 22.5 carb Brown rice 1/2 c 5.5g protein 24 carb Quinoa 1/2 c 4 gm complete protein 25 carbs Oatmeal Protein - no carbs Egg 1 large - 6g Egg white 1 large 3.6g 3 oz is approximately the size of a deck of cards and equals 21 g protein Beef, Chicken, [place], Pork, [place] 1 oz 7g Fish, Tuna Fish 1 oz 7g (Starkist tuna packet 2.6 oz 17 gm protein) Seafood (Crabmeat, Shrimp, Lobster) 1 oz 6g Protein shakes (read labels) Premier Protein or generic [employer] Equate, Aldi Elevate, Meijer High Performance- 30g protein & 1g carb - meal replacement Premier Protein plant protein powder - 25 gm protein, 0 suger/2 carb Vanilla and chocolate (not a meal replacement) Fairlife 30 gram protein - 30g protein & 3g carb BOOST Glucose Control Max 30g Protein Nutritional Drink - 30g protein & 1 carb - meal replacement Slimfast High Protein - 20g protein & 1g carb Ensure Max Protein Nutrition Shake 30g protein & 2 carb Protein AND carbs Beef/[place] Jerky 1 oz dried 10-15g protein - check carb count, can be high if sugar added Slim Noel - 6 gm protein and 4 net carb Great Value original turkey sausage sticks - 7 gm protein and 2 gm carb Imitation Crab Meat 1 oz - 2g protein & 4g carb Milk, skim 2% or 1% 8 oz - 8g protein & 12g carb Portuguese yogurt Full Fat Portuguese Yogurt 1 cup - 20.4g protein & 9.1g carb 2% Portuguese Yogurt 1 cup - 22.7g protein & 9.1g carb 0% (fat-free) Portuguese Yogurt - 1 cup 24g protein & 9.3g carb :ratio, KETO Friendly Dairy Snack 1 single svg - 15g protein & 2g carb :ratio Protein 1 single svg - 25g protein & 8g carb Dannon Light + Fit 1 single csvg - 12g protein & 9g carb Two Good Lowfat Portuguese Yogurt, [place], Lower Sugar - 12g protein & 2g carb Oikos Triple Zero Portuguese Nonfat Yogurt 1 single svg - 15g protein & 7g carb Aldi Portuguese yogurt 10g protein & 4 g carb Cheese each oz Brie 5.9g protein & 0.1g carb Cheddar Cheese 7g protein & 0.4g carb Mozzarella Cheese 6.3g protein & 0.6g carb Nik Cheese 6.7g protein & 0.7g carb Parmesan Cheese 10g protein & 0.9g carb Cream Cheese 1.7g protein & 1.2g carb Feta 4g protein & 1.2g carb Greek Cheese 7.6g protein & 1.5g carb Fisher s Low Fat Cottage Cheese 1/2cup 12g protein & 4g carb Legumes Lentils cup 9g protein & 20g carb Lo beans cup 7g protein & 20g carb Kidney, Black, [place], Cannellini beans cup 8g protein & 20g carb Soybeans 1/2 c 14g protein & 8.5g carb Peanut butter, natural 2 Tbsp 7-8g protein & 4g net carbs, 190 calories [place]foot milk, unsweetened 8 oz 1g protein & 2g carb Soy milk 8 oz 3.5g protein & 1.6g carb Tofu 1/2 cup 10g protein & 2.3g carb Nuts and Seeds per oz Pumpkin Seeds - 6.9g protein & 5g carb Almonds - 5.9g protein & 6.1g carb [place] Seeds - 5.8g protein & 5.6g carb Pistachios - 5.8g protein & 7.8g carb Cashews - 5.1g protein & 9.2g carb Walnuts - 4.3g protein & 3.8g carb Hazelnuts - 4.2g protein & 4.7g carb [place] Nuts - 4.0g protein & 3.4g carb Pecans - 2.6g protein & 3.9g carb Peanuts - 7g protein & 4.6g carb When you take medications like TOPAMAX and ZONEGRAN they tend to cause an imbalance in your pH levels. This imbalance causes side effects like foggy head, forgetfulness, confusion, difficulty recalling simple words or names, and tingling in your hands and feet. Citric acid may help to neutralize the imbalance caused by the medication. Also stay hydrated! With low fluid intake, urine output is decreased and urine flow is slower, both of which increase the risk of pH imbalance. Avoid soda as well. Increase the proportion of fruits and vegetables and reduce your daily protein intake to 0.8-1.0 g per kg body weight. [employer] Link: [employer] Hydration Sohalo : TRUE LEMON Water Enhancer True Lemon (GoMoto) If neither of these are effective you can try: Euphasia https://healthymindbodyandspirit.c om/pages/limmxfs-fypi-yskkyvb Sources https://www.ncbi.nlm.nih.gov/pmc/a rticles/EFH8972938/ https://www.ncbi.nlm.nih.gov/pmc/a rticles/EXW2617079/ 10 Easy Ways to Increase Your NEAT (Non-exercise activity thermogenesis) One of the best ways to lose those those extra pounds for good and keep it off is to make daily habit changes that can help burn those extra calories during activities you would normally do regardless. What I am talking about is increasing your NEAT. What is NEAT? It is Non-exercise activity thermogenesis. It is the activity that you are able to add into your daily routine outside of the gym that can help you in the long run. It can help you lose those ten pounds not this month, but over the next 12 months. In the grand scheme of things, would you not want to be ten pounds senior analyst come next year? Now it is time for me to show you how. For a moment, imagine for me that you we are back before you started going to the gym. Imagine you were slowly gaining about a pound every two to three months. After 3 years of not exercising or working out you realized you are 10 pound heavier. All your clothes feel a little tighter and you just do not feel good in your own skin like how you used to. One day climbing up a flight of stairs you become way too easily winded, and not just that, but your knees are hurting. For some people, this is all too real. That was the wake up call to go to the gym to start exercising. Yet, why do you exercise when you gain weight? The reason is because you were taught that when you begin exercising, you begin to lose the weight you previously put on. The reason for the weight loss is because you have started to burn more calories compared to what you have consumed through your diet. When it comes to fat loss, you want to have a calorie deficit of about 500 calories a day so that about after a week you will be 3500 calories short. Your body is naturally programmed then to pull those calories of energy out of your stored fat. One pound of fat is roughly equal to 3500 calories. So when you burn those calories at the gym and create that calorie deficit you are burning through that stored fat. Another way you can create a calorie deficit is by changing up your diet. If you reduce the calories you eat by a small margin to create a 500 calories deficit then the same result will happen of burning a pound of stored body fat for every 3500 calories you did not eat that you may normally would have. Now finally for NEAT to come into play. We are going through your normal daily life but now you add some extra Non-exercise activity thermogenesis. You add some daily habits that helped you burn extra calories throughout your day. These extra calories that you burn add to your total daily energy expenditure which means that instead of those calories you were eating becoming stored as fat, you burned those calories, without even stepping into a gym. That is the power of NEAT. Sadly, most individuals do not know of the power of NEAT so most people do gain those ten pounds. Still, NEAT can help you lose that weight gained. Let s say now that you know the power of NEAT you want to incorporate it as part of your daily life and habits with that a positive change of dietary habits and a new exercise program. So let us say you are at the gym going three times a week and hike once a week burning a total of 2500 calories at the end of the week. With that you are improving your eating habits and diet and that has created an additional 2000 calories deficit at the end of the week. So so far a nice sum total of 4500 calories burned in just a single week. Now with a little magical NEAT you add just 100 calories a day of extra activity into your life and therefore an extra 700 calories that you burned in one week! So now you have 5200 calories a week burned between your diet, exercise, and nonexercise activity. Now over a course of a month you have 28,000 calories burned. Over three months time you have 84,000 calories. If you were to burn and have a calories deficit of 84,000 calories that is a sum total of 24 pounds lost! Now if you did not include NEAT into that math you would have lost 21.6 pounds. Still a great amount lost, but after a year you are missing out on those extra 10 pounds you could have lost by barely making a change. Here are 10 examples of NEAT to help you lose weight: WALKING: Walking is an easy activity nearly every one of us can accomplish. All we have to do is increase the number of steps we walk everyday and over time the extra energy used comes from our stores fat. It is also fairly simple to increase the number of steps you walk throughout the day. You can park your car down the street from your house. You can park at the farthest spot when shopping. You can go for an easy morning walk while you sip your morning cup of Neeraj. All the steps will add up over time. COOKING: Most of us cook at least one meal throughout the day. During this time you can add in some simple movements. When I cook, I like to squat deep when I grab a ferrer out of the cabinet. When I m reaching for the spices on the shelf I throw in a push-up. When I m waiting for the vegetables to steam I simply bounce or fidget in place while reading or going on social media. The point is while I m coming I am not standing still. For those times I m eating out, I will fidget in line by bouncing on one foot for a bit then switch it up. Sometimes I ll squat while waiting for my coffee. Again, the point is I keep moving. TELEVISION: I watch TV. I would even be lying to you if I said I hardly watch TV. I would be lying to you if I said I sit or lay down and watch TV. When watching my programs or sports on TV I am stretching. I lay down and stretch out my muscles. I ll use the couch as a steady surface to stretch my back out, my shoulders out, my legs out. I never just sit down and watch TV. I stretch and stay active and honestly it is one of the best habits I have created. It has helped me stay loose and I no longer feel guilty about watching TV. It is a win win. Morning Routine: Everyone has a morning routine that they go through during their work week. This is an easy time to add some extra movement to your day. The moment you get out of bed, do some push-ups. You do not even have to define a specific amount. Just drop down and give me however many you feel like. When you go to start the coffee pot, I want you to give me some jumping jacks. The moment you go and brush your teeth, give me some squats before you start or maybe even while you are brushing your teeth if you feel like really multitasking. Going out to get the morning paper, I want a burpee when you get to that paper. Just add in some simple movements or tasks that are associated with every stop along your morning routine. Evening Routine Same concept of your morning routine except I want you to do more stretching and more of a yoga pose idea with it. When you are going around the house shutting off the lights, take a deep breath and reach up and then down towards your toes. Locking the doors, I want a nice deep lunge stretch to help loosen up those hip flexors. Do simple more relaxing movements. Not only will these little movements help burn those extra calories, they are going to help mentally and physically relax you before you sleep. Your Car Most people are getting in and out of their car at least once a day. Every time you are getting into your car, add some movement. You can do jumping jacks, lunges, squats, some hip hinges, do something. I have known people where they will do as many reps of squats for each minute they expect to be driving. If they were going on a long road trip, they would break up those squats during the rest breaks. This is a very simple way to add in those extra calories burned. Personally I like to try getting into and out of my car without using my hands. Some days I will try to mix up only using one foot or the other with no hands trying to carefully slid out of the car. Ditch the Car: If you do not have a crazy commute to work or when running errands or even going out to eat ditch the car for the evening. Many people forget that they can walk places and it will in fact not take long at all. The walk will make you feel good, burn calories, and will help out our environment. Personally I try to ride my bike to work as often as I can. I know others who go and walk to the grocery store when buying only a handful of items. I know of others who take an uber to work in the morning and walk the distance home. The point is at least once a week ditch the car and ride your bike, walk, skate, or even run somewhere you need to go. Work Do not just sit there. If you have a job where you end up sitting down for an extended period of time you are doing harm to yourself. Luckily you can save yourself. Every 5 minutes you sound get up and stand up and squat down and then sit right back down. Anytime you have a break in your workflow, do a little twist in the chair stretching your back out. If you are stuck there reading your emails, add some arm circles in. You won t even have to get out of your chair for those arm circles. All the little movements add up. So please, do it for yourself and do not just sit there. You & Your Significant Other You don t have to be to have a significant other. Exercising with a bestie, a girlfriend or boyfriend or even a pet is a great way to spend time and feel great. Who does not like a long romantic walk down the beach in the sand? Who would not want to go walk or a hike and enjoy nature? Go and leo your dog on all four and be a dog for fifteen minutes. They will enjoy it and so will you. The point is get moving with the your better half and you will be better for it. It will definitely bring the two of you closer as well. Clean Everything Cleaning is a very efficient way to multitask. You are getting those extra calories burned while cleaning whatever you wanted clean anyways. The fun part is make a game out of the cleaning. When I wash my car I see absolutely how fast I can get my car washed and clean. When I begin to vacuum I try to do everything while balancing on one leg or the other. When I sweep my house, I senior advisory the broomstick like I am trying to break it. The point is make it fun to clean and make it a good challenge. I put my laundry basket away from the washer and take jump shots with all my clothes into the washer. This is my favorite one and I highly recommend it if you have a firestop/containment worker. The matos is that you remember why you are doing every thing. Keep in mind your own goal. I want you to remember on why you are trying to lose weight in the first place. If you focus on that goal and remember to have fun with all these easy steps and tricks to add those extra calories burned, you will get to where you want to be and have fun in the process. Losing weight is not necessarily hard work. It can be fun if you are open to the idea and willing to look a bit goofy at times. I promise you though every one of these 10 ways to increase your daily NEAT will be effective and will all add up in the end. A great book that I would recommend for anyone reading is the Slight Edge. The book s main theme is that it is the little things done daily that lead to the biggest change. http://www.[employer]/10-easy-w lrw-ke-sgimipht-your-neat/ HOW DOES CHRONIC STRESS AFFECT EATING PATTERNS? Chronic stress can affect the body s use of calories and nutrients in various ways. It raises the body s metabolic needs and increases the use and excretion of many nutrients. If one does not eat a nutritious diet, a deficiency may occur.Stress also creates a chain reaction of behaviors that can negatively affect eating habits, leading to other health problems down the road. Stress places a greater demand on the body for oxygen, energy, and nutrients. Yet people who experience chronic stress may crave comforting foods such as highly processed snacks or sweets, which can be high in unhealthy fats, sugar, and calories but low in micronutrients. People feeling stress may lack the time or motivation to prepare nutritious, balanced meals, or may skip or forget to eat meals. Stress can disrupt sleep by causing senior analyst sleep or more frequent awakenings, which leads to fatigue during the day. In order to cope with daytime fatigue, people may use stimulants to increase energy such as with caffeine or high-calorie snack foods. The reverse may also be true that poor-quality sleep is itself a stressor. Studies have found that sleep restriction causes a significant increase in cortisol levels. During acute stress, adrenaline suppresses the appetite.But with chronic stress, elevated levels of cortisol may cause cravings, particularly for foods high in sugar, fat, and calories, which may then lead to weight gain. Cortisol favors the accumulation of fat in the belly area, also called central adiposity, which is associated with insulin resistance and an increased risk of type 2 diabetes, cardiovascular disease, and certain breast cancers.4,6-8 It also lowers levels of the hormone leptin (that promotes satiety) while increasing the hormone ghrelin (that increases appetite). https://cdn1.[facility].edu/wp-co ntent/uploads/sites//Tenzina bshuDjmmxqRqlhw20-49.1.pdf Educational Podcasts: The Dr. Yang Show- Real Conversations about Health and Weight * August 19, 2023 what you need to know about Carbohydrates and Weight *July 29, 2023 Protein why we need it and how to eat more Protein *July 08, 2023 Menopause and Weight Gain- All the Details with Dr. Jayla Campbell *June 17, 2023 The Science Behind Ultra Processed Food and Weight Gain *April 01, 2023 Effects of sleep and Stress of Weight and Health with Dr. Radha Pichardo-DO Alec * March 25, 2023 Recognizing and Resolving Emotional Eating with Dr. Hi Obesity: A Disease *March 25, 2023 Episode 80 Clinical conversations: The Role of Physical Activity in Weight Management * July 05, 2023 Episode 84 Clinical Conversations: NAFLD, The [place] Disease of Metabolic Syndrome *July 042019 Episode 20 Article Reviews: The Role Ultra Processed Diets Play in Weight Gain *June 15, 2020 Episode 21 Clinical Conversations: Breaking Weight Plateaus How To Swap Sweet Treats This is the most important week yet. What the heck do you do when you want something sweet!??!! DO NOT: Focus on giving up your favorite treats. DO: Find new favorites without all the added sugar. The goal is not to just white knuckle it & force yourself to not eat sweets, but rather to find new things to ADD & enjoy. 3 SWEET TOOTH HELPERS: 1) Natural Sugars Foods w/ natural sugar can help a sweet tooth while adding vitamins & minerals. examples: fresh fruit, unsweetened frozen fruit, plain 2% yogurt 2) Fats Fat is satisfying so it can give a quick pleasure fix without blood sugar spikes. examples: nut butter, coconut butter, nuts, seeds 3) Foods w/ Sweet Flavor Some foods have a sweet flavor on your taste buds, but don't actually have sugar. examples: cinnamon, cocoa powder/nibs, vanilla, unsweetened coconut flakes GET READY TO SUGAR SWAP! Breaking up with sugar doesn't mean the fun is over! PRODUCT SWAPS Restock your fav condiments & packaged goods to the no added sugar versions such as salad dressing, ketchup, BBQ sauce, hot sauce, pasta sauce, yogurt, oatmeal, plant milk & nut butter. PS: This doesn't mean artificially sweetened products, just ones with no added sugar. Check those labels. QUICKIE SWAPS Here are some of my favorite sugar swaps for when a craving hits: flavored creamer & sugar in coffee SWAP: coconut milk & cinnamon in coffee hart flavored yogurt SWAP: plain 2% yogurt w/ mashed berries chocolate chip cookie SWAP: stevia-sweetened dark chocolate apple cinnamon flavored oatmeal SWAP: oats w/ diced apple, cinnamon & almonds store bought protein bar SWAP: hard boiled egg ice cream SWAP: frozen banana slices w/ cocoa powder soda pop SWAP: sparkling water w/ shot of 100% fruit juice granola SWAP: DIY trail mix (chopped nuts, unsweetened coconut flakes, cocoa nibs) fruity candy SWAP: unsweetened dried konrad kettle corn SWAP: popcorn drizzled w/ nut butter & cinnamon sundae SWAP: fruit topped w/ real whipped cream (shake whipping cream & vanilla in cold rea jar) peanut butter & jelly SWAP: strawberries dipped in nut butter mint dwayne SWAP: plain 2% yogurt w/ peppermint stevia & cocoa nibs RECIPE SWAPS Here are some of my favorite sugar swap recipes w/ no added sugar: protein bites (recipe link) froyo bark (recipe link) chocolate jai pudding (recipe link) chickpea cookie dough (recipe link) banana bread muffins (recipe link) 3-ingredient banana bread cookies (recipe link) pumpkin spice nice cream (recipe link) fruit sorbet (recipe link) freezer fudge (recipe link) chocolate magic shell (recipe link) FAQ Q: If I really want something sweet, can I use sweeteners? A: Yes. I recommend stevia or monk fruit since they are zero-calorie, naturally-based sweeteners. Use them only sparingly since they can keep you programmed to like foods with intense sweetness. Aim to avoid artificial sweeteners like you would find in pink (saccharin), blue (aspartame), and yellow (sucralose) packets. Q: Can I ever eat sugar again?? A: HELL YES! This isn't just about avoidance. It's about being awake. Making choices of when to enjoy sugar on your own terms. You controlling it & not the other way around. My favorite personal solution: SOCIAL sweets/treats/alcohol which is about eating in situations that bring RUTH. Sugar School Lesson 3: How To Swap Sweet Treats MICHELLE [employer] Quick Hit) Foods that fight inflammation August 19, 2020 Doctors are learning that one of the best ways to reduce inflammation lies not in the medicine cabinet, but in the refrigerator. By following an anti-inflammatory diet you can fight off inflammation for good. What does an anti-inflammatory diet do? Your immune system becomes activated when your body recognizes anything that is foreign--such as an invading microbe, plant pollen, or chemical. This often triggers a process called inflammation. Intermittent bouts of inflammation directed at truly threatening invaders protect your health. However, sometimes inflammation persists, day in and day out, even when you are not threatened by a foreign invader. That's when inflammation can become your enemy. Many major diseases that plague us--including cancer, heart disease, diabetes, arthritis, depression, and Alzheimer's--have been linked to chronic inflammation. One of the most powerful tools to combat inflammation comes not from the pharmacy, but from the grocery store. Many experimental studies have shown that components of foods or beverages may have anti-inflammatory effects, says Dr. Dany Pat, professor of nutrition and epidemiology in the Department of Nutrition at the [employer]. Choose the right anti-inflammatory foods, and you may be able to reduce your risk of illness. Consistently pick the wrong ones, and you could accelerate the inflammatory disease process. Get simple tips to fight inflammation and stay healthy -- from [employer] experts. Protect yourself from the damage of chronic inflammation Click here to learn more Foods that cause inflammation Try to avoid or limit these foods as much as possible: refined carbohydrates, such as white bread and pastries Bel[place]an fries and other fried foods soda and other sugar-sweetened beverages red meat (burgers, steaks) and processed meat (hot dogs, sausage) margarine, shortening, and lard The health risks of inflammatory foods Not surprisingly, the same foods on an inflammation diet are generally considered bad for our health, including sodas and refined carbohydrates, as well as red meat and processed meats. Some of the foods that have been associated with an increased risk for chronic diseases such as type 2 diabetes and heart disease are also associated with excess inflammation, Dr. Pat says. It's not surprising, since inflammation is an important underlying mechanism for the development of these diseases. Unhealthy foods also contribute to weight gain, which is itself a risk factor for inflammation. Yet in several studies, even after researchers took obesity into account, the link between foods and inflammation remained, which suggests weight gain isn't the sole drop hammer pile driver operator. Some of the food components or ingredients may have independent effects on inflammation over and above increased caloric intake, Dr. Pat says. Anti-inflammatory foods An anti-inflammatory diet should include these foods: tomatoes olive oil green leafy vegetables, such as spinach, kale, and collards nuts like almonds and walnuts fatty fish like salmon, mackerel, tuna, and sardines fruits such as strawberries, blueberries, cherries, and oranges Benefits of anti-inflammatory foods On the flip side are beverages and foods that reduce inflammation, and with it, chronic disease, says Dr. Pat. He notes in particular fruits and vegetables such as blueberries, apples, and leafy greens that are high in natural antioxidants and polyphenols--protective compounds found in plants. Studies have also associated nuts with reduced markers of inflammation and a lower risk of cardiovascular disease and diabetes. Coffee, which contains polyphenols and other anti-inflammatory compounds, may protect against inflammation, as well. Anti-inflammatory diet To reduce levels of inflammation, aim for an overall healthy diet. If you're looking for an eating plan that closely follows the tenets of anti-inflammatory eating, consider the Mediterranean diet, which is high in fruits, vegetables, nuts, whole grains, fish, and healthy oils. In addition to lowering inflammation, a more natural, less processed diet can have noticeable effects on your physical and emotional health. A healthy diet is beneficial not only for reducing the risk of chronic diseases, but also for improving mood and overall quality of life, Dr. Pat says. Tips to reduce food cravings Aim to eat nutritionally balanced meals. Foods with protein and fiber provide longer-lasting satisfaction. Avoid long stretches of not eating. Eat a nutritious meal or snack every 3-4 hours. Waiting too long to eat because you are busy or distracted may only lead to stronger hunger when you do eat and the risk of overeating. Also keep in mind that if your bedtime is more than 4 hours after you ve finished dinner, you may feel hungry again; to avoid snacking late night which can disrupt sleep, try to go to bed earlier when possible. Avoid choosing hyperpalatable or ultraprocessed snacks that are high in sodium, fat, sugar, and calories but low in nutrition. These are the types of foods that trigger the brain reward pathways and cause cravings to eat more. Choose satisfying, less-processed snacks like fresh fruit, a handful of nuts, or a cup of low-sugar yogurt. Limit environmental cues to eat, such as scrolling through social media posts about food or [employer] (online videos of people eating enormous quantities of decadent meals) and watching television cooking shows. In an office setting, detour away from the candy bowls and platters of bagels and treats that may be sitting in the break room. Food cravings are sometimes learned behaviors that are associated with an event or environment, such as craving potato chips while watching late-night television. If so, research suggests that it is possible to unlearn the behavior and reduce the craving by avoiding the food completely for an extended time. [25] In addition, you can try changing the association by changing your evening routine with a different activity like listening to an audiobook or podcast. Practice mindfulness when sensing a growing craving. Ask yourself if you are stressed, bored, angry? If so, try instead doing breathing exercises, talking a brisk 5-10 minute walk, listening to a meditation jose m or podcast, or playing a few favorite songs. If you can distract yourself from eating for about 5-7 minutes, the craving may subside. Learn more about mindful eating. Try other dopamine-inducing activities such as taking a walk in nature on a va day, dancing, or watching a funny video and laughing aloud! documented in this encounter [facility] Evaluation note No assessment inform ation available [facility] Work Phone: Evaluation note Diagnosis Essential hypertension- Primary Unspecified essential hypertension Prediabetes Other abnormal glucose Class 3 severe obesity with serious comorbidity and body mass index (BMI) of 40.0 to 44.9 in adult, unspecified obesity type (HCC) Screening cholesterol level Screening for lipoid disorders Screening for deficiency anemia Screening for other and unspecified deficiency anemia Screening for diabetes mellitus Screening for metabolic disorder Screening for thyroid disorder Encounter for vitamin deficiency screening Screening for other and unspecified endocrine, nutritional, metabolic, and immunity disorders [facility] Essential hypertension- Primary Unspecified essential hypertension Hypercholesteremia Pure hypercholesterolemia Class 3 severe obesity with serious comorbidity and body mass index (BMI) of 40.0 to 44.9 in adult, unspecified obesity type (HCC) [facility] Essential (primary) hypertension Unspecified essential hypertension documented in this encounter [facility] Work Phone: Evaluation note* Diagnosis 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 Neoplasm of uncertain behavior of skin [facility] Name Dates Details Patient Instructions Indication:BMI 38.0-38.9,adult Start:17-Oct-2021 Instruction Type:Provider Instructions for Treatment How to Access Health Informa tion Online using Patient Portal and [employer] Apps Indication:BMI 38.0-38.9,adult Start:17-Oct-2021 Instruction Type:Patient Education How to access health informa tion online Indication:Nonsmoker Start:17-May-2020 Instruction Type:Patient Education How to access health informa tion online - Detail Indication:Nonsmoker Start:17-May-2020 Instruction Type:Patient Education Patient Instructions Indication:Nonsmoker Start:17-May-2020 Instruction Type:Provider Instructions for Treatment How to access health informa tion online Indication:Nonsmoker Start:20-Jan-2020 Instruction Type:Patient Education How to access health informa tion online - Detail Indication:Nonsmoker Start:20-Jan-2020 Instruction Type:Patient Education Patient Instructions Indication:Nonsmoker Start:20-Jan-2020 Instruction Type:Provider Instructions for Treatment How to access health informa tion online Indication:Nonsmoker Start:21-Oct-2019 Instruction Type:Patient Education How to access health informa tion online - Detail Indication:Nonsmoker Start:21-Oct-2019 Instruction Type:Patient Education Patient Instructions Indication:BMI 38.0-38.9,adult Start:21-Oct-2019 Instruction Type:Provider Instructions for Treatment How to access health informa tion online Indication:Nonsmoker Start:07-Oct-2019 Instruction Type:Patient Education How to access health informa tion online - Detail Indication:Nonsmoker Start:07-Oct-2019 Instruction Type:Patient Education Patient Instructions Indication:BMI 38.0-38.9,adult Start:07-Oct-2019 Instruction Type:Provider Instructions for Treatment How to access health informa tion online Indication:Nonsmoker Start:02-Oct-2019 Instruction Type:Patient Education How to access health informa tion online - Detail Indication:Nonsmoker Start:02-Oct-2019 Instruction Type:Patient Education Patient Instructions Indication:Nonsmoker Start:02-Oct-2019 Instruction Type:Provider Instructions for Treatment How to access health informa tion online Indication:Nonsmoker Start:15-Aug-2018 Instruction Type:Patient Education How to access health informa tion online - Detail Indication:Nonsmoker Start:15-Aug-2018 Instruction Type:Patient Education Patient Instructions Indication:Nonsmoker Start:15-Aug-2018 Instruction Type:Provider Instructions for Treatment How to access health informa tion online Indication:Nonsmoker Start:06-Aug-2018 Instruction Type:Patient Education How to access health informa tion online - Detail Indication:Nonsmoker Start:06-Aug-2018 Instruction Type:Patient Education Patient Instructions Indication:Nonsmoker Start:06-Aug-2018 Instruction Type:Provider Instructions for Treatment How to access health informa tion online Indication:Nonsmoker Start:18-Apr-2018 Instruction Type:Patient Education How to access health informa tion online - Detail Indication:Nonsmoker Start:18-Apr-2018 Instruction Type:Patient Education Patient Instructions Indication:Nonsmoker Start:18-Apr-2018 Instruction Type:Provider Instructions for Treatment How to access health informa tion online Indication:Hyperthyroidism Start:04-Oct-2017 Instruction Type:Patient Education How to access health informa tion online - Detail Indication:Hyperthyroidism Start:04-Oct-2017 Instruction Type:Patient Education Patient Instructions Indication:BMI 40.0-44.9, adult Start:04-Oct-2017 Instruction Type:Provider Instructions for Treatment How to access health informa tion online Indication:Unspecified otitis externa (Renamed from Otitis externa) Start:08-May-2017 Instruction Type:Patient Education How to access health informa tion online - Detail Indication:Unspecified otitis externa (Renamed from Otitis externa) Start:08-May-2017 Instruction Type:Patient Education Patient Instructions Indication:Unspecified otitis externa (Renamed from Otitis externa) Start:08-May-2017 Instruction Type:Provider Instructions for Treatment How to access health informa tion online Indication:Hyperthyroidism Start:22-Jul-2015 Instruction Type:Patient Education How to access health informa tion online - Detail Indication:Hyperthyroidism Start:22-Jul-2015 Instruction Type:Patient Education Patient Instructions Indication:Hyperthyroidism Start:22-Jul-2015 Instruction Type:Provider Instructions for Treatment How to access health informa tion online Indication:Hyperthyroidism Start:22-Apr-2015 Instruction Type:Patient Education How to access health informa tion online - Detail Indication:Hyperthyroidism Start:22-Apr-2015 Instruction Type:Patient Education Patient Instructions Indication:Hyperthyroidism Start:22-Apr-2015 Instruction Type:Provider Instructions for Treatment Patient Instructions Indication:Physical exam, routine Start:28-Mar-2015 Instruction Type:Provider Instructions for Treatment [facility] Work Phone: Instructions* Name Dates Details Patient Instructions Indication:BMI 38.0-38.9,adult Start:17-Oct-2021 Instruction Type:Provider Instructions for Treatment How to Access Health Informa tion Online using Patient Portal and [employer] Apps Indication:BMI 38.0-38.9,adult Start:17-Oct-2021 Instruction Type:Patient Education How to access health informa tion online Indication:Nonsmoker Start:17-May-2020 Instruction Type:Patient Education How to access health informa tion online - Detail Indication:Nonsmoker Start:17-May-2020 Instruction Type:Patient Education Patient Instructions Indication:Nonsmoker Start:17-May-2020 Instruction Type:Provider Instructions for Treatment How to access health informa tion online Indication:Nonsmoker Start:20-Jan-2020 Instruction Type:Patient Education How to access health informa tion online - Detail Indication:Nonsmoker Start:20-Jan-2020 Instruction Type:Patient Education Patient Instructions Indication:Nonsmoker Start:20-Jan-2020 Instruction Type:Provider Instructions for Treatment How to access health informa tion online Indication:Nonsmoker Start:21-Oct-2019 Instruction Type:Patient Education How to access health informa tion online - Detail Indication:Nonsmoker Start:21-Oct-2019 Instruction Type:Patient Education Patient Instructions Indication:BMI 38.0-38.9,adult Start:21-Oct-2019 Instruction Type:Provider Instructions for Treatment How to access health informa tion online Indication:Nonsmoker Start:07-Oct-2019 Instruction Type:Patient Education How to access health informa tion online - Detail Indication:Nonsmoker Start:07-Oct-2019 Instruction Type:Patient Education Patient Instructions Indication:BMI 38.0-38.9,adult Start:07-Oct-2019 Instruction Type:Provider Instructions for Treatment How to access health informa tion online Indication:Nonsmoker Start:02-Oct-2019 Instruction Type:Patient Education How to access health informa tion online - Detail Indication:Nonsmoker Start:02-Oct-2019 Instruction Type:Patient Education Patient Instructions Indication:Nonsmoker Start:02-Oct-2019 Instruction Type:Provider Instructions for Treatment How to access health informa tion online Indication:Nonsmoker Start:15-Aug-2018 Instruction Type:Patient Education How to access health informa tion online - Detail Indication:Nonsmoker Start:15-Aug-2018 Instruction Type:Patient Education Patient Instructions Indication:Nonsmoker Start:15-Aug-2018 Instruction Type:Provider Instructions for Treatment How to access health informa tion online Indication:Nonsmoker Start:06-Aug-2018 Instruction Type:Patient Education How to access health informa tion online - Detail Indication:Nonsmoker Start:06-Aug-2018 Instruction Type:Patient Education Patient Instructions Indication:Nonsmoker Start:06-Aug-2018 Instruction Type:Provider Instructions for Treatment How to access health informa tion online Indication:Nonsmoker Start:18-Apr-2018 Instruction Type:Patient Education How to access health informa tion online - Detail Indication:Nonsmoker Start:18-Apr-2018 Instruction Type:Patient Education Patient Instructions Indication:Nonsmoker Start:18-Apr-2018 Instruction Type:Provider Instructions for Treatment How to access health informa tion online Indication:Hyperthyroidism Start:04-Oct-2017 Instruction Type:Patient Education How to access health informa tion online - Detail Indication:Hyperthyroidism Start:04-Oct-2017 Instruction Type:Patient Education Patient Instructions Indication:BMI 40.0-44.9, adult Start:04-Oct-2017 Instruction Type:Provider Instructions for Treatment How to access health informa tion online Indication:Unspecified otitis externa (Renamed from Otitis externa) Start:08-May-2017 Instruction Type:Patient Education How to access health informa tion online - Detail Indication:Unspecified otitis externa (Renamed from Otitis externa) Start:08-May-2017 Instruction Type:Patient Education Patient Instructions Indication:Unspecified otitis externa (Renamed from Otitis externa) Start:08-May-2017 Instruction Type:Provider Instructions for Treatment How to access health informa tion online Indication:Hyperthyroidism Start:22-Jul-2015 Instruction Type:Patient Education How to access health informa tion online - Detail Indication:Hyperthyroidism Start:22-Jul-2015 Instruction Type:Patient Education Patient Instructions Indication:Hyperthyroidism Start:22-Jul-2015 Instruction Type:Provider Instructions for Treatment How to access health informa tion online Indication:Hyperthyroidism Start:22-Apr-2015 Instruction Type:Patient Education How to access health informa tion online - Detail Indication:Hyperthyroidism Start:22-Apr-2015 Instruction Type:Patient Education Patient Instructions Indication:Hyperthyroidism Start:22-Apr-2015 Instruction Type:Provider Instructions for Treatment Patient Instructions Indication:Physical exam, routine Start:28-Mar-2015 Instruction Type:Provider Instructions for Treatment [facility] Work Phone: Instructions* Name Dates Details Patient Instructions Indication:Nonsmoker Start:14-Mar-2022 Instruction Type:Provider Instructions for Treatment How to Access Health Informa tion Online using Patient Portal and [employer] Apps Indication:Nonsmoker Start:14-Mar-2022 Instruction Type:Patient Education Patient Instructions Indication:BMI 38.0-38.9,adult Start:17-Oct-2021 Instruction Type:Provider Instructions for Treatment How to Access Health Informa tion Online using Patient Portal and [employer] Apps Indication:BMI 38.0-38.9,adult Start:17-Oct-2021 Instruction Type:Patient Education How to access health informa tion online Indication:Nonsmoker Start:17-May-2020 Instruction Type:Patient Education How to access health informa tion online - Detail Indication:Nonsmoker Start:17-May-2020 Instruction Type:Patient Education Patient Instructions Indication:Nonsmoker Start:17-May-2020 Instruction Type:Provider Instructions for Treatment How to access health informa tion online Indication:Nonsmoker Start:20-Jan-2020 Instruction Type:Patient Education How to access health informa tion online - Detail Indication:Nonsmoker Start:20-Jan-2020 Instruction Type:Patient Education Patient Instructions Indication:Nonsmoker Start:20-Jan-2020 Instruction Type:Provider Instructions for Treatment How to access health informa tion online Indication:Nonsmoker Start:21-Oct-2019 Instruction Type:Patient Education How to access health informa tion online - Detail Indication:Nonsmoker Start:21-Oct-2019 Instruction Type:Patient Education Patient Instructions Indication:BMI 38.0-38.9,adult Start:21-Oct-2019 Instruction Type:Provider Instructions for Treatment How to access health informa tion online Indication:Nonsmoker Start:07-Oct-2019 Instruction Type:Patient Education How to access health informa tion online - Detail Indication:Nonsmoker Start:07-Oct-2019 Instruction Type:Patient Education Patient Instructions Indication:BMI 38.0-38.9,adult Start:07-Oct-2019 Instruction Type:Provider Instructions for Treatment How to access health informa tion online Indication:Nonsmoker Start:02-Oct-2019 Instruction Type:Patient Education How to access health informa tion online - Detail Indication:Nonsmoker Start:02-Oct-2019 Instruction Type:Patient Education Patient Instructions Indication:Nonsmoker Start:02-Oct-2019 Instruction Type:Provider Instructions for Treatment How to access health informa tion online Indication:Nonsmoker Start:15-Aug-2018 Instruction Type:Patient Education How to access health informa tion online - Detail Indication:Nonsmoker Start:15-Aug-2018 Instruction Type:Patient Education Patient Instructions Indication:Nonsmoker Start:15-Aug-2018 Instruction Type:Provider Instructions for Treatment How to access health informa tion online Indication:Nonsmoker Start:06-Aug-2018 Instruction Type:Patient Education How to access health informa tion online - Detail Indication:Nonsmoker Start:06-Aug-2018 Instruction Type:Patient Education Patient Instructions Indication:Nonsmoker Start:06-Aug-2018 Instruction Type:Provider Instructions for Treatment How to access health informa tion online Indication:Nonsmoker Start:18-Apr-2018 Instruction Type:Patient Education How to access health informa tion online - Detail Indication:Nonsmoker Start:18-Apr-2018 Instruction Type:Patient Education Patient Instructions Indication:Nonsmoker Start:18-Apr-2018 Instruction Type:Provider Instructions for Treatment How to access health informa tion online Indication:Hyperthyroidism Start:04-Oct-2017 Instruction Type:Patient Education How to access health informa tion online - Detail Indication:Hyperthyroidism Start:04-Oct-2017 Instruction Type:Patient Education Patient Instructions Indication:BMI 40.0-44.9, adult Start:04-Oct-2017 Instruction Type:Provider Instructions for Treatment How to access health informa tion online Indication:Unspecified otitis externa (Renamed from Otitis externa) Start:08-May-2017 Instruction Type:Patient Education How to access health informa tion online - Detail Indication:Unspecified otitis externa (Renamed from Otitis externa) Start:08-May-2017 Instruction Type:Patient Education Patient Instructions Indication:Unspecified otitis externa (Renamed from Otitis externa) Start:08-May-2017 Instruction Type:Provider Instructions for Treatment How to access health informa tion online Indication:Hyperthyroidism Start:22-Jul-2015 Instruction Type:Patient Education How to access health informa tion online - Detail Indication:Hyperthyroidism Start:22-Jul-2015 Instruction Type:Patient Education Patient Instructions Indication:Hyperthyroidism Start:22-Jul-2015 Instruction Type:Provider Instructions for Treatment How to access health informa tion online Indication:Hyperthyroidism Start:22-Apr-2015 Instruction Type:Patient Education How to access health informa tion online - Detail Indication:Hyperthyroidism Start:22-Apr-2015 Instruction Type:Patient Education Patient Instructions Indication:Hyperthyroidism Start:22-Apr-2015 Instruction Type:Provider Instructions for Treatment Patient Instructions Indication:Physical exam, routine Start:28-Mar-2015 Instruction Type:Provider Instructions for Treatment [facility] Work Phone: Instructions* Name Dates Details Patient Instructions Indication:BMI 38.0-38.9,adult Start:11-Apr-2022 Instruction Type:Provider Instructions for Treatment How to Access Health Informa tion Online using Patient Portal and [employer] Indication:BMI 38.0-38.9,adult Start:11-Apr-2022 Instruction Type:Patient Education Patient Instructions Indication:Nonsmoker Start:14-Mar-2022 Instruction Type:Provider Instructions for Treatment How to Access Health Informa tion Online using Patient Portal and [employer] Indication:Nonsmoker Start:14-Mar-2022 Instruction Type:Patient Education Patient Instructions Indication:BMI 38.0-38.9,adult Start:17-Oct-2021 Instruction Type:Provider Instructions for Treatment How to Access Health Informa tion Online using Patient Portal and [employer] Indication:BMI 38.0-38.9,adult Start:17-Oct-2021 Instruction Type:Patient Education How to access health informa tion online Indication:Nonsmoker Start:17-May-2020 Instruction Type:Patient Education How to access health informa tion online - Detail Indication:Nonsmoker Start:17-May-2020 Instruction Type:Patient Education Patient Instructions Indication:Nonsmoker Start:17-May-2020 Instruction Type:Provider Instructions for Treatment How to access health informa tion online Indication:Nonsmoker Start:20-Jan-2020 Instruction Type:Patient Education How to access health informa tion online - Detail Indication:Nonsmoker Start:20-Jan-2020 Instruction Type:Patient Education Patient Instructions Indication:Nonsmoker Start:20-Jan-2020 Instruction Type:Provider Instructions for Treatment How to access health informa tion online Indication:Nonsmoker Start:21-Oct-2019 Instruction Type:Patient Education How to access health informa tion online - Detail Indication:Nonsmoker Start:21-Oct-2019 Instruction Type:Patient Education Patient Instructions Indication:BMI 38.0-38.9,adult Start:21-Oct-2019 Instruction Type:Provider Instructions for Treatment How to access health informa tion online Indication:Nonsmoker Start:07-Oct-2019 Instruction Type:Patient Education How to access health informa tion online - Detail Indication:Nonsmoker Start:07-Oct-2019 Instruction Type:Patient Education Patient Instructions Indication:BMI 38.0-38.9,adult Start:07-Oct-2019 Instruction Type:Provider Instructions for Treatment How to access health informa tion online Indication:Nonsmoker Start:02-Oct-2019 Instruction Type:Patient Education How to access health informa tion online - Detail Indication:Nonsmoker Start:02-Oct-2019 Instruction Type:Patient Education Patient Instructions Indication:Nonsmoker Start:02-Oct-2019 Instruction Type:Provider Instructions for Treatment How to access health informa tion online Indication:Nonsmoker Start:15-Aug-2018 Instruction Type:Patient Education How to access health informa tion online - Detail Indication:Nonsmoker Start:15-Aug-2018 Instruction Type:Patient Education Patient Instructions Indication:Nonsmoker Start:15-Aug-2018 Instruction Type:Provider Instructions for Treatment How to access health informa tion online Indication:Nonsmoker Start:06-Aug-2018 Instruction Type:Patient Education How to access health informa tion online - Detail Indication:Nonsmoker Start:06-Aug-2018 Instruction Type:Patient Education Patient Instructions Indication:Nonsmoker Start:06-Aug-2018 Instruction Type:Provider Instructions for Treatment How to access health informa tion online Indication:Nonsmoker Start:18-Apr-2018 Instruction Type:Patient Education How to access health informa tion online - Detail Indication:Nonsmoker Start:18-Apr-2018 Instruction Type:Patient Education Patient Instructions Indication:Nonsmoker Start:18-Apr-2018 Instruction Type:Provider Instructions for Treatment How to access health informa tion online Indication:Hyperthyroidism Start:04-Oct-2017 Instruction Type:Patient Education How to access health informa tion online - Detail Indication:Hyperthyroidism Start:04-Oct-2017 Instruction Type:Patient Education Patient Instructions Indication:BMI 40.0-44.9, adult Start:04-Oct-2017 Instruction Type:Provider Instructions for Treatment How to access health informa tion online Indication:Unspecified otitis externa (Renamed from Otitis externa) Start:08-May-2017 Instruction Type:Patient Education How to access health informa tion online - Detail Indication:Unspecified otitis externa (Renamed from Otitis externa) Start:08-May-2017 Instruction Type:Patient Education Patient Instructions Indication:Unspecified otitis externa (Renamed from Otitis externa) Start:08-May-2017 Instruction Type:Provider Instructions for Treatment How to access health informa tion online Indication:Hyperthyroidism Start:22-Jul-2015 Instruction Type:Patient Education How to access health informa tion online - Detail Indication:Hyperthyroidism Start:22-Jul-2015 Instruction Type:Patient Education Patient Instructions Indication:Hyperthyroidism Start:22-Jul-2015 Instruction Type:Provider Instructions for Treatment How to access health informa tion online Indication:Hyperthyroidism Start:22-Apr-2015 Instruction Type:Patient Education How to access health informa tion online - Detail Indication:Hyperthyroidism Start:22-Apr-2015 Instruction Type:Patient Education Patient Instructions Indication:Hyperthyroidism Start:22-Apr-2015 Instruction Type:Provider Instructions for Treatment Patient Instructions Indication:Physical exam, routine Start:28-Mar-2015 Instruction Type:Provider Instructions for Treatment [facility]; [facility] Work Phone: Instructions* Name Dates Details Patient Instructions Indication:BMI 38.0-38.9,adult Start:11-Apr-2022 Instruction Type:Provider Instructions for Treatment How to Access Health Informa tion Online using Patient Portal and 3rd [employer] Apps Indication:BMI 38.0-38.9,adult Start:11-Apr-2022 Instruction Type:Patient Education Patient Instructions Indication:Nonsmoker Start:14-Mar-2022 Instruction Type:Provider Instructions for Treatment How to Access Health Informa tion Online using Patient Portal and [employer]rd [employer] Apps Indication:Nonsmoker Start:14-Mar-2022 Instruction Type:Patient Education Patient Instructions Indication:BMI 38.0-38.9,adult Start:17-Oct-2021 Instruction Type:Provider Instructions for Treatment How to Access Health Informa tion Online using Patient Portal and 3rd [employer] Apps Indication:BMI 38.0-38.9,adult Start:17-Oct-2021 Instruction Type:Patient Education How to access health informa tion online Indication:Nonsmoker Start:17-May-2020 Instruction Type:Patient Education How to access health informa tion online - Detail Indication:Nonsmoker Start:17-May-2020 Instruction Type:Patient Education Patient Instructions Indication:Nonsmoker Start:17-May-2020 Instruction Type:Provider Instructions for Treatment How to access health informa tion online Indication:Nonsmoker Start:20-Jan-2020 Instruction Type:Patient Education How to access health informa tion online - Detail Indication:Nonsmoker Start:20-Jan-2020 Instruction Type:Patient Education Patient Instructions Indication:Nonsmoker Start:20-Jan-2020 Instruction Type:Provider Instructions for Treatment How to access health informa tion online Indication:Nonsmoker Start:21-Oct-2019 Instruction Type:Patient Education How to access health informa tion online - Detail Indication:Nonsmoker Start:21-Oct-2019 Instruction Type:Patient Education Patient Instructions Indication:BMI 38.0-38.9,adult Start:21-Oct-2019 Instruction Type:Provider Instructions for Treatment How to access health informa tion online Indication:Nonsmoker Start:07-Oct-2019 Instruction Type:Patient Education How to access health informa tion online - Detail Indication:Nonsmoker Start:07-Oct-2019 Instruction Type:Patient Education Patient Instructions Indication:BMI 38.0-38.9,adult Start:07-Oct-2019 Instruction Type:Provider Instructions for Treatment How to access health informa tion online Indication:Nonsmoker Start:02-Oct-2019 Instruction Type:Patient Education How to access health informa tion online - Detail Indication:Nonsmoker Start:02-Oct-2019 Instruction Type:Patient Education Patient Instructions Indication:Nonsmoker Start:02-Oct-2019 Instruction Type:Provider Instructions for Treatment How to access health informa tion online Indication:Nonsmoker Start:15-Aug-2018 Instruction Type:Patient Education How to access health informa tion online - Detail Indication:Nonsmoker Start:15-Aug-2018 Instruction Type:Patient Education Patient Instructions Indication:Nonsmoker Start:15-Aug-2018 Instruction Type:Provider Instructions for Treatment How to access health informa tion online Indication:Nonsmoker Start:06-Aug-2018 Instruction Type:Patient Education How to access health informa tion online - Detail Indication:Nonsmoker Start:06-Aug-2018 Instruction Type:Patient Education Patient Instructions Indication:Nonsmoker Start:06-Aug-2018 Instruction Type:Provider Instructions for Treatment How to access health informa tion online Indication:Nonsmoker Start:18-Apr-2018 Instruction Type:Patient Education How to access health informa tion online - Detail Indication:Nonsmoker Start:18-Apr-2018 Instruction Type:Patient Education Patient Instructions Indication:Nonsmoker Start:18-Apr-2018 Instruction Type:Provider Instructions for Treatment How to access health informa tion online Indication:Hyperthyroidism Start:04-Oct-2017 Instruction Type:Patient Education How to access health informa tion online - Detail Indication:Hyperthyroidism Start:04-Oct-2017 Instruction Type:Patient Education Patient Instructions Indication:BMI 40.0-44.9, adult Start:04-Oct-2017 Instruction Type:Provider Instructions for Treatment How to access health informa tion online Indication:Unspecified otitis externa (Renamed from Otitis externa) Start:08-May-2017 Instruction Type:Patient Education How to access health informa tion online - Detail Indication:Unspecified otitis externa (Renamed from Otitis externa) Start:08-May-2017 Instruction Type:Patient Education Patient Instructions Indication:Unspecified otitis externa (Renamed from Otitis externa) Start:08-May-2017 Instruction Type:Provider Instructions for Treatment How to access health informa tion online Indication:Hyperthyroidism Start:22-Jul-2015 Instruction Type:Patient Education How to access health informa tion online - Detail Indication:Hyperthyroidism Start:22-Jul-2015 Instruction Type:Patient Education Patient Instructions Indication:Hyperthyroidism Start:22-Jul-2015 Instruction Type:Provider Instructions for Treatment How to access health informa tion online Indication:Hyperthyroidism Start:22-Apr-2015 Instruction Type:Patient Education How to access health informa tion online - Detail Indication:Hyperthyroidism Start:22-Apr-2015 Instruction Type:Patient Education Patient Instructions Indication:Hyperthyroidism Start:22-Apr-2015 Instruction Type:Provider Instructions for Treatment Patient Instructions Indication:Physical exam, routine Start:28-Mar-2015 Instruction Type:Provider Instructions for Treatment [facility]; [facility] Work Phone: Instructions* Name Dates Details Patient Instructions Indication:BMI 38.0-38.9,adult Start:11-Apr-2022 Instruction Type:Provider Instructions for Treatment How to Access Health Informa tion Online using Patient Portal and [employer]rd [employer] Apps Indication:BMI 38.0-38.9,adult Start:11-Apr-2022 Instruction Type:Patient Education Patient Instructions Indication:Nonsmoker Start:14-Mar-2022 Instruction Type:Provider Instructions for Treatment How to Access Health Informa tion Online using Patient Portal and [employer]rd [employer] Apps Indication:Nonsmoker Start:14-Mar-2022 Instruction Type:Patient Education Patient Instructions Indication:BMI 38.0-38.9,adult Start:17-Oct-2021 Instruction Type:Provider Instructions for Treatment How to Access Health Informa tion Online using Patient Portal and [employer]rd [employer] Apps Indication:BMI 38.0-38.9,adult Start:17-Oct-2021 Instruction Type:Patient Education How to access health informa tion online Indication:Nonsmoker Start:17-May-2020 Instruction Type:Patient Education How to access health informa tion online - Detail Indication:Nonsmoker Start:17-May-2020 Instruction Type:Patient Education Patient Instructions Indication:Nonsmoker Start:17-May-2020 Instruction Type:Provider Instructions for Treatment How to access health informa tion online Indication:Nonsmoker Start:20-Jan-2020 Instruction Type:Patient Education How to access health informa tion online - Detail Indication:Nonsmoker Start:20-Jan-2020 Instruction Type:Patient Education Patient Instructions Indication:Nonsmoker Start:20-Jan-2020 Instruction Type:Provider Instructions for Treatment How to access health informa tion online Indication:Nonsmoker Start:21-Oct-2019 Instruction Type:Patient Education How to access health informa tion online - Detail Indication:Nonsmoker Start:21-Oct-2019 Instruction Type:Patient Education Patient Instructions Indication:BMI 38.0-38.9,adult Start:21-Oct-2019 Instruction Type:Provider Instructions for Treatment How to access health informa tion online Indication:Nonsmoker Start:07-Oct-2019 Instruction Type:Patient Education How to access health informa tion online - Detail Indication:Nonsmoker Start:07-Oct-2019 Instruction Type:Patient Education Patient Instructions Indication:BMI 38.0-38.9,adult Start:07-Oct-2019 Instruction Type:Provider Instructions for Treatment How to access health informa tion online Indication:Nonsmoker Start:02-Oct-2019 Instruction Type:Patient Education How to access health informa tion online - Detail Indication:Nonsmoker Start:02-Oct-2019 Instruction Type:Patient Education Patient Instructions Indication:Nonsmoker Start:02-Oct-2019 Instruction Type:Provider Instructions for Treatment How to access health informa tion online Indication:Nonsmoker Start:15-Aug-2018 Instruction Type:Patient Education How to access health informa tion online - Detail Indication:Nonsmoker Start:15-Aug-2018 Instruction Type:Patient Education Patient Instructions Indication:Nonsmoker Start:15-Aug-2018 Instruction Type:Provider Instructions for Treatment How to access health informa tion online Indication:Nonsmoker Start:06-Aug-2018 Instruction Type:Patient Education How to access health informa tion online - Detail Indication:Nonsmoker Start:06-Aug-2018 Instruction Type:Patient Education Patient Instructions Indication:Nonsmoker Start:06-Aug-2018 Instruction Type:Provider Instructions for Treatment How to access health informa tion online Indication:Nonsmoker Start:18-Apr-2018 Instruction Type:Patient Education How to access health informa tion online - Detail Indication:Nonsmoker Start:18-Apr-2018 Instruction Type:Patient Education Patient Instructions Indication:Nonsmoker Start:18-Apr-2018 Instruction Type:Provider Instructions for Treatment How to access health informa tion online Indication:Hyperthyroidism Start:04-Oct-2017 Instruction Type:Patient Education How to access health informa tion online - Detail Indication:Hyperthyroidism Start:04-Oct-2017 Instruction Type:Patient Education Patient Instructions Indication:BMI 40.0-44.9, adult Start:04-Oct-2017 Instruction Type:Provider Instructions for Treatment How to access health informa tion online Indication:Unspecified otitis externa (Renamed from Otitis externa) Start:08-May-2017 Instruction Type:Patient Education How to access health informa tion online - Detail Indication:Unspecified otitis externa (Renamed from Otitis externa) Start:08-May-2017 Instruction Type:Patient Education Patient Instructions Indication:Unspecified otitis externa (Renamed from Otitis externa) Start:08-May-2017 Instruction Type:Provider Instructions for Treatment How to access health informa tion online Indication:Hyperthyroidism Start:22-Jul-2015 Instruction Type:Patient Education How to access health informa tion online - Detail Indication:Hyperthyroidism Start:22-Jul-2015 Instruction Type:Patient Education Patient Instructions Indication:Hyperthyroidism Start:22-Jul-2015 Instruction Type:Provider Instructions for Treatment How to access health informa tion online Indication:Hyperthyroidism Start:22-Apr-2015 Instruction Type:Patient Education How to access health informa tion online - Detail Indication:Hyperthyroidism Start:22-Apr-2015 Instruction Type:Patient Education Patient Instructions Indication:Hyperthyroidism Start:22-Apr-2015 Instruction Type:Provider Instructions for Treatment Patient Instructions Indication:Physical exam, routine Start:28-Mar-2015 Instruction Type:Provider Instructions for Treatment [facility]; [facility] Work Phone: Instructions* Name Dates Details Patient Instructions Indication:BMI 38.0-38.9,adult Start:11-Apr-2022 Instruction Type:Provider Instructions for Treatment How to Access Health Informa tion Online using Patient Portal and [employer]rd [employer] Apps Indication:BMI 38.0-38.9,adult Start:11-Apr-2022 Instruction Type:Patient Education Patient Instructions Indication:Nonsmoker Start:14-Mar-2022 Instruction Type:Provider Instructions for Treatment How to Access Health Informa tion Online using Patient Portal and [employer]rd [employer] Apps Indication:Nonsmoker Start:14-Mar-2022 Instruction Type:Patient Education Patient Instructions Indication:BMI 38.0-38.9,adult Start:17-Oct-2021 Instruction Type:Provider Instructions for Treatment How to Access Health Informa tion Online using Patient Portal and [employer]rd [employer] Apps Indication:BMI 38.0-38.9,adult Start:17-Oct-2021 Instruction Type:Patient Education How to access health informa tion online Indication:Nonsmoker Start:17-May-2020 Instruction Type:Patient Education How to access health informa tion online - Detail Indication:Nonsmoker Start:17-May-2020 Instruction Type:Patient Education Patient Instructions Indication:Nonsmoker Start:17-May-2020 Instruction Type:Provider Instructions for Treatment How to access health informa tion online Indication:Nonsmoker Start:20-Jan-2020 Instruction Type:Patient Education How to access health informa tion online - Detail Indication:Nonsmoker Start:20-Jan-2020 Instruction Type:Patient Education Patient Instructions Indication:Nonsmoker Start:20-Jan-2020 Instruction Type:Provider Instructions for Treatment How to access health informa tion online Indication:Nonsmoker Start:21-Oct-2019 Instruction Type:Patient Education How to access health informa tion online - Detail Indication:Nonsmoker Start:21-Oct-2019 Instruction Type:Patient Education Patient Instructions Indication:BMI 38.0-38.9,adult Start:21-Oct-2019 Instruction Type:Provider Instructions for Treatment How to access health informa tion online Indication:Nonsmoker Start:07-Oct-2019 Instruction Type:Patient Education How to access health informa tion online - Detail Indication:Nonsmoker Start:07-Oct-2019 Instruction Type:Patient Education Patient Instructions Indication:BMI 38.0-38.9,adult Start:07-Oct-2019 Instruction Type:Provider Instructions for Treatment How to access health informa tion online Indication:Nonsmoker Start:02-Oct-2019 Instruction Type:Patient Education How to access health informa tion online - Detail Indication:Nonsmoker Start:02-Oct-2019 Instruction Type:Patient Education Patient Instructions Indication:Nonsmoker Start:02-Oct-2019 Instruction Type:Provider Instructions for Treatment How to access health informa tion online Indication:Nonsmoker Start:15-Aug-2018 Instruction Type:Patient Education How to access health informa tion online - Detail Indication:Nonsmoker Start:15-Aug-2018 Instruction Type:Patient Education Patient Instructions Indication:Nonsmoker Start:15-Aug-2018 Instruction Type:Provider Instructions for Treatment How to access health informa tion online Indication:Nonsmoker Start:06-Aug-2018 Instruction Type:Patient Education How to access health informa tion online - Detail Indication:Nonsmoker Start:06-Aug-2018 Instruction Type:Patient Education Patient Instructions Indication:Nonsmoker Start:06-Aug-2018 Instruction Type:Provider Instructions for Treatment How to access health informa tion online Indication:Nonsmoker Start:18-Apr-2018 Instruction Type:Patient Education How to access health informa tion online - Detail Indication:Nonsmoker Start:18-Apr-2018 Instruction Type:Patient Education Patient Instructions Indication:Nonsmoker Start:18-Apr-2018 Instruction Type:Provider Instructions for Treatment How to access health informa tion online Indication:Hyperthyroidism Start:04-Oct-2017 Instruction Type:Patient Education How to access health informa tion online - Detail Indication:Hyperthyroidism Start:04-Oct-2017 Instruction Type:Patient Education Patient Instructions Indication:BMI 40.0-44.9, adult Start:04-Oct-2017 Instruction Type:Provider Instructions for Treatment How to access health informa tion online Indication:Unspecified otitis externa (Renamed from Otitis externa) Start:08-May-2017 Instruction Type:Patient Education How to access health informa tion online - Detail Indication:Unspecified otitis externa (Renamed from Otitis externa) Start:08-May-2017 Instruction Type:Patient Education Patient Instructions Indication:Unspecified otitis externa (Renamed from Otitis externa) Start:08-May-2017 Instruction Type:Provider Instructions for Treatment How to access health informa tion online Indication:Hyperthyroidism Start:22-Jul-2015 Instruction Type:Patient Education How to access health informa tion online - Detail Indication:Hyperthyroidism Start:22-Jul-2015 Instruction Type:Patient Education Patient Instructions Indication:Hyperthyroidism Start:22-Jul-2015 Instruction Type:Provider Instructions for Treatment How to access health informa tion online Indication:Hyperthyroidism Start:22-Apr-2015 Instruction Type:Patient Education How to access health informa tion online - Detail Indication:Hyperthyroidism Start:22-Apr-2015 Instruction Type:Patient Education Patient Instructions Indication:Hyperthyroidism Start:22-Apr-2015 Instruction Type:Provider Instructions for Treatment Patient Instructions Indication:Physical exam, routine Start:28-Mar-2015 Instruction Type:Provider Instructions for Treatment [facility]; [facility] Work Phone: Instructions* Name Dates Details Patient Instructions Indication:BMI 40.0-44.9, adult Start:26-Jul-2023 Instruction Type:Provider Instructions for Treatment How to Access Health Informa tion Online using Patient Portal and [employer]rd [employer] Apps Indication:BMI 40.0-44.9, adult Start:26-Jul-2023 Instruction Type:Patient Education Patient Instructions Indication:BMI 38.0-38.9,adult Start:11-Apr-2022 Instruction Type:Provider Instructions for Treatment How to Access Health Informa tion Online using Patient Portal and [employer]rd [employer] Apps Indication:BMI 38.0-38.9,adult Start:11-Apr-2022 Instruction Type:Patient Education Patient Instructions Indication:Nonsmoker Start:14-Mar-2022 Instruction Type:Provider Instructions for Treatment How to Access Health Informa tion Online using Patient Portal and [employer]rd [employer] Apps Indication:Nonsmoker Start:14-Mar-2022 Instruction Type:Patient Education Patient Instructions Indication:BMI 38.0-38.9,adult Start:17-Oct-2021 Instruction Type:Provider Instructions for Treatment How to Access Health Informa tion Online using Patient Portal and [employer]rd [employer] Apps Indication:BMI 38.0-38.9,adult Start:17-Oct-2021 Instruction Type:Patient Education How to access health informa tion online Indication:Nonsmoker Start:17-May-2020 Instruction Type:Patient Education How to access health informa tion online - Detail Indication:Nonsmoker Start:17-May-2020 Instruction Type:Patient Education Patient Instructions Indication:Nonsmoker Start:17-May-2020 Instruction Type:Provider Instructions for Treatment How to access health informa tion online Indication:Nonsmoker Start:20-Jan-2020 Instruction Type:Patient Education How to access health informa tion online - Detail Indication:Nonsmoker Start:20-Jan-2020 Instruction Type:Patient Education Patient Instructions Indication:Nonsmoker Start:20-Jan-2020 Instruction Type:Provider Instructions for Treatment How to access health informa tion online Indication:Nonsmoker Start:21-Oct-2019 Instruction Type:Patient Education How to access health informa tion online - Detail Indication:Nonsmoker Start:21-Oct-2019 Instruction Type:Patient Education Patient Instructions Indication:BMI 38.0-38.9,adult Start:21-Oct-2019 Instruction Type:Provider Instructions for Treatment How to access health informa tion online Indication:Nonsmoker Start:07-Oct-2019 Instruction Type:Patient Education How to access health informa tion online - Detail Indication:Nonsmoker Start:07-Oct-2019 Instruction Type:Patient Education Patient Instructions Indication:BMI 38.0-38.9,adult Start:07-Oct-2019 Instruction Type:Provider Instructions for Treatment How to access health informa tion online Indication:Nonsmoker Start:02-Oct-2019 Instruction Type:Patient Education How to access health informa tion online - Detail Indication:Nonsmoker Start:02-Oct-2019 Instruction Type:Patient Education Patient Instructions Indication:Nonsmoker Start:02-Oct-2019 Instruction Type:Provider Instructions for Treatment How to access health informa tion online Indication:Nonsmoker Start:15-Aug-2018 Instruction Type:Patient Education How to access health informa tion online - Detail Indication:Nonsmoker Start:15-Aug-2018 Instruction Type:Patient Education Patient Instructions Indication:Nonsmoker Start:15-Aug-2018 Instruction Type:Provider Instructions for Treatment How to access health informa tion online Indication:Nonsmoker Start:06-Aug-2018 Instruction Type:Patient Education How to access health informa tion online - Detail Indication:Nonsmoker Start:06-Aug-2018 Instruction Type:Patient Education Patient Instructions Indication:Nonsmoker Start:06-Aug-2018 Instruction Type:Provider Instructions for Treatment How to access health informa tion online Indication:Nonsmoker Start:18-Apr-2018 Instruction Type:Patient Education How to access health informa tion online - Detail Indication:Nonsmoker Start:18-Apr-2018 Instruction Type:Patient Education Patient Instructions Indication:Nonsmoker Start:18-Apr-2018 Instruction Type:Provider Instructions for Treatment How to access health informa tion online Indication:Hyperthyroidism Start:04-Oct-2017 Instruction Type:Patient Education How to access health informa tion online - Detail Indication:Hyperthyroidism Start:04-Oct-2017 Instruction Type:Patient Education Patient Instructions Indication:BMI 40.0-44.9, adult Start:04-Oct-2017 Instruction Type:Provider Instructions for Treatment How to access health informa tion online Indication:Unspecified otitis externa (Renamed from Otitis externa) Start:08-May-2017 Instruction Type:Patient Education How to access health informa tion online - Detail Indication:Unspecified otitis externa (Renamed from Otitis externa) Start:08-May-2017 Instruction Type:Patient Education Patient Instructions Indication:Unspecified otitis externa (Renamed from Otitis externa) Start:08-May-2017 Instruction Type:Provider Instructions for Treatment How to access health informa tion online Indication:Hyperthyroidism Start:22-Jul-2015 Instruction Type:Patient Education How to access health informa tion online - Detail Indication:Hyperthyroidism Start:22-Jul-2015 Instruction Type:Patient Education Patient Instructions Indication:Hyperthyroidism Start:22-Jul-2015 Instruction Type:Provider Instructions for Treatment How to access health informa tion online Indication:Hyperthyroidism Start:22-Apr-2015 Instruction Type:Patient Education How to access health informa tion online - Detail Indication:Hyperthyroidism Start:22-Apr-2015 Instruction Type:Patient Education Patient Instructions Indication:Hyperthyroidism Start:22-Apr-2015 Instruction Type:Provider Instructions for Treatment Patient Instructions Indication:Physical exam, routine Start:28-Mar-2015 Instruction Type:Provider Instructions for Treatment [facility] Work Phone: Instructions* Name Dates Details Patient Instructions Indication:BMI 40.0-44.9, adult Start:26-Jul-2023 Instruction Type:Provider Instructions for Treatment How to Access Health Informa tion Online using Patient Portal and 3rd [employer] Apps Indication:BMI 40.0-44.9, adult Start:26-Jul-2023 Instruction Type:Patient Education Patient Instructions Indication:BMI 38.0-38.9,adult Start:11-Apr-2022 Instruction Type:Provider Instructions for Treatment How to Access Health Informa tion Online using Patient Portal and 3rd [employer] Apps Indication:BMI 38.0-38.9,adult Start:11-Apr-2022 Instruction Type:Patient Education Patient Instructions Indication:Nonsmoker Start:14-Mar-2022 Instruction Type:Provider Instructions for Treatment How to Access Health Informa tion Online using Patient Portal and 3rd [employer] Apps Indication:Nonsmoker Start:14-Mar-2022 Instruction Type:Patient Education Patient Instructions Indication:BMI 38.0-38.9,adult Start:17-Oct-2021 Instruction Type:Provider Instructions for Treatment How to Access Health Informa tion Online using Patient Portal and 3rd [employer] Apps Indication:BMI 38.0-38.9,adult Start:17-Oct-2021 Instruction Type:Patient Education How to access health informa tion online Indication:Nonsmoker Start:17-May-2020 Instruction Type:Patient Education How to access health informa tion online - Detail Indication:Nonsmoker Start:17-May-2020 Instruction Type:Patient Education Patient Instructions Indication:Nonsmoker Start:17-May-2020 Instruction Type:Provider Instructions for Treatment How to access health informa tion online Indication:Nonsmoker Start:20-Jan-2020 Instruction Type:Patient Education How to access health informa tion online - Detail Indication:Nonsmoker Start:20-Jan-2020 Instruction Type:Patient Education Patient Instructions Indication:Nonsmoker Start:20-Jan-2020 Instruction Type:Provider Instructions for Treatment How to access health informa tion online Indication:Nonsmoker Start:21-Oct-2019 Instruction Type:Patient Education How to access health informa tion online - Detail Indication:Nonsmoker Start:21-Oct-2019 Instruction Type:Patient Education Patient Instructions Indication:BMI 38.0-38.9,adult Start:21-Oct-2019 Instruction Type:Provider Instructions for Treatment How to access health informa tion online Indication:Nonsmoker Start:07-Oct-2019 Instruction Type:Patient Education How to access health informa tion online - Detail Indication:Nonsmoker Start:07-Oct-2019 Instruction Type:Patient Education Patient Instructions Indication:BMI 38.0-38.9,adult Start:07-Oct-2019 Instruction Type:Provider Instructions for Treatment How to access health informa tion online Indication:Nonsmoker Start:02-Oct-2019 Instruction Type:Patient Education How to access health informa tion online - Detail Indication:Nonsmoker Start:02-Oct-2019 Instruction Type:Patient Education Patient Instructions Indication:Nonsmoker Start:02-Oct-2019 Instruction Type:Provider Instructions for Treatment How to access health informa tion online Indication:Nonsmoker Start:15-Aug-2018 Instruction Type:Patient Education How to access health informa tion online - Detail Indication:Nonsmoker Start:15-Aug-2018 Instruction Type:Patient Education Patient Instructions Indication:Nonsmoker Start:15-Aug-2018 Instruction Type:Provider Instructions for Treatment How to access health informa tion online Indication:Nonsmoker Start:06-Aug-2018 Instruction Type:Patient Education How to access health informa tion online - Detail Indication:Nonsmoker Start:06-Aug-2018 Instruction Type:Patient Education Patient Instructions Indication:Nonsmoker Start:06-Aug-2018 Instruction Type:Provider Instructions for Treatment How to access health informa tion online Indication:Nonsmoker Start:18-Apr-2018 Instruction Type:Patient Education How to access health informa tion online - Detail Indication:Nonsmoker Start:18-Apr-2018 Instruction Type:Patient Education Patient Instructions Indication:Nonsmoker Start:18-Apr-2018 Instruction Type:Provider Instructions for Treatment How to access health informa tion online Indication:Hyperthyroidism Start:04-Oct-2017 Instruction Type:Patient Education How to access health informa tion online - Detail Indication:Hyperthyroidism Start:04-Oct-2017 Instruction Type:Patient Education Patient Instructions Indication:BMI 40.0-44.9, adult Start:04-Oct-2017 Instruction Type:Provider Instructions for Treatment How to access health informa tion online Indication:Unspecified otitis externa (Renamed from Otitis externa) Start:08-May-2017 Instruction Type:Patient Education How to access health informa tion online - Detail Indication:Unspecified otitis externa (Renamed from Otitis externa) Start:08-May-2017 Instruction Type:Patient Education Patient Instructions Indication:Unspecified otitis externa (Renamed from Otitis externa) Start:08-May-2017 Instruction Type:Provider Instructions for Treatment How to access health informa tion online Indication:Hyperthyroidism Start:22-Jul-2015 Instruction Type:Patient Education How to access health informa tion online - Detail Indication:Hyperthyroidism Start:22-Jul-2015 Instruction Type:Patient Education Patient Instructions Indication:Hyperthyroidism Start:22-Jul-2015 Instruction Type:Provider Instructions for Treatment How to access health informa tion online Indication:Hyperthyroidism Start:22-Apr-2015 Instruction Type:Patient Education How to access health informa tion online - Detail Indication:Hyperthyroidism Start:22-Apr-2015 Instruction Type:Patient Education Patient Instructions Indication:Hyperthyroidism Start:22-Apr-2015 Instruction Type:Provider Instructions for Treatment Patient Instructions Indication:Physical exam, routine Start:28-Mar-2015 Instruction Type:Provider Instructions for Treatment [facility] Work Phone: Instructions* Name Dates Details Patient Instructions Indication:BMI 40.0-44.9, adult Start:26-Jul-2023 Instruction Type:Provider Instructions for Treatment How to Access Health Informa tion Online using Patient Portal and 3rd [employer] Apps Indication:BMI 40.0-44.9, adult Start:26-Jul-2023 Instruction Type:Patient Education Patient Instructions Indication:BMI 38.0-38.9,adult Start:11-Apr-2022 Instruction Type:Provider Instructions for Treatment How to Access Health Informa tion Online using Patient Portal and 3rd [employer] Apps Indication:BMI 38.0-38.9,adult Start:11-Apr-2022 Instruction Type:Patient Education Patient Instructions Indication:Nonsmoker Start:14-Mar-2022 Instruction Type:Provider Instructions for Treatment How to Access Health Informa tion Online using Patient Portal and [employer]rd [employer] Apps Indication:Nonsmoker Start:14-Mar-2022 Instruction Type:Patient Education Patient Instructions Indication:BMI 38.0-38.9,adult Start:17-Oct-2021 Instruction Type:Provider Instructions for Treatment How to Access Health Informa tion Online using Patient Portal and [employer]rd [employer] Apps Indication:BMI 38.0-38.9,adult Start:17-Oct-2021 Instruction Type:Patient Education How to access health informa tion online Indication:Nonsmoker Start:17-May-2020 Instruction Type:Patient Education How to access health informa tion online - Detail Indication:Nonsmoker Start:17-May-2020 Instruction Type:Patient Education Patient Instructions Indication:Nonsmoker Start:17-May-2020 Instruction Type:Provider Instructions for Treatment How to access health informa tion online Indication:Nonsmoker Start:20-Jan-2020 Instruction Type:Patient Education How to access health informa tion online - Detail Indication:Nonsmoker Start:20-Jan-2020 Instruction Type:Patient Education Patient Instructions Indication:Nonsmoker Start:20-Jan-2020 Instruction Type:Provider Instructions for Treatment How to access health informa tion online Indication:Nonsmoker Start:21-Oct-2019 Instruction Type:Patient Education How to access health informa tion online - Detail Indication:Nonsmoker Start:21-Oct-2019 Instruction Type:Patient Education Patient Instructions Indication:BMI 38.0-38.9,adult Start:21-Oct-2019 Instruction Type:Provider Instructions for Treatment How to access health informa tion online Indication:Nonsmoker Start:07-Oct-2019 Instruction Type:Patient Education How to access health informa tion online - Detail Indication:Nonsmoker Start:07-Oct-2019 Instruction Type:Patient Education Patient Instructions Indication:BMI 38.0-38.9,adult Start:07-Oct-2019 Instruction Type:Provider Instructions for Treatment How to access health informa tion online Indication:Nonsmoker Start:02-Oct-2019 Instruction Type:Patient Education How to access health informa tion online - Detail Indication:Nonsmoker Start:02-Oct-2019 Instruction Type:Patient Education Patient Instructions Indication:Nonsmoker Start:02-Oct-2019 Instruction Type:Provider Instructions for Treatment How to access health informa tion online Indication:Nonsmoker Start:15-Aug-2018 Instruction Type:Patient Education How to access health informa tion online - Detail Indication:Nonsmoker Start:15-Aug-2018 Instruction Type:Patient Education Patient Instructions Indication:Nonsmoker Start:15-Aug-2018 Instruction Type:Provider Instructions for Treatment How to access health informa tion online Indication:Nonsmoker Start:06-Aug-2018 Instruction Type:Patient Education How to access health informa tion online - Detail Indication:Nonsmoker Start:06-Aug-2018 Instruction Type:Patient Education Patient Instructions Indication:Nonsmoker Start:06-Aug-2018 Instruction Type:Provider Instructions for Treatment How to access health informa tion online Indication:Nonsmoker Start:18-Apr-2018 Instruction Type:Patient Education How to access health informa tion online - Detail Indication:Nonsmoker Start:18-Apr-2018 Instruction Type:Patient Education Patient Instructions Indication:Nonsmoker Start:18-Apr-2018 Instruction Type:Provider Instructions for Treatment How to access health informa tion online Indication:Hyperthyroidism Start:04-Oct-2017 Instruction Type:Patient Education How to access health informa tion online - Detail Indication:Hyperthyroidism Start:04-Oct-2017 Instruction Type:Patient Education Patient Instructions Indication:BMI 40.0-44.9, adult Start:04-Oct-2017 Instruction Type:Provider Instructions for Treatment How to access health informa tion online Indication:Unspecified otitis externa (Renamed from Otitis externa) Start:08-May-2017 Instruction Type:Patient Education How to access health informa tion online - Detail Indication:Unspecified otitis externa (Renamed from Otitis externa) Start:08-May-2017 Instruction Type:Patient Education Patient Instructions Indication:Unspecified otitis externa (Renamed from Otitis externa) Start:08-May-2017 Instruction Type:Provider Instructions for Treatment How to access health informa tion online Indication:Hyperthyroidism Start:22-Jul-2015 Instruction Type:Patient Education How to access health informa tion online - Detail Indication:Hyperthyroidism Start:22-Jul-2015 Instruction Type:Patient Education Patient Instructions Indication:Hyperthyroidism Start:22-Jul-2015 Instruction Type:Provider Instructions for Treatment How to access health informa tion online Indication:Hyperthyroidism Start:22-Apr-2015 Instruction Type:Patient Education How to access health informa tion online - Detail Indication:Hyperthyroidism Start:22-Apr-2015 Instruction Type:Patient Education Patient Instructions Indication:Hyperthyroidism Start:22-Apr-2015 Instruction Type:Provider Instructions for Treatment Patient Instructions Indication:Physical exam, routine Start:28-Mar-2015 Instruction Type:Provider Instructions for Treatment [facility]; [facility] Work Phone: Instructions* Name Dates Details Patient Instructions Indication:BMI 40.0-44.9, adult Start:26-Jul-2023 Instruction Type:Provider Instructions for Treatment How to Access Health Informa tion Online using Patient Portal and 3rd [employer] Apps Indication:BMI 40.0-44.9, adult Start:26-Jul-2023 Instruction Type:Patient Education Patient Instructions Indication:BMI 38.0-38.9,adult Start:11-Apr-2022 Instruction Type:Provider Instructions for Treatment How to Access Health Informa tion Online using Patient Portal and 3rd [employer] Apps Indication:BMI 38.0-38.9,adult Start:11-Apr-2022 Instruction Type:Patient Education Patient Instructions Indication:Nonsmoker Start:14-Mar-2022 Instruction Type:Provider Instructions for Treatment How to Access Health Informa tion Online using Patient Portal and 3rd [employer] Apps Indication:Nonsmoker Start:14-Mar-2022 Instruction Type:Patient Education Patient Instructions Indication:BMI 38.0-38.9,adult Start:17-Oct-2021 Instruction Type:Provider Instructions for Treatment How to Access Health Informa tion Online using Patient Portal and [employer]rd [employer] Apps Indication:BMI 38.0-38.9,adult Start:17-Oct-2021 Instruction Type:Patient Education How to access health informa tion online Indication:Nonsmoker Start:17-May-2020 Instruction Type:Patient Education How to access health informa tion online - Detail Indication:Nonsmoker Start:17-May-2020 Instruction Type:Patient Education Patient Instructions Indication:Nonsmoker Start:17-May-2020 Instruction Type:Provider Instructions for Treatment How to access health informa tion online Indication:Nonsmoker Start:20-Jan-2020 Instruction Type:Patient Education How to access health informa tion online - Detail Indication:Nonsmoker Start:20-Jan-2020 Instruction Type:Patient Education Patient Instructions Indication:Nonsmoker Start:20-Jan-2020 Instruction Type:Provider Instructions for Treatment How to access health informa tion online Indication:Nonsmoker Start:21-Oct-2019 Instruction Type:Patient Education How to access health informa tion online - Detail Indication:Nonsmoker Start:21-Oct-2019 Instruction Type:Patient Education Patient Instructions Indication:BMI 38.0-38.9,adult Start:21-Oct-2019 Instruction Type:Provider Instructions for Treatment How to access health informa tion online Indication:Nonsmoker Start:07-Oct-2019 Instruction Type:Patient Education How to access health informa tion online - Detail Indication:Nonsmoker Start:07-Oct-2019 Instruction Type:Patient Education Patient Instructions Indication:BMI 38.0-38.9,adult Start:07-Oct-2019 Instruction Type:Provider Instructions for Treatment How to access health informa tion online Indication:Nonsmoker Start:02-Oct-2019 Instruction Type:Patient Education How to access health informa tion online - Detail Indication:Nonsmoker Start:02-Oct-2019 Instruction Type:Patient Education Patient Instructions Indication:Nonsmoker Start:02-Oct-2019 Instruction Type:Provider Instructions for Treatment How to access health informa tion online Indication:Nonsmoker Start:15-Aug-2018 Instruction Type:Patient Education How to access health informa tion online - Detail Indication:Nonsmoker Start:15-Aug-2018 Instruction Type:Patient Education Patient Instructions Indication:Nonsmoker Start:15-Aug-2018 Instruction Type:Provider Instructions for Treatment How to access health informa tion online Indication:Nonsmoker Start:06-Aug-2018 Instruction Type:Patient Education How to access health informa tion online - Detail Indication:Nonsmoker Start:06-Aug-2018 Instruction Type:Patient Education Patient Instructions Indication:Nonsmoker Start:06-Aug-2018 Instruction Type:Provider Instructions for Treatment How to access health informa tion online Indication:Nonsmoker Start:18-Apr-2018 Instruction Type:Patient Education How to access health informa tion online - Detail Indication:Nonsmoker Start:18-Apr-2018 Instruction Type:Patient Education Patient Instructions Indication:Nonsmoker Start:18-Apr-2018 Instruction Type:Provider Instructions for Treatment How to access health informa tion online Indication:Hyperthyroidism Start:04-Oct-2017 Instruction Type:Patient Education How to access health informa tion online - Detail Indication:Hyperthyroidism Start:04-Oct-2017 Instruction Type:Patient Education Patient Instructions Indication:BMI 40.0-44.9, adult Start:04-Oct-2017 Instruction Type:Provider Instructions for Treatment How to access health informa tion online Indication:Unspecified otitis externa (Renamed from Otitis externa) Start:08-May-2017 Instruction Type:Patient Education How to access health informa tion online - Detail Indication:Unspecified otitis externa (Renamed from Otitis externa) Start:08-May-2017 Instruction Type:Patient Education Patient Instructions Indication:Unspecified otitis externa (Renamed from Otitis externa) Start:08-May-2017 Instruction Type:Provider Instructions for Treatment How to access health informa tion online Indication:Hyperthyroidism Start:22-Jul-2015 Instruction Type:Patient Education How to access health informa tion online - Detail Indication:Hyperthyroidism Start:22-Jul-2015 Instruction Type:Patient Education Patient Instructions Indication:Hyperthyroidism Start:22-Jul-2015 Instruction Type:Provider Instructions for Treatment How to access health informa tion online Indication:Hyperthyroidism Start:22-Apr-2015 Instruction Type:Patient Education How to access health informa tion online - Detail Indication:Hyperthyroidism Start:22-Apr-2015 Instruction Type:Patient Education Patient Instructions Indication:Hyperthyroidism Start:22-Apr-2015 Instruction Type:Provider Instructions for Treatment Patient Instructions Indication:Physical exam, routine Start:28-Mar-2015 Instruction Type:Provider Instructions for Treatment [facility] Work Phone: reason for referral (narrative)No reason for referral information availableWM[facility] Work Phone: Reason for visit Narrative* Imaging (Routine) - Pending Review Specialty Diagnoses / Procedures Referred By Suzy pulliam Referred To Contact Radiology Diagnoses Essential (primary) hypertension Procedures CT cardiac scoring wo IV contrast Michael Castillo, RESOURCE SPECIALIST-SAMPLE CLERK [address] [place] [address] Phone: tel: fax: Referral ID Status Reason Start Date Expiration Date Visits Requested Visits Authorized [id number] Pending Review Perform Procedure 01/15/2025 01/15/2026 1 1 [facility] Work Phone: Family History No Family History Records FoundUnknown Family Member Name Dates Details Brother 1 Comments:alcohol and drug de pendancy Status:Active Father Comments:Insulin dependant D iabetes type II, fibromyalgia, macular degeneration. Status:Active First Degree Relatives Comments:alcoholism, materna l uncle comitted suicide d/t alcoholism Status:Active Mother Comments:breast cancer, kidn ey cancer, hypothyroidism Status:Active Unknown Family Member Name Dates Details Brother 1 Comments:alcohol and drug de pendancy Status:Active Father Comments:Insulin dependant D iabetes type II, fibromyalgia, macular degeneration. Status:Active First Degree Relatives Comments:alcoholism, materna l uncle comitted suicide d/t alcoholism Status:Active Mother Comments:breast cancer, kidn ey cancer, hypothyroidism Status:Active Unknown Family Member Name Dates Details Brother 1 Comments:alcohol and drug de pendancy Status:Active Father Comments:Insulin dependant D iabetes type II, fibromyalgia, macular degeneration. Status:Active First Degree Relatives Comments:alcoholism, materna l uncle comitted suicide d/t alcoholism Status:Active Mother Comments:breast cancer, kidn ey cancer, hypothyroidism Status:Active Unknown Family Member Name Dates Details Brother 1 Comments:alcohol and drug de pendancy Status:Active Father Comments:Insulin dependant D iabetes type II, fibromyalgia, macular degeneration. Status:Active First Degree Relatives Comments:alcoholism, materna l uncle comitted suicide d/t alcoholism Status:Active Mother Comments:breast cancer, kidn ey cancer, hypothyroidism Status:Active Unknown Family Member Name Dates Details Brother 1 Comments:alcohol and drug de pendancy Status:Active Father Comments:Insulin dependant D iabetes type II, fibromyalgia, macular degeneration. Status:Active First Degree Relatives Comments:alcoholism, materna l uncle comitted suicide d/t alcoholism Status:Active Mother Comments:breast cancer, kidn ey cancer, hypothyroidism Status:Active Unknown Family Member Name Dates Details Brother 1 Comments:alcohol and drug de pendancy Status:Active Father Comments:Insulin dependant D iabetes type II, fibromyalgia, macular degeneration. Status:Active First Degree Relatives Comments:alcoholism, materna l uncle comitted suicide d/t alcoholism Status:Active Mother Comments:breast cancer, kidn ey cancer, hypothyroidism Status:Active Unknown Family Member Name Dates Details Brother 1 Comments:alcohol and drug de pendancy Status:Active Father Comments:Insulin dependant D iabetes type II, fibromyalgia, macular degeneration. Status:Active First Degree Relatives Comments:alcoholism, materna l uncle comitted suicide d/t alcoholism Status:Active Mother Comments:breast cancer, kidn ey cancer, hypothyroidism Status:Active Unknown Family Member Name Dates Details Brother 1 Comments:alcohol and drug de pendancy Status:Active Father Comments:Insulin dependant D iabetes type II, fibromyalgia, macular degeneration. Status:Active First Degree Relatives Comments:alcoholism, materna l uncle comitted suicide d/t alcoholism Status:Active Mother Comments:breast cancer, kidn ey cancer, hypothyroidism Status:Active Unknown Family Member Name Dates Details Brother 1 Comments:alcohol and drug de pendancy Status:Active Father Comments:Insulin dependant D iabetes type II, fibromyalgia, macular degeneration. Status:Active First Degree Relatives Comments:alcoholism, materna l uncle comitted suicide d/t alcoholism Status:Active Mother Comments:breast cancer, kidn ey cancer, hypothyroidism Status:Active Unknown Family Member Name Dates Details Brother 1 Comments:alcohol and drug de pendancy Status:Active Father Comments:Insulin dependant D iabetes type II, fibromyalgia, macular degeneration. Status:Active First Degree Relatives Comments:alcoholism, materna l uncle comitted suicide d/t alcoholism Status:Active Mother Comments:breast cancer, kidn ey cancer, hypothyroidism Status:Active Unknown Family Member Name Dates Details Brother 1 Comments:alcohol and drug de pendancy Status:Active Father Comments:Insulin dependant D iabetes type II, fibromyalgia, macular degeneration. Status:Active First Degree Relatives Comments:alcoholism, materna l uncle comitted suicide d/t alcoholism Status:Active Mother Comments:breast cancer, kidn ey cancer, hypothyroidism Status:Active Unknown Family Member Name Dates Details Brother 1 Comments:alcohol and drug de pendancy Status:Active Father Comments:Insulin dependant D iabetes type II, fibromyalgia, macular degeneration. Status:Active First Degree Relatives Comments:alcoholism, materna l uncle comitted suicide d/t alcoholism Status:Active Mother Comments:breast cancer, kidn ey cancer, hypothyroidism Status:Active Unknown Family Member Name Dates Details Brother 1 Comments:alcohol and drug de pendancy Status:Active Father Comments:Insulin dependant D iabetes type II, fibromyalgia, macular degeneration. Status:Active First Degree Relatives Comments:alcoholism, materna l uncle comitted suicide d/t alcoholism Status:Active Mother Comments:breast cancer, kidn ey cancer, hypothyroidism Status:Active Unknown Family Member Name Dates Details Brother 1 Comments:alcohol and drug de pendancy Status:Active Father Comments:T2DM, fibromyalgia, macular degeneration, prostate [place], [place] 2022 Status:Active First Degree Relatives Comments:alcoholism, materna l uncle comitted suicide d/t alcoholism Status:Active Mother Comments:breast cancer, kidn ey cancer, hypothyroidism Status:Active Unknown Family Member Name Dates Details Brother 1 Comments:alcohol and drug de pendancy Status:Active Father Comments:T2DM, fibromyalgia, macular degeneration, prostate [place], [place] 2022 Status:Active First Degree Relatives Comments:alcoholism, materna l uncle comitted suicide d/t alcoholism Status:Active Mother Comments:breast cancer, kidn ey cancer, hypothyroidism Status:Active Unknown Family Member Name Dates Details Brother 1 Comments:alcohol and drug de pendancy Status:Active Father Comments:T2DM, fibromyalgia, macular degeneration, prostate [place], [place] 2022 Status:Active First Degree Relatives Comments:alcoholism, materna l uncle comitted suicide d/t alcoholism Status:Active Mother Comments:breast cancer, kidn ey cancer, hypothyroidism Status:Active Unknown Family Member Name Dates Details Brother 1 Comments:alcohol and drug de pendancy Status:Active Father Comments:T2DM, fibromyalgia, macular degeneration, prostate [place], [place] 2022 Status:Active First Degree Relatives Comments:alcoholism, materna l uncle comitted suicide d/t alcoholism Status:Active Mother Comments:breast cancer, kidn ey cancer, hypothyroidism Status:Active Instructions Name Dates Details How to access health informa tion online Indication:Nonsmoker Start:02-Oct-2019 Instruction Type:Patient Education How to access health informa tion online - Detail Indication:Nonsmoker Start:02-Oct-2019 Instruction Type:Patient Education Patient Instructions Indication:Nonsmoker Start:02-Oct-2019 Instruction Type:Provider Instructions for Treatment How to access health informa tion online Indication:Nonsmoker Start:15-Aug-2018 Instruction Type:Patient Education How to access health informa tion online - Detail Indication:Nonsmoker Start:15-Aug-2018 Instruction Type:Patient Education Patient Instructions Indication:Nonsmoker Start:15-Aug-2018 Instruction Type:Provider Instructions for Treatment How to access health informa tion online Indication:Nonsmoker Start:06-Aug-2018 Instruction Type:Patient Education How to access health informa tion online - Detail Indication:Nonsmoker Start:06-Aug-2018 Instruction Type:Patient Education Patient Instructions Indication:Nonsmoker Start:06-Aug-2018 Instruction Type:Provider Instructions for Treatment How to access health informa tion online Indication:Nonsmoker Start:18-Apr-2018 Instruction Type:Patient Education How to access health informa tion online - Detail Indication:Nonsmoker Start:18-Apr-2018 Instruction Type:Patient Education Patient Instructions Indication:Nonsmoker Start:18-Apr-2018 Instruction Type:Provider Instructions for Treatment How to access health informa tion online Indication:Hyperthyroidism Start:04-Oct-2017 Instruction Type:Patient Education How to access health informa tion online - Detail Indication:Hyperthyroidism Start:04-Oct-2017 Instruction Type:Patient Education Patient Instructions Indication:BMI 40.0-44.9, adult Start:04-Oct-2017 Instruction Type:Provider Instructions for Treatment How to access health informa tion online Indication:Unspecified otitis externa (Renamed from Otitis externa) Start:08-May-2017 Instruction Type:Patient Education How to access health informa tion online - Detail Indication:Unspecified otitis externa (Renamed from Otitis externa) Start:08-May-2017 Instruction Type:Patient Education Patient Instructions Indication:Unspecified otitis externa (Renamed from Otitis externa) Start:08-May-2017 Instruction Type:Provider Instructions for Treatment How to access health informa tion online Indication:Hyperthyroidism Start:22-Jul-2015 Instruction Type:Patient Education How to access health informa tion online - Detail Indication:Hyperthyroidism Start:22-Jul-2015 Instruction Type:Patient Education Patient Instructions Indication:Hyperthyroidism Start:22-Jul-2015 Instruction Type:Provider Instructions for Treatment How to access health informa tion online Indication:Hyperthyroidism Start:22-Apr-2015 Instruction Type:Patient Education How to access health informa tion online - Detail Indication:Hyperthyroidism Start:22-Apr-2015 Instruction Type:Patient Education Patient Instructions Indication:Hyperthyroidism Start:22-Apr-2015 Instruction Type:Provider Instructions for Treatment Patient Instructions Indication:Physical exam, routine Start:28-Mar-2015 Instruction Type:Provider Instructions for Treatment Name Dates Details How to access health informa tion online Indication:Nonsmoker Start:02-Oct-2019 Instruction Type:Patient Education How to access health informa tion online - Detail Indication:Nonsmoker Start:02-Oct-2019 Instruction Type:Patient Education Patient Instructions Indication:Nonsmoker Start:02-Oct-2019 Instruction Type:Provider Instructions for Treatment How to access health informa tion online Indication:Nonsmoker Start:15-Aug-2018 Instruction Type:Patient Education How to access health informa tion online - Detail Indication:Nonsmoker Start:15-Aug-2018 Instruction Type:Patient Education Patient Instructions Indication:Nonsmoker Start:15-Aug-2018 Instruction Type:Provider Instructions for Treatment How to access health informa tion online Indication:Nonsmoker Start:06-Aug-2018 Instruction Type:Patient Education How to access health informa tion online - Detail Indication:Nonsmoker Start:06-Aug-2018 Instruction Type:Patient Education Patient Instructions Indication:Nonsmoker Start:06-Aug-2018 Instruction Type:Provider Instructions for Treatment How to access health informa tion online Indication:Nonsmoker Start:18-Apr-2018 Instruction Type:Patient Education How to access health informa tion online - Detail Indication:Nonsmoker Start:18-Apr-2018 Instruction Type:Patient Education Patient Instructions Indication:Nonsmoker Start:18-Apr-2018 Instruction Type:Provider Instructions for Treatment How to access health informa tion online Indication:Hyperthyroidism Start:04-Oct-2017 Instruction Type:Patient Education How to access health informa tion online - Detail Indication:Hyperthyroidism Start:04-Oct-2017 Instruction Type:Patient Education Patient Instructions Indication:BMI 40.0-44.9, adult Start:04-Oct-2017 Instruction Type:Provider Instructions for Treatment How to access health informa tion online Indication:Unspecified otitis externa (Renamed from Otitis externa) Start:08-May-2017 Instruction Type:Patient Education How to access health informa tion online - Detail Indication:Unspecified otitis externa (Renamed from Otitis externa) Start:08-May-2017 Instruction Type:Patient Education Patient Instructions Indication:Unspecified otitis externa (Renamed from Otitis externa) Start:08-May-2017 Instruction Type:Provider Instructions for Treatment How to access health informa tion online Indication:Hyperthyroidism Start:22-Jul-2015 Instruction Type:Patient Education How to access health informa tion online - Detail Indication:Hyperthyroidism Start:22-Jul-2015 Instruction Type:Patient Education Patient Instructions Indication:Hyperthyroidism Start:22-Jul-2015 Instruction Type:Provider Instructions for Treatment How to access health informa tion online Indication:Hyperthyroidism Start:22-Apr-2015 Instruction Type:Patient Education How to access health informa tion online - Detail Indication:Hyperthyroidism Start:22-Apr-2015 Instruction Type:Patient Education Patient Instructions Indication:Hyperthyroidism Start:22-Apr-2015 Instruction Type:Provider Instructions for Treatment Patient Instructions Indication:Physical exam, routine Start:28-Mar-2015 Instruction Type:Provider Instructions for Treatment Name Dates Details How to access health informa tion online Indication:Nonsmoker Start:07-Oct-2019 Instruction Type:Patient Education How to access health informa tion online - Detail Indication:Nonsmoker Start:07-Oct-2019 Instruction Type:Patient Education Patient Instructions Indication:BMI 38.0-38.9,adult Start:07-Oct-2019 Instruction Type:Provider Instructions for Treatment How to access health informa tion online Indication:Nonsmoker Start:02-Oct-2019 Instruction Type:Patient Education How to access health informa tion online - Detail Indication:Nonsmoker Start:02-Oct-2019 Instruction Type:Patient Education Patient Instructions Indication:Nonsmoker Start:02-Oct-2019 Instruction Type:Provider Instructions for Treatment How to access health informa tion online Indication:Nonsmoker Start:15-Aug-2018 Instruction Type:Patient Education How to access health informa tion online - Detail Indication:Nonsmoker Start:15-Aug-2018 Instruction Type:Patient Education Patient Instructions Indication:Nonsmoker Start:15-Aug-2018 Instruction Type:Provider Instructions for Treatment How to access health informa tion online Indication:Nonsmoker Start:06-Aug-2018 Instruction Type:Patient Education How to access health informa tion online - Detail Indication:Nonsmoker Start:06-Aug-2018 Instruction Type:Patient Education Patient Instructions Indication:Nonsmoker Start:06-Aug-2018 Instruction Type:Provider Instructions for Treatment How to access health informa tion online Indication:Nonsmoker Start:18-Apr-2018 Instruction Type:Patient Education How to access health informa tion online - Detail Indication:Nonsmoker Start:18-Apr-2018 Instruction Type:Patient Education Patient Instructions Indication:Nonsmoker Start:18-Apr-2018 Instruction Type:Provider Instructions for Treatment How to access health informa tion online Indication:Hyperthyroidism Start:04-Oct-2017 Instruction Type:Patient Education How to access health informa tion online - Detail Indication:Hyperthyroidism Start:04-Oct-2017 Instruction Type:Patient Education Patient Instructions Indication:BMI 40.0-44.9, adult Start:04-Oct-2017 Instruction Type:Provider Instructions for Treatment How to access health informa tion online Indication:Unspecified otitis externa (Renamed from Otitis externa) Start:08-May-2017 Instruction Type:Patient Education How to access health informa tion online - Detail Indication:Unspecified otitis externa (Renamed from Otitis externa) Start:08-May-2017 Instruction Type:Patient Education Patient Instructions Indication:Unspecified otitis externa (Renamed from Otitis externa) Start:08-May-2017 Instruction Type:Provider Instructions for Treatment How to access health informa tion online Indication:Hyperthyroidism Start:22-Jul-2015 Instruction Type:Patient Education How to access health informa tion online - Detail Indication:Hyperthyroidism Start:22-Jul-2015 Instruction Type:Patient Education Patient Instructions Indication:Hyperthyroidism Start:22-Jul-2015 Instruction Type:Provider Instructions for Treatment How to access health informa tion online Indication:Hyperthyroidism Start:22-Apr-2015 Instruction Type:Patient Education How to access health informa tion online - Detail Indication:Hyperthyroidism Start:22-Apr-2015 Instruction Type:Patient Education Patient Instructions Indication:Hyperthyroidism Start:22-Apr-2015 Instruction Type:Provider Instructions for Treatment Patient Instructions Indication:Physical exam, routine Start:28-Mar-2015 Instruction Type:Provider Instructions for Treatment Name Dates Details How to access health informa tion online Indication:Nonsmoker Start:17-May-2020 Instruction Type:Patient Education How to access health informa tion online - Detail Indication:Nonsmoker Start:17-May-2020 Instruction Type:Patient Education Patient Instructions Indication:Nonsmoker Start:17-May-2020 Instruction Type:Provider Instructions for Treatment How to access health informa tion online Indication:Nonsmoker Start:20-Jan-2020 Instruction Type:Patient Education How to access health informa tion online - Detail Indication:Nonsmoker Start:20-Jan-2020 Instruction Type:Patient Education Patient Instructions Indication:Nonsmoker Start:20-Jan-2020 Instruction Type:Provider Instructions for Treatment How to access health informa tion online Indication:Nonsmoker Start:21-Oct-2019 Instruction Type:Patient Education How to access health informa tion online - Detail Indication:Nonsmoker Start:21-Oct-2019 Instruction Type:Patient Education Patient Instructions Indication:BMI 38.0-38.9,adult Start:21-Oct-2019 Instruction Type:Provider Instructions for Treatment How to access health informa tion online Indication:Nonsmoker Start:07-Oct-2019 Instruction Type:Patient Education How to access health informa tion online - Detail Indication:Nonsmoker Start:07-Oct-2019 Instruction Type:Patient Education Patient Instructions Indication:BMI 38.0-38.9,adult Start:07-Oct-2019 Instruction Type:Provider Instructions for Treatment How to access health informa tion online Indication:Nonsmoker Start:02-Oct-2019 Instruction Type:Patient Education How to access health informa tion online - Detail Indication:Nonsmoker Start:02-Oct-2019 Instruction Type:Patient Education Patient Instructions Indication:Nonsmoker Start:02-Oct-2019 Instruction Type:Provider Instructions for Treatment How to access health informa tion online Indication:Nonsmoker Start:15-Aug-2018 Instruction Type:Patient Education How to access health informa tion online - Detail Indication:Nonsmoker Start:15-Aug-2018 Instruction Type:Patient Education Patient Instructions Indication:Nonsmoker Start:15-Aug-2018 Instruction Type:Provider Instructions for Treatment How to access health informa tion online Indication:Nonsmoker Start:06-Aug-2018 Instruction Type:Patient Education How to access health informa tion online - Detail Indication:Nonsmoker Start:06-Aug-2018 Instruction Type:Patient Education Patient Instructions Indication:Nonsmoker Start:06-Aug-2018 Instruction Type:Provider Instructions for Treatment How to access health informa tion online Indication:Nonsmoker Start:18-Apr-2018 Instruction Type:Patient Education How to access health informa tion online - Detail Indication:Nonsmoker Start:18-Apr-2018 Instruction Type:Patient Education Patient Instructions Indication:Nonsmoker Start:18-Apr-2018 Instruction Type:Provider Instructions for Treatment How to access health informa tion online Indication:Hyperthyroidism Start:04-Oct-2017 Instruction Type:Patient Education How to access health informa tion online - Detail Indication:Hyperthyroidism Start:04-Oct-2017 Instruction Type:Patient Education Patient Instructions Indication:BMI 40.0-44.9, adult Start:04-Oct-2017 Instruction Type:Provider Instructions for Treatment How to access health informa tion online Indication:Unspecified otitis externa (Renamed from Otitis externa) Start:08-May-2017 Instruction Type:Patient Education How to access health informa tion online - Detail Indication:Unspecified otitis externa (Renamed from Otitis externa) Start:08-May-2017 Instruction Type:Patient Education Patient Instructions Indication:Unspecified otitis externa (Renamed from Otitis externa) Start:08-May-2017 Instruction Type:Provider Instructions for Treatment How to access health informa tion online Indication:Hyperthyroidism Start:22-Jul-2015 Instruction Type:Patient Education How to access health informa tion online - Detail Indication:Hyperthyroidism Start:22-Jul-2015 Instruction Type:Patient Education Patient Instructions Indication:Hyperthyroidism Start:22-Jul-2015 Instruction Type:Provider Instructions for Treatment How to access health informa tion online Indication:Hyperthyroidism Start:22-Apr-2015 Instruction Type:Patient Education How to access health informa tion online - Detail Indication:Hyperthyroidism Start:22-Apr-2015 Instruction Type:Patient Education Patient Instructions Indication:Hyperthyroidism Start:22-Apr-2015 Instruction Type:Provider Instructions for Treatment Patient Instructions Indication:Physical exam, routine Start:28-Mar-2015 Instruction Type:Provider Instructions for Treatment Name Dates Details How to access health informa tion online Indication:Nonsmoker Start:17-May-2020 Instruction Type:Patient Education How to access health informa tion online - Detail Indication:Nonsmoker Start:17-May-2020 Instruction Type:Patient Education Patient Instructions Indication:Nonsmoker Start:17-May-2020 Instruction Type:Provider Instructions for Treatment How to access health informa tion online Indication:Nonsmoker Start:20-Jan-2020 Instruction Type:Patient Education How to access health informa tion online - Detail Indication:Nonsmoker Start:20-Jan-2020 Instruction Type:Patient Education Patient Instructions Indication:Nonsmoker Start:20-Jan-2020 Instruction Type:Provider Instructions for Treatment How to access health informa tion online Indication:Nonsmoker Start:21-Oct-2019 Instruction Type:Patient Education How to access health informa tion online - Detail Indication:Nonsmoker Start:21-Oct-2019 Instruction Type:Patient Education Patient Instructions Indication:BMI 38.0-38.9,adult Start:21-Oct-2019 Instruction Type:Provider Instructions for Treatment How to access health informa tion online Indication:Nonsmoker Start:07-Oct-2019 Instruction Type:Patient Education How to access health informa tion online - Detail Indication:Nonsmoker Start:07-Oct-2019 Instruction Type:Patient Education Patient Instructions Indication:BMI 38.0-38.9,adult Start:07-Oct-2019 Instruction Type:Provider Instructions for Treatment How to access health informa tion online Indication:Nonsmoker Start:02-Oct-2019 Instruction Type:Patient Education How to access health informa tion online - Detail Indication:Nonsmoker Start:02-Oct-2019 Instruction Type:Patient Education Patient Instructions Indication:Nonsmoker Start:02-Oct-2019 Instruction Type:Provider Instructions for Treatment How to access health informa tion online Indication:Nonsmoker Start:15-Aug-2018 Instruction Type:Patient Education How to access health informa tion online - Detail Indication:Nonsmoker Start:15-Aug-2018 Instruction Type:Patient Education Patient Instructions Indication:Nonsmoker Start:15-Aug-2018 Instruction Type:Provider Instructions for Treatment How to access health informa tion online Indication:Nonsmoker Start:06-Aug-2018 Instruction Type:Patient Education How to access health informa tion online - Detail Indication:Nonsmoker Start:06-Aug-2018 Instruction Type:Patient Education Patient Instructions Indication:Nonsmoker Start:06-Aug-2018 Instruction Type:Provider Instructions for Treatment How to access health informa tion online Indication:Nonsmoker Start:18-Apr-2018 Instruction Type:Patient Education How to access health informa tion online - Detail Indication:Nonsmoker Start:18-Apr-2018 Instruction Type:Patient Education Patient Instructions Indication:Nonsmoker Start:18-Apr-2018 Instruction Type:Provider Instructions for Treatment How to access health informa tion online Indication:Hyperthyroidism Start:04-Oct-2017 Instruction Type:Patient Education How to access health informa tion online - Detail Indication:Hyperthyroidism Start:04-Oct-2017 Instruction Type:Patient Education Patient Instructions Indication:BMI 40.0-44.9, adult Start:04-Oct-2017 Instruction Type:Provider Instructions for Treatment How to access health informa tion online Indication:Unspecified otitis externa (Renamed from Otitis externa) Start:08-May-2017 Instruction Type:Patient Education How to access health informa tion online - Detail Indication:Unspecified otitis externa (Renamed from Otitis externa) Start:08-May-2017 Instruction Type:Patient Education Patient Instructions Indication:Unspecified otitis externa (Renamed from Otitis externa) Start:08-May-2017 Instruction Type:Provider Instructions for Treatment How to access health informa tion online Indication:Hyperthyroidism Start:22-Jul-2015 Instruction Type:Patient Education How to access health informa tion online - Detail Indication:Hyperthyroidism Start:22-Jul-2015 Instruction Type:Patient Education Patient Instructions Indication:Hyperthyroidism Start:22-Jul-2015 Instruction Type:Provider Instructions for Treatment How to access health informa tion online Indication:Hyperthyroidism Start:22-Apr-2015 Instruction Type:Patient Education How to access health informa tion online - Detail Indication:Hyperthyroidism Start:22-Apr-2015 Instruction Type:Patient Education Patient Instructions Indication:Hyperthyroidism Start:22-Apr-2015 Instruction Type:Provider Instructions for Treatment Patient Instructions Indication:Physical exam, routine Start:28-Mar-2015 Instruction Type:Provider Instructions for Treatment Name Dates Details How to access health informa tion online Indication:Nonsmoker Start:02-Oct-2019 Instruction Type:Patient Education How to access health informa tion online - Detail Indication:Nonsmoker Start:02-Oct-2019 Instruction Type:Patient Education Patient Instructions Indication:Nonsmoker Start:02-Oct-2019 Instruction Type:Provider Instructions for Treatment How to access health informa tion online Indication:Nonsmoker Start:15-Aug-2018 Instruction Type:Patient Education How to access health informa tion online - Detail Indication:Nonsmoker Start:15-Aug-2018 Instruction Type:Patient Education Patient Instructions Indication:Nonsmoker Start:15-Aug-2018 Instruction Type:Provider Instructions for Treatment How to access health informa tion online Indication:Nonsmoker Start:06-Aug-2018 Instruction Type:Patient Education How to access health informa tion online - Detail Indication:Nonsmoker Start:06-Aug-2018 Instruction Type:Patient Education Patient Instructions Indication:Nonsmoker Start:06-Aug-2018 Instruction Type:Provider Instructions for Treatment How to access health informa tion online Indication:Nonsmoker Start:18-Apr-2018 Instruction Type:Patient Education How to access health informa tion online - Detail Indication:Nonsmoker Start:18-Apr-2018 Instruction Type:Patient Education Patient Instructions Indication:Nonsmoker Start:18-Apr-2018 Instruction Type:Provider Instructions for Treatment How to access health informa tion online Indication:Hyperthyroidism Start:04-Oct-2017 Instruction Type:Patient Education How to access health informa tion online - Detail Indication:Hyperthyroidism Start:04-Oct-2017 Instruction Type:Patient Education Patient Instructions Indication:BMI 40.0-44.9, adult Start:04-Oct-2017 Instruction Type:Provider Instructions for Treatment How to access health informa tion online Indication:Unspecified otitis externa (Renamed from Otitis externa) Start:08-May-2017 Instruction Type:Patient Education How to access health informa tion online - Detail Indication:Unspecified otitis externa (Renamed from Otitis externa) Start:08-May-2017 Instruction Type:Patient Education Patient Instructions Indication:Unspecified otitis externa (Renamed from Otitis externa) Start:08-May-2017 Instruction Type:Provider Instructions for Treatment How to access health informa tion online Indication:Hyperthyroidism Start:22-Jul-2015 Instruction Type:Patient Education How to access health informa tion online - Detail Indication:Hyperthyroidism Start:22-Jul-2015 Instruction Type:Patient Education Patient Instructions Indication:Hyperthyroidism Start:22-Jul-2015 Instruction Type:Provider Instructions for Treatment How to access health informa tion online Indication:Hyperthyroidism Start:22-Apr-2015 Instruction Type:Patient Education How to access health informa tion online - Detail Indication:Hyperthyroidism Start:22-Apr-2015 Instruction Type:Patient Education Patient Instructions Indication:Hyperthyroidism Start:22-Apr-2015 Instruction Type:Provider Instructions for Treatment Patient Instructions Indication:Physical exam, routine Start:28-Mar-2015 Instruction Type:Provider Instructions for Treatment Chief Complaint and Reason for Visit Chief Complaint SCREENING Chief Complaint POST MENOPAUSAL SCREENING Chief Complaint Admit Date FATTY LIVER June 10, 2025 7:42 am Reason for Referral Specialty Diagnoses / Procedures Referred By Contac t Referred To Contact Diagnoses Essential hypertension Prediabetes Class 3 severe obesity with serious comorbidity and body mass index (BMI) of 40.0 to 44.9 in adult, unspecified obesity type (HCC) Procedures CONSULT [facility] OFFICE/OUTPATIENT [facility] 60 MINUTES Leona Flowers MD [address] [place] [address] Referral ID Status Reason Start Date Expiration Date Visits Requested Visits Authorized [id number] Authorized PCP Requested Referral 01/17/2024 01/16/2025 1 1 Specialty Diagnoses / Procedures Referred By Contac t Referred To Contact Nutrition Diagnoses Essential hypertension Prediabetes Class 3 severe obesity with serious comorbidity and body mass index (BMI) of 40.0 to 44.9 in adult, unspecified obesity type (HCC) Procedures CONSULT TO NUTRITION THERAPY MEDICAL NUTRITION ASSMT&IVNTJ INDIV EACH 15 [place] MEDICAL NUTRITION ASSMT&IVNTJ INDIV EACH 15 [place] MEDICAL NUTRITION ASSMT&IVNTJ INDIV EACH 15 [place] MEDICAL NUTRITION ASSMT&IVNTJ INDIV EACH 15 [place] Leona Flowers MD [address] [place] [address] Referral ID Status Reason Start Date Expiration Date Visits Requested Visits Authorized [id number] Authorized PCP Requested Referral 01/17/2024 01/16/2025 1 1 Summary Purpose Advance Directives No Advanced Directives Records FoundNo Advanced Directives Records FoundNo Advanced Directives Records Found Additional Source Comments Goals (unrecognized section and content) Goals may be documented in a n alternate sectionGoals may be documented in an alternate sectionGoals may be documented in an alternate section Care Teams (unrecognized sec tion and content) Team Status: Active Member Role Status Dates Jazlyn Delong HYDROGEN PLANT OPERATOR, HYDROGEN PLANT OPERATOR-C Family Provider Active IVAN Wilson Primary Care Provider Active Team Status: Inactive Member Role Status Dates IVAN Wilson Primary Care Provi melani, Attending Provider, Referring Provider Active Team Status: Inactive Member Role Status Dates IVAN Wilson Primary Care Provider Active Dr. Emmanuel Weeks , DO Attending Provider, Referrin g Provider Active Order Entry Specialist Relationship Specialty Start Date End Date Michael Castillo APRN-TESS [id number] [facility] [address] [place], [place] [id number] PCP - General Family Medicine 02/13/25 Team Status: Active Member Role/Relationship Status Dates IVAN Wilson Primary Care Provider Active Team Status: Inactive Member Role/Relationship Status Dates IVAN Wilson Primary Care Provider Active Start: June 10, 2025 End: June 10, 2025 IVNA Wilson Attending Provider Active Start: June 10, 2025 End: June 10, 2025 IVAN Wilson Referring Provider Active Start: June 10, 2025 End: June 10, 2025 Source Comments (unrecognize d section and content) In the event this informatio n is protected by the Federal Confidentiality of Alcohol and Drug Abuse Patient Records regulations: The Federal rules restrict any use of the information to criminally investigate or prosecute any alcohol or drug abuse patient.[facility] the event this information is protected by the Federal Confidentiality of Alcohol and Drug Abuse Patient Records regulations: The Federal rules restrict any use of the information to criminally investigate or prosecute any alcohol or drug abuse patient.[facility] the event this information is protected by the Federal Confidentiality of Alcohol and Drug Abuse Patient Records regulations: The Federal rules restrict any use of the information to criminally investigate or prosecute any alcohol or drug abuse patient.[facility] the event this information is protected by the Federal Confidentiality of Alcohol and Drug Abuse Patient Records regulations: The Federal rules restrict any use of the information to criminally investigate or prosecute any alcohol or drug abuse patient.[facility] Reason for Visit (unrecogniz ed section and content) Reason Onset Date Comments Weight Management 01/17/2024 Reason Comments Weight Management Reason Comments Lesion On Left Lower Lid INFORMATION SOURCE (unrecogn ized section and content) DATE CREATED AUTHOR 02/20/2025 [facility] DATE CREATED AUTHOR AUTHOR'S ORGANIZ ATION 02/23/2025 [facility] DATE CREATED AUTHOR AUTHOR'S ORGANIZ ATION 10/04/2025 [facility] FOR RECORDS PERTAINING TO PATIENTS WHO ARE OR HAVE BEEN ENROLLED IN A CHEMICAL DEPENDENCY/SUBSTANCEABUSE PROGRAM, SOME INFORMATION MAY BE OMITTED. This clinical summary was aggregated from multiple sources. Caution should be exercised in using it in the provision of clinical care. This summary normalizes information from multiple sources, and as a consequence, information in this document may materially change the coding, format and clinical context of patient data. In addition, data may be omitted in some cases. CLINICAL DECISIONS SHOULD BE BASED ON THE PRIMARY CLINICAL RECORDS. [employer] provides no warranty or guarantee of the accuracy or completeness of information in this document.
--- NOTE | 2025-10-12 07:51 | BD_ITS ---
PROCEDURE: DEXA BONE DENSITY STUDY 10/12/2025 REASON FOR EXAM: F, age 60 y/o . TECHNIQUE: Procedure Code: BDDBD Modality: DX Procedure: DEXA BONE DENSITY STUDY COMPARISON: 14 August 2023. FINDINGS: BMD and T-SCORES Lumbar spine: 1.074 g/cm2, T-score 0.2 Levels: L1 through L4 Change from prior: 1.7%. Left femoral neck: 0.873 g/cm2, T-score 0.2 Femoral neck comparison data not recommended for monitoring change. Prior T-score 1.2 Left total hip: 1.037 g/cm2, T-score 0.8 Change from prior: 04.7%. The World Health Organization has defined the following categories based on bone density: Normal bone density: T-score equal to or greater than -1.0 Osteopenia: T-score between -1.0 and -2.5 Osteoporosis: T-score equal to or less than -2.5 FRAX (or Comparable) Fracture Risk Assessment: 10 Year Probability of Fracture: Major Osteoporotic Fracture: 5.4% Hip Fracture: 0.1% (Note: FRAX is not to be reported in setting of normal range bone density, osteoporosis on DEXA, known history of osteoporosis, prior osteoporotic hip or vertebral fracture, or for any patient undergoing pharmacological treatment for bone loss.) The National Osteoporosis Foundation (NOF) recommends pharmacological treatment for patients with a FRAX 10-year risk of 3% or higher for a hip fracture, or 20% or higher for a major osteoporotic fracture, to prevent osteoporosis and reduce fracture risk. BD/Dexa Bone Density Study IMPRESSION: Normal. Reading Location: [id number]
== END | disposition home or self-care (01) ==
PROVIDERS: PCP Nurse Practitioner Family; Referring Provider Nurse Practitioner Family; Visit Provider Nurse Practitioner Family
DX: Z78.0 Asymptomatic menopausal state (principal)
CPT/HCPCS: 77080

== ENCOUNTER → 2025-11-15 | Outpatient (CLI) | payer BC, SELFPAY ==
--- NOTE | 2025-11-15 07:40 | BI_ITS ---
EXAM: SCRN MAMM (CAD)W/FARIHA BILAT DATE: 11/15/2025 CLINICAL HISTORY: F, Age 60 y/o , SCRN MAMM (CAD)W/FARIHA BILAT TECHNIQUE: Procedure Code: [id number] Modality: MG Procedure: SCRN MAMM (CAD)W/FARIHA BILAT COMPARISON: Prior exam(s) dated 11/12/2024, 11/08/2023 and 11/06/2022. FINDINGS: TISSUE DENSITY: The breasts are almost entirely fatty. Bilateral Breast Mammographic Findings: Benign-appearing round microcalcifications are seen in both breasts. There are no suspicious masses, suspicious cluster of microcalcifications, architectural distortion or secondary signs of malignancy identified in either breast. A radiopaque clip is seen in the left breast. The biopsy was benign. Post biopsy site is stable. BI/SCRN MAMM (CAD)W/FARIHA BILAT IMPRESSION: Benign screening mammogram OVERALL FINAL ASSESSMENT BI-RADS 2: BENIGN RECOMMENDATION: Routine annual follow-up in 1 Year Additional Recommendation none A letter with findings and recommendations will be mailed to the patient. Reading Location: [id number]
== END | disposition home or self-care (01) ==
LOC: OPBD 07:38
PROVIDERS: PCP Nurse Practitioner Family; Referring Provider Nurse Practitioner Family; Visit Provider Nurse Practitioner Family
DX: Z12.31 Encounter for screening mammogram for malignant neoplasm of breast (principal)
CPT/HCPCS: 77063; 77067